=== PATIENT | male | born 1960 | race Caucasian/White ===

== ENCOUNTER 2018-05-16 19:02 | Emergency (ER) | payer OTHER ==
[2018-05-16] MEDS ORDERED: Pepcid 20 MG VIAL IV ONE ×2 (19:51→20:03)
[2018-05-16] MEDS ORDERED: solu-MEDROL 125 MG IV ONE (19:51)
[2018-05-16] MEDS ORDERED: BENADRYL 50 MG/ML IV ONE (19:51)
[2018-05-16] MEDS ORDERED: Sodium Chloride 0.9% 1000 ML 1,000 ML IV STA (19:51)
[2018-05-16] MEDS ORDERED: solu-MEDROL 125 MG ONE (20:03)
[2018-05-16] MEDS ORDERED: Sodium Chloride 0.9% 1000 ML 1,000 ML ONE (20:03)
[2018-05-16] MEDS ORDERED: BENADRYL 50 MG/ML ONE (20:03)
[2018-05-16 20:32] VITALS: BP 148/92; PULSE 60; O2SAT 96
--- NOTE | 2018-05-16 21:00 | ERPHSYRPT ---
- History of Present Illness Time Seen by Provider: 05/16/18 19:30 Source: patient Exam Limitations: clinical condition Patient Subjective Stated Complaint: pt arrives to ER with c/o rash pointing to bumps on right hip and leg started 1600 and is itching. started abx or wednesday for infection in mouth. 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 DENIES DIFFICULTY BREATHING OR SWALLOWING. Timing/Duration: yesterday Quality: itchy Severity: moderate Location: extremities, generalized Possible Causes: no cause identified Associated Symptoms: change in skin texture Allergies/Adverse Reactions: No Known Drug Allergies Allergy (Verified 05/16/18 19:22) Home Medications: Insulin Lispro [Humalog] 0 unit SQ .PRN 08/13/16 [History] Fenofibrate Nanocrystallized [Fenofibrate] 145 mg PO DAILY 01/26/17 [History] Gabapentin [Neurontin] 800 mg PO TID 01/26/17 [History] Losartan Potassium 50 mg [Cozaar 50 MG] 50 mg PO DAILY 01/26/17 [History] Simvastatin [Zocor] 20 mg PO HS 01/26/17 [History] Insulin Glargine,Hum.rec.anlog [Basaglar Kwikpen U-100] 70 units SQ 05/16/18 [ History] Hx Tetanus, Diphtheria Vaccination/Date Given: Yes Hx Influenza Vaccination/Date Given: Yes Hx Pneumococcal Vaccination/Date Given: No - Review of Systems Constitutional: No Fever, No Chills Eyes: No Symptoms Ears, Nose, & Throat: No Symptoms Respiratory: No Symptoms, No Cough, No Dyspnea Cardiac: No Symptoms, No Chest Pain, No Edema, No Syncope Abdominal/Gastrointestinal: No Abdominal Pain, No Nausea, No Vomiting, No Diarrhea Genitourinary Symptoms: No Dysuria Musculoskeletal: No Back Pain, No Neck Pain Skin: Pruritis, Skin Lesions, No Rash Neurological: No Dizziness, No Focal Weakness, No Sensory Changes Psychological: No Symptoms Endocrine: No Symptoms All Other Systems: Reviewed and Negative - Past Medical History Pertinent Past Medical History: Yes Endocrine Medical History: Diabetes Type II - Past Surgical History Past Surgical History: Yes - Social History Smoking Status: Current every day smoker Exposure to second hand smoke: No Drug Use: none Patient Lives Alone: No - Nursing Vital Signs Nursing Vital Signs: Initial Vital Signs Temperature 98.6 F 05/16/18 19:14 Pulse Rate 65 05/16/18 19:14 Respiratory Rate 18 05/16/18 19:14 Blood Pressure 188/88 05/16/18 19:14 O2 Sat by Pulse Oximetry 97 05/16/18 19:14 Pain Scale Pain Intensity 0 - Physical Exam General Appearance: no apparent distress, alert Ears, Nose, Throat Exam: normal ENT inspection, pharynx normal, moist mucous membranes Respiratory Exam: normal breath sounds, lungs clear, No respiratory distress Cardiovascular Exam: regular rate/rhythm, normal heart sounds Neurologic Exam: alert, oriented x 3, cooperative, normal mood/affect, sensation nml, No motor deficits Skin Exam: other (VESICULAR [employer]USTERS LESIONS) SpO2 Interpretation: normal SpO2: 96 Oxygen Delivery: Room Air Ordered Tests: Medication Summary Generic Name Dose Route Start Last Admin Trade Name Jaerth PRN Reason Stop Dose Admin Diphenhydramine HCl 50 mg 05/16/18 20:54 Benadryl 25 Mg Capsule PO 05/16/18 20:55 STAT ONE Sodium Chloride 1,000 mls @ 250 mls/hr 05/16/18 19:51 05/16/18 20:35 Sodium Chloride 0.9% 1000 Ml IV 05/16/18 23:50 250 mls/hr .Q4H STA Administration Discontinued Medications Generic Name Dose Route Start Last Admin Trade Name Jareth PRN Reason Stop Dose Admin Diphenhydramine HCl 50 mg 05/16/18 19:51 05/16/18 20:35 Benadryl 50 Mg/Ml IV 05/16/18 19:52 Not Given STAT ONE Diphenhydramine HCl Confirm 05/16/18 20:03 Benadryl 50 Mg/Ml Administered 05/16/18 20:04 Dose 50 mg .ROUTE .STK-MED ONE Famotidine 20 mg 05/16/18 19:51 05/16/18 20:35 Pepcid 20 Mg Vial IV 05/16/18 19:52 20 mg STAT ONE Administration Famotidine Confirm 05/16/18 20:03 Pepcid 20 Mg Vial Administered 05/16/18 20:04 Dose 20 mg IV .STK-MED ONE Sodium Chloride Confirm 05/16/18 20:03 Sodium Chloride 0.9% 1000 Ml Administered 05/16/18 20:04 Dose 1,000 mls @ ud .ROUTE .STK-MED ONE Methylprednisolone Sodium Succinate 125 mg 05/16/18 19:51 05/16/18 20:36 Solu-Medrol 125 Mg IV 05/16/18 19:52 125 mg STAT ONE Administration Methylprednisolone Sodium Succinate Confirm 05/16/18 20:03 Solu-Medrol 125 Mg Administered 05/16/18 20:04 Dose 125 mg .ROUTE .STK-MED ONE - Progress Progress: unchanged Progress Note: 05/16/18 20:57 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 PREDNISONE 20MG. 2 TABLETS DAILY FOR 5 DAYS. FOLLOWUP WITH YOUR PRIMARY CARE PROVIDER IN 5-7 DAYS. Prescriptions: Prednisone 20 mg [Deltasone 20 mg] 2 tab PO DAILY #10 tablet
[2018-05-16] MEDS: BENADRYL 25 MG CAPSULE PO ONE ×2 (21:04→21:13)
[2018-05-16] MEDS ORDERED: BENADRYL 25 MG CAPSULE ONE (21:12)
== END 2018-05-16 21:14 | disposition home or self-care (01) ==
LOC: ED 19:02
DX: L25.9 Unspecified contact dermatitis, unspecified cause (principal); E11.9 Type 2 diabetes mellitus without complications; Z72.0 Tobacco use; Z79.899 Other long term (current) drug therapy
CPT/HCPCS: 96360; 96374; 96375; 99284; J1200; J2930; A9270-GY

== ENCOUNTER 2018-06-21 02:22 | Emergency (ER) | payer OTHER ==
[2018-06-21] MEDS ORDERED: Sodium Chloride 0.9% 1000 ML 1,000 ML ONE (02:56)
[2018-06-21 03:30] VITALS: O2SAT 97
[2018-06-21] MEDS ORDERED: Zofran 4 MG/2 ML VIAL IV ONE (03:38)
[2018-06-21] MEDS ORDERED: Pepcid 20 MG VIAL IV ONE ×2 (03:38→03:43)
[2018-06-21] MEDS ORDERED: BENADRYL 50 MG/ML IV ONE (03:38)
[2018-06-21] MEDS ORDERED: Sodium Chloride 0.9% 1000 ML 1,000 ML IV STA (03:38)
--- NOTE | 2018-06-21 03:38 | ERPHSYRPT ---
- History of Present Illness Time Seen by Provider: 06/21/18 03:36 Source: patient, family Exam Limitations: no limitations Patient Subjective Stated Complaint: Pt states that he took his insulin at 2330 06/20/18 and at 0045 06/21/18 he developed itching of his head and neck. Developed red hives over ears, BUE, chest, and abdomen. Pt also c/o light headedness. Pt c/o nausea and vomiting. Cap refill time < 2 seconds. Peripheral pulses normal. Triage Nursing Assessment: Pt alert and oriented. Face pale in color. Red hives on bilat ears, BUE, abdomen, chest, and back. Pt c/o light headedness. Pt hypotensive. BG 417. Lung sounds clear bilat anterior/posterior throughout. Bowel sounds present x 4 quad. Pt has a hoarse voice quality but denies any SOB or swelling of mouth. Physician History: The patient is a 57-year-old male with his complaining that he started getting welts, red rash, and itching after taking a dose of insulin glargine. A few weeks ago he had a reaction to an unknown allergen that he suspected was the insulin glargine. He stopped taking it for a week. He tried it again and developed some itching. He had stopped taking this insulin once again for a week. He took it last night for the first time. He tried to take Benadryl after the rash and itching began but vomited immediately. He denies shortness of breath. He he is feeling better with regard to his skin itchiness currently. He says he feels a little lightheaded from time to time. He knows his blood glucose is high. He quit taking his medicines except for the insulin glargine. He has a past medical history of high cholesterol, hypertension, neuropathy, and diabetes. Timing/Duration: hour(s) (2), improved Quality: itchy Severity: moderate Location: torso, extremities Possible Causes: medications Associated Symptoms: hives, rash Allergies/Adverse Reactions: No Known Drug Allergies Allergy (Verified 05/16/18 19:22) Home Medications: Insulin Lispro [Humalog] 0 unit SQ .PRN 08/13/16 [History] Gabapentin [Neurontin] 800 mg PO TID 01/26/17 [History] Losartan Potassium 50 mg [Cozaar 50 MG] 50 mg PO DAILY 01/26/17 [History] Simvastatin [Zocor] 20 mg PO HS 01/26/17 [History] Insulin Glargine,Hum.rec.anlog [Basaglar Murtazaikpen U-100] 70 units SQ QHS [History] Hx Tetanus, Diphtheria Vaccination/Date Given: Yes Hx Influenza Vaccination/Date Given: No Hx Pneumococcal Vaccination/Date Given: No Immunizations Up to Date: Yes - Review of Systems Constitutional: No Fever, No Chills Eyes: No Symptoms Ears, Nose, & Throat: No Symptoms Respiratory: No Cough, No Dyspnea Cardiac: No Chest Pain, No Edema, No Syncope Abdominal/Gastrointestinal: No Abdominal Pain, No Nausea, No Vomiting, No Diarrhea Genitourinary Symptoms: No Dysuria Musculoskeletal: No Back Pain, No Neck Pain Skin: Rash Neurological: Dizziness Psychological: No Symptoms Endocrine: No Symptoms Hematologic/Lymphatic: No Symptoms Immunological/Allergic: No Symptoms All Other Systems: Reviewed and Negative - Past Medical History Pertinent Past Medical History: Yes Endocrine Medical History: Diabetes Type II - Past Surgical History Past Surgical History: Yes - Social History Smoking Status: Current every day smoker How long have you smoked: 44 years Exposure to second hand smoke: No Drug Use: none Patient Lives Alone: No - Nursing Vital Signs Nursing Vital Signs: Initial Vital Signs Temperature 98 F 06/21/18 02:22 Pulse Rate 79 06/21/18 02:22 Respiratory Rate 18 06/21/18 02:22 Blood Pressure 76/57 06/21/18 02:22 O2 Sat by Pulse Oximetry 96 06/21/18 02:22 Pain Scale Pain Intensity 0 - Physical Exam General Appearance: mild distress Eye Exam: PERRL/EOMI, eyes nml inspection Ears, Nose, Throat Exam: normal ENT inspection, pharynx normal, moist mucous membranes Neck Exam: normal inspection, non-tender, supple, full range of motion Respiratory Exam: normal breath sounds, lungs clear, No respiratory distress Cardiovascular Exam: regular rate/rhythm, normal heart sounds Gastrointestinal/Abdomen Exam: soft, mass, No tenderness Rectal Exam: not done Back Exam: normal inspection, normal range of motion, No CVA tenderness, No vertebral tenderness Extremity Exam: normal inspection, normal range of motion Neurologic Exam: alert, oriented x 3, cooperative, normal mood/affect, sensation nml, No motor deficits Skin Exam: rash (faint red rash over forearms and chest) SpO2 Interpretation: normal SpO2: 97 Oxygen Delivery: Room Air Ordered Tests: Active Orders 24 hr Category Date Time Status IV Insertion STAT Care 06/21/18 03:38 Active Pulse Oximetry (ED) STAT Care 06/21/18 03:38 Active BMP Stat Lab 06/21/18 03:30 Completed CBC W DIFF Stat Lab 06/21/18 03:30 Completed Medication Summary Generic Name Dose Route Start Last Admin Trade Name Freq PRN Reason Stop Dose Admin Sodium Chloride 1,000 mls @ 999 mls/hr 06/21/18 03:38 06/21/18 03:49 Sodium Chloride 0.9% 1000 Ml IV 06/21/18 04:38 999 mls/hr .Q1H1M STA Administration Discontinued Medications Generic Name Dose Route Start Last Admin Trade Name Freq PRN Reason Stop Dose Admin Diphenhydramine HCl 50 mg 06/21/18 03:38 06/21/18 03:48 Benadryl 50 Mg/Ml IV 06/21/18 03:39 50 mg STAT ONE Administration Diphenhydramine HCl Confirm 06/21/18 03:43 Benadryl 50 Mg/Ml Administered 06/21/18 03:44 Dose 50 mg .ROUTE .STK-MED ONE Famotidine 20 mg 06/21/18 03:38 06/21/18 03:48 Pepcid 20 Mg Vial IV 06/21/18 03:39 20 mg STAT ONE Administration Famotidine Confirm 06/21/18 03:43 Pepcid 20 Mg Vial Administered 06/21/18 03:44 Dose 20 mg IV .STK-MED ONE Sodium Chloride Confirm 06/21/18 02:56 Sodium Chloride 0.9% 1000 Ml Administered 06/21/18 02:57 Dose 1,000 mls @ ud .ROUTE .STK-MED ONE Ondansetron HCl 4 mg 06/21/18 03:38 06/21/18 03:49 Zofran 4 Mg/2 Ml Vial IV 06/21/18 03:39 4 mg STAT ONE Administration Ondansetron HCl Confirm 06/21/18 03:43 Zofran 4 Mg/2 Ml Vial Administered 06/21/18 03:44 Dose 4 mg .ROUTE .STK-MED ONE Lab/Rad Data: Laboratory Result Diagrams 06/21/18 03:30 06/21/18 03:30 Laboratory Results 06/21/18 06/21/18 Range/Units 03:30 03:30 WBC 11.5 H (4.0-10.5) K/mm3 RBC 4.58 (4.1-5.6) M/mm3 Hgb 14.7 (12.5-18.0) gm/dl Hct 41.8 L (42-50) % MCV 91.3 (78-100) fl MCH 32.1 H (26-32) pg MCHC 35.2 (32-36) g/dl RDW 12.4 (11.5-14.0) % Plt Count 283 (150-450) K/mm3 MPV 12.6 H (6-9.5) fl Gran % 63.7 (36.0-66.0) % Eos # (Auto) 0.24 (0-0.5) Absolute Lymphs (auto) 3.29 (1.0-4.6) Absolute Monos (auto) 0.63 (0.0-1.3) Lymphocytes % 28.6 (24.0-44.0) % Monocytes % 5.5 (0.0-12.0) % Eosinophils % 2.1 (0.00-5.0) % Basophils % 0.1 (0.0-0.4) % Absolute Granulocytes 7.33 H (1.4-6.9) Basophils # 0.01 (0-0.4) Sodium 137 (137-145) mmol/L Potassium 3.9 (3.5-5.1) mmol/L Chloride 101 (98-107) mmol/L Carbon Dioxide 25 (22-30) mmol/L Anion Gap 14.7 (5-15) MEQ/L BUN 20 (9-20) mg/dL Creatinine 0.86 (0.66-1.25) mg/dL Estimated GFR > 60.0 ML/MIN Glucose 407 H (74-106) mg/dL Calcium 9.4 (8.4-10.2) mg/dL - Progress Progress: improved Progress Note: 06/21/18 04:26 Accucheck is 419 after NS. Pt is feeling better and wants to go home. Counseled pt/family regarding: lab results, diagnosis, need for follow-up - Departure Time of Disposition: 04:29 Departure Disposition: Home Clinical Impression: Allergic reaction caused by a drug, Elevated random blood glucose level Condition: Stable Critical Care Time: No Referrals: CATALINA TALBERT [Primary Care Provider] - Additional Instructions: You had an allergic reaction likely to the insulin glargine. He also have an elevated blood glucose level. You were given famotidine 20 mg, Benadryl 50 mg, and fluids by IV in the ER. Please follow-up with your primary medical doctor this week.
[2018-06-21] MEDS ORDERED: BENADRYL 50 MG/ML ONE (03:43)
[2018-06-21] MEDS ORDERED: Zofran 4 MG/2 ML VIAL ONE (03:43)
[2018-06-21 03:58] LABS: ANION GAP 14.7 MEQ/L (5-15); BLOOD UREA NITROGEN 20 mg/dL (9-20); CHLORIDE 101 mmol/L (98-107); Calcium 9.4 mg/dL (8.4-10.2); Carbon Dioxide 25 mmol/L (22-30); Creatinine 1 0.86 mg/dL (0.66-1.25); Glucose 407 mg/dL (74-106); Potassium 3.9 mmol/L (3.5-5.1); SODIUM 137 mmol/L (137-145)
[2018-06-21 04:01] LABS: BASOPHIL % 0.1 % (0.0-0.4); Basophil (Absolute #) 0.01 (0-0.4); Eosinophil % 2.1 % (0.00-5.0); Eosinophil (Absolute #) 0.24 (0-0.5); Granulocyte Absolute (ANC) 7.33 (1.4-6.9); Granulocytes % 63.7 % (36.0-66.0); Hematocrit 41.8 % (42-50); Hemoglobin 14.7 gm/dl (12.5-18.0); Lymphocyte (Absolute #) 3.29 (1.0-4.6); Lymphocytes % 28.6 % (24.0-44.0); Mean Cell Volume 91.3 fl (78-100); Mean Corpuscular Hemoglobin 32.1 pg (26-32); Mean Corpuscular Hgb Concent. 35.2 g/dl (32-36); Mean Platelet Volume 12.6 fl (6-9.5); Monocyte (Absolute #) 0.63 (0.0-1.3); Monocytes % 5.5 % (0.0-12.0); Platelet Count 283 K/mm3 (150-450); Red Blood Count 4.58 M/mm3 (4.1-5.6); Red Cell Distribution Width 12.4 % (11.5-14.0); White Blood Count 11.5 K/mm3 (4.0-10.5)
[2018-06-21 04:25] VITALS: BP 126/73; PULSE 64
== END 2018-06-21 04:42 | disposition home or self-care (01) ==
LOC: ED 02:22
DX: L27.0 Generalized skin eruption due to drugs and medicaments taken internally (principal); L29.9 Pruritus, unspecified; T50.905A Adverse effect of unspecified drugs, medicaments and biological substances, initial encounter; Z79.899 Other long term (current) drug therapy
CPT/HCPCS: 36415; 80048; 82962; 85025; 96360; 96374; 96375; 99284; J1200; J2405

== ENCOUNTER 2019-05-31 17:52 | Emergency (ER) | payer OTHER ==
--- NOTE | 2019-05-31 18:46 | ERPHSYRPT ---
- History of Present Illness Time Seen by Provider: 05/31/19 18:30 Source: patient Exam Limitations: no limitations Patient Subjective Stated Complaint: PT states "I had a stent put in my left leg a month ago by Dr. Berg. Ever since, the swelling has not gone down. Now I have these bumps on my leg and my legs are still swollen." Triage Nursing Assessment: Pt presented alert and oriented X 3, ski pwd Pt ambulates with an upright steady gait, able to speak in clear full sentences pt in no apparent respiratory distress. PT legs pitting edema bilat. Physician History: tthe patient had a stent placed in the left upper leg by Dr. Berg in [place], [place] one month ago. Patient comes in with bilateral lower extremity swelling for the past one month after the procedure and worsening swelling over the past one week. Patient has been able to ambulate without any difficulties and denies any pain to the areas. His greatest concern is for scattered erythematous patches on his lower extremities below the knee and one large patch on the medial aspect of his left ankle that are nonpainful nonpruritic. Method of Injury: other (no injury) Occurred: other (one month ago, worse over the past one week) Quality: constant Severity of Pain-Max: none Severity of Pain-Current: none Lower Extremities Pain: hip: bilateral, foot: bilateral, ankle: bilateral Modifying Factors: Improves With: nothing Associated Symptoms: No unable to bear weight, No dizzy, No fainted, No seizure , No snapping sensation, No popping sensation Allergies/Adverse Reactions: No Known Drug Allergies Allergy (Verified 05/16/18 19:22) Home Medications: Gabapentin [Neurontin] 800 mg PO TID 01/26/17 [History] Losartan Potassium 50 mg [Cozaar 50 MG] 100 mg PO DAILY 01/26/17 [History] Simvastatin [Zocor] 40 mg PO DAILY 01/26/17 [History] Aspirin [Aspirin EC] 81 mg PO DAILY 05/31/19 [History] Clopidogrel Bisulfate [Clopidogrel] 75 mg PO DAILY 05/31/19 [History] Ezetimibe 10 mg [Zetia 10 MG] 10 mg PO DAILY 05/31/19 [History] Fenofibrate Nanocrystallized [Fenofibrate] 145 mg PO DAILY 05/31/19 [History] Furosemide 20 mg [Lasix 20 mg] 20 mg PO DAILY 05/31/19 [History] Insulin Lispro [Admelog] 100 unit SQ DAILY 05/31/19 [History] Metoprolol Succinate [Toprol Xl] 50 mg PO DAILY 05/31/19 [History] Omeprazole 20 mg PO DAILY 05/31/19 [History] Hx Tetanus, Diphtheria Vaccination/Date Given: No Hx Influenza Vaccination/Date Given: No Hx Pneumococcal Vaccination/Date Given: No Immunizations Up to Date: Yes - Review of Systems Constitutional: No Fever, No Chills Eyes: No Symptoms Ears, Nose, & Throat: No Symptoms, No Nose Congestion, No Mouth Swelling, No Throat Swelling, No Painful Swallowing Respiratory: No Cough, No Dyspnea, No Dyspnea on Exertion (CRUZ), No Stridor, No Wheezing Cardiac: No Chest Pain, No Edema, No Syncope Abdominal/Gastrointestinal: No Abdominal Pain, No Nausea, No Vomiting, No Diarrhea Genitourinary Symptoms: No Dysuria, No Hematuria, No Urinary Retention Musculoskeletal: No Back Pain, No Neck Pain, No Injury, No Joint Swelling, No Myalgias Skin: No Rash Neurological: No Dizziness, No Focal Weakness, No Parasthesia, No Sensory Changes, No Tremors Psychological: No Symptoms Endocrine: No Symptoms, No Excessive Sweating Hematologic/Lymphatic: No Easy Bleeding, No Easy Bruising All Other Systems: Reviewed and Negative - Past Medical History Pertinent Past Medical History: Yes Neurological History: Peripheral Neuropathy ENT History: No Pertinent History Cardiac History: High Cholesterol, Hypertension Respiratory History: No Pertinent History Endocrine Medical History: Diabetes Type II Musculoskeletal History: No Pertinent History GI Medical History: GERD History: No Pertinent History Psycho-Social History: No Pertinent History Male Reproductive Disorders: No Pertinent History - Past Surgical History Past Surgical History: Yes Neuro Surgical History: No Pertinent History Cardiac: No Pertinent History Respiratory: No Pertinent History Gastrointestinal: No Pertinent History Genitourinary: No Pertinent History Musculoskeletal: No Pertinent History Male Surgical History: No Pertinent History Other Surgical History: stent in left leg - Social History Smoking Status: Current every day smoker How long have you smoked: years Exposure to second hand smoke: Yes Drug Use: none Patient Lives Alone: No - Nursing Vital Signs Nursing Vital Signs: Initial Vital Signs Temperature 98.6 F 05/31/19 18:17 Pulse Rate 67 05/31/19 18:17 Respiratory Rate 18 05/31/19 18:17 Blood Pressure 179/80 05/31/19 18:17 O2 Sat by Pulse Oximetry 96 05/31/19 18:17 Pain Scale Pain Intensity 0 - Physical Exam General Appearance: no apparent distress, alert Eyes, Ears, Nose, Throat Exam: moist mucous membranes Neck Exam: normal inspection, non-tender, supple, No lymphadenopathy (R) Cardiovascular/Respiratory Exam: chest non-tender, normal breath sounds, regular rate/rhythm, no respiratory distress Gastrointestinal/Abdominal Exam: non-tender, soft, No no organomegaly, No guarding, No tenderness Back Exam: normal inspection, No CVA tenderness, No vertebral tenderness Hips Exam: bilateral: non-tender, normal inspection, normal range of motion Legs Exam: bilateral leg: non-tender, normal inspection, normal range of motion , no evidence of injury Knees Exam: bilateral knee: non-tender, normal inspection, normal range of motion, no evidence of injury Ankle Exam: bilateral ankle: non-tender, normal range of motion, no evidence of injury, swelling Foot Exam: bilateral foot: non-tender, normal range of motion DTR - Lower Extremities Exam: ankle (R): 2+, ankle (L): 2+ Neuro/Tendon Exam: normal sensation, normal motor functions Mental Status Exam: alert, oriented x 3, cooperative Skin Exam: normal color, warm, dry, rash, other (erythematous patches scattered on the bilateral lower extremities, largest of concern is a confluent circular erythematous patch on the left medial anle), No cyanosis, No decubitus, No ecchymosis, No jaundice, No laceration SpO2 Interpretation: normal SpO2: 96 O2 Delivery: Room Air - Course Nursing assessment & vital signs reviewed: Yes EKG Interpreted by Me: RATE (62), Left Avalon Deviation, NORMAL INTERVALS, NORMAL QRS, NORMAL ST-T, Other (no change from 08/13/2016) - Radiology Exams Chest X-ray Interpretation: Interpreted by me, Reviewed by me, No Pneumonia, No Pneumothorax, Nml Mediastinum, Other (Cardiomegaly) Ordered Tests: Active Orders 24 hr Category Date Time Status Plug Shaper Hand STAT Care 05/31/19 18:43 Active EKG-ER Only STAT Care 05/31/19 18:44 Active CHEST 1 VIEW (PORTABLE) Stat Exams 05/31/19 18:42 Taken CBC W DIFF Stat Lab 05/31/19 19:10 Completed CK-Creatinine Phosphokinase Stat Lab 05/31/19 19:10 Completed CMP Stat Lab 05/31/19 19:10 Completed Lactic Acid Stat Lab 05/31/19 19:19 Completed MAGNESIUM Stat Lab 05/31/19 19:10 Completed NT PRO BNP Stat Lab 05/31/19 19:10 Completed PROTIME WITH INR Stat Lab 05/31/19 19:10 Completed PTT Stat Lab 05/31/19 19:10 Completed TSH, 3RD Generation Stat Lab 05/31/19 19:10 Completed Urinalysis with Microscopy Stat Lab 05/31/19 20:00 Completed Lab/Rad Data: Laboratory Result Diagrams 05/31/19 19:10 05/31/19 19:10 Laboratory Results 05/31/19 05/31/19 05/31/19 Range/Units 20:00 19:19 19:10 WBC (4.0-10.5) K/mm3 RBC (4.1-5.6) M/mm3 Hgb (12.5-18.0) gm/dl Hct (42-50) % MCV (78-100) fl MCH (26-32) pg MCHC (32-36) g/dl RDW (11.5-14.0) % Plt Count (150-450) K/mm3 MPV (6-9.5) fl Gran % (36.0-66.0) % Eos # (Auto) (0-0.5) Absolute Lymphs (auto) (1.0-4.6) Absolute Monos (auto) (0.0-1.3) Lymphocytes % (24.0-44.0) % Monocytes % (0.0-12.0) % Eosinophils % (0.00-5.0) % Basophils % (0.0-0.4) % Absolute Granulocytes (1.4-6.9) Basophils # (0-0.4) PT (8.83-12.87) SECONDS INR (0.8-3.0) APTT (24.1-36.1) SECONDS Sodium (137-145) mmol/L Potassium (3.5-5.1) mmol/L Chloride (98-107) mmol/L Carbon Dioxide (22-30) mmol/L Anion Gap (5-15) MEQ/L BUN (9-20) mg/dL Creatinine (0.66-1.25) mg/dL Estimated GFR ML/MIN Glucose (74-106) mg/dL Lactic Acid 1.2 (0.4-2.0) Calcium (8.4-10.2) mg/dL Magnesium (1.6-2.3) mg/dL Total Bilirubin (0.2-1.3) mg/dL AST (17-59) U/L ALT (0-50) U/L Alkaline Phosphatase (38-126) U/L Creatine Kinase 83 (55-170) U/L NT-Pro-B Natriuret Pep (0-900) pg/mL Serum Total Protein (6.3-8.2) g/dL Albumin (3.5-5.0) g/dL TSH 3rd Generation 0.586 (0.47-4.68) mIU/L Urine Color YELLOW (YELLOW) Urine Appearance CLEAR (CLEAR) Urine pH 6.0 (5-6) Ur Specific [place] 1.013 (1.005-1.025) Urine Protein 100 (Negative) Urine Ketones NEGATIVE (NEGATIVE) Urine Blood NEGATIVE (0-5) Vincenzo/ul Urine Nitrite NEGATIVE (NEGATIVE) Urine Bilirubin NEGATIVE (NEGATIVE) Urine Urobilinogen NEGATIVE (0-1) mg/dL Ur Leukocyte Esterase NEGATIVE (NEGATIVE) Urine WBC (Auto) NONE (0-5) /HPF Urine RBC (Auto) 0-2 (0-2) /HPF U Epithel Cells (Auto) NONE (FEW) /HPF Urine Bacteria (Auto) NONE (NEGATIVE) /HPF Other Casts (Auto) 2-5 (NEGATIVE) /LPF Urine Mucus (Auto) SLIGHT (NEGATIVE) /HPF Urine Glucose 50 (NEGATIVE) mg/dL 05/31/19 05/31/19 05/31/19 Range/Units 19:10 19:10 19:10 WBC 6.9 (4.0-10.5) K/mm3 RBC 3.58 L (4.1-5.6) M/mm3 Hgb 11.1 L (12.5-18.0) gm/dl Hct 34.2 L (42-50) % MCV 95.5 (78-100) fl MCH 31.0 (26-32) pg MCHC 32.5 (32-36) g/dl RDW 13.6 (11.5-14.0) % Plt Count 236 (150-450) K/mm3 MPV 11.1 H (6-9.5) fl Gran % 54.0 (36.0-66.0) % Eos # (Auto) 0.28 (0-0.5) Absolute Lymphs (auto) 2.18 (1.0-4.6) Absolute Monos (auto) 0.66 (0.0-1.3) Lymphocytes % 31.7 (24.0-44.0) % Monocytes % 9.6 (0.0-12.0) % Eosinophils % 4.1 (0.00-5.0) % Basophils % 0.6 (0.0-0.4) % Absolute Granulocytes 3.71 (1.4-6.9) Basophils # 0.04 (0-0.4) PT 10.1 (8.83-12.87) SECONDS INR 0.90 (0.8-3.0) APTT 32.6 (24.1-36.1) SECONDS Sodium 144 (137-145) mmol/L Potassium 4.0 (3.5-5.1) mmol/L Chloride 111 H (98-107) mmol/L Carbon Dioxide 28 (22-30) mmol/L Anion Gap 9.1 (5-15) MEQ/L BUN 22 H (9-20) mg/dL Creatinine 1.39 H (0.66-1.25) mg/dL Estimated GFR 56.2 ML/MIN Glucose 186 H (74-106) mg/dL Lactic Acid (0.4-2.0) Calcium 9.0 (8.4-10.2) mg/dL Magnesium 2.0 (1.6-2.3) mg/dL Total Bilirubin 0.30 (0.2-1.3) mg/dL AST 22 (17-59) U/L ALT 16 (0-50) U/L Alkaline Phosphatase 72 (38-126) U/L Creatine Kinase (55-170) U/L NT-Pro-B Natriuret Pep 810 (0-900) pg/mL Serum Total Protein 6.5 (6.3-8.2) g/dL Albumin 3.6 (3.5-5.0) g/dL TSH 3rd Generation (0.47-4.68) mIU/L Urine Color (YELLOW) Urine Appearance (CLEAR) Urine pH (5-6) Ur Specific [place] (1.005-1.025) Urine Protein (Negative) Urine Ketones (NEGATIVE) Urine Blood (0-5) Vincenzo/ul Urine Nitrite (NEGATIVE) Urine Bilirubin (NEGATIVE) Urine Urobilinogen (0-1) mg/dL Ur Leukocyte Esterase (NEGATIVE) Urine WBC (Auto) (0-5) /HPF Urine RBC (Auto) (0-2) /HPF U Epithel Cells (Auto) (FEW) /HPF Urine Bacteria (Auto) (NEGATIVE) /HPF Other Casts (Auto) (NEGATIVE) /LPF Urine Mucus (Auto) (NEGATIVE) /HPF Urine Glucose (NEGATIVE) mg/dL - Progress Progress: unchanged, re-examined Progress Note: 05/31/19 22:[address] Xiao, physician covering for the patient's provider, the patient's presentation and lab results. Dr. Xiao felt the patient is not a candidate for inpatient admission at this time due to the renal insufficiency, but did recommend cutting the Lasix down from 20 mg once daily to 10 mg once daily and to follow up in the office on 06/01/2019. patient had no signs of any arterial insufficiency on his examination, no signs for concern of allergic to any DVTs senses no change in large are a circumference on one side versus the other, and no sensation of cold, pallor, or cyanosis of the lower extremities bilaterally on reevaluation. Discussed with : Gosia Will see patient in: office Counseled pt/family regarding: lab results, diagnosis, need for follow-up, rad results - Departure Departure Disposition: Home Clinical Impression: Stasis dermatitis of both legs, Bilateral lower extremity edema, Acute renal insufficiency Hypertension Qualifiers: Hypertension type: essential hypertension Qualified Code(s): I10 - Essential ( primary) hypertension Condition: Good Critical Care Time: No Referrals: CATALINA TALBERT [Primary Care Provider] - 06/01/19 Instructions: Dependent Edema (DC), Peripheral Edema -- Bilateral, Skin Rash ( DC), High Blood Pressure (DC) Additional Instructions: decrease your Lasix from 20 mg once daily to 10 mg once daily, or half the dose. return immediately back to the emergency department if any discoloration , sensation of cold, increased swelling of a lower extremity versus the other, increased pain, or any other concerning signs or symptoms for immediate reevaluation in the emergency department. Prescriptions: Lukasz.stocking,Thigh,Reg,Med [Futuro Anti-Embolism] 1 each MC DAILY #2 each
[2019-05-31 19:13] LABS: BASOPHIL % 0.6 % (0.0-0.4); Basophil (Absolute #) 0.04 (0-0.4); Eosinophil % 4.1 % (0.00-5.0); Eosinophil (Absolute #) 0.28 (0-0.5); Granulocyte Absolute (ANC) 3.71 (1.4-6.9); Hematocrit 34.2 % (42-50); Hemoglobin 11.1 gm/dl (12.5-18.0); Lymphocyte (Absolute #) 2.18 (1.0-4.6); Lymphocytes % 31.7 % (24.0-44.0); Mean Cell Volume 95.5 fl (78-100); Mean Corpuscular Hgb Concent. 32.5 g/dl (32-36); Mean Platelet Volume 11.1 fl (6-9.5); Monocyte (Absolute #) 0.66 (0.0-1.3); Monocytes % 9.6 % (0.0-12.0); Platelet Count 236 K/mm3 (150-450); Red Blood Count 3.58 M/mm3 (4.1-5.6); Red Cell Distribution Width 13.6 % (11.5-14.0); White Blood Count 6.9 K/mm3 (4.0-10.5)
[2019-05-31 19:19] LABS: INR 0.9 (0.8-3.0); PROTIME 10.1 SECONDS (8.83-12.87)
[2019-05-31 19:22] LABS: PTT 32.6 SECONDS (24.1-36.1)
[2019-05-31 19:33] LABS: ALBUMIN 3.6 g/dL (3.5-5.0); ANION GAP 9.1 MEQ/L (5-15); BILIRUBIN,TOTAL 0.3 mg/dL (0.2-1.3); Creatinine 1 1.39 mg/dL (0.66-1.25); Total Protein 6.5 g/dL (6.3-8.2)
[2019-05-31 20:05] LABS: TSH, 3RD Generation 0.586 mIU/L (0.47-4.68)
[2019-05-31 20:20] LABS: Appearance CLEAR (CLEAR); Bilirubin NEGATIVE (NEGATIVE); Blood NEGATIVE Ery/ul (0-5); Glucose 50 mg/dL (NEGATIVE); Ketones NEGATIVE (NEGATIVE); Leukocyte Esterase NEGATIVE (NEGATIVE); Mucus SLIGHT /HPF (NEGATIVE); Nitrite NEGATIVE (NEGATIVE); Protein,Urine Dip 100 (Negative); RBC 0-2 /HPF (0-2); Specific Gravity 1.013 (1.005-1.025); Urobilinogen NEGATIVE mg/dL (0-1)
[2019-05-31 23:18] VITALS: BP 170/74; PULSE 62; O2SAT 98
--- NOTE | 2019-06-01 08:53 | XRAY ---
Indication: Bilateral lower extremity edema. Comparison: August 13, 2016. Portable apical lordotic chest less inflated and remains clear again with incidental scattered calcified granulomas. Heart is borderline enlarged. Bony thorax intact again with mild degenerative changes. Impression: Nonacute underinflated chest with chronic features.
== END 2019-05-31 22:21 | disposition home or self-care (01) ==
LOC: ED 17:52
DX: I87.2 Venous insufficiency (chronic) (peripheral) (principal); R60.0 Localized edema; N28.9 Disorder of kidney and ureter, unspecified; I10 Essential (primary) hypertension
CPT/HCPCS: 36000; 36415; 71045; 80053; 81001; 82550; 83605; 83735; 83880; 84443; 85025; 85610; 85730; 93005; 93041; 99284

== ENCOUNTER 2020-04-06 09:59 | Emergency (ER) | payer OTHER ==
[2020-04-06 10:09] VITALS: BP 116/85; PULSE 81; O2SAT 100
--- NOTE | 2020-04-06 10:13 | ERPHSYRPT ---
- History of Present Illness Time Seen by Provider: 04/06/20 10:12 Source: patient Exam Limitations: no limitations Patient Subjective Stated Complaint: Pt has had swelling in the right lateral side of face by his ear for the past 3 days and is causing pain to the ear and his jaw Triage Nursing Assessment: Pt brought his self to the ER, vitals wnl, rates pain in face as 8/10, unable to see any swelling in the back of mouth, pulses normal, afebrile, doesn't appear to be in any distress Physician History: 59 years old presented in the ER with chief complaint of right parotid area swelling which started 4 days ago after dime size and gradually increasing in size to currently about walnut size associated with moderate to severe pain right face, earache and mild headache. Denies any fever or chills associated with it. Pain is aggravated with movements of jaw, palpation. Denies any change in taste, dryness of mouth. Denies any testicular swelling. No sick contact. Timing/Duration: day(s) (4), gradual onset, worse Quality: painful Severity: moderate Location: face Possible Causes: no cause identified Associated Symptoms: denies symptoms Allergies/Adverse Reactions: insulin glargine [From Basaglar KwikPen U-100 Insulin] Allergy (Verified 04/06/20 10:10) Home Medications: Gabapentin [Neurontin] 800 mg PO TID 01/26/17 [History] Losartan Potassium 50 mg [Cozaar 50 MG] 100 mg PO DAILY 01/26/17 [History] Simvastatin [Zocor] 100 mg PO DAILY 01/26/17 [History] Aspirin [Aspirin EC] 81 mg PO DAILY 05/31/19 [History] Clopidogrel Bisulfate [Clopidogrel] 75 mg PO DAILY 05/31/19 [History] Ezetimibe 10 mg [Zetia 10 MG] 10 mg PO DAILY 05/31/19 [History] Furosemide 20 mg [Lasix 20 mg] 20 mg PO DAILY 05/31/19 [History] Insulin Lispro [Admelog] 100 unit SQ DAILY 05/31/19 [History] Metoprolol Succinate [Toprol Xl] 50 mg PO DAILY 05/31/19 [History] Omeprazole 20 mg PO DAILY 05/31/19 [History] Empagliflozin [Jardiance] 25 mg PO DAILY 04/06/20 [History] Sitagliptin Phosphate [Januvia] 100 mg PO DAILY 04/06/20 [History] Hx Tetanus, Diphtheria Vaccination/Date Given: No Hx Influenza Vaccination/Date Given: No Hx Pneumococcal Vaccination/Date Given: No Travel Risk - International Travel Have you traveled outside of the country in past 3 weeks: No - Coronavirus Screening Are you exhibiting any of the following symptoms?: No Close contact with a COVID-19 positive Pt in past 14-21 Days: No - Review of Systems Constitutional: No Symptoms Eyes: No Symptoms Ears, Nose, & Throat: Ear Pain, Painful Swallowing Respiratory: No Symptoms Cardiac: No Symptoms Abdominal/Gastrointestinal: No Symptoms Genitourinary Symptoms: No Symptoms Musculoskeletal: No Symptoms Skin: No Symptoms Neurological: No Symptoms Psychological: No Symptoms Endocrine: No Symptoms Hematologic/Lymphatic: No Symptoms - Past Medical History Pertinent Past Medical History: Yes Neurological History: Peripheral Neuropathy ENT History: No Pertinent History Cardiac History: High Cholesterol, Hypertension Respiratory History: No Pertinent History Endocrine Medical History: Diabetes Type II Musculoskeletal History: No Pertinent History GI Medical History: GERD History: No Pertinent History Psycho-Social History: No Pertinent History Male Reproductive Disorders: No Pertinent History - Past Surgical History Past Surgical History: Yes Neuro Surgical History: No Pertinent History Cardiac: No Pertinent History Respiratory: No Pertinent History Gastrointestinal: No Pertinent History Genitourinary: No Pertinent History Musculoskeletal: No Pertinent History Male Surgical History: No Pertinent History Other Surgical History: stent in left leg - Social History Smoking Status: Current every day smoker How long have you smoked: years Exposure to second hand smoke: Yes Drug Use: none Patient Lives Alone: Yes - Nursing Vital Signs Nursing Vital Signs: Initial Vital Signs Temperature 97.7 F 04/06/20 10:02 Pulse Rate 81 04/06/20 10:02 Blood Pressure 116/85 04/06/20 10:02 O2 Sat by Pulse Oximetry 100 04/06/20 10:02 Pain Scale Pain Intensity 8 - Physical Exam General Appearance: no apparent distress Eye Exam: PERRL/EOMI, eyes nml inspection Ears, Nose, Throat Exam: TMs normal, pharynx normal, moist mucous membranes, other (3 x 5 cm oval-shaped swelling in front of right ear. Firm consistency. Tender to touch. No increased temperature or redness.) Neck Exam: normal inspection Respiratory Exam: normal breath sounds, lungs clear Cardiovascular Exam: regular rate/rhythm, normal heart sounds Gastrointestinal/Abdomen Exam: soft, No tenderness Extremity Exam: normal inspection Neurologic Exam: alert, oriented x 3, cooperative, windlasser II-XII nml as tested, normal mood/affect Skin Exam: normal color SpO2 Interpretation: normal SpO2: 100 O2 Delivery: Room Air - Course Nursing assessment & vital signs reviewed: Yes - Progress Progress: unchanged, pain not gone completely Progress Note: 04/06/20 10:35 I believe patient is developing parotitis. I have offered him blood work and CT imaging but patient does not want to have it done today and wants to try symptomatic treatment. Although patient does not have fever or chills but he is diabetic, I would start him on Augmentin as well. This seems more of a viral etiology but have recommended outpatient follow-up with ENT for further evaluation to rule out other causes like malignancy/abscess etc. Patient is advised to return ER if increasing pain swelling or develop fever chills. Counseled pt/family regarding: diagnosis, need for follow-up - Departure Departure Disposition: Home Clinical Impression: Acute parotitis Condition: Stable Critical Care Time: No Referrals: CATALINA TALBERT [Primary Care Provider] - (2 Days for reevaluation) LV FOREMAN MD [CONSULTING PHYSICIAN] - (2 days for reevaluation) Instructions: Parotitis Additional Instructions: Take pain medications as needed. Follow-up with primary care and ENT for reevaluation. Return to ER for worsening pain, altered taste, dryness of mouth or if develop fever or chills. Prescriptions: Hydrocodone/APAP 5-325 Tab^^^ [[place] 5-325 Tablet^^^] 1 tab PO Q6HPRN PRN #10 tablet MDD 6 PRN Reason: Pain Amox Tr/Potass Clav. 875 mg [Augmentin 875-125 Tablet] 875 mg PO BID #20 tablet
[2020-04-06] MEDS ORDERED: PERCOCET TABLET 5/325MG PO ONE (10:35)
[2020-04-06] MEDS ORDERED: PERCOCET TABLET 5/325MG ONE (10:38)
== END 2020-04-06 10:48 | disposition home or self-care (01) ==
LOC: ED 09:59
DX: K11.20 Sialoadenitis, unspecified (principal)
CPT/HCPCS: 99283; A9270-GY

== ENCOUNTER 2020-11-17 17:49 | Emergency (ER) | payer OTHER ==
[2020-11-17] MEDS ORDERED: MORPHINE SULFATE 4 MG INJ IV ONE (18:11)
[2020-11-17] MEDS ORDERED: Zofran 4 MG/2 ML VIAL IV ONE (18:11)
[2020-11-17] MEDS ORDERED: MORPHINE SULFATE 4 MG INJ ONE (18:15)
[2020-11-17] MEDS ORDERED: Zofran 4 MG/2 ML VIAL ONE (18:15)
--- NOTE | 2020-11-17 18:34 | ERPHSYRPT ---
- History of Present Illness Source: patient Exam Limitations: no limitations Patient Subjective Stated Complaint: pt here for swelling to both lower legs for 5 days now, with breakdown of skin,no drainage Triage Nursing Assessment: pt alert, walked in, resp easy .skin w/w/d, has swelling to lower legs with breakdown of skin, Timing/Duration: day(s) (5), gradual onset, worse Severity: moderate Modifying Factors: Improves With: immobilization. Worsens With: movement Associated Symptoms: rash, No chills, No fever Hx Tetanus, Diphtheria Vaccination/Date Given: No Hx Influenza Vaccination/Date Given: No Hx Pneumococcal Vaccination/Date Given: No <VALENTINA WASHBURN - Last Filed: 11/17/20 18:53> <RUPESH GIBSON - Last Filed: 11/17/20 19:41> - History of Present Illness Time Seen by Provider: 11/17/20 17:51 Physician History: 60 years old male with a history of diabetes mellitus, peripheral neuropathy, peripheral vascular disease with stenting left lower extremity, tobacco abuse presented in the ER with bilateral lower extremity swelling and pain for the last 5 days. Patient reports he has usually left leg always swollen than the right one but for the last 5 days both legs are increasing in swelling and redness and since yesterday is having some skin breaks/abrasions although patient denies scratching or picking. Denies any fever or chills. Pain is moderate intensity sharp nature, aggravated with palpation and walking and partial relief with resting. Patient also noted some tightness in both eyes. Denies any chest pain palpitations or shortness of breath but reports having some wheezing with lying down for the last couple of days. He has been taking Lasix but the swelling does not seem to be improving. (VALENTINA WASHBURN) Allergies/Adverse Reactions: insulin glargine [From Basaglar KwikPen U-100 Insulin] Allergy (Verified 11/17/20 18:00) Home Medications: Gabapentin [Neurontin] 800 mg PO TID 01/26/17 [History] Losartan Potassium 50 mg [Cozaar 50 MG] 100 mg PO DAILY 01/26/17 [History] Simvastatin [Zocor] 100 mg PO DAILY 01/26/17 [History] Aspirin [Aspirin EC] 81 mg PO DAILY 05/31/19 [History] Clopidogrel Bisulfate [Clopidogrel] 75 mg PO DAILY 05/31/19 [History] Ezetimibe 10 mg [Zetia 10 MG] 10 mg PO DAILY 05/31/19 [History] Furosemide 20 mg [Lasix 20 mg] 20 mg PO DAILY 05/31/19 [History] Insulin Lispro [Admelog] 100 unit SQ DAILY 05/31/19 [History] Metoprolol Succinate [Toprol Xl] 50 mg PO DAILY 05/31/19 [History] Omeprazole 20 mg PO DAILY 05/31/19 [History] Empagliflozin [Jardiance] 25 mg PO DAILY 04/06/20 [History] Travel Risk - International Travel Have you traveled outside of the country in past 3 weeks: No - Coronavirus Screening Are you exhibiting any of the following symptoms?: No Close contact with a COVID-19 positive Pt in past 14-21 Days: No <VALENTINA WASHBURN - Last Filed: 11/17/20 18:53> - Review of Systems Constitutional: No Symptoms Eyes: No Symptoms Ears, Nose, & Throat: No Symptoms Respiratory: Wheezing Cardiac: No Symptoms Abdominal/Gastrointestinal: No Symptoms Genitourinary Symptoms: No Symptoms Musculoskeletal: No Injury Skin: Cellulitis, Induration, Rash, Skin Lesions Neurological: Parasthesia Psychological: No Symptoms Endocrine: No Symptoms Immunological/Allergic: No Symptoms <VALENTINA WASHBURN - Last Filed: 11/17/20 18:53> - Past Medical History Pertinent Past Medical History: Yes Neurological History: Peripheral Neuropathy ENT History: No Pertinent History Cardiac History: High Cholesterol, Hypertension Respiratory History: No Pertinent History Endocrine Medical History: Diabetes Type II Musculoskeletal History: No Pertinent History GI Medical History: GERD History: No Pertinent History Psycho-Social History: No Pertinent History Male Reproductive Disorders: No Pertinent History - Past Surgical History Past Surgical History: Yes Neuro Surgical History: No Pertinent History Cardiac: No Pertinent History Respiratory: No Pertinent History Gastrointestinal: No Pertinent History Genitourinary: No Pertinent History Musculoskeletal: No Pertinent History Male Surgical History: No Pertinent History Other Surgical History: stent in left leg - Social History Smoking Status: Current every day smoker How long have you smoked: years Exposure to second hand smoke: Yes Drug Use: none Patient Lives Alone: Yes <VALENTINA WASHBURN - Last Filed: 11/17/20 18:53> - Physical Exam General Appearance: no apparent distress Eye Exam: PERRL/EOMI, eyes nml inspection Ears, Nose, Throat Exam: normal ENT inspection, pharynx normal Neck Exam: normal inspection, supple, full range of motion Respiratory Exam: normal breath sounds, lungs clear Cardiovascular Exam: regular rate/rhythm, normal heart sounds Gastrointestinal/Abdomen Exam: soft, normal bowel sounds, No tenderness Back Exam: normal inspection, normal range of motion Extremity Exam: sara's sign, inflammation, pedal edema, swelling, tenderness, other (Bilateral lower extremity diffuse swelling from knees down with superficial skin breaks. Warm and mildly tender to touch.) Neurologic Exam: alert, oriented x 3, cooperative, milk vendor II-XII nml as tested Skin Exam: normal color SpO2 Interpretation: normal SpO2: 97 O2 Delivery: Room Air <VALENTINA WASHBURN - Last Filed: 11/17/20 18:53> - Nursing Vital Signs Nursing Vital Signs: Initial Vital Signs Temperature 97.9 F 11/17/20 17:54 Pulse Rate 70 11/17/20 17:54 Respiratory Rate 18 11/17/20 17:54 Blood Pressure 167/64 11/17/20 17:54 O2 Sat by Pulse Oximetry 97 11/17/20 17:54 Pain Scale Pain Intensity 2 - Course Nursing assessment & vital signs reviewed: Yes - Radiology Ultrasound Exam Venous Lower Extremity Ultrasound: Other (US tech stating no evidence of DVT. Awaiting formal radiology review that will take place tomorrow morning per hospital and department policy.) <RUPESH GIBSON - Last Filed: 11/17/20 19:41> Ordered Tests: Active Orders 24 hr Category Date Time Status IV Insertion STAT Care 11/17/20 18:10 Active CHEST 1 VIEW (PORTABLE) Stat Exams 11/17/20 18:10 Ordered ULTRASOUND BILATERAL LOWER EXTREMITY [VENOUS BILATERAL Exams 11/17/20 19:29 T aken EXTREMITY] [US] Stat BLOOD CULTURE Stat Lab 11/17/20 18:20 Received CBC W DIFF Stat Lab 11/17/20 18:39 Completed CMP Stat Lab 11/17/20 18:39 Completed Lactic Acid Stat Lab 11/17/20 18:15 Completed MAGNESIUM Stat Lab 11/17/20 18:39 Completed NT PRO BNP Stat Lab 11/17/20 18:39 Completed TROPONIN Q3H Lab 11/17/20 18:30 Completed TROPONIN Q3H Lab 11/17/20 21:15 Ordered TROPONIN Q3H Lab 11/18/20 00:15 Ordered TROPONIN Q3H Lab 11/18/20 03:15 Ordered TROPONIN Q3H Lab 11/18/20 06:15 Ordered Medication Summary Discontinued Medications Generic Name Dose Route Start Last Admin Trade Name Freq PRN Reason Stop Dose Admin Morphine Sulfate 4 mg 11/17/20 18:11 11/17/20 18:17 Morphine Sulfate 4 Mg Inj IV 11/17/20 18:12 4 mg STAT ONE Administration Morphine Sulfate Confirm 11/17/20 18:15 Morphine Sulfate 4 Mg Inj Administered 11/17/20 18:16 Dose 4 mg .ROUTE .STK-MED ONE Ondansetron HCl 4 mg 11/17/20 18:11 11/17/20 18:17 Zofran 4 Mg/2 Ml Vial IV 11/17/20 18:12 4 mg STAT ONE Administration Ondansetron HCl Confirm 11/17/20 18:15 Zofran 4 Mg/2 Ml Vial Administered 11/17/20 18:16 Dose 4 mg .ROUTE .STK-MED ONE Lab/Rad Data: Laboratory Result Diagrams 11/17/20 18:39 11/17/20 18:39 Laboratory Results 11/17/20 11/17/20 11/17/20 Range/Units 18:39 18:39 18:30 WBC 8.6 (4.0-10.5) K/mm3 RBC 3.38 L (4.1-5.6) M/mm3 Hgb 10.1 L (12.5-18.0) gm/dl Hct 31.9 L (42-50) % MCV 94.4 (78-100) fl MCH 29.9 (26-32) pg MCHC 31.7 L (32-36) g/dl RDW 13.7 (11.5-14.0) % Plt Count 277 (150-450) K/mm3 MPV 11.1 H (7.5-11.0) fl Gran % 64.1 (36.0-66.0) % Eos # (Auto) 0.26 (0-0.5) Absolute Lymphs (auto) 2.05 (1.0-4.6) Absolute Monos (auto) 0.74 (0.0-1.3) Lymphocytes % 23.8 L (24.0-44.0) % Monocytes % 8.6 (0.0-12.0) % Eosinophils % 3.0 (0.00-5.0) % Basophils % 0.5 (0.0-0.4) % Absolute Granulocytes 5.51 (1.4-6.9) Basophils # 0.04 (0-0.4) Sodium 138 (137-145) mmol/L Potassium 3.7 (3.5-5.1) mmol/L Chloride 104 (98-107) mmol/L Carbon Dioxide 29 (22-30) mmol/L Anion Gap 7.4 (5-15) MEQ/L BUN 19 (9-20) mg/dL Creatinine 1.09 (0.66-1.25) mg/dL Estimated GFR > 60.0 ML/MIN Glucose 172 H (74-106) mg/dL Lactic Acid (0.4-2.0) Calcium 8.2 L (8.4-10.2) mg/dL Magnesium 2.7 H (1.6-2.3) mg/dL Total Bilirubin 0.30 (0.2-1.3) mg/dL AST 23 (17-59) U/L ALT 17 (0-50) U/L Alkaline Phosphatase 131 H (38-126) U/L Troponin I 0.033 (0.000-0.034) ng/mL NT-Pro-B Natriuret Pep 1110 H (0-900) pg/mL Serum Total Protein 6.2 L (6.3-8.2) g/dL Albumin 3.4 L (3.5-5.0) g/dL 11/17/20 Range/Units 18:15 WBC (4.0-10.5) K/mm3 RBC (4.1-5.6) M/mm3 Hgb (12.5-18.0) gm/dl Hct (42-50) % MCV (78-100) fl MCH (26-32) pg MCHC (32-36) g/dl RDW (11.5-14.0) % Plt Count (150-450) K/mm3 MPV (7.5-11.0) fl Gran % (36.0-66.0) % Eos # (Auto) (0-0.5) Absolute Lymphs (auto) (1.0-4.6) Absolute Monos (auto) (0.0-1.3) Lymphocytes % (24.0-44.0) % Monocytes % (0.0-12.0) % Eosinophils % (0.00-5.0) % Basophils % (0.0-0.4) % Absolute Granulocytes (1.4-6.9) Basophils # (0-0.4) Sodium (137-145) mmol/L Potassium (3.5-5.1) mmol/L Chloride (98-107) mmol/L Carbon Dioxide (22-30) mmol/L Anion Gap (5-15) MEQ/L BUN (9-20) mg/dL Creatinine (0.66-1.25) mg/dL Estimated GFR ML/MIN Glucose (74-106) mg/dL Lactic Acid 0.7 (0.4-2.0) Calcium (8.4-10.2) mg/dL Magnesium (1.6-2.3) mg/dL Total Bilirubin (0.2-1.3) mg/dL AST (17-59) U/L ALT (0-50) U/L Alkaline Phosphatase (38-126) U/L Troponin I (0.000-0.034) ng/mL NT-Pro-B Natriuret Pep (0-900) pg/mL Serum Total Protein (6.3-8.2) g/dL Albumin (3.5-5.0) g/dL <VALENTINA WASHBURN - Last Filed: 11/17/20 18:53> - Progress Progress: unchanged Counseled pt/family regarding: lab results, diagnosis, need for follow-up, rad results <RUPESH GIBSON - Last Filed: 11/17/20 19:41> - Progress Progress Note: 11/17/20 18:53 Work-up is pending, care is transferred to Dr. Gibson at shift change for final disposition. (VALENTINA WASHBURN) 11/17/20 19:13 Patient care transitioned to tx with lower extremity US pending to eval for DVT. 11/17/20 19:33 Patient reassessed and in no obvious distress. No hypoxia and in no respiratory distress. Lung sounds clear. Patient appears to be suffering from bilateral lower extremity edema and may be developing chronic lymphedema. Has appears of eschar and wounds noted to anterior lower extremities but some increased warmth. No abscess, induration or purulent drainage. Signs of stasis dermatitis and PVD noted in both lower extremities. Patient states he hasn't been compliant with a low sodium diet lately and has not been elevating his legs at rest. Also, he reports he has three pairs of compression stockings but does not wear them. He was encourage to consume 2g or less of sodium, elevate his legs at rest, and start wearing his compression stockings to help alleviate his symptoms. I don't think his diuretic dose needs to be changed at this time and will emperically prescribe keflex incase he is developing a cellulitis. (RUPESH GIBSON) <VALENTINA WASHBURN - Last Filed: 11/17/20 18:53> - Departure Departure Disposition: Home Critical Care Time: No <RUPESH GIBSON - Last Filed: 11/17/20 19:41> - Departure Clinical Impression: Edema of both lower extremities due to peripheral venous insufficiency Condition: Stable Referrals: CATALINA TALBERT [Primary Care Provider] - Instructions: Lymphedema (DC) Additional Instructions: Please consume no more than 2 grams of sodium a day. Start keeping your legs and feet elevated while at rest. Please start wearing your compression stockings daily. Prescriptions: Cephalexin Mh 500 mg [Keflex 500 mg] 500 mg PO QID 7 Days #28 capsule
[2020-11-17 18:57] LABS: Absolute Neutrophil Ct (ANC) 5.51 (1.4-6.9); BASOPHIL % 0.5 % (0.0-0.4); Basophil (Absolute #) 0.04 (0-0.4); Eosinophil (Absolute #) 0.26 (0-0.5); Hematocrit 31.9 % (42-50); Hemoglobin 10.1 gm/dl (12.5-18.0); Lymphocyte (Absolute #) 2.05 (1.0-4.6); Lymphocytes % 23.8 % (24.0-44.0); Mean Cell Volume 94.4 fl (78-100); Mean Corpuscular Hemoglobin 29.9 pg (26-32); Mean Corpuscular Hgb Concent. 31.7 g/dl (32-36); Mean Platelet Volume 11.1 fl (7.5-11.0); Monocyte (Absolute #) 0.74 (0.0-1.3); Monocytes % 8.6 % (0.0-12.0); Neutrophil % 64.1 % (36.0-66.0); Platelet Count 277 K/mm3 (150-450); Red Blood Count 3.38 M/mm3 (4.1-5.6); Red Cell Distribution Width 13.7 % (11.5-14.0); White Blood Count 8.6 K/mm3 (4.0-10.5)
[2020-11-17 19:12] LABS: ALBUMIN 3.4 g/dL (3.5-5.0); ALKALINE PHOSPHATASE 131 U/L (38-126); ANION GAP 7.4 MEQ/L (5-15); BLOOD UREA NITROGEN 19 mg/dL (9-20); CHLORIDE 104 mmol/L (98-107); Calcium 8.2 mg/dL (8.4-10.2); Carbon Dioxide 29 mmol/L (22-30); Creatinine 1 1.09 mg/dL (0.66-1.25); EST GLOMERULAR FILTRATION RATE > 60.0 ML/MIN; Glucose 172 mg/dL (74-106); MAGNESIUM 2.7 mg/dL (1.6-2.3); NT PRO BNP 1110 pg/mL (0-900); Potassium 3.7 mmol/L (3.5-5.1); SGOT/AST 23 U/L (17-59); SGPT/ALT 17 U/L (0-50); SODIUM 138 mmol/L (137-145); Total Protein 6.2 g/dL (6.3-8.2)
[2020-11-17 19:53] VITALS: BP 168/70; PULSE 72; O2SAT 95
--- NOTE | 2020-11-18 08:48 | XRAY ---
Indication: Bilateral leg swelling. Two-dimensional sonogram and color Doppler imaging of the major venous vessels of the left and right leg was performed. Comparison: None No thrombus seen in the examined deep venous vessels of the left and right leg including greater saphenous vein. Veins demonstrate normal compressibility. Venous waveforms are normal with and without augmentation. Impression: Left and right legs negative for DVT. Comment: Preliminary report was given.
== END 2020-11-17 19:53 | disposition home or self-care (01) ==
LOC: ED 17:49
DX: R60.0 Localized edema (principal); I73.9 Peripheral vascular disease, unspecified; G62.9 Polyneuropathy, unspecified; E11.9 Type 2 diabetes mellitus without complications; F17.210 Nicotine dependence, cigarettes, uncomplicated; I10 Essential (primary) hypertension; E78.5 Hyperlipidemia, unspecified; Z79.899 Other long term (current) drug therapy
CPT/HCPCS: 36000; 36415; 80053; 83605; 83735; 83880; 84484; 85025; 87040; 93970; 96374; 96375; 99284; J2270; J2405

== ENCOUNTER 2021-03-30 09:30 | Emergency (ER) | payer OTHER ==
[2021-03-30] MEDS ORDERED: MORPHINE SULFATE 4 MG INJ IV ONE (10:28)
[2021-03-30] MEDS ORDERED: BENADRYL 50 MG/ML IV ONE (10:28)
[2021-03-30] MEDS ORDERED: Sodium Chloride 0.9% 1000 ML 1,000 ML IV STA (10:28)
[2021-03-30] MEDS ORDERED: Zofran 4 MG/2 ML VIAL IV ONE (10:28)
[2021-03-30] MEDS ORDERED: Pepcid 20 MG VIAL IV ONE ×2 (10:28→10:34)
[2021-03-30] MEDS ORDERED: PROTONIX 40 MG IV IV ONE ×2 (10:28→10:34)
--- NOTE | 2021-03-30 10:28 | ERPHSYRPT ---
- History of Present Illness Time Seen by Provider: 03/30/21 10:24 Historian: patient, family Exam Limitations: no limitations Patient Subjective Stated Complaint: Pt has been having N&V for the past 5 days with belching and gas, feels a lot of pressure in abdomen that radiates upwards Triage Nursing Assessment: Pt brought to the hospital by his girlfriend, hypertensive, denies pain but has pressure in his abdomen, still has gallbladder, unable to eat for 5 days, pulses normal, appears to be uncomfortable, shaky, skin n/w/d Physician History: pt has abd pain x 4 days with vomiting and pain left side and epigastrium, known HH. Abd is nontender without peritoneal signs or masses. CT recently only with HH and adrenal nodule being workedup incidentally. per pt. Timing/Duration: day(s) Activities at Onset: none Quality: burning, fullness, sharpness Abdominal Pain Onset Location: LUQ, epigastric Pain Radiation: epigastric Severity of Pain-Max: moderate Severity of Pain-Current: moderate Modifying Factors: Improves With: vomiting Associated Symptoms: back, loss of appetite, nausea, vomiting Previous symptoms: same symptoms as today Allergies/Adverse Reactions: insulin glargine [From Basaglar [employer] U-100 Insulin] Allergy (Verified 03/30/21 10:03) Home Medications: Gabapentin [Neurontin] 800 mg PO TID 01/26/17 [History] Losartan Potassium 50 mg [Cozaar 50 MG] 100 mg PO DAILY 01/26/17 [History] Simvastatin [Zocor] 100 mg PO DAILY 01/26/17 [History] Aspirin [Aspirin EC] 81 mg PO DAILY 05/31/19 [History] Clopidogrel Bisulfate [Clopidogrel] 75 mg PO DAILY 05/31/19 [History] Ezetimibe 10 mg [Zetia 10 MG] 10 mg PO DAILY 05/31/19 [History] Furosemide 20 mg [Lasix 20 mg] 20 mg PO DAILY 05/31/19 [History] Insulin Lispro [Admelog] 100 unit SQ DAILY 05/31/19 [History] Metoprolol Succinate [Toprol Xl] 50 mg PO DAILY 05/31/19 [History] Omeprazole 20 mg PO DAILY 05/31/19 [History] Empagliflozin [Jardiance] 25 mg PO DAILY 04/06/20 [History] Hx Tetanus, Diphtheria Vaccination/Date Given: No Hx Influenza Vaccination/Date Given: No Hx Pneumococcal Vaccination/Date Given: No Travel Risk - International Travel Have you traveled outside of the country in past 3 weeks: No - Coronavirus Screening Are you exhibiting any of the following symptoms?: No Close contact with a COVID-19 positive Pt in past 14-21 Days: No - Vaccine Status Have you recieved a Covid-19 vaccination: No - Review of Systems Constitutional: No Fever, No Chills Eyes: No Symptoms Ears, Nose, & Throat: No Symptoms Respiratory: No Cough, No Dyspnea Cardiac: No Chest Pain, No Edema, No Syncope Abdominal/Gastrointestinal: Abdominal Pain, Nausea, Vomiting, No Diarrhea Genitourinary Symptoms: No Dysuria Musculoskeletal: No Back Pain, No Neck Pain Skin: No Rash Neurological: No Dizziness, No Focal Weakness, No Sensory Changes Psychological: No Symptoms Endocrine: No Symptoms All Other Systems: Reviewed and Negative - Past Medical History Pertinent Past Medical History: Yes Neurological History: Peripheral Neuropathy ENT History: No Pertinent History Cardiac History: High Cholesterol, Hypertension Respiratory History: No Pertinent History Endocrine Medical History: Diabetes Type II Musculoskeletal History: No Pertinent History GI Medical History: GERD History: No Pertinent History Psycho-Social History: No Pertinent History Male Reproductive Disorders: No Pertinent History - Past Surgical History Past Surgical History: Yes Neuro Surgical History: No Pertinent History Cardiac: No Pertinent History Respiratory: No Pertinent History Gastrointestinal: No Pertinent History Genitourinary: No Pertinent History Musculoskeletal: No Pertinent History Male Surgical History: No Pertinent History Other Surgical History: stent in left leg - Social History Smoking Status: Current every day smoker How long have you smoked: years Exposure to second hand smoke: Yes Drug Use: none Patient Lives Alone: Yes - Nursing Vital Signs Nursing Vital Signs: Initial Vital Signs Temperature 97.7 F 03/30/21 09:54 Pulse Rate 73 03/30/21 09:54 Blood Pressure 175/91 03/30/21 09:54 O2 Sat by Pulse Oximetry 100 03/30/21 09:54 Pain Scale Pain Intensity 4 - Physical Exam General Appearance: no apparent distress, alert Eye Exam: PERRL/EOMI, eyes nml inspection Ears, Nose, Throat Exam: normal ENT inspection, pharynx normal, moist mucous membranes Neck Exam: normal inspection, non-tender, supple, full range of motion Respiratory Exam: normal breath sounds, lungs clear, No respiratory distress Cardiovascular Exam: regular rate/rhythm, normal heart sounds Gastrointestinal/Abdomen Exam: soft, No tenderness, No mass Rectal Exam: deferred Back Exam: normal inspection, normal range of motion, No CVA tenderness, No vertebral tenderness Extremity Exam: normal inspection, normal range of motion, pelvis stable Neurologic Exam: alert, oriented x 3, cooperative, normal mood/affect, nml cerebellar function, sensation nml, No motor deficits Skin Exam: normal color, warm, dry SpO2: 100 - Course Nursing assessment & vital signs reviewed: Yes EKG Interpreted by Me: Sinus Rhythm, Right [place] Deviation, Non-specific ST Changes Ordered Tests: Active Orders 24 hr Category Date Time Status EKG-ER Only STAT Care 03/30/21 10:28 Active IV Insertion STAT Care 03/30/21 10:28 Active NPO (ED) STAT Care 03/30/21 10:28 Active AMYLASE Stat Lab 03/30/21 10:40 Completed CBC W DIFF Stat Lab 03/30/21 10:40 Completed CMP Stat Lab 03/30/21 10:40 Completed LIPASE Stat Lab 03/30/21 10:40 Completed Lactic Acid Stat Lab 03/30/21 10:28 Completed POCT GLUCOSE Stat Lab 03/30/21 09:53 Completed TROPONIN Q3H Lab 03/30/21 10:40 Completed TROPONIN Q3H Lab 03/30/21 13:30 Completed TROPONIN Q3H Lab 03/30/21 16:30 Ordered TROPONIN Q3H Lab 03/30/21 19:30 Ordered TROPONIN Q3H Lab 03/30/21 22:30 Ordered UA W/RFX UR CULTURE Stat Lab 03/30/21 11:51 Completed Medication Summary Discontinued Medications Generic Name Dose Route Start Last Admin Trade Name Freq PRN Reason Stop Dose Admin Diphenhydramine HCl 25 mg 03/30/21 10:28 03/30/21 10:36 Benadryl 50 Mg/Ml IV 03/30/21 10:29 25 mg STAT ONE Administration Diphenhydramine HCl Confirm 03/30/21 10:34 Benadryl 50 Mg/Ml Administered 03/30/21 10:35 Dose 50 mg .ROUTE .STK-MED ONE Famotidine 20 mg 03/30/21 10:28 03/30/21 10:35 Pepcid 20 Mg Vial IV 03/30/21 10:29 20 mg STAT ONE Administration Famotidine Confirm 03/30/21 10:34 Pepcid 20 Mg Vial Administered 03/30/21 10:35 Dose 20 mg IV .STK-MED ONE Sodium Chloride 1,000 mls @ 999 mls/hr 03/30/21 10:28 03/30/21 11:38 Sodium Chloride 0.9% 1000 Ml IV 03/30/21 11:28 Infused .Q1H1M STA Infusion Sodium Chloride Confirm 03/30/21 10:34 Sodium Chloride 0.9% 1000 Ml Administered 03/30/21 10:35 Dose 1,000 mls @ ud .ROUTE .STK-MED ONE Insulin Human Regular 10 unit 03/30/21 13:58 03/30/21 14:06 Humulin R IV 03/30/21 13:59 10 unit STAT ONE Administration Insulin Human Regular Confirm 03/30/21 14:04 Humulin R Administered 03/30/21 14:05 Dose 10 unit .ROUTE .STK-MED ONE Morphine Sulfate 4 mg 03/30/21 10:28 03/30/21 10:36 Morphine Sulfate 4 Mg Inj IV 03/30/21 10:29 4 mg STAT ONE Administration Morphine Sulfate Confirm 03/30/21 10:34 Morphine Sulfate 4 Mg Inj Administered 03/30/21 10:35 Dose 4 mg .ROUTE .STK-MED ONE Ondansetron HCl 4 mg 03/30/21 10:28 03/30/21 10:36 Zofran 4 Mg/2 Ml Vial IV 03/30/21 10:29 4 mg STAT ONE Administration Ondansetron HCl Confirm 03/30/21 10:33 Zofran 4 Mg/2 Ml Vial Administered 03/30/21 10:34 Dose 4 mg .ROUTE .STK-MED ONE Pantoprazole Sodium 40 mg 03/30/21 10:28 03/30/21 10:36 Protonix 40 Mg Iv IV 03/30/21 10:29 40 mg STAT ONE Administration Pantoprazole Sodium Confirm 03/30/21 10:34 Protonix 40 Mg Iv Administered 03/30/21 10:35 Dose 40 mg IV .STK-MED ONE Lab/Rad Data: Laboratory Result Diagrams 03/30/21 10:40 03/30/21 10:40 Laboratory Results 03/30/21 03/30/21 03/30/21 Range/Units 13:30 11:51 10:40 WBC (4.0-10.5) K/mm3 RBC (4.1-5.6) M/mm3 Hgb (12.5-18.0) gm/dl Hct (42-50) % MCV (78-100) fl MCH (26-32) pg MCHC (32-36) g/dl RDW (11.5-14.0) % Plt Count (150-450) K/mm3 MPV (7.5-11.0) fl Gran % (36.0-66.0) % Eos # (Auto) (0-0.5) Absolute Lymphs (auto) (1.0-4.6) Absolute Monos (auto) (0.0-1.3) Lymphocytes % (24.0-44.0) % Monocytes % (0.0-12.0) % Eosinophils % (0.00-5.0) % Basophils % (0.0-0.4) % Absolute Granulocytes (1.4-6.9) Basophils # (0-0.4) Sodium (137-145) mmol/L Potassium (3.5-5.1) mmol/L Chloride (98-107) mmol/L Carbon Dioxide (22-30) mmol/L Anion Gap (5-15) MEQ/L BUN (9-20) mg/dL Creatinine (0.66-1.25) mg/dL Estimated GFR ML/MIN Glucose (74-106) mg/dL POC Glucometer (74 to 106) mg/dL Lactic Acid (0.4-2.0) Calcium (8.4-10.2) mg/dL Total Bilirubin (0.2-1.3) mg/dL AST (17-59) U/L ALT (0-50) U/L Alkaline Phosphatase (38-126) U/L Troponin I 0.033 0.029 (0.000-0.034) ng/mL Serum Total Protein (6.3-8.2) g/dL Albumin (3.5-5.0) g/dL Amylase (30-110) U/L Lipase (23-300) U/L Urine Color YELLOW (YELLOW) Urine Appearance CLEAR (CLEAR) Urine pH 6.0 (5-6) Ur Specific [place] 1.020 (1.005-1.025) Urine Protein 100 (Negative) Urine Ketones SMALL (NEGATIVE) Urine Blood SMALL (0-5) Vincenzo/ul Urine Nitrite NEGATIVE (NEGATIVE) Urine Bilirubin NEGATIVE (NEGATIVE) Urine Urobilinogen 2 (0-1) mg/dL Ur Leukocyte Esterase NEGATIVE (NEGATIVE) Urine WBC (Auto) NONE (0-5) /HPF Urine RBC (Auto) NONE (0-2) /HPF U Epithel Cells (Auto) NONE (FEW) /HPF Urine Bacteria (Auto) NONE (NEGATIVE) /HPF Urine Culture Reflexed NO (NO) Urine Glucose >=500 (NEGATIVE) mg/dL 03/30/21 03/30/21 03/30/21 Range/Units 10:40 10:40 10:28 WBC 11.6 H (4.0-10.5) K/mm3 RBC 3.67 L (4.1-5.6) M/mm3 Hgb 11.4 L (12.5-18.0) gm/dl Hct 34.6 L (42-50) % MCV 94.3 (78-100) fl MCH 31.1 (26-32) pg MCHC 32.9 (32-36) g/dl RDW 12.9 (11.5-14.0) % Plt Count 289 (150-450) K/mm3 MPV 11.7 H (7.5-11.0) fl Gran % 80.2 H (36.0-66.0) % Eos # (Auto) 0.04 (0-0.5) Absolute Lymphs (auto) 1.65 (1.0-4.6) Absolute Monos (auto) 0.59 (0.0-1.3) Lymphocytes % 14.2 L (24.0-44.0) % Monocytes % 5.1 (0.0-12.0) % Eosinophils % 0.3 (0.00-5.0) % Basophils % 0.2 (0.0-0.4) % Absolute Granulocytes 9.32 H (1.4-6.9) Basophils # 0.02 (0-0.4) Sodium 135 L (137-145) mmol/L Potassium 4.4 (3.5-5.1) mmol/L Chloride 98 (98-107) mmol/L Carbon Dioxide 23 (22-30) mmol/L Anion Gap 19.1 H (5-15) MEQ/L BUN 37 H (9-20) mg/dL Creatinine 1.22 (0.66-1.25) mg/dL Estimated GFR > 60.0 ML/MIN Glucose 428 H (74-106) mg/dL POC Glucometer (74 to 106) mg/dL Lactic Acid 1.4 (0.4-2.0) Calcium 9.4 (8.4-10.2) mg/dL Total Bilirubin 0.90 (0.2-1.3) mg/dL AST 25 (17-59) U/L ALT 23 (0-50) U/L Alkaline Phosphatase 146 H (38-126) U/L Troponin I (0.000-0.034) ng/mL Serum Total Protein 7.3 (6.3-8.2) g/dL Albumin 4.5 (3.5-5.0) g/dL Amylase 76 (30-110) U/L Lipase 64 (23-300) U/L Urine Color (YELLOW) Urine Appearance (CLEAR) Urine pH (5-6) Ur Specific [place] (1.005-1.025) Urine Protein (Negative) Urine Ketones (NEGATIVE) Urine Blood (0-5) Vincenzo/ul Urine Nitrite (NEGATIVE) Urine Bilirubin (NEGATIVE) Urine Urobilinogen (0-1) mg/dL Ur Leukocyte Esterase (NEGATIVE) Urine WBC (Auto) (0-5) /HPF Urine RBC (Auto) (0-2) /HPF U Epithel Cells (Auto) (FEW) /HPF Urine Bacteria (Auto) (NEGATIVE) /HPF Urine Culture Reflexed (NO) Urine Glucose (NEGATIVE) mg/dL 03/30/21 Range/Units 09:53 WBC (4.0-10.5) K/mm3 RBC (4.1-5.6) M/mm3 Hgb (12.5-18.0) gm/dl Hct (42-50) % MCV (78-100) fl MCH (26-32) pg MCHC (32-36) g/dl RDW (11.5-14.0) % Plt Count (150-450) K/mm3 MPV (7.5-11.0) fl Gran % (36.0-66.0) % Eos # (Auto) (0-0.5) Absolute Lymphs (auto) (1.0-4.6) Absolute Monos (auto) (0.0-1.3) Lymphocytes % (24.0-44.0) % Monocytes % (0.0-12.0) % Eosinophils % (0.00-5.0) % Basophils % (0.0-0.4) % Absolute Granulocytes (1.4-6.9) Basophils # (0-0.4) Sodium (137-145) mmol/L Potassium (3.5-5.1) mmol/L Chloride (98-107) mmol/L Carbon Dioxide (22-30) mmol/L Anion Gap (5-15) MEQ/L BUN (9-20) mg/dL Creatinine (0.66-1.25) mg/dL Estimated GFR ML/MIN Glucose (74-106) mg/dL POC Glucometer 394 H (74 to 106) mg/dL Lactic Acid (0.4-2.0) Calcium (8.4-10.2) mg/dL Total Bilirubin (0.2-1.3) mg/dL AST (17-59) U/L ALT (0-50) U/L Alkaline Phosphatase (38-126) U/L Troponin I (0.000-0.034) ng/mL Serum Total Protein (6.3-8.2) g/dL Albumin (3.5-5.0) g/dL Amylase (30-110) U/L Lipase (23-300) U/L Urine Color (YELLOW) Urine Appearance (CLEAR) Urine pH (5-6) Ur Specific [place] (1.005-1.025) Urine Protein (Negative) Urine Ketones (NEGATIVE) Urine Blood (0-5) Vincenzo/ul Urine Nitrite (NEGATIVE) Urine Bilirubin (NEGATIVE) Urine Urobilinogen (0-1) mg/dL Ur Leukocyte Esterase (NEGATIVE) Urine WBC (Auto) (0-5) /HPF Urine RBC (Auto) (0-2) /HPF U Epithel Cells (Auto) (FEW) /HPF Urine Bacteria (Auto) (NEGATIVE) /HPF Urine Culture Reflexed (NO) Urine Glucose (NEGATIVE) mg/dL - Progress Progress: improved, re-examined Progress Note: 03/30/21 13:54 awaiting repeat trop since it is slightly elevated - no actual chest pain just epigastric. 03/30/21 15:[address] Andrade and pt for admission of epigastric pain and elevated trop. had to get second trop which added more time to help with decision process. [facility] agreed that pt best for transfer to with potential for cardiac event, and pt agreed, Dr[facility]. Discussed with .: Caren, Other (Dr. Pan) Will see patient in: ED Counseled pt/family regarding: lab results, diagnosis, need for follow-up - Departure Departure Disposition: Transfer Clinical Impression: elevated Troponin with intra vomiting/DM Condition: Good Critical Care Time: No Referrals: CATALINA TALBERT [Primary Care Provider] -
[2021-03-30] MEDS ORDERED: Zofran 4 MG/2 ML VIAL ONE (10:33)
[2021-03-30] MEDS ORDERED: Sodium Chloride 0.9% 1000 ML 1,000 ML ONE (10:34)
[2021-03-30] MEDS ORDERED: MORPHINE SULFATE 4 MG INJ ONE (10:34)
[2021-03-30] MEDS ORDERED: BENADRYL 50 MG/ML ONE (10:34)
[2021-03-30 10:46] LABS: Absolute Neutrophil Ct (ANC) 9.32 (1.4-6.9); BASOPHIL % 0.2 % (0.0-0.4); Basophil (Absolute #) 0.02 (0-0.4); Eosinophil % 0.3 % (0.00-5.0); Eosinophil (Absolute #) 0.04 (0-0.5); Hematocrit 34.6 % (42-50); Hemoglobin 11.4 gm/dl (12.5-18.0); Lymphocyte (Absolute #) 1.65 (1.0-4.6); Lymphocytes % 14.2 % (24.0-44.0); Mean Cell Volume 94.3 fl (78-100); Mean Corpuscular Hemoglobin 31.1 pg (26-32); Mean Corpuscular Hgb Concent. 32.9 g/dl (32-36); Mean Platelet Volume 11.7 fl (7.5-11.0); Monocyte (Absolute #) 0.59 (0.0-1.3); Monocytes % 5.1 % (0.0-12.0); Neutrophil % 80.2 % (36.0-66.0); Platelet Count 289 K/mm3 (150-450); Red Blood Count 3.67 M/mm3 (4.1-5.6); Red Cell Distribution Width 12.9 % (11.5-14.0); White Blood Count 11.6 K/mm3 (4.0-10.5)
[2021-03-30 10:59] LABS: ALBUMIN 4.5 g/dL (3.5-5.0); ALKALINE PHOSPHATASE 146 U/L (38-126); AMYLASE 76 U/L (30-110); ANION GAP 19.1 MEQ/L (5-15); BLOOD UREA NITROGEN 37 mg/dL (9-20); CHLORIDE 98 mmol/L (98-107); Calcium 9.4 mg/dL (8.4-10.2); Carbon Dioxide 23 mmol/L (22-30); Creatinine 1 1.22 mg/dL (0.66-1.25); EST GLOMERULAR FILTRATION RATE > 60.0 ML/MIN; Glucose 428 mg/dL (74-106); LIPASE 64 U/L (23-300); Potassium 4.4 mmol/L (3.5-5.1); SGOT/AST 25 U/L (17-59); SGPT/ALT 23 U/L (0-50); SODIUM 135 mmol/L (137-145); Total Protein 7.3 g/dL (6.3-8.2)
[2021-03-30 12:16] LABS: Appearance CLEAR (CLEAR); Bilirubin NEGATIVE (NEGATIVE); Blood SMALL Ery/ul (0-5); Glucose >=500 mg/dL (NEGATIVE); Ketones SMALL (NEGATIVE); Leukocyte Esterase NEGATIVE (NEGATIVE); Nitrite NEGATIVE (NEGATIVE); Protein,Urine Dip 100 (Negative); Urobilinogen 2 mg/dL (0-1)
[2021-03-30] MEDS ORDERED: HUMULIN R IV ONE (13:58)
[2021-03-30] MEDS ORDERED: HUMULIN R ONE (14:04)
[2021-03-30] MEDS ORDERED: BABY ASPIRIN 81 MG CHEW PO ONE (15:35)
[2021-03-30] MEDS ORDERED: BABY ASPIRIN 81 MG CHEW ONE (17:00)
[2021-03-30 17:10] VITALS: BP 192/74; PULSE 78; O2SAT 98
== END 2021-03-30 17:57 | disposition short-term general hospital (02) ==
LOC: ED 09:30
DX: R10.12 Left upper quadrant pain (principal); R10.13 Epigastric pain; R79.89 Other specified abnormal findings of blood chemistry; R11.2 Nausea with vomiting, unspecified; K44.9 Diaphragmatic hernia without obstruction or gangrene; M54.9 Dorsalgia, unspecified; Z79.899 Other long term (current) drug therapy; I10 Essential (primary) hypertension; E78.00 Pure hypercholesterolemia, unspecified; Z79.01 Long term (current) use of anticoagulants
CPT/HCPCS: 36000; 36415; 80053; 81001; 82150; 82947; 83605; 83690; 84484; 85025; 93005; 96360; 96374; 96375; 99285; J1200; J1815; J2270; J2405; A9270-GY

== ENCOUNTER 2022-01-04 14:52 | Emergency (ER) | payer OTHER ==
[2022-01-04] MEDS ORDERED: MORPHINE SULFATE 4 MG INJ IM ONE (15:39)
[2022-01-04] MEDS ORDERED: MORPHINE SULFATE 4 MG INJ ONE (15:46)
[2022-01-04 16:40] VITALS: BP 148/68
--- NOTE | 2022-01-04 17:01 | ERPHSYRPT ---
- History of Present Illness Time Seen by Provider: 01/04/22 15:01 Historian: patient Exam Limitations: no limitations Patient Subjective Stated Complaint: Pt states "[place] [employer] and two dogs jumped up on me and I fell onto my left side and my left ribs are killing me." Triage Nursing Assessment: Pt presented alert and oriented X 3, skin wpd. Pt ambulates with an upright steady gait, able to speak in clear full setnences pt in no apparent respiratory distress. Physician History: 61-year-old male presented in the ER with chief complaint of left-sided chest pain after 2 dogs jumped on him 4 days ago when he fell on the left side. Since then he is complaining of moderate intensity sharp pain in the left with palpation, deep breathing, coughing, movements or twisting body. Has been taking [id number] pain medication with no significant relief. Timing/Duration: day(s) (4), sudden Chest Pain Radiation: no radiation Severity of Pain-Max: moderate Severity of Pain-Current: moderate Modifying Factors: Worsens With: breathing, coughing, movement, palpation Associated Symptoms: denies symptoms Nitro Today/Relief: no nitro taken today Aspirin Treatment Today: 81 mg x 1 Allergies/Adverse Reactions: insulin glargine [From Basaglar [employer] U-100 Insulin] Allergy (Verified 03/30/21 10:03) Home Medications: Gabapentin [Neurontin] 800 mg PO TID 01/26/17 [History] Losartan Potassium 50 mg [Cozaar 50 MG] 100 mg PO DAILY 01/26/17 [History] Simvastatin [Zocor] 100 mg PO DAILY 01/26/17 [History] Aspirin [Aspirin EC] 81 mg PO DAILY 05/31/19 [History] Ezetimibe 10 mg [Zetia 10 MG] 10 mg PO DAILY 05/31/19 [History] Furosemide 20 mg [Lasix 20 mg] 20 mg PO DAILY 05/31/19 [History] Insulin Lispro [Admelog] 100 unit SQ DAILY 05/31/19 [History] Metoprolol Succinate [Toprol Xl] 50 mg PO DAILY 05/31/19 [History] Omeprazole 20 mg PO DAILY 05/31/19 [History] Empagliflozin [Jardiance] 25 mg PO DAILY 04/06/20 [History] Amlodipine Besylate [Norvasc] 10 mg PO DAILY 01/04/22 [History] Amoxicillin 875 mg PO BID 01/04/22 [History] Duloxetine HCl 60 mg PO DAILY 01/04/22 [History] Hydralazine HCl 100 mg PO DAILY 01/04/22 [History] Hx Tetanus, Diphtheria Vaccination/Date Given: No Hx Influenza Vaccination/Date Given: No Hx Pneumococcal Vaccination/Date Given: No Immunizations Up to Date: Yes Travel Risk - International Travel Have you traveled outside of the country in past 3 weeks: No - Coronavirus Screening Are you exhibiting any of the following symptoms?: No Close contact with a COVID-19 positive Pt in past 14-21 Days: No - Vaccine Status Have you recieved a Covid-19 vaccination: No - Review of Systems Constitutional: No Symptoms Eyes: No Symptoms Ears, Nose, & Throat: No Symptoms Respiratory: No Symptoms Cardiac: Chest Pain Abdominal/Gastrointestinal: No Symptoms Genitourinary Symptoms: No Symptoms Musculoskeletal: Other Skin: No Symptoms Neurological: No Symptoms Psychological: No Symptoms Endocrine: No Symptoms Immunological/Allergic: No Symptoms - Past Medical History Pertinent Past Medical History: Yes Neurological History: Peripheral Neuropathy ENT History: No Pertinent History Cardiac History: High Cholesterol, Hypertension Respiratory History: No Pertinent History Endocrine Medical History: Diabetes Type II Musculoskeletal History: No Pertinent History GI Medical History: GERD History: No Pertinent History Psycho-Social History: No Pertinent History Male Reproductive Disorders: No Pertinent History - Past Surgical History Past Surgical History: Yes Neuro Surgical History: No Pertinent History Cardiac: No Pertinent History Respiratory: No Pertinent History Gastrointestinal: No Pertinent History Genitourinary: No Pertinent History Musculoskeletal: No Pertinent History Male Surgical History: No Pertinent History Other Surgical History: stent in left leg - Social History Smoking Status: Current every day smoker How long have you smoked: years Exposure to second hand smoke: Yes Drug Use: none Patient Lives Alone: Yes - Nursing Vital Signs Nursing Vital Signs: Initial Vital Signs Temperature 97.8 F 01/04/22 14:59 Pulse Rate 72 01/04/22 14:59 Respiratory Rate 22 01/04/22 14:59 Blood Pressure 145/76 01/04/22 14:59 O2 Sat by Pulse Oximetry 99 01/04/22 14:59 Pain Scale Pain Intensity 4 - Physical Exam General Appearance: no apparent distress, alert Eye Exam: PERRL/EOMI Ears, Nose, Throat Exam: normal ENT inspection, TMs normal Neck Exam: normal inspection, non-tender, supple, full range of motion Respiratory Exam: normal breath sounds, chest tenderness (Left anterior without crepitus/paradoxical movements), lungs clear Cardiovascular Exam: regular rate/rhythm, normal heart sounds Gastrointestinal/Abdomen Exam: soft, No tenderness Back Exam: normal inspection, normal range of motion Extremity Exam: normal inspection, normal range of motion Neurologic Exam: alert, oriented x 3, cooperative Skin Exam: normal color SpO2 Interpretation: normal SpO2: 95 O2 Delivery: Room Air Ordered Tests: Active Orders 24 hr Category Date Time Status CHEST 2 VIEWS (PA AND LAT) Stat Exams 01/04/22 17:06 Completed RIBS UNILATERAL Stat Exams 01/04/22 15:08 Completed Medication Summary Discontinued Medications Generic Name Dose Route Start Last Admin Trade Name Freq PRN Reason Stop Dose Admin Morphine Sulfate 4 mg 01/04/22 15:39 01/04/22 15:48 Morphine Sulfate 4 Mg/Ml Injection IM 01/04/22 15:40 4 mg STAT ONE Administration Morphine Sulfate Confirm 01/04/22 15:46 Morphine Sulfate 4 Mg/Ml Injection Administered 01/04/22 15:47 Dose 4 mg .ROUTE .STK-MED ONE - Progress Progress: improved Air Movement: good Progress Note: 01/04/22 18:21 Given symptomatic treatment for pain, reevaluation feeling better. X-rays did not show any acute rib fracture, hemo-/pneumothorax. Believe has chest wall contusion, recommended pain medication, deep breathing exercises and outpatient follow-up. Discussed signs symptoms of worsening needing return to ER which he seems understanding. This is clear musculoskeletal pain and do not think needs cardiac work-up. Blood Culture(s) Obtained: No Antibiotics given: No Counseled pt/family regarding: diagnosis, need for follow-up, rad results - Departure Departure Disposition: Home Clinical Impression: Anterior chest wall pain Condition: Stable Critical Care Time: No Referrals: CATALINA TALBERT NP [Primary Care Provider] - Follow Up with PCP/3 days Instructions: Bruised Rib Additional Instructions: Take pain medications as needed. Do not take ibuprofen/Aleve or any other NSAIDs. Follow-up with primary care for reevaluation. Return to ER for worsening pain, for difficulty breathing etc. Prescriptions: Tramadol HCl 50 mg [Ultram 50 mg] 50 mg PO Q6HPRN PRN 3 Days #12 tablet PRN Reason: Pain
[2022-01-04 17:08] VITALS: PULSE 63
[2022-01-04 18:11] VITALS: O2SAT 95
--- NOTE | 2022-01-04 22:36 | XRAY ---
Indication: Pain following fall. Comparison: None 2 view left ribs demonstrates tiny left lung calcified granulomas and mild degenerative changes throughout the spine. No other bony, articular, or soft tissue abnormalities. Comment: Preliminary interpretation made by [facility]. No critical discrepancy.
--- NOTE | 2022-01-04 22:38 | XRAY ---
Indication: Left rib pain following fall. Comparison: May 31, 2019. PA/lateral chest remains clear again with incidental tiny calcified granulomas. Heart not enlarged. Bony thorax intact again with mild degenerative changes. No new/acute abnormalities. Comment: Preliminary interpretation made by [facility]. No critical discrepancy.
== END 2022-01-04 18:39 | disposition home or self-care (01) ==
LOC: ED 14:52
DX: R07.89 Other chest pain (principal); S20.212A Contusion of left front wall of thorax, initial encounter; W18.39XA Other fall on same level, initial encounter; W54.1XXA Struck by dog, initial encounter; Y93.K9 Activity, other involving animal care; E78.5 Hyperlipidemia, unspecified; I10 Essential (primary) hypertension; E11.42 Type 2 diabetes mellitus with diabetic polyneuropathy; K21.9 Gastro-esophageal reflux disease without esophagitis; Z72.0 Tobacco use; Z79.4 Long term (current) use of insulin; Z79.891 Long term (current) use of opiate analgesic; Z79.899 Other long term (current) drug therapy
CPT/HCPCS: 71046; 71100; 96372; 99284; J2270

== ENCOUNTER 2022-06-25 14:30 | Emergency (ER) | payer OTHER ==
--- NOTE | 2022-06-25 15:43 | ERPHSYRPT ---
- History of Present Illness Time Seen by Provider: 06/25/22 14:30 Source: patient Exam Limitations: no limitations Patient Subjective Stated Complaint: pt here for swelling to lower right leg for a month , no injury, Triage Nursing Assessment: pt alert, walked in, resp easy, skin w/d/p. has swelling to lower right leg Physician History: 61-year-old male with multiple medical problems including hypertension, hyperlipidemia, peripheral vascular disease presented in the ER with chief complaint of right leg swelling gradually worsening for almost 1 month. Also reported dull aching mild to moderate pain more with ambulation. Denies any fall or trauma. No fever or chills reported. Patient reported started just ab ove the ankle and gradually extending proximally and now up to right knee. No difficulty movements of ankle or knee joint. Method of Injury: unknown Occurred: days ago (30) Quality: constant, dullness Severity of Pain-Max: moderate Severity of Pain-Current: mild Lower Extremities Pain: leg: right Modifying Factors: Worsens With: movement Associated Symptoms: none Allergies/Adverse Reactions: insulin glargine [From Lime&Tonic U-100 Insulin] Allergy (Verified 01/15 10:03) Home Medications: Gabapentin [Neurontin] 800 mg PO TID 01/26/17 [History] Losartan Potassium 50 mg [Cozaar 50 MG] 100 mg PO DAILY 01/26/17 [History] Simvastatin [Zocor] 100 mg PO DAILY 01/26/17 [History] Aspirin [Aspirin EC] 81 mg PO DAILY 05/31/19 [History] Ezetimibe 10 mg [Zetia 10 MG] 10 mg PO DAILY 05/31/19 [History] Furosemide 20 mg [Lasix 20 mg] 40 mg PO DAILY 05/31/19 [History] Insulin Lispro [Admelog] 100 unit SQ DAILY 05/31/19 [History] Metoprolol Succinate [Toprol Xl] 50 mg PO DAILY 05/31/19 [History] Omeprazole 20 mg PO DAILY 05/31/19 [History] Amlodipine Besylate [Norvasc] 10 mg PO DAILY 01/04/22 [History] Duloxetine HCl 60 mg PO DAILY 01/04/22 [History] Hydralazine HCl 100 mg PO DAILY 01/04/22 [History] Hx Tetanus, Diphtheria Vaccination/Date Given: No Hx Influenza Vaccination/Date Given: No Hx Pneumococcal Vaccination/Date Given: No Immunizations Up to Date: Yes Travel Risk - International Travel Have you traveled outside of the country in past 3 weeks: No - Coronavirus Screening Are you exhibiting any of the following symptoms?: No Close contact with a COVID-19 positive Pt in past 14-21 Days: No - Vaccine Status Have you recieved a Covid-19 vaccination: Yes Budget Analyst: Unknown - Vaccination Dates Dates if Unknown: ? - Review of Systems Constitutional: No Symptoms Ears, Nose, & Throat: No Symptoms Respiratory: No Symptoms Cardiac: No Symptoms Abdominal/Gastrointestinal: No Symptoms Genitourinary Symptoms: No Symptoms Skin: No Symptoms Neurological: No Symptoms Psychological: No Symptoms Endocrine: No Symptoms Hematologic/Lymphatic: No Symptoms Immunological/Allergic: No Symptoms - Past Medical History Pertinent Past Medical History: Yes Neurological History: Peripheral Neuropathy ENT History: No Pertinent History Cardiac History: High Cholesterol, Hypertension Respiratory History: No Pertinent History Endocrine Medical History: Diabetes Type II Musculoskeletal History: No Pertinent History GI Medical History: GERD History: No Pertinent History Psycho-Social History: No Pertinent History Male Reproductive Disorders: No Pertinent History - Past Surgical History Past Surgical History: Yes Neuro Surgical History: No Pertinent History Cardiac: No Pertinent History Respiratory: No Pertinent History Gastrointestinal: No Pertinent History Genitourinary: No Pertinent History Musculoskeletal: No Pertinent History Male Surgical History: No Pertinent History Other Surgical History: stent in left leg - Social History Smoking Status: Current every day smoker How long have you smoked: years Exposure to second hand smoke: Yes Drug Use: none Patient Lives Alone: Yes - Nursing Vital Signs Nursing Vital Signs: Initial Vital Signs Temperature 97.0 F 06/25/22 14:30 Pulse Rate 83 06/25/22 14:30 Respiratory Rate 18 06/25/22 14:30 Blood Pressure 190/100 06/25/22 14:30 O2 Sat by Pulse Oximetry 97 06/25/22 14:30 Pain Scale Pain Intensity 4 - Physical Exam General Appearance: no apparent distress, alert Eyes, Ears, Nose, Throat Exam: normal ENT inspection, tonsillar exudate Neck Exam: normal inspection Cardiovascular/Respiratory Exam: normal breath sounds, regular rate/rhythm Gastrointestinal/Abdominal Exam: non-tender, soft, no organomegaly Back Exam: normal inspection, normal range of motion Hips Exam: bilateral: non-tender, normal inspection, normal range of motion Legs Exam: right leg: swelling (2+ pitting edema), left leg: normal inspection, bilateral leg: non-tender, normal range of motion, no evidence of injury Ankle Exam: bilateral ankle: non-tender, normal range of motion Foot Exam: bilateral foot: non-tender, normal range of motion Neuro/Tendon Exam: normal sensation, normal motor functions Mental Status Exam: alert, oriented x 3, cooperative Skin Exam: normal color SpO2 Interpretation: normal SpO2: 97 O2 Delivery: Room Air Ordered Tests: Active Orders 24 hr Category Date Time Status VENOUS UNILAT/LIMITED EXTREMIT [US] Stat Exams 06/25/22 15:04 Ordered BLOOD CULTURE Stat Lab 06/25/22 15:30 Received CBC W DIFF Stat Lab 06/25/22 15:30 Completed CMP Stat Lab 06/25/22 15:30 Completed Lactic Acid Stat Lab 06/25/22 15:35 Completed PROCALCITONIN Stat Lab 06/25/22 15:30 Completed Lab/Rad Data: Laboratory Result Diagrams 06/25/22 15:30 06/25/22 15:30 Laboratory Results 06/25/22 06/25/22 06/25/22 Range/Units 15:35 15:30 15:30 WBC (4.0-10.5) x10^3/uL RBC (4.1-5.6) x10^6/uL Hgb (12.5-18.0) g/dL Hct (42-50) % MCV (78-100) fL MCH (26-32) pg MCHC (32-36) g/dL RDW (11.5-14.0) % Plt Count (150-450) x10^3/uL MPV (7.5-11.0) fL Gran % (36.0-66.0) % Immature Gran % (Auto) (0.00-0.4) % Nucleat RBC Rel Count (0.00-0.1) % Eos # (Auto) (0-0.5) x10^3/uL Immature Gran # (Auto) (0.00-0.03) x10^3u/L Absolute Lymphs (auto) (1.0-4.6) x10^3/uL Absolute Monos (auto) (0.0-1.3) x10^3/uL Absolute Nucleated RBC (0.00-0.01) x10^3u/L Lymphocytes % (24.0-44.0) % Monocytes % (0.0-12.0) % Eosinophils % (0.00-5.0) % Basophils % (0.0-0.4) % Absolute Granulocytes (1.4-6.9) x10^3/uL Basophils # (0-0.4) x10^3/uL Sodium 138 (137-145) mmol/L Potassium 4.8 (3.5-5.1) mmol/L Chloride 107 (98-107) mmol/L Carbon Dioxide 25 (22-30) mmol/L Anion Gap 10.9 (5-15) MEQ/L BUN 20 (9-20) mg/dL Creatinine 1.07 (0.66-1.25) mg/dL Estimated GFR > 60.0 ML/MIN Glucose 339 H (74-106) mg/dL Lactic Acid 1.3 (0.4-2.0) Calcium 8.8 (8.4-10.2) mg/dL Total Bilirubin 0.50 (0.2-1.3) mg/dL AST 17 (17-59) U/L ALT 17 (0-50) U/L Alkaline Phosphatase 142 H (38-126) U/L Serum Total Protein 6.8 (6.3-8.2) g/dL Albumin 3.8 (3.5-5.0) g/dL Procalcitonin 0.052 (0.030-0.080) ng/mL 06/25/22 Range/Units 15:30 WBC 7.2 (4.0-10.5) x10^3/uL RBC 3.37 L (4.1-5.6) x10^6/uL Hgb 10.2 L (12.5-18.0) g/dL Hct 30.7 L (42-50) % MCV 91.1 (78-100) fL MCH 30.3 (26-32) pg MCHC 33.2 (32-36) g/dL RDW 13.1 (11.5-14.0) % Plt Count 269 (150-450) x10^3/uL MPV 10.9 (7.5-11.0) fL Gran % 72.7 H (36.0-66.0) % Immature Gran % (Auto) 0.3 (0.00-0.4) % Nucleat RBC Rel Count 0.0 (0.00-0.1) % Eos # (Auto) 0.12 (0-0.5) x10^3/uL Immature Gran # (Auto) 0.02 (0.00-0.03) x10^3u/L Absolute Lymphs (auto) 1.21 (1.0-4.6) x10^3/uL Absolute Monos (auto) 0.56 (0.0-1.3) x10^3/uL Absolute Nucleated RBC 0.00 (0.00-0.01) x10^3u/L Lymphocytes % 16.9 L (24.0-44.0) % Monocytes % 7.8 (0.0-12.0) % Eosinophils % 1.7 (0.00-5.0) % Basophils % 0.6 (0.0-0.4) % Absolute Granulocytes 5.20 (1.4-6.9) x10^3/uL Basophils # 0.04 (0-0.4) x10^3/uL Sodium (137-145) mmol/L Potassium (3.5-5.1) mmol/L Chloride (98-107) mmol/L Carbon Dioxide (22-30) mmol/L Anion Gap (5-15) MEQ/L BUN (9-20) mg/dL Creatinine (0.66-1.25) mg/dL Estimated GFR ML/MIN Glucose (74-106) mg/dL Lactic Acid (0.4-2.0) Calcium (8.4-10.2) mg/dL Total Bilirubin (0.2-1.3) mg/dL AST (17-59) U/L ALT (0-50) U/L Alkaline Phosphatase (38-126) U/L Serum Total Protein (6.3-8.2) g/dL Albumin (3.5-5.0) g/dL Procalcitonin (0.030-0.080) ng/mL - Progress Progress: unchanged Progress Note: 06/25/22 16:26 Ruled out DVT, no signs of cellulitis. No trauma. Patient does have enlarged lymph nodes on the right groin area. I believe patient has lymphedema, recommended elevation, Ari wrap and outpatient primary care follow-up and may need referral for vascular surgery for further evaluation. Recommended Tylenol as needed for pain. Discussed signs symptoms of worsening return to ER which he seems understanding. Stable for discharge. Counseled pt/family regarding: lab results, diagnosis, need for follow-up, rad results - Departure Departure Disposition: Home Clinical Impression: Right leg swelling Condition: Stable Critical Care Time: No Referrals: CATALINA TALBERT NP [Primary Care Provider] - Follow up/PCP as directed (1-2 days for reevaluation) Instructions: Lymphedema (DC) Additional Instructions: Keep it elevated, Ari wrap, low-salt diet, follow-up with primary care for reevaluation and may need referral for vascular surgery. Return to ER for increasing swelling, pain, redness, difficulty ambulation. Take Tylenol as needed.
[2022-06-25 15:47] LABS: Basophil (Absolute #) 0.04 x10^3/uL (0-0.4); Eosinophil % 1.7 % (0.00-5.0); Eosinophil (Absolute #) 0.12 x10^3/uL (0-0.5); Hematocrit 30.7 % (42-50); Hemoglobin 10.2 g/dL (12.5-18.0); Lymphocyte (Absolute #) 1.21 x10^3/uL (1.0-4.6); Lymphocytes % 16.9 % (24.0-44.0); Mean Cell Volume 91.1 fL (78-100); Mean Corpuscular Hemoglobin 30.3 pg (26-32); Mean Corpuscular Hgb Concent. 33.2 g/dL (32-36); Mean Platelet Volume 10.9 fL (7.5-11.0); Monocyte (Absolute #) 0.56 x10^3/uL (0.0-1.3); Monocytes % 7.8 % (0.0-12.0); Neutrophil % 72.7 % (36.0-66.0); Platelet Count 269 x10^3/uL (150-450); Red Blood Count 3.37 x10^6/uL (4.1-5.6); Red Cell Distribution Width 13.1 % (11.5-14.0); White Blood Count 7.2 x10^3/uL (4.0-10.5)
[2022-06-25 16:01] LABS: ALBUMIN 3.8 g/dL (3.5-5.0); ALKALINE PHOSPHATASE 142 U/L (38-126); ANION GAP 10.9 MEQ/L (5-15); BLOOD UREA NITROGEN 20 mg/dL (9-20); CHLORIDE 107 mmol/L (98-107); Calcium 8.8 mg/dL (8.4-10.2); Carbon Dioxide 25 mmol/L (22-30); Creatinine 1 1.07 mg/dL (0.66-1.25); EST GLOMERULAR FILTRATION RATE > 60.0 ML/MIN; Glucose 339 mg/dL (74-106); Potassium 4.8 mmol/L (3.5-5.1); SGOT/AST 17 U/L (17-59); SGPT/ALT 17 U/L (0-50); SODIUM 138 mmol/L (137-145); Total Protein 6.8 g/dL (6.3-8.2)
[2022-06-25 16:33] VITALS: BP 162/84; PULSE 72; O2SAT 96
--- NOTE | 2022-06-25 17:22 | XRAY ---
Exam: Duplex Doppler Ultrasound of the right lower extremity. Comparison: Duplex Doppler ultrasound of the right and left lower extremity from 11/17/2020. Indication: 61-year-old male with right leg swelling and pain. Findings: The examination of the right lower extremity was carried out in the usual manner imaging housing management representative sections of the common femoral vein through the popliteal vein. The posterior tibial veins were also evaluated. Normal color flow was seen throughout. Normal spontaneous and phasic flow was seen at all housing management representative sections. There was normal transducer compression and doppler signal augmentation at all levels. The greater saphenous vein demonstrated normal compressibility, color blood flow, and Doppler signal.. There appears to be some subcutaneous edema within the distal right lower leg at the level of the ankle. Impression: 1. No evidence of deep venous thrombosis within the right lower extremity. 2. There appears to be some subcutaneous edema within the distal right lower leg at the level of the ankle.
== END 2022-06-25 16:33 | disposition home or self-care (01) ==
LOC: ED 14:30
DX: R60.0 Localized edema (principal); M79.604 Pain in right leg; I10 Essential (primary) hypertension; E78.5 Hyperlipidemia, unspecified; E11.42 Type 2 diabetes mellitus with diabetic polyneuropathy; Z72.0 Tobacco use; Z79.4 Long term (current) use of insulin; Z79.899 Other long term (current) drug therapy
CPT/HCPCS: 36415; 80053; 83605; 84145; 85025; 87040; 93971; 99283

== ENCOUNTER 2022-09-21 20:47 | Observation (INO) | payer OTHER ==
[2022-09-21] MEDS ORDERED: Furosemide 100mg/10 ml Vial IV ONE (21:18)
[2022-09-21 21:27] LABS: Absolute Neutrophil Ct (ANC) 4.75 x10^3/uL (1.4-6.9); Basophil (Absolute #) 0.05 x10^3/uL (0-0.4); Eosinophil % 2.8 % (0.00-5.0); Eosinophil (Absolute #) 0.21 x10^3/uL (0-0.5); Hematocrit 29.4 % (42-50); Hemoglobin 9.3 g/dL (12.5-18.0); Lymphocyte (Absolute #) 1.78 x10^3/uL (1.0-4.6); Lymphocytes % 23.6 % (24.0-44.0); Mean Cell Volume 96.1 fL (78-100); Mean Corpuscular Hemoglobin 30.4 pg (26-32); Mean Corpuscular Hgb Concent. 31.6 g/dL (32-36); Mean Platelet Volume 11.2 fL (7.5-11.0); Monocyte (Absolute #) 0.74 x10^3/uL (0.0-1.3); Monocytes % 9.8 % (0.0-12.0); Neutrophil % 62.8 % (36.0-66.0); Platelet Count 290 x10^3/uL (150-450); Red Blood Count 3.06 x10^6/uL (4.1-5.6); Red Cell Distribution Width 13.5 % (11.5-14.0); White Blood Count 7.6 x10^3/uL (4.0-10.5)
[2022-09-21] MEDS ORDERED: Lasix 40 MG/4 ML ONE (21:32)
[2022-09-21] MEDS ORDERED: Furosemide 100mg/10 ml Vial ONE (21:34)
[2022-09-21 21:57] LABS: ANION GAP 6.3 MEQ/L (5-15); BILIRUBIN,TOTAL 0.3 mg/dL (0.2-1.3); Calcium 7.8 mg/dL (8.4-10.2); Creatinine 1 1.39 mg/dL (0.66-1.25); EST GLOMERULAR FILTRATION RATE 55.4 ML/MIN; MAGNESIUM 2.9 mg/dL (1.6-2.3); Potassium 4.7 mmol/L (3.5-5.1)
[2022-09-22 01:03] LABS: Appearance CLEAR (CLEAR); Bilirubin NEGATIVE (NEGATIVE); Dipstick done @ ? MAIN LAB; Glucose 250 mg/dL (NEGATIVE); Ketones NEGATIVE (NEGATIVE); Nitrite NEGATIVE (NEGATIVE); Ph 5.5 (5-6); Protein,Urine Dip >=300 (Negative); RBC MODERATE Ery/ul (0-5); Urobilinogen 0.2 mg/dL (0-1)
[2022-09-22 01:08] LABS: Bacteria RARE /HPF (NEGATIVE); Mucus SLIGHT /HPF (NEGATIVE)
[2022-09-22 01:17] LABS: Urine Cultured Indicated? YES
[2022-09-22] MEDS ORDERED: NORVASC 5 MG PO ONE (01:58)
[2022-09-22] MEDS ORDERED: Toprol-Xl 25MG Tablets ONE (02:11)
[2022-09-22] MEDS ORDERED: NORVASC 5 MG ONE (02:11)
[2022-09-22] MEDS ORDERED: Toprol-Xl 25MG Tablets PO ONE (02:22)
[2022-09-22] MEDS ORDERED: PLAVIX Tablet PO ONE (02:26)
[2022-09-22] MEDS ORDERED: BABY ASPIRIN 81 MG CHEW PO ONE (02:26)
[2022-09-22] MEDS ORDERED: HEPARIN 5000 UNITS/0.5 ML (HIGH RISK MED) IV STA (02:29)
[2022-09-22] MEDS ORDERED: HEPARIN 5000 UNITS/0.5 ML (HIGH RISK MED) IV PRN (02:29)
[2022-09-22] MEDS ORDERED: PLAVIX Tablet ONE (03:00)
[2022-09-22] MEDS ORDERED: BABY ASPIRIN 81 MG CHEW ONE (03:00)
[2022-09-22 03:11] LABS: INR 0.92 (0.8-3.0); PROTIME 9.8 SECONDS (9.4-12.5); PTT 26.2 SECONDS (25.1-36.5)
[2022-09-22] MEDS: Heparin 25,000 units/D5W: USE ORDER SET PROTO 25,000 UNITS/250 ML BAG IV SCH ×2 (03:11→03:12)
[2022-09-22] MEDS ORDERED: ENOXAPARIN SODIUM SQ SCH ×3 (03:15→13:00)
--- NOTE | 2022-09-22 03:52 | ERPHSYRPT ---
<SANDRA DUKES - Last Filed: 09/22/22 11:30> - History of Present Illness Source: patient Exam Limitations: no limitations Patient Subjective Stated Complaint: pt states "I feel like I'm drowning. My leg are so big, they feel like they are going to split. My water pills are not working." Triage Nursing Assessment: pt ambulated into the er; pt is axo x4; c/o SOB; pt states 7/10 pain to BLE; fine crackles throughout all lobes; expiratory wheezing present; BLE 4+ pitting edema; weak asia pedal pulses; dry hacking cough present; skin PDW; hypertensive Timing/Duration: week(s) (1), gradual onset Activities at Onset: rest Quality: fullness Location: other (b/l LE edema up to groin) Chest Pain Radiation: no radiation Severity of Pain-Max: none Severity of Pain-Current: none Modifying Factors: Improves With: coughing, exertion, lying down, change in position Nitro Today/Relief: no nitro taken today Aspirin Treatment Today: no aspirin today Associated Symptoms: shortness of breath, cough, malaise, weakness Prior Chest Pain/Cardiac Workup: no prior chest pain Hx Tetanus, Diphtheria Vaccination/Date Given: No Hx Influenza Vaccination/Date Given: No Hx Pneumococcal Vaccination/Date Given: No <KYRIE DUNAWAY - Last Filed: 09/24/22 17:12> - History of Present Illness Physician History: Patient presents to the ER with a 1 week history of worsening bilateral lower extremity swelling and shortness of breath. Patient has been taking Lasix 40 mg p.o. daily with minimal improvement. Patient reports symptoms of orthopnea, PND and CRUZ. He is only able to walk approximately 10 feet before getting short of breath. He also has a productive cough with clear sputum. He denies a history of CHF. He does endorse a history of hypertension, diabetes, CKD and peripheral vascular disease with a stent in his right lower extremity. (KYRIE DUNAWAY) Allergies/Adverse Reactions: insulin glargine [From Basaglar KwikPen U-100 Insulin] Allergy (Verified 09/21/22 20:55) Home Medications: Gabapentin [Neurontin] 800 mg PO TID 01/26/17 [History] Losartan Potassium 50 mg [Cozaar 50 MG] 100 mg PO DAILY 01/26/17 [History] Simvastatin [Zocor] 100 mg PO DAILY 01/26/17 [History] Aspirin [Aspirin EC] 81 mg PO DAILY 05/31/19 [History] Ezetimibe 10 mg [Zetia 10 MG] 10 mg PO DAILY 05/31/19 [History] Furosemide 20 mg [Lasix 20 mg] 40 mg PO DAILY 05/31/19 [History] Insulin Lispro [Admelog] 100 unit SQ DAILY 05/31/19 [History] Metoprolol Succinate [Toprol Xl] 50 mg PO DAILY 05/31/19 [History] Omeprazole 20 mg PO DAILY 05/31/19 [History] Amlodipine Besylate [Norvasc] 10 mg PO DAILY 01/04/22 [History] Duloxetine HCl 60 mg PO DAILY 01/04/22 [History] Hydralazine HCl 100 mg PO DAILY 01/04/22 [History] Travel Risk - International Travel Have you traveled outside of the country in past 3 weeks: No - Coronavirus Screening Are you exhibiting any of the following symptoms?: No Close contact with a COVID-19 positive Pt in past 14-21 Days: No - Vaccine Status Have you recieved a Covid-19 vaccination: Yes [employer]: Moderna - Vaccination Dates Date of 2cond Vaccination (if applicable): 10/31/21 <KYRIE DUNAWAY - Last Filed: 09/24/22 17:12> - Review of Systems Constitutional: Fatigue, Weakness, No Fever, No Chills Eyes: No Symptoms Ears, Nose, & Throat: No Symptoms Respiratory: Cough, Dyspnea, Dyspnea on Exertion (CRUZ), Wheezing Cardiac: Edema, Orthopnea, PND, No Chest Pain, No Palpitations, No Syncope Abdominal/Gastrointestinal: No Abdominal Pain, No Nausea, No Vomiting Genitourinary Symptoms: No Symptoms Musculoskeletal: No Symptoms Skin: Dryness, No Cellulitis, No Rash Neurological: No Symptoms Hematologic/Lymphatic: No Symptoms <KYRIE DUNAWAY - Last Filed: 09/24/22 17:12> - Past Medical History Pertinent Past Medical History: Yes Neurological History: Peripheral Neuropathy ENT History: No Pertinent History Cardiac History: High Cholesterol, Hypertension Respiratory History: No Pertinent History Endocrine Medical History: Diabetes Type II Musculoskeletal History: No Pertinent History GI Medical History: GERD History: No Pertinent History Psycho-Social History: No Pertinent History Male Reproductive Disorders: No Pertinent History - Past Surgical History Past Surgical History: Yes Neuro Surgical History: No Pertinent History Cardiac: No Pertinent History Respiratory: No Pertinent History Gastrointestinal: No Pertinent History Genitourinary: No Pertinent History Musculoskeletal: No Pertinent History Male Surgical History: No Pertinent History Other Surgical History: stent in left leg - Social History Smoking Status: Current every day smoker How long have you smoked: years Exposure to second hand smoke: Yes Drug Use: none Patient Lives Alone: Yes <KYRIE DUNAWAY - Last Filed: 09/24/22 17:12> - Physical Exam General Appearance: moderate distress Eye Exam: PERRL/EOMI Ears, Nose, Throat Exam: moist mucous membranes Neck Exam: normal inspection Respiratory Exam: crackles/rales, wheezing Cardiovascular Exam: regular rate/rhythm, edema (3+) Gastrointestinal/Abdomen Exam: soft, No tenderness, No ecchymosis Extremity Exam: pedal edema, swelling, No calf tenderness, No sara's sign Neurologic Exam: alert, oriented x 3, cooperative, measurement and verification engineer II-XII nml as tested Skin Exam: normal color, warm, dry SpO2 Interpretation: borderline oxygenation SpO2: 93 O2 Delivery: Room Air <KYRIE DUNAWAY - Last Filed: 09/24/22 17:12> - Nursing Vital Signs Nursing Vital Signs: Initial Vital Signs Temperature 98.9 F 09/21/22 20:47 Pulse Rate 75 09/21/22 20:47 Respiratory Rate 24 09/21/22 20:47 Blood Pressure 183/74 09/21/22 20:47 O2 Sat by Pulse Oximetry 95 09/21/22 20:47 Pain Scale Pain Intensity 0 - Course Nursing assessment & vital signs reviewed: Yes - Radiology Exams Chest X-ray Interpretation: Reviewed by me (Congestive heart failure and bilateral pleural effusions, ) <SANDRA DUKES - Last Filed: 09/22/22 11:30> - Course EKG Interpreted by Me: RATE (80), Sinus Rhythm, NORMAL AXIS, prolonged QT interval (QTc 481), NORMAL ST-T <KYRIE DUNAWAY - Last Filed: 09/24/22 17:12> Ordered Tests: Medication Summary Discontinued Medications Generic Name Dose Route Start Last Admin Trade Name Freq PRN Reason Stop Dose Admin Albuterol/Ipratropium 3 ml 09/22/22 04:01 09/22/22 04:22 Ipratropium/Albuterol Sulfate 3 Ml Ampul.Neb IH 09/22/22 04:02 3 ml STAT ONE Administration Albuterol/Ipratropium Confirm 09/22/22 04:11 Ipratropium/Albuterol Sulfate 3 Ml Ampul.Neb Administered 09/22/22 04:12 Dose 3 ml IH .STK-MED ONE Amlodipine Besylate 5 mg 09/22/22 01:58 09/22/22 02:20 Amlodipine Besylate 5 Mg Tablet PO 09/22/22 01:59 5 mg STAT ONE Administration Amlodipine Besylate Confirm 09/22/22 02:11 Amlodipine Besylate 5 Mg Tablet Administered 09/22/22 02:12 Dose 5 mg .ROUTE .STK-MED ONE Amlodipine Besylate 10 mg 09/22/22 13:00 09/23/22 10:49 Amlodipine Besylate 5 Mg Tablet PO 10/22/22 12:59 10 mg DAILY MARTIN Administration Aspirin 324 mg 09/22/22 02:26 09/22/22 03:11 Aspirin 81 Mg Tab.Chew PO 09/22/22 02:27 324 mg STAT ONE Administration Aspirin Confirm 09/22/22 03:00 Aspirin 81 Mg Tab.Chew Administered 09/22/22 03:01 Dose 324 mg .ROUTE .STK-MED ONE Aspirin 81 mg 09/22/22 14:00 09/23/22 10:47 Aspirin 81 Mg Tablet.Ec PO 10/22/22 13:59 81 mg DAILY MARTIN Administration Clopidogrel Bisulfate 75 mg 09/22/22 02:26 09/22/22 03:11 Clopidogrel Bisulfate 75 Mg Tablet PO 09/22/22 02:27 Not Given STAT ONE Clopidogrel Bisulfate Confirm 09/22/22 03:00 Clopidogrel Bisulfate 75 Mg Tablet Administered 09/22/22 03:01 Dose 75 mg .ROUTE .STK-MED ONE Duloxetine HCl 60 mg 09/22/22 14:00 09/23/22 10:47 Duloxetine Hcl 30 Mg Cap PO 10/22/22 13:59 60 mg DAILY MARTIN Administration Ezetimibe 10 mg 09/22/22 14:00 09/23/22 10:48 Ezetimibe 10 Mg Tab PO 10/22/22 13:59 10 mg DAILY MARTIN Administration Enoxaparin Sodium 117 mg 09/22/22 03:15 09/22/22 03:21 Enoxaparin Sodium 120 Mg/0.8 Ml Syringe SQ 10/22/22 03:14 117 mg Q12H MARTIN Administration Enoxaparin Sodium 120 mg 09/22/22 08:15 Enoxaparin Sodium 120 Mg/0.8 Ml Syringe SQ 10/22/22 03:14 Q12H MARTIN Enoxaparin Sodium 120 mg 09/22/22 13:00 Enoxaparin Sodium 120 Mg/0.8 Ml Syringe SQ 10/22/22 12:59 Q12HT MARTIN Furosemide 80 mg 09/21/22 21:18 09/21/22 21:34 Furosemide 100 Mg/10 Ml Vial IV 09/21/22 21:19 80 mg STAT ONE Administration Furosemide Confirm 09/21/22 21:32 Furosemide 40 Mg/4 Ml Vial Administered 09/21/22 21:33 Dose 80 mg .ROUTE .STK-MED ONE Furosemide Confirm 09/21/22 21:34 Furosemide 100 Mg/10 Ml Vial Administered 09/21/22 21:35 Dose 100 mg .ROUTE .STK-MED ONE Furosemide 100 mg 09/22/22 09:02 09/22/22 09:03 Furosemide 100 Mg/10 Ml Vial IV 09/22/22 09:03 100 mg STAT ONE Administration Furosemide Confirm 09/22/22 09:03 Furosemide 100 Mg/10 Ml Vial Administered 09/22/22 09:04 Dose 100 mg .ROUTE .STK-MED ONE Furosemide 100 mg 09/22/22 13:30 Furosemide 100 Mg/10 Ml Vial IV 10/22/22 13:29 Q6HT MARTIN Furosemide 40 mg 09/23/22 10:00 Furosemide 20 Mg Tablet PO 10/23/22 09:59 DAILY MARTIN Furosemide 40 mg 09/23/22 10:00 09/23/22 10:48 Furosemide 40 Mg Tablet PO 10/23/22 09:59 40 mg DAILY MARTIN Administration Gabapentin 800 mg 09/22/22 15:00 09/23/22 15:47 Gabapentin 400 Mg Capsule PO 10/22/22 14:59 800 mg TID MARTIN Administration Heparin Sodium (Beef Lung) 5,001 unit 09/22/22 02:29 09/22/22 03:11 Heparin 5000 Units/0.5 Ml 5,000 Unit/0.5 Ml Syr IV 09/22/22 02:30 Not Given STAT STA Heparin Sodium (Beef Lung) 2,000 unit 09/22/22 02:29 Heparin 5000 Units/0.5 Ml 5,000 Unit/0.5 Ml Syr IV 10/22/22 02:28 PRN PRN PTT < 35 Hydralazine HCl 20 mg 09/22/22 05:22 09/22/22 05:54 Hydralazine Hcl 20 Mg/Ml Vial IV 09/22/22 05:23 Not Given STAT ONE Hydralazine HCl 100 mg 09/22/22 13:00 09/23/22 10:50 Hydralazine Hcl 25 Mg Tablet PO 10/22/22 12:59 100 mg DAILY MARTIN Administration Heparin Sodium/Dextrose 25,000 units in 250 mls @ 14.1 mls/hr 09/22/22 02:30 09/22/22 03:12 Heparin 25,000 Units/D5w: Use Order Set Chandrika IV 10/22/22 02:29 Not Given .[id number] [facility] Protocol 12 UNITS/KG/HR Insulin Human Lispro 0 unit 09/22/22 11:38 Insulin Lispro 1 Unit SQ 10/22/22 11:37 UD PRN HYPERGLYCEMIA Insulin Human Lispro 100 unit 09/23/22 10:00 Insulin Lispro 1 Unit SQ 10/23/22 09:59 DAILY [facility] Insulin Human Lispro 0 unit 09/23/22 16:46 09/23/22 17:21 Insulin Lispro 1 Unit SQ 10/23/22 16:45 2 unit UD PRN Administration HYPERGLYCEMIA Lisinopril 2.5 mg 09/23/22 10:00 Lisinopril 5 Mg Tablet PO 10/23/22 09:59 DAILY MARTIN Losartan Potassium 100 mg 09/22/22 10:00 09/22/22 02:20 Losartan Potassium 50 Mg Tablet PO 10/22/22 09:59 100 mg DAILY MARTIN Administration Losartan Potassium 100 mg 09/23/22 10:00 09/23/22 10:49 Losartan Potassium 50 Mg Tablet PO 10/23/22 09:59 100 mg DAILY MARTIN Administration Metoprolol Succinate 50 mg 09/22/22 10:00 09/22/22 02:22 Metoprolol Succinate 50 Mg Tablet.Sa PO 10/22/22 09:59 Not Given DAILY MARTIN Metoprolol Succinate Confirm 09/22/22 02:11 Metoprolol Succinate 25 Mg Xl Tab Administered 09/22/22 02:12 Dose 50 mg .ROUTE .STK-MED ONE Metoprolol Succinate 50 mg 09/22/22 02:22 09/22/22 02:23 Metoprolol Succinate 25 Mg Xl Tab PO 09/22/22 02:23 50 mg STAT ONE Administration Metoprolol Succinate 50 mg 09/23/22 10:00 Metoprolol Succinate 50 Mg Tablet.Sa PO 10/23/22 09:59 DAILY MARTIN Metoprolol Succinate 50 mg 09/22/22 14:00 09/23/22 10:50 Metoprolol Succinate 50 Mg Tablet.Sa PO 10/22/22 13:59 50 mg DAILY MARTIN Administration Pantoprazole Sodium 20 mg 09/22/22 14:00 09/23/22 10:51 Pantoprazole 20 Mg Tab PO 10/22/22 13:59 20 mg DAILY MARTIN Administration Simvastatin 40 mg 09/22/22 14:00 09/23/22 10:44 Simvastatin 20 Mg Tablet PO 10/22/22 13:59 40 mg DAILY MARTIN Administration Lab/Rad Data: Laboratory Result Diagrams 09/21/22 21:00 09/21/22 21:00 Laboratory Results 09/22/22 09/22/22 09/22/22 Range/Units 11:25 09:03 05:35 WBC (4.0-10.5) x10^3/uL RBC (4.1-5.6) x10^6/uL Hgb (12.5-18.0) g/dL Hct (42-50) % MCV (78-100) fL MCH (26-32) pg MCHC (32-36) g/dL RDW (11.5-14.0) % Plt Count (150-450) x10^3/uL MPV (7.5-11.0) fL Gran % (36.0-66.0) % Immature Gran % (Auto) (0.00-0.4) % Nucleat RBC Rel Count (0.00-0.1) % Eos # (Auto) (0-0.5) x10^3/uL Immature Gran # (Auto) (0.00-0.03) x10^3u/L Absolute Lymphs (auto) (1.0-4.6) x10^3/uL Absolute Monos (auto) (0.0-1.3) x10^3/uL Absolute Nucleated RBC (0.00-0.01) x10^3u/L Lymphocytes % (24.0-44.0) % Monocytes % (0.0-12.0) % Eosinophils % (0.00-5.0) % Basophils % (0.0-0.4) % Absolute Granulocytes (1.4-6.9) x10^3/uL Basophils # (0-0.4) x10^3/uL PT (9.4-12.5) SECONDS INR (0.8-3.0) APTT (25.1-36.5) SECONDS Sodium (137-145) mmol/L Potassium (3.5-5.1) mmol/L Chloride (98-107) mmol/L Carbon Dioxide (22-30) mmol/L Anion Gap (5-15) MEQ/L BUN (9-20) mg/dL Creatinine (0.66-1.25) mg/dL Estimated GFR ML/MIN Glucose (74-106) mg/dL Calcium (8.4-10.2) mg/dL Phosphorus (2.5-4.5) mg/dL Magnesium (1.6-2.3) mg/dL Total Bilirubin (0.2-1.3) mg/dL AST (17-59) U/L ALT (0-50) U/L Alkaline Phosphatase (38-126) U/L Troponin I 0.072 H* 0.090 H* (0.000-0.034) ng/mL NT-Pro-B Natriuret Pep (0-900) pg/mL Serum Total Protein (6.3-8.2) g/dL Albumin (3.5-5.0) g/dL Procalcitonin (0.030-0.080) ng/mL Urinalys Dipstick Clnc Urine Color (YELLOW) Urine Appearance (CLEAR) Urine pH (5-6) Ur Specific [place] (1.005-1.025) POC Urine Protein Conf (Negative) Urine Ketones (NEGATIVE) Urine Nitrite (NEGATIVE) Urine Bilirubin (NEGATIVE) Urine Urobilinogen (0-1) mg/dL Urine Leukocytes (NEGATIVE) Urine WBC (Auto) (0-5) /HPF Urine RBC (Auto) (0-2) /HPF U Hyaline Cast (Auto) (0-2) /LPF U Epithel Cells (Auto) (FEW) /HPF Urine Bacteria (Auto) (NEGATIVE) /HPF Urine RBC (0-5) Vincenzo/ul Urine Mucus (Auto) (NEGATIVE) /HPF Ur Culture Indicated? Urine Glucose (NEGATIVE) mg/dL Influenza Type A Ag NEGATIVE (NEGATIVE) Influenza Type B Ag NEGATIVE (NEGATIVE) RSV (PCR) NEGATIVE (Negative) SARS-CoV-2 (PCR) NEGATIVE (NEGATIVE) 09/22/22 09/22/22 09/21/22 Range/Units 02:50 01:35 23:42 WBC (4.0-10.5) x10^3/uL RBC (4.1-5.6) x10^6/uL Hgb (12.5-18.0) g/dL Hct (42-50) % MCV (78-100) fL MCH (26-32) pg MCHC (32-36) g/dL RDW (11.5-14.0) % Plt Count (150-450) x10^3/uL MPV (7.5-11.0) fL Gran % (36.0-66.0) % Immature Gran % (Auto) (0.00-0.4) % Nucleat RBC Rel Count (0.00-0.1) % Eos # (Auto) (0-0.5) x10^3/uL Immature Gran # (Auto) (0.00-0.03) x10^3u/L Absolute Lymphs (auto) (1.0-4.6) x10^3/uL Absolute Monos (auto) (0.0-1.3) x10^3/uL Absolute Nucleated RBC (0.00-0.01) x10^3u/L Lymphocytes % (24.0-44.0) % Monocytes % (0.0-12.0) % Eosinophils % (0.00-5.0) % Basophils % (0.0-0.4) % Absolute Granulocytes (1.4-6.9) x10^3/uL Basophils # (0-0.4) x10^3/uL PT 9.8 (9.4-12.5) SECONDS INR 0.92 (0.8-3.0) APTT 26.2 (25.1-36.5) SECONDS Sodium (137-145) mmol/L Potassium (3.5-5.1) mmol/L Chloride (98-107) mmol/L Carbon Dioxide (22-30) mmol/L Anion Gap (5-15) MEQ/L BUN (9-20) mg/dL Creatinine (0.66-1.25) mg/dL Estimated GFR ML/MIN Glucose (74-106) mg/dL Calcium (8.4-10.2) mg/dL Phosphorus (2.5-4.5) mg/dL Magnesium (1.6-2.3) mg/dL Total Bilirubin (0.2-1.3) mg/dL AST (17-59) U/L ALT (0-50) U/L Alkaline Phosphatase (38-126) U/L Troponin I 0.087 H* (0.000-0.034) ng/mL NT-Pro-B Natriuret Pep (0-900) pg/mL Serum Total Protein (6.3-8.2) g/dL Albumin (3.5-5.0) g/dL Procalcitonin (0.030-0.080) ng/mL Urinalys Dipstick Clnc MAIN LAB Urine Color YELLOW (YELLOW) Urine Appearance CLEAR (CLEAR) Urine pH 5.5 (5-6) Ur Specific [place] 1.020 (1.005-1.025) POC Urine Protein Conf >=300 A (Negative) Urine Ketones NEGATIVE (NEGATIVE) Urine Nitrite NEGATIVE (NEGATIVE) Urine Bilirubin NEGATIVE (NEGATIVE) Urine Urobilinogen 0.2 (0-1) mg/dL Urine Leukocytes NEGATIVE (NEGATIVE) Urine WBC (Auto) NONE (0-5) /HPF Urine RBC (Auto) 6-10 A (0-2) /HPF U Hyaline Cast (Auto) 3-5 A (0-2) /LPF U Epithel Cells (Auto) NONE (FEW) /HPF Urine Bacteria (Auto) RARE (NEGATIVE) /HPF Urine RBC MODERATE A (0-5) Vincenzo/ul Urine Mucus (Auto) SLIGHT A (NEGATIVE) /HPF Ur Culture Indicated? YES Urine Glucose 250 A (NEGATIVE) mg/dL Influenza Type A Ag (NEGATIVE) Influenza Type B Ag (NEGATIVE) RSV (PCR) (Negative) SARS-CoV-2 (PCR) (NEGATIVE) 09/21/22 09/21/22 09/21/22 Range/Units 21:00 21:00 21:00 WBC (4.0-10.5) x10^3/uL RBC (4.1-5.6) x10^6/uL Hgb (12.5-18.0) g/dL Hct (42-50) % MCV (78-100) fL MCH (26-32) pg MCHC (32-36) g/dL RDW (11.5-14.0) % Plt Count (150-450) x10^3/uL MPV (7.5-11.0) fL Gran % (36.0-66.0) % Immature Gran % (Auto) (0.00-0.4) % Nucleat RBC Rel Count (0.00-0.1) % Eos # (Auto) (0-0.5) x10^3/uL Immature Gran # (Auto) (0.00-0.03) x10^3u/L Absolute Lymphs (auto) (1.0-4.6) x10^3/uL Absolute Monos (auto) (0.0-1.3) x10^3/uL Absolute Nucleated RBC (0.00-0.01) x10^3u/L Lymphocytes % (24.0-44.0) % Monocytes % (0.0-12.0) % Eosinophils % (0.00-5.0) % Basophils % (0.0-0.4) % Absolute Granulocytes (1.4-6.9) x10^3/uL Basophils # (0-0.4) x10^3/uL PT (9.4-12.5) SECONDS INR (0.8-3.0) APTT (25.1-36.5) SECONDS Sodium (137-145) mmol/L Potassium (3.5-5.1) mmol/L Chloride (98-107) mmol/L Carbon Dioxide (22-30) mmol/L Anion Gap (5-15) MEQ/L BUN (9-20) mg/dL Creatinine (0.66-1.25) mg/dL Estimated GFR ML/MIN Glucose (74-106) mg/dL Calcium (8.4-10.2) mg/dL Phosphorus 4.7 H (2.5-4.5) mg/dL Magnesium (1.6-2.3) mg/dL Total Bilirubin (0.2-1.3) mg/dL AST (17-59) U/L ALT (0-50) U/L Alkaline Phosphatase (38-126) U/L Troponin I 0.092 H* (0.000-0.034) ng/mL NT-Pro-B Natriuret Pep (0-900) pg/mL Serum Total Protein (6.3-8.2) g/dL Albumin (3.5-5.0) g/dL Procalcitonin 0.051 (0.030-0.080) ng/mL Urinalys Dipstick Clnc Urine Color (YELLOW) Urine Appearance (CLEAR) Urine pH (5-6) Ur Specific [place] (1.005-1.025) POC Urine Protein Conf (Negative) Urine Ketones (NEGATIVE) Urine Nitrite (NEGATIVE) Urine Bilirubin (NEGATIVE) Urine Urobilinogen (0-1) mg/dL Urine Leukocytes (NEGATIVE) Urine WBC (Auto) (0-5) /HPF Urine RBC (Auto) (0-2) /HPF U Hyaline Cast (Auto) (0-2) /LPF U Epithel Cells (Auto) (FEW) /HPF Urine Bacteria (Auto) (NEGATIVE) /HPF Urine RBC (0-5) Vincenzo/ul Urine Mucus (Auto) (NEGATIVE) /HPF Ur Culture Indicated? Urine Glucose (NEGATIVE) mg/dL Influenza Type A Ag (NEGATIVE) Influenza Type B Ag (NEGATIVE) RSV (PCR) (Negative) SARS-CoV-2 (PCR) (NEGATIVE) 09/21/22 09/21/22 Range/Units 21:00 21:00 WBC 7.6 (4.0-10.5) x10^3/uL RBC 3.06 L (4.1-5.6) x10^6/uL Hgb 9.3 L (12.5-18.0) g/dL Hct 29.4 L (42-50) % MCV 96.1 (78-100) fL MCH 30.4 (26-32) pg MCHC 31.6 L (32-36) g/dL RDW 13.5 (11.5-14.0) % Plt Count 290 (150-450) x10^3/uL MPV 11.2 H (7.5-11.0) fL Gran % 62.8 (36.0-66.0) % Immature Gran % (Auto) 0.3 (0.00-0.4) % Nucleat RBC Rel Count 0.0 (0.00-0.1) % Eos # (Auto) 0.21 (0-0.5) x10^3/uL Immature Gran # (Auto) 0.02 (0.00-0.03) x10^3u/L Absolute Lymphs (auto) 1.78 (1.0-4.6) x10^3/uL Absolute Monos (auto) 0.74 (0.0-1.3) x10^3/uL Absolute Nucleated RBC 0.00 (0.00-0.01) x10^3u/L Lymphocytes % 23.6 L (24.0-44.0) % Monocytes % 9.8 (0.0-12.0) % Eosinophils % 2.8 (0.00-5.0) % Basophils % 0.7 (0.0-0.4) % Absolute Granulocytes 4.75 (1.4-6.9) x10^3/uL Basophils # 0.05 (0-0.4) x10^3/uL PT (9.4-12.5) SECONDS INR (0.8-3.0) APTT (25.1-36.5) SECONDS Sodium 136 L (137-145) mmol/L Potassium 4.7 (3.5-5.1) mmol/L Chloride 110 H (98-107) mmol/L Carbon Dioxide 24 (22-30) mmol/L Anion Gap 6.3 (5-15) MEQ/L BUN 30 H (9-20) mg/dL Creatinine 1.39 H (0.66-1.25) mg/dL Estimated GFR 55.4 ML/MIN Glucose 279 H (74-106) mg/dL Calcium 7.8 L (8.4-10.2) mg/dL Phosphorus (2.5-4.5) mg/dL Magnesium 2.9 H (1.6-2.3) mg/dL Total Bilirubin 0.30 (0.2-1.3) mg/dL AST 19 (17-59) U/L ALT 15 (0-50) U/L Alkaline Phosphatase 146 H (38-126) U/L Troponin I (0.000-0.034) ng/mL NT-Pro-B Natriuret Pep 4210 H (0-900) pg/mL Serum Total Protein 6.0 L (6.3-8.2) g/dL Albumin 3.0 L (3.5-5.0) g/dL Procalcitonin (0.030-0.080) ng/mL Urinalys Dipstick Clnc Urine Color (YELLOW) Urine Appearance (CLEAR) Urine pH (5-6) Ur Specific [place] (1.005-1.025) POC Urine Protein Conf (Negative) Urine Ketones (NEGATIVE) Urine Nitrite (NEGATIVE) Urine Bilirubin (NEGATIVE) Urine Urobilinogen (0-1) mg/dL Urine Leukocytes (NEGATIVE) Urine WBC (Auto) (0-5) /HPF Urine RBC (Auto) (0-2) /HPF U Hyaline Cast (Auto) (0-2) /LPF U Epithel Cells (Auto) (FEW) /HPF Urine Bacteria (Auto) (NEGATIVE) /HPF Urine RBC (0-5) Vincenzo/ul Urine Mucus (Auto) (NEGATIVE) /HPF Ur Culture Indicated? Urine Glucose (NEGATIVE) mg/dL Influenza Type A Ag (NEGATIVE) Influenza Type B Ag (NEGATIVE) RSV (PCR) (Negative) SARS-CoV-2 (PCR) (NEGATIVE) - Progress Progress: improved Discussed with : Evette <SANDRA DUKES - Last Filed: 09/22/22 11:30> - Progress Progress: re-examined Air Movement: fair Blood Culture(s) Obtained: No Antibiotics given: No [facility] : [facility] Will see patient in: other (Transfer pending) Counseled pt/family regarding: lab results, diagnosis, smoking cessation <KYRIE DUNAWAY - Last Filed: 09/24/22 17:12> - Progress Progress Note: 09/22/22 11:31 after 15 hours of being boarded in our emergency room we did review his status with [facility] and [facility] and neither of them can offer a bed in a reasonable period of time. His O2 sat has improved and is now 97% on room air, he has diuresed nearly a liter in the past hour, his shortness of breath has improved, his troponins have stayed essentially stable, and clinically he has improved. With no bed available expected in the next 24 hours or so we have asked Dr. Sterling to admit him here and he has agreed. We will not notify [facility] or [facility] of his admission and hopes that if he needs a bed in the future and requires transfer we will still have a bed available to us. (SANDRA DUKES) Patient's BNP was 4210, initial troponin 0.092, Hb 9.3, CR 1.39, GFR 55. After giving 80 mg of Lasix IV patient had good urine output and reported improvement in his breathing. After about an hour of relief his shortness of breath began to return. Repeat troponin came back at 0.08. Case was discussed with Dr. Sorensen with [facility] cardiology. He agreed to have the patient accepted and they would consult on the case. We are awaiting a bed to open up an order for the hospital service to accept the patient. We reached out to several surrounding hospitals in the state and there are no beds available. [facility] did place us on a wait list. Per recommendation from the cardiology consult 324 mg of chewable aspirin was given and patient was started on therapeutic Lovenox. His home BP medications were resumed which improved his blood pressure. He contin ued to have dyspnea so a trial of DuoNebs was attempted with minimal relief. Decision was then made to place the patient on BiPAP for which he responded very well to. (KYRIE DUNAWAY) - Departure Departure Disposition: Observation <SANDRA DUKES - Last Filed: 09/22/22 11:30> - Departure Critical Care Time: Yes Critical Care Time(excluding separately billable procedures): Critical 30-74 mins <KYRIE DUNAWAY - Last Filed: 09/24/22 17:12> - Departure Clinical Impression: Acute exacerbation of CHF (congestive heart failure), Anemia, Hypertension, Elevated troponin I level CKD (chronic kidney disease) stage 3, GFR 30-59 ml/min Qualifiers: Chronic kidney disease stage 3 subtype: stage 3a (GFR 45-59) Qualified Code(s): N18.31 - Chronic kidney disease, stage 3a Condition: Fair
[2022-09-22] MEDS ORDERED: DUONEB 0.5-3 MG/3 ml Neb IH ONE ×2 (04:01→04:11)
[2022-09-22] MEDS ORDERED: APRESOLINE 20 MG/ML INJ IV ONE (05:22)
[2022-09-22] MEDS ORDERED: Furosemide 100mg/10 ml Vial IV ONE (09:02)
[2022-09-22] MEDS ORDERED: Furosemide 100mg/10 ml Vial ONE (09:03)
--- NOTE | 2022-09-22 09:06 | XRAY ---
Indication: Short of breath. Orthopnea. Comparison: January 04, 2022 Portable chest demonstrates new cardiomegaly, central vascular congestion, and small bibasilar effusions/atelectasis favoring cardiac decompensation/CHF. Superimposed pneumonia not completely excluded. Bony thorax intact again with mild degenerative changes.
[2022-09-22 09:52] LABS: INFLUENZA A NEGATIVE (NEGATIVE); INFLUENZA B NEGATIVE (NEGATIVE); RESPIRATORY SYNCTIAL VIRUS NEGATIVE (Negative); SARS-CoV-2 Xpert Express NEGATIVE (NEGATIVE)
[2022-09-22] MEDS ORDERED: Cozaar 50 MG PO SCH (10:00)
[2022-09-22] MEDS ORDERED: Toprol Xl 50 MG PO SCH (10:00)
[2022-09-22] MEDS ORDERED: HUMALOG SQ PRN (11:38)
[2022-09-22] MEDS: Zetia 10 MG PO SCH (13:15)
[2022-09-22] MEDS: Apresoline 25 MG TABLET PO SCH (13:15)
[2022-09-22] MEDS: Cymbalta 30 MG Capsule PO SCH (13:16)
[2022-09-22] MEDS: ECOTRIN 81 MG PO SCH (13:16)
[2022-09-22] MEDS: NORVASC 5 MG PO SCH (13:17)
[2022-09-22] MEDS: ZOCOR 20MG PO SCH (13:17)
[2022-09-22] MEDS: Protonix 20MG Tablet PO SCH (13:18)
[2022-09-22] MEDS: Toprol Xl 50 MG PO SCH (13:18)
[2022-09-22] MEDS ORDERED: Furosemide 100mg/10 ml Vial IV SCH (13:30)
[2022-09-22] MEDS: Neurontin PO SCH ×2 (14:40→23:11)
[2022-09-22] MEDS ORDERED: NON-FORMULARY ITEM (Gabapentin [Neurontin] 800 MG Tablet) PO SCH (15:00)
[2022-09-23 05:03] LABS: Hematocrit 28.8 % (42-50); Mean Corpuscular Hemoglobin 30.9 pg (26-32); Mean Corpuscular Hgb Concent. 31.3 g/dL (32-36); Mean Platelet Volume 10.8 fL (7.5-11.0); Platelet Count 269 x10^3/uL (150-450); Red Blood Count 2.91 x10^6/uL (4.1-5.6); Red Cell Distribution Width 13.5 % (11.5-14.0); White Blood Count 7.7 x10^3/uL (4.0-10.5)
[2022-09-23 05:24] LABS: ANION GAP 6.9 MEQ/L (5-15); Calcium 7.6 mg/dL (8.4-10.2); Creatinine 1 1.64 mg/dL (0.66-1.25); EST GLOMERULAR FILTRATION RATE 45.8 ML/MIN; Potassium 5.1 mmol/L (3.5-5.1)
[2022-09-23] MEDS ORDERED: Zestril 5 MG PO SCH (10:00)
[2022-09-23] MEDS ORDERED: NON-FORMULARY ITEM (Duloxetine Hcl [Duloxetine Hcl] 60 MG Capsule.Dr) PO SCH (10:00)
[2022-09-23] MEDS ORDERED: NON-FORMULARY ITEM (Hydralazine Hcl [Hydralazine Hcl] 100 MG Tablet) PO SCH (10:00)
[2022-09-23] MEDS ORDERED: Cozaar 50 MG PO SCH (10:00)
[2022-09-23] MEDS ORDERED: HUMALOG SQ SCH (10:00)
[2022-09-23] MEDS ORDERED: Toprol Xl 50 MG PO SCH (10:00)
[2022-09-23] MEDS ORDERED: Lasix 40 MG PO SCH (10:00)
[2022-09-23] MEDS ORDERED: LASIX 20 MG PO SCH (10:00)
[2022-09-23] MEDS ORDERED: NON-FORMULARY ITEM (Omeprazole [Omeprazole] 20 MG Capsule.Dr) PO SCH (10:00)
[2022-09-23] MEDS: Neurontin PO SCH ×2 (10:43→15:47)
[2022-09-23] MEDS: ZOCOR 20MG PO SCH (10:44)
[2022-09-23] MEDS: ECOTRIN 81 MG PO SCH (10:47)
[2022-09-23] MEDS: Cymbalta 30 MG Capsule PO SCH (10:47)
[2022-09-23] MEDS: Zetia 10 MG PO SCH (10:48)
[2022-09-23] MEDS: NORVASC 5 MG PO SCH (10:49)
[2022-09-23] MEDS: Toprol Xl 50 MG PO SCH (10:50)
[2022-09-23] MEDS: Apresoline 25 MG TABLET PO SCH (10:50)
[2022-09-23] MEDS: Protonix 20MG Tablet PO SCH (10:51)
[2022-09-23 16:44] VITALS: BP 146/67; PULSE 61
[2022-09-23] MEDS ORDERED: HUMALOG SQ PRN (16:46)
--- NOTE | 2022-09-23 17:12 | PCM.SSS ---
History of Present Illness - Chief Complaint Chief Complaint: CHF EXACERBATION History of Present Illness: is a 62 year old male patient of Dr Sterling, admitted with shortness of breath and profound swelling, chf exacerbation. worsening renal function since admission with a history of CKD, [facility]. - Review of Systems Respiratory: Short Of Breath Cardiac: No Chest Pain, No Edema, No Syncope Abdominal/Gastrointestinal: No Abdominal Pain, No Nausea, No Vomiting, No Diarrhea Genitourinary Symptoms: No Dysuria All Other Systems: Reviewed and Negative Medications & Allergies Home Medications: Home Medication List Gabapentin [Neurontin] 800 mg PO TID 01/26/17 [History Confirmed 09/22/22] Losartan Potassium 50 mg [Cozaar 50 MG] 100 mg PO DAILY 01/26/17 [History Confirmed 09/22/22] Simvastatin [Zocor] 100 mg PO DAILY 01/26/17 [History Confirmed 09/22/22] Aspirin [Aspirin EC] 81 mg PO DAILY 05/31/19 [History Confirmed 09/22/22] Ezetimibe 10 mg [Zetia 10 MG] 10 mg PO DAILY 05/31/19 [History Confirmed 09/22/22] Furosemide 20 mg [Lasix 20 mg] 40 mg PO DAILY 05/31/19 [History Confirmed 09/22/22] Insulin Lispro [Admelog] 100 unit SQ DAILY 05/31/19 [History Confirmed 09/22/22] Metoprolol Succinate [Toprol Xl] 50 mg PO DAILY 05/31/19 [History Confirmed 09/22/22] Omeprazole 20 mg PO DAILY 05/31/19 [History Confirmed 09/22/22] Amlodipine Besylate [Norvasc] 10 mg PO DAILY 01/04/22 [History Confirmed 09/22/22] Duloxetine HCl 60 mg PO DAILY 01/04/22 [History Confirmed 09/22/22] Hydralazine HCl 100 mg PO DAILY 01/04/22 [History Confirmed 09/22/22] Allergies/Adverse Reactions: Allergies Allergy/AdvReac Type Severity Reaction Status Date / Time insulin glargine Allergy Verified 09/21/22 20:55 [From Basaglbelkys Garcia U-100 Insulin] - Past Medical History Past Medical History: Yes Neurological History: Peripheral Neuropathy ENT History: No Pertinent History Cardiac History: High Cholesterol, Hypertension Respiratory History: No Pertinent History Endocrine Medical History: Diabetes Type II Musculoskelatal History: No Pertinent History GI Medical History: GERD History: No Pertinent History Pyscho-Social History: No Pertinent History Male Reproductive Disorders: No Pertinent History - Past Surgical History Past Surgical History: Yes Neuro Surgical History: No Pertinent History Cardiac History: No Pertinent History Respiratory Surgery: No Pertinent History GI Surgical History: No Pertinent History Genitourinary Surgical Hx: No Pertinent History Musculskeletal Surgical Hx: No Pertinent History Male Surgical History: No Pertinent History Other Surgical History: stent in left leg - Social History Smoking Status: Current every day smoker How long have you smoked: 50 YRS Exposure to second hand smoke: Yes Alcohol: Occasionally Drug Use: none - Physical Exam Vital Signs: Vital Signs - 24 hr Temp Pulse Resp BP Pulse Ox 09/23/22 16:00 97.7 F 61 18 146/67 95 09/23/22 12:00 97.5 F 58 L 18 176/77 93 L 09/23/22 08:00 97.5 F 57 L 18 148/69 94 L 09/23/22 04:00 97.1 F 61 16 136/65 90 L 09/23/22 00:00 97.8 F 63 18 168/76 90 L 09/22/22 20:00 97.5 F 59 L 19 153/72 92 L Respiratory Exam: crackles/rales Cardiovascular Exam: regular rate/rhythm, normal heart sounds, normal peripheral pulses Gastrointestinal/Abdomen Exam: soft, normal bowel sounds, No tenderness, No mass Extremity Exam: swelling Wound Assessment: Skin/Wound Assessment Wound/Incision Assessment Start: 09/23/22 10:58 Text: Status: Active Freq: Protocol: Document 09/23/22 10:58 RB (Rec: 09/23/22 11:00 RB [id number]) Wound/Incision Assessment Right Posterior Foot Wound Assessment New Finding Wound Stage Non Pressure Wound Dressing Status Dry & Intact Drainage Amount Minimal Drainage Description BLOOD Surrounding Tissue Callous Comment BANDAIDE APPLIED TO HEEL, SMALL AREA ON 4TH TOE OPEN TO AIR Results - Labs Lab/Micro Results: Lab Results-Last 24 Hours 09/22/22 09/22/22 09/23/22 Range/Units 20:05 20:32 04:39 WBC 7.7 (4.0-10.5) x10^3/uL RBC 2.91 L (4.1-5.6) x10^6/uL Hgb 9.0 L (12.5-18.0) g/dL Hct 28.8 L (42-50) % MCV 99.0 (78-100) fL MCH 30.9 (26-32) pg MCHC 31.3 L (32-36) g/dL RDW 13.5 (11.5-14.0) % Plt Count 269 (150-450) x10^3/uL MPV 10.8 (7.5-11.0) fL Sodium (137-145) mmol/L Potassium (3.5-5.1) mmol/L Chloride (98-107) mmol/L Carbon Dioxide (22-30) mmol/L Anion Gap (5-15) MEQ/L BUN (9-20) mg/dL Creatinine (0.66-1.25) mg/dL Estimated GFR ML/MIN Glucose (74-106) mg/dL POC Glucometer 221 H (74 to 106) mg/dL Calcium (8.4-10.2) mg/dL Troponin I 0.064 H* (0.000-0.034) ng/mL NT-Pro-B Natriuret Pep (0-900) pg/mL 09/23/22 09/23/22 09/23/22 Range/Units 04:39 06:52 11:34 WBC (4.0-10.5) x10^3/uL RBC (4.1-5.6) x10^6/uL Hgb (12.5-18.0) g/dL Hct (42-50) % MCV (78-100) fL MCH (26-32) pg MCHC (32-36) g/dL RDW (11.5-14.0) % Plt Count (150-450) x10^3/uL MPV (7.5-11.0) fL Sodium 135 L (137-145) mmol/L Potassium 5.1 (3.5-5.1) mmol/L Chloride 110 H (98-107) mmol/L Carbon Dioxide 24 (22-30) mmol/L Anion Gap 6.9 (5-15) MEQ/L BUN 34 H (9-20) mg/dL Creatinine 1.64 H (0.66-1.25) mg/dL Estimated GFR 45.8 ML/MIN Glucose 230 H (74-106) mg/dL POC Glucometer 243 H 288 H (74 to 106) mg/dL Calcium 7.6 L (8.4-10.2) mg/dL Troponin I (0.000-0.034) ng/mL NT-Pro-B Natriuret Pep 3240 H (0-900) pg/mL 09/23/22 Range/Units 16:37 WBC (4.0-10.5) x10^3/uL RBC (4.1-5.6) x10^6/uL Hgb (12.5-18.0) g/dL Hct (42-50) % MCV (78-100) fL MCH (26-32) pg MCHC (32-36) g/dL RDW (11.5-14.0) % Plt Count (150-450) x10^3/uL MPV (7.5-11.0) fL Sodium (137-145) mmol/L Potassium (3.5-5.1) mmol/L Chloride (98-107) mmol/L Carbon Dioxide (22-30) mmol/L Anion Gap (5-15) MEQ/L BUN (9-20) mg/dL Creatinine (0.66-1.25) mg/dL Estimated GFR ML/MIN Glucose (74-106) mg/dL POC Glucometer 223 H (74 to 106) mg/dL Calcium (8.4-10.2) mg/dL Troponin I (0.000-0.034) ng/mL NT-Pro-B Natriuret Pep (0-900) pg/mL Microbiology 09/21/22 23:42 Urine Culture - Final Clean Catch Midstream NO GROWTH Accuchecks Date 09/23/22 Date 09/23/22 Date 09/23/22 Date 09/22/22 Time 06:52 Time 21:00 - Radiology Impressions Radiology Exams & Impressions: Radiology Procedures Category Date Time Status CHEST 1 VIEW (PORTABLE) Stat Exams 09/21/22 21:19 Completed - Other Procedures and Tests Respiratory Therapy 09/23/22 10:02 Smoking Cessation Education ONCE Assessment/Plan (1) Acute exacerbation of CHF (congestive heart failure) Current Visit: Yes Status: Acute Code(s): I50.9 - HEART FAILURE, UNSPECIFIED (2) Anemia Current Visit: Yes Status: Acute Code(s): D64.9 - ANEMIA, UNSPECIFIED (3) CKD (chronic kidney disease) stage 3, GFR 30-59 ml/min Current Visit: Yes Status: Acute Qualifiers: Chronic kidney disease stage 3 subtype: stage 3a (GFR 45-59) Qualified Code(s): N18.31 - Chronic kidney disease, stage 3a Code(s): N18.30 - CHRONIC KIDNEY DISEASE, STAGE 3 UNSPECIFIED (4) Elevated troponin I level Current Visit: Yes Status: Acute Code(s): R77.8 - OTHER SPECIFIED ABNORMALITIES OF PLASMA PROTEINS Hospital Summary - Vitals & Intake/Output Vital Signs: Vital Signs Temperature 97.7 F 09/23/22 16:00 Pulse Rate 61 09/23/22 16:00 Respiratory Rate 18 09/23/22 16:00 Blood Pressure 146/67 09/23/22 16:00 O2 Sat by Pulse Oximetry 95 09/23/22 16:00 Intake & Output: Intake & Output 09/21/22 09/22/22 09/23/22 09/24/22 11:59 11:59 11:59 11:59 Intake Total 1660 360 Output Total 0 750 275 Balance -2069 910 85 Weight 117.5 kg 117.7 kg - Lab Result Diagrams: 09/23/22 04:39 09/23/22 04:39 Lab Results-Last 24 Hrs: Lab Results-Last 24 Hours 09/22/22 09/22/22 09/23/22 Range/Units 20:05 20:32 04:39 WBC 7.7 (4.0-10.5) x10^3/uL RBC 2.91 L (4.1-5.6) x10^6/uL Hgb 9.0 L (12.5-18.0) g/dL Hct 28.8 L (42-50) % MCV 99.0 (78-100) fL MCH 30.9 (26-32) pg MCHC 31.3 L (32-36) g/dL RDW 13.5 (11.5-14.0) % Plt Count 269 (150-450) x10^3/uL MPV 10.8 (7.5-11.0) fL Sodium (137-145) mmol/L Potassium (3.5-5.1) mmol/L Chloride (98-107) mmol/L Carbon Dioxide (22-30) mmol/L Anion Gap (5-15) MEQ/L BUN (9-20) mg/dL Creatinine (0.66-1.25) mg/dL Estimated GFR ML/MIN Glucose (74-106) mg/dL POC Glucometer 221 H (74 to 106) mg/dL Calcium (8.4-10.2) mg/dL Troponin I 0.064 H* (0.000-0.034) ng/mL NT-Pro-B Natriuret Pep (0-900) pg/mL 09/23/22 09/23/22 09/23/22 Range/Units 04:39 06:52 11:34 WBC (4.0-10.5) x10^3/uL RBC (4.1-5.6) x10^6/uL Hgb (12.5-18.0) g/dL Hct (42-50) % MCV (78-100) fL MCH (26-32) pg MCHC (32-36) g/dL RDW (11.5-14.0) % Plt Count (150-450) x10^3/uL MPV (7.5-11.0) fL Sodium 135 L (137-145) mmol/L Potassium 5.1 (3.5-5.1) mmol/L Chloride 110 H (98-107) mmol/L Carbon Dioxide 24 (22-30) mmol/L Anion Gap 6.9 (5-15) MEQ/L BUN 34 H (9-20) mg/dL Creatinine 1.64 H (0.66-1.25) mg/dL Estimated GFR 45.8 ML/MIN Glucose 230 H (74-106) mg/dL POC Glucometer 243 H 288 H (74 to 106) mg/dL Calcium 7.6 L (8.4-10.2) mg/dL Troponin I (0.000-0.034) ng/mL NT-Pro-B Natriuret Pep 3240 H (0-900) pg/mL 09/23/22 Range/Units 16:37 WBC (4.0-10.5) x10^3/uL RBC (4.1-5.6) x10^6/uL Hgb (12.5-18.0) g/dL Hct (42-50) % MCV (78-100) fL MCH (26-32) pg MCHC (32-36) g/dL RDW (11.5-14.0) % Plt Count (150-450) x10^3/uL MPV (7.5-11.0) fL Sodium (137-145) mmol/L Potassium (3.5-5.1) mmol/L Chloride (98-107) mmol/L Carbon Dioxide (22-30) mmol/L Anion Gap (5-15) MEQ/L BUN (9-20) mg/dL Creatinine (0.66-1.25) mg/dL Estimated GFR ML/MIN Glucose (74-106) mg/dL POC Glucometer 223 H (74 to 106) mg/dL Calcium (8.4-10.2) mg/dL Troponin I (0.000-0.034) ng/mL NT-Pro-B Natriuret Pep (0-900) pg/mL Micro Results-Entire Visit: Microbiology 09/21/22 23:42 Urine Culture - Final Clean Catch Midstream NO GROWTH Accuchecks Date 09/23/22 Date 09/23/22 Date 09/23/22 Date 09/22/22 Time 06:52 Time 21:00 - Radiology Exams Ordered Rad Exams-Entire Visit: Radiology Procedures Category Date Time Status CHEST 1 VIEW (PORTABLE) Stat Exams 09/21/22 21:19 Completed - Procedures and Test Procedures and Tests throughout Hospitalization: Therapy Orders & Screens 09/22/22 04:22 BiPap/CPAP STAT Comment: Respiratory Therapy Assessment DAILY Comment: 09/23/22 10:02 Smoking Cessation Education ONCE Comment: Diagnosis: CHF EXACERBATION Smoking Status: Current every day smoker How long have you smoked: 50 YRS Have you smoked in the past 12 months: Yes Approximately how many cigarettes per day: 20 Do you dip or chew tobacco: No - [facility]charge [facility]position[facility] Condition: Fair Prescriptions: No Action Gabapentin [Neurontin] 800 mg PO TID Simvastatin [Zocor] 100 mg PO DAILY Losartan Potassium 50 mg [Cozaar 50 MG] 100 mg PO DAILY Insulin Lispro [Admelog] 100 unit SQ DAILY Furosemide 20 mg [Lasix 20 mg] 40 mg PO DAILY Ezetimibe 10 mg [Zetia 10 MG] 10 mg PO DAILY Metoprolol Succinate [Toprol Xl] 50 mg PO DAILY Omeprazole 20 mg PO DAILY Aspirin [Aspirin EC] 81 mg PO DAILY Hydralazine HCl 100 mg PO DAILY Duloxetine HCl 60 mg PO DAILY Amlodipine Besylate [Norvasc] 10 mg PO DAILY Additional Instructions: patient accepted in transfer to [facility] with cardiology and nephrology, accepting hospitalist Dr Strickland Follow up with: CATALINA TALBERT NP [Primary Care Provider] -
[2022-09-24 17:12] VITALS: O2SAT 93
== END 2022-09-23 18:11 | disposition short-term general hospital (02) ==
LOC: ED 20:47 → MED SURG 09-22 11:50
PROVIDERS: ADMIT General Practice; ATTEND General Practice
DX: I13.0 Hypertensive heart and chronic kidney disease with heart failure and stage 1 through stage 4 chronic kidney disease, or unspecified chronic kidney disease (principal); N18.31 Chronic kidney disease, stage 3a; E11.22 Type 2 diabetes mellitus with diabetic chronic kidney disease; D64.9 Anemia, unspecified; R77.8 Other specified abnormalities of plasma proteins; R60.0 Localized edema; S91.301A Unspecified open wound, right foot, initial encounter; M79.662 Pain in left lower leg; M79.661 Pain in right lower leg; Z72.0 Tobacco use; Z79.899 Other long term (current) drug therapy; Z20.828 Contact with and (suspected) exposure to other viral communicable diseases
CPT/HCPCS: 0241U; 36000; 36415; 71045; 80048; 80053; 81015; 82947; 83735; 83880; 84100; 84145; 84484; 85025; 85027; 85610; 85730; 87086; 93005; 93041; 94002; 94640; 94760; 96372; 96374; 96376; 99285; 99291; J1650; J1817; J1940; A9270-GY

== ENCOUNTER 2022-10-30 08:15 | Day surgery (SDC) | payer OTHER ==
[~2022-10-30 08:15] MED LIST: Lactated Ringers 1,000 ML IV ONE
[2022-10-30] MEDS ORDERED: EXPAREL 133 MG/10 ML VIAL IJ ONE (08:16)
[2022-10-30] MEDS ORDERED: CLINDAMYCIN-D5W 900 MG/50 ML*** 900 MG/50 ML BAG IV STA (08:31)
[2022-10-30] MEDS ORDERED: CLINDAMYCIN-D5W 900 MG/50 ML*** 900 MG/50 ML BAG IV ONE (08:35)
[2022-10-30] MEDS ORDERED: Lactated Ringers 1,000 ML IV ONE (08:35)
[2022-10-30] MEDS ORDERED: Lactated Ringers 1,000 ML IV SCH (09:00)
[2022-10-30 09:22] LABS: Hematocrit 31.5 % (42-50); Mean Cell Volume 91.6 fL (78-100); Mean Corpuscular Hemoglobin 29.1 pg (26-32); Mean Corpuscular Hgb Concent. 31.7 g/dL (32-36); Mean Platelet Volume 10.8 fL (7.5-11.0); Platelet Count 295 x10^3/uL (150-450); Red Blood Count 3.44 x10^6/uL (4.1-5.6); Red Cell Distribution Width 13.1 % (11.5-14.0); White Blood Count 7.9 x10^3/uL (4.0-10.5)
[2022-10-30] MEDS ORDERED: DEXMEDETOMIDINE 80 MCG/20ML-NS IV ONE ×2 (10:31→12:47)
[2022-10-30] MEDS ORDERED: Marcaine 0.5%/Epinephrine 10 ML ONE ×2 (10:31→16:29)
[2022-10-30] MEDS ORDERED: Xylocaine-Mpf 2% 5 Ml Vial ONE ×2 (10:31→12:02)
[2022-10-30] MEDS ORDERED: Decadron 4 MG INJ ONE ×2 (10:31→12:02)
[2022-10-30] MEDS ORDERED: Versed 2 MG/2 ML Injection ONE (10:34)
[2022-10-30] MEDS ORDERED: SUBLIMAZE 100 MCG/2 ML ONE (10:34)
[2022-10-30 10:48] LABS: ABO TYPING O; Antibody Screen NEGATIVE (NEGATIVE); RH TYPING NEGATIVE
[2022-10-30] MEDS ORDERED: DIPRIVAN 200 MG/20 ML IV ONE ×2 (12:02→16:57)
[2022-10-30] MEDS ORDERED: Zofran 4 MG/2 ML VIAL ONE (12:02)
[2022-10-30] MEDS ORDERED: Zemuron 100 MG/10 ML ONE (12:30)
[2022-10-30] MEDS ORDERED: Magnesium Sulfate 1 GM/2 ML VIAL ONE (12:50)
[2022-10-30] MEDS ORDERED: Sodium Chloride 0.9% 100 ML ONE (12:51)
[2022-10-30] MEDS ORDERED: OFIRMEV 100 ML IV ONE (12:51)
[2022-10-30] MEDS ORDERED: Ketamine HCl 50 MG/ML ONE (13:06)
[2022-10-30] MEDS ORDERED: Ephedrine Sulfate 50 MG/ML ONE (13:16)
[2022-10-30] MEDS ORDERED: REMIFENTANIL HCL IV ONE ×2 (13:24→14:46)
[2022-10-30] MEDS ORDERED: BRIDION 200MG/2ML IV ONE (14:50)
--- NOTE | 2022-10-30 17:08 | XRAY ---
Indication: Right foot Charcot joint reconstruction. Intraoperative fluoroscopy provided for 7 minutes 54 seconds. 41 digital spot images submitted for interpretation ultimately demonstrates talocalcaneal and 1st tarsometatarsal talar fusion with intact fixation plate and numerous screws. Correlate with intraoperative findings/report.
[2022-10-30 18:23] VITALS: BP 120/56; PULSE 76; O2SAT 95
--- NOTE | 2022-11-02 08:43 | OP ---
SURGERY DATE/TIME: 10/30/2022 1247 PREOPERATIVE DIAGNOSES: 1) Gastrocnemius equinus. 2) Pain right foot. 3) Pain right ankle. 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 6) Uncontrolled diabetes. 7) Peripheral neuropathy right foot. POSTOPERATIVE DIAGNOSES: 1) Gastrocnemius equinus. 2) Pain right foot. 3) Pain right ankle. 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 6) Uncontrolled diabetes. 7) Peripheral neuropathy right foot. PROCEDURES: 1) Gastrocnemius resection right ankle. 2) Subtalar joint arthrodesis. 3) Talonavicular joint arthrodesis. 4) Naviculocuneiform arthrodesis. 5) First tarsometatarsal joint arthrodesis. 6) Repair of posterior tibial tendon. SURGEON: Sid Tejada DPM. WIRE WRAPPER MACHINE OPERATOR: None. ANESTHESIA: General plus preoperative regional block. See anesthesia report for details. ESTIMATED BLOOD LOSS: Less than 150 cc. MATERIALS: [employer] Beaming and Straddling system, headless compression screws and variable locking and nonlocking screws, 4-0 Monocryl, 2-0 Monocryl, 3-0 Nylon. INJECTABLES: See anesthesia report for details. INDICATION FOR SURGERY: Tristian is a very pleasant 62 -year-old male well-known to my service for almost a year at this point. The patient did have some pain to the right foot approximately in November 2021. As a result, he felt a popping and noticed a sudden swelling to the leg. He was immobilized for some period of time and was lost to follow up for some period of time after that. The patient did present with worsening symptoms an obvious Charcot deformity to the right foot. At that time the patient had an ulceration under the medial aspect of the foot where his mid foot was subluxing in the plantar aspect of his arch that was healed with conservative methods. However, the patient was at a higher risk due to his lifestyle and high levels of mobility for breakdown and ulceration once again. The patient was amenable to use of a CAM boot for some periods of time. However at this time, he has noticed continuing instability to the right foot as well as preulcerative lesions that have occurred multiple times. With the concern the patient wishes to proceed with surgical intervention at this time. The patient understands that there are no guarantees as to the outcome of surgical intervention. However, there are risks and complications discussed at length with the patient. The patient understands all risks, complications benefits of the procedure including but not limited to possibility of infection, hematoma, seroma, delayed wound healing, delayed skin healing, possibility of nonbone healing and possibility of failure of surgical hardware. The patient understands all of this and wishes to proceed. It is with that we begin. DESCRIPTION OF PROCEDURE AND FINDINGS: Prior to the patient being brought into the OR, he was brought to the postoperative anesthesia care unit where a popliteal and abductor canal block was performed. At that time the patient handled the block without complication and was deemed successful. The patient was brought into the OR and placed on the OR table in the supine position. At this time general anesthesia was administered until the patient was sedated. A well-padded thigh tourniquet was applied to the patient's right thigh and the tourniquet was set to 300 mm of Mercury. At this time the right foot was prepped and draped in the typical sterile fashion and lowered onto the surgical field. At this time attention was directed to the posterior medial aspect of the right ankle at the palpable dell of the gastrocnemius muscle belly. A linear incision was made posterior to the greater saphenous vein this was deepened utilizing blunt dissection to the crural fascia. The crural fascia was incised and gastrocnemius aponeurosis was identified. At this time a pediatric speculum was introduced into the posterior aspect of the leg and a gastrocnemius resection was carried out under direct visualization utilizing a clean 10 blade this was checked. The lateral aspect of the incision was checked for sural nerve being intact and the entirety of the gastrocnemius muscle belly was visible underneath the aponeurosis dissection. Copious amounts of sterile saline were utilized to flush the surgical site. A 2-0 Vicryl was then utilized to coapt the fascial layer and the subcutaneous layer in a simple interrupted buried-type fashion. Following this 3-0 Nylon was utilized to coapt the incision in a horizontal mattress-type fashion. Following this, attention was directed to the lateral aspect of the calcaneus where bone marrow aspirate harvest was performed this was done under direct visualization on C-arm. A stab incision was made. Mini-hemostat was utilized to dissect down to the level of bone and the bone marrow aspirate was harvested and pulled off the field for later use along with 30 cc of cancellous chips. At this time, attention was directed to the lateral aspect of the foot where the subtalar foot where the subtalar joint was identified. An incision was made after exsanguinating the leg with tourniquet from the distal tip of the fibula to the anterior process of the calcaneus this was deepened utilizing blunt and sharp dissection making sure not to damage any neurovascular structures along the way. At this time the subtalar joint was identified. A [employer] Nedrow curette was utilized to remove all of the cartilage from the posterior and middle facet of the subtalar joint. Copious amounts of irrigation utilized to clear the site of remaining cartilage. Fenestration was taken place utilizing fenestration bit as well as a fish scaling tool to increase the surface area. At this time under direct visualization of the calcaneal axial as well as the lateral views, two K-wires were introduced insuring that the calcaneus was in slight valgus to erectus position relative to the longitudinal axis of the leg. On the calcaneal axial as well as interfacing through the posterior facet on the lateral views. Following this the temporary fixation was left in place and attention was directed to the medial column of the right foot. Incision was deepened along the fascial plane. The posterior tibial tendon was encountered through this incision and deemed extremely thickened and dystrophic with multiple tears throughout. Intraoperative decision was made to repair this tendon at the end of the procedure. The sequence of events was from distal to proximal where the first tarsometatarsal joint, navicular cuneiform joint and talonavicular joint were all prepped in a similar fashion utilizing the [employer] Nedrow to remove cartilage from the surgical site. Copious amounts of sterile saline were then utilized to flush the site and fenestration then was utilized to promote vascular ingrowth as well as fenestration with a fish scaling bit was performed. Graft was placed into the site and a beam was retrograded from the distal metatarsophalangeal joint to the talar neck this was deemed to be in an adequate position. Following this, the subtalar joint was fixated with a series of 6.5 mm headless compression screw. Once this was achieved, a Straddle plate was utilized with a combination of locking and nonlocking screws in order to straddle the plate and secure the fixation. Following this, copious amounts of sterile saline were utilized to flush the surgical site. The posterior tibial tendon then was repaired utilizing 2-0 PDS and 2-0 Vicryl with retubularization following debridement of the tendon. Following this the subcutaneous tissue was coapted utilizing a simple interrupted buried-type fashion stitch utilizing 2-0 and 4-0 Monocryl. Following this 3-0 Nylon was utilized to coapt the skin edges in a horizontal mattress-type fashion to the incisions at the medial and lateral aspects of the foot. The posterior heel surgical wounds were coapted utilizing 3-0 Nylon figure-of-8 stitch. Following this, a dressing consisting of Betadine, Adaptic, 4x4, Kerlix and a well-padded posterior splint with Sugar-Tong was applied to the patient's right lower extremity with the foot orthogonal relative to longitudinal axis of the leg. The patient was then reversed from anesthesia and returned to the postoperative anesthesia care unit with vital signs stable and vascular status intact. The patient handled the anesthesia as well as the procedure without significant complication. Postoperative orders as indicated in the patient's discharge chart.
--- NOTE | 2022-11-02 11:06 | XRAY ---
7 minutes and 54 seconds of fluoroscopy was used in surgery for a right foot Charcot joint reconstruction.
== END 2022-10-30 18:45 | disposition home or self-care (01) ==
LOC: SDC 08:15
PROVIDERS: ATTEND Podiatrist Foot & Ankle Surgery
DX: M21.6X1 Other acquired deformities of right foot (principal); M79.671 Pain in right foot; M25.571 Pain in right ankle and joints of right foot; M19.071 Primary osteoarthritis, right ankle and foot; E11.610 Type 2 diabetes mellitus with diabetic neuropathic arthropathy; E11.65 Type 2 diabetes mellitus with hyperglycemia; G62.9 Polyneuropathy, unspecified
CPT/HCPCS: 27687; 28725; 28737; 28740; 36415; 73630; 76000; 76937; 82947; 82962; 85027; 86850; 86900; 86901; C1713; J1100; J2250; J2405; J2704; J3010; J3475

== ENCOUNTER 2023-01-27 12:27 | Observation (INO) | payer OTHER ==
[2023-01-27] MEDS ORDERED: Zofran 4 MG/2 ML VIAL IV ONE (12:48)
[2023-01-27] MEDS ORDERED: Sodium Chloride 0.9% 1000 ML 1,000 ML IV STA (12:48)
[2023-01-27 13:06] LABS: Absolute Neutrophil Ct (ANC) 17.96 x10^3/uL (1.4-6.9); BASOPHIL % 0.2 % (0.0-0.4); Basophil (Absolute #) 0.04 x10^3/uL (0-0.4); Eosinophil (Absolute #) 0.01 x10^3/uL (0-0.5); Hematocrit 38.1 % (42-50); Hemoglobin 12.8 g/dL (12.5-18.0); IMMATURE GRAN # 0.13 x10^3u/L (0.00-0.03); IMMATURE GRAN % 0.6 % (0.00-0.4); Lymphocyte (Absolute #) 1.68 x10^3/uL (1.0-4.6); Lymphocytes % 8.2 % (24.0-44.0); Mean Cell Volume 86.2 fL (78-100); Mean Corpuscular Hgb Concent. 33.6 g/dL (32-36); Mean Platelet Volume 11.8 fL (7.5-11.0); Monocyte (Absolute #) 0.68 x10^3/uL (0.0-1.3); Monocytes % 3.3 % (0.0-12.0); Neutrophil % 87.7 % (36.0-66.0); Platelet Count 444 x10^3/uL (150-450); Red Blood Count 4.42 x10^6/uL (4.1-5.6); White Blood Count 20.5 x10^3/uL (4.0-10.5)
[2023-01-27 13:21] LABS: INR 0.92 (0.8-3.0); PROTIME 10.1 SECONDS (9.4-12.5)
[2023-01-27 13:22] LABS: ACETAMINOPHEN < 10 ug/ml (10-30); ALBUMIN 4.4 g/dL (3.5-5.0); ALKALINE PHOSPHATASE 280 U/L (38-126); ANION GAP 23.3 MEQ/L (5-15); BLOOD UREA NITROGEN 43 mg/dL (9-20); CHLORIDE 91 mmol/L (98-107); Carbon Dioxide 28 mmol/L (22-30); Creatinine 1 2.73 mg/dL (0.66-1.25); EST GLOMERULAR FILTRATION RATE 25.4 ML/MIN; ETHYL ALCOHOL < 10 mg/dL (0-10); Glucose 412 mg/dL (74-106); LIPASE 44 U/L (23-300); Potassium 4.3 mmol/L (3.5-5.1); SGOT/AST 25 U/L (17-59); SGPT/ALT 22 U/L (0-50); SODIUM 138 mmol/L (137-145); Total Protein 8.1 g/dL (6.3-8.2)
[2023-01-27] MEDS ORDERED: PIPERACILLIN/TAZOBACTAM 3.375 GM in Sodium Chloride 100ML MINI-BAG PLUS 100 ML IV ONE (13:44)
[2023-01-27 13:54] LABS: ABO TYPING O; RH TYPING NEGATIVE
[2023-01-27 13:55] LABS: Antibody Screen NEGATIVE (NEGATIVE)
--- NOTE | 2023-01-27 14:08 | XRAY ---
CLINICAL HISTORY:vomiting COMPARISON:None; TECHNIQUES:X-ray chest showing one view: Frontal view. FINDINGS: A 4 mm nodule is seen projecting over the left lower zone. Otherwise clear bilateral lung rodas. Both hilar shadows appear normal. The trachea is central. The cardiac borders are well visualized, heart size cannot be commented upon considering the AP view. Both costophrenic angles are normal. The bony rib cage appears normal. IMPRESSION: 1-No acute pulmonary abnormality is detected. 2-A small pulmonary nodule at the left lower zone. Clinical correlation is advised. Electronically Signed by: Abdulaziz Powers MD. (01/27/2023 13:04:20 [employer] DEVELOPMENT INTERN)
[2023-01-27 14:25] LABS: INFLUENZA A NEGATIVE (NEGATIVE); INFLUENZA B NEGATIVE (NEGATIVE); RESPIRATORY SYNCTIAL VIRUS NEGATIVE (NEGATIVE); SARS-CoV-2 Xpert Express NEGATIVE (NEGATIVE)
[2023-01-27] MEDS ORDERED: PIPERACILLIN/TAZOBACTAM IV ONE (14:45)
[2023-01-27] MEDS ORDERED: Sodium Chloride 100ML MINI-BAG PLUS 100 ML IV ONE (14:46)
[2023-01-27] MEDS ORDERED: Sodium Chloride 0.9% 1000 ML 1,000 ML ONE (14:46)
[2023-01-27] MEDS ORDERED: Zofran 4 MG/2 ML VIAL ONE (14:46)
--- NOTE | 2023-01-27 14:56 | ERPHSYRPT ---
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 It started 2 days ago. No falls or other trauma. Patient has not been taking his home medication as described. No fever or chills. He states he does not feel sick. States that he may have a mild gastroenteritis. He has not tried thing to make it better or worse. Has not called his PCP. Patient states does have a history of kidney disease but has not taken given those medications. Allergies/Adverse Reactions: insulin glargine [From [employer] U-100 Insulin] Allergy (Verified 01/27 12:44) Home Medications: Gabapentin [Neurontin] 800 mg PO TID 01/26/17 [History] Losartan Potassium 50 mg [Cozaar 50 MG] 100 mg PO DAILY 01/26/17 [History] Ezetimibe 10 mg [Zetia 10 MG] 10 mg PO DAILY 05/31/19 [History] Furosemide 20 mg [Lasix 20 mg] 40 mg PO DAILY 05/31/19 [History] Metoprolol Succinate [Toprol Xl] 50 mg PO DAILY 05/31/19 [History] Amlodipine Besylate [Norvasc] 10 mg PO DAILY 01/04/22 [History] Duloxetine HCl 60 mg PO DAILY 01/04/22 [History] Hydralazine HCl 200 mg PO DAILY 01/04/22 [History] Atorvastatin Calcium 40 mg PO DAILY 10/12/22 [History] Cilostazol 100 mg [Pletal 100 MG] 50 mg PO DAILY 10/12/22 [History] Hydrochlorothiazide 25 mg [hydroDIURIL 25 MG] 1 tab PO DAILY 10/12/22 [History] Potassium Chloride 1 tab PO DAILY 10/12/22 [History] Sitagliptin Phosphate 50 MG [Januvia 50 MG] 100 mg PO DAILY 10/12/22 [History] Hx Tetanus, Diphtheria Vaccination/Date Given: No Hx Influenza Vaccination/Date Given: No Hx Pneumococcal Vaccination/Date Given: No Travel Risk - International Travel Have you traveled outside of the country in past 3 weeks: No - Coronavirus Screening Are you exhibiting any of the following symptoms?: No - Vaccine Status Have you recieved a Covid-19 vaccination: Yes Slurry Blender: Moderna - Vaccination Dates Date of 2cond Vaccination (if applicable): 10/31/21 - Review of Systems Constitutional: No Fever, No Chills Eyes: No Symptoms Ears, Nose, & Throat: No Symptoms Respiratory: No Cough, No Dyspnea Cardiac: No Chest Pain, No Edema, No Syncope Abdominal/Gastrointestinal: Abdominal Pain, Vomiting, No Nausea, No Diarrhea Genitourinary Symptoms: No Dysuria Musculoskeletal: No Back Pain, No Neck Pain Skin: No Rash Neurological: No Dizziness, No Focal Weakness, No Sensory Changes Psychological: No Symptoms Endocrine: No Symptoms All Other Systems: Reviewed and Negative - Past Medical History Pertinent Past Medical History: Yes Neurological History: No Pertinent History, Peripheral Neuropathy ENT History: No Pertinent History Cardiac History: Coronary Artery Disease, High Cholesterol, Hypertension, Peripheral Vascular Disease Respiratory History: CHF Endocrine Medical History: Diabetes Type II Musculoskeletal History: Arthritis GI Medical History: GERD History: No Pertinent History Psycho-Social History: No Pertinent History Male Reproductive Disorders: No Pertinent History Other Medical History: BLE EDEMA, PAROITIS, VENOUS STASIS EDEMA OF BLE, DM,GERD,STENT LLE, HTN. - Past Surgical History Past Surgical History: Yes Neuro Surgical History: No Pertinent History Cardiac: No Pertinent History Respiratory: No Pertinent History Gastrointestinal: No Pertinent History Genitourinary: No Pertinent History Musculoskeletal: No Pertinent History Male Surgical History: No Pertinent History Other Surgical History: stent in left leg - Social History Smoking Status: Current every day smoker How long have you smoked: years Exposure to second hand smoke: Yes Drug Use: none Patient Lives Alone: Yes - Nursing Vital Signs Nursing Vital Signs: Initial Vital Signs Pulse Rate 74 01/27/23 12:46 Respiratory Rate 18 01/27/23 12:46 Blood Pressure 94/63 01/27/23 12:46 O2 Sat by Pulse Oximetry 90 L 01/27/23 12:46 Pain Scale Pain Intensity 6 - Physical Exam General Appearance: alert, other (Appears uncomfortable) Eye Exam: PERRL/EOMI, eyes nml inspection Ears, Nose, Throat Exam: normal ENT inspection, TMs normal, pharynx normal, mois t mucous membranes Neck Exam: normal inspection, non-tender, supple, full range of motion Respiratory Exam: normal breath sounds, lungs clear, No respiratory distress Cardiovascular Exam: regular rate/rhythm, normal heart sounds, normal peripheral pulses Gastrointestinal/Abdomen Exam: soft, normal bowel sounds, No tenderness, No mass Back Exam: normal inspection, normal range of motion, No CVA tenderness, No vertebral tenderness Extremity Exam: normal inspection, normal range of motion, pelvis stable Neurologic Exam: alert, oriented x 3, cooperative, normal mood/affect, nml cerebellar function, nml station & gait, sensation nml, No motor deficits Skin Exam: normal color, warm, dry, No rash Lymphatic Exam: No adenopathy SpO2: 100 - Course Nursing assessment & vital signs reviewed: Yes EKG Interpreted by Me: Sinus Rhythm Ordered Tests: Active Orders 24 hr Category Date Time Status Admit as Inpatient ROUTINE Care 01/27/23 15:39 Active 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 STAT Care 01/27/23 12:48 Active Code Status Order ROUTINE Care 01/27/23 15:39 Active IV Care Q6H Care 01/27/23 15:39 Active IV Insertion STAT Care 01/27/23 12:48 Active IV Insertion-2nd Peripheral STAT Care 01/27/23 12:48 Active ABDOMEN AND PELVIS W/0 CONTRAS [CT] Stat Exams 01/27/23 13:45 Completed CHEST 1 VIEW (PORTABLE) Stat Exams 01/27/23 12:48 Completed CHEST WITHOUT CONTRAST [CT] Stat Exams 01/27/23 13:45 Completed ACETAMINOPHEN Stat Lab 01/27/23 12:50 Completed BMP AM.LAB Lab 01/28/23 04:00 Ordered CBC W DIFF AM.LAB Lab 01/28/23 04:00 Ordered CBC W DIFF Stat Lab 01/27/23 12:50 Completed CMP Stat Lab 01/27/23 12:50 Completed ETHYL ALCOHOL Stat Lab 01/27/23 12:50 Completed LIPASE Stat Lab 01/27/23 12:50 Completed OB-FECAL SCREEN Stat Lab 01/27/23 Ordered PROTIME WITH INR Stat Lab 01/27/23 12:50 Completed TROPONIN Q4H Lab 01/27/23 12:50 Completed TROPONIN Q4H Lab 01/27/23 17:00 Ordered TROPONIN Q4H Lab 01/27/23 21:00 Ordered UA W/RFX UR CULTURE Stat Lab 01/27/23 14:50 Ordered Pulse Oximetry CONTINUOUS RT 01/27/23 15:40 Active Medication Summary Generic Name Dose Route Start Last Admin Trade Name Jareth PRN Reason Stop Dose Admin Sodium Chloride 1,000 mls @ 125 mls/hr 01/27/23 15:45 Sodium Chloride 0.9% 1000 Ml IV 02/26/23 15:44 .Q8H MARTIN Morphine Sulfate 2 mg 01/27/23 15:39 Morphine Sulfate 2 Mg/Ml Inj IV 02/01/23 15:38 Q4H PRN PRN PAIN Ondansetron HCl 4 mg 01/27/23 15:39 Ondansetron Hcl 4 Mg/2 Ml Vial IV 02/26/23 15:38 Q6H PRN PRN NAUSEA/VOMITING Discontinued Medications Generic Name Dose Route Start Last Admin Trade Name Jareth PRN Reason Stop Dose Admin Sodium Chloride 1,000 mls @ 999 mls/hr 01/27/23 12:48 01/27/23 14:55 Sodium Chloride 0.9% 1000 Ml IV 01/27/23 13:48 999 mls/hr .Q1H1M STA Administration Piperacillin Sod/Tazobactam 100 mls @ 200 mls/hr 01/27/23 13:44 01/27/23 14:55 Sod 3.375 gm/ Sodium Chloride IV 01/27/23 14:13 200 mls/hr STAT ONE Administration Sodium Chloride Confirm 01/27/23 14:46 Sodium Chloride 100ml Mini-Bag Plus Administered 01/27/23 14:47 Dose 100 mls @ ud IV .STK-MED ONE Sodium Chloride Confirm 01/27/23 14:46 Sodium Chloride 0.9% 1000 Ml Administered 01/27/23 14:47 Dose 1,000 mls @ ud .ROUTE .STK-MED ONE Ondansetron HCl 4 mg 01/27/23 12:48 01/27/23 14:56 Ondansetron Hcl 4 Mg/2 Ml Vial IV 01/27/23 12:49 4 mg STAT ONE Administration Ondansetron HCl Confirm 01/27/23 14:46 Ondansetron Hcl 4 Mg/2 Ml Vial Administered 01/27/23 14:47 Dose 4 mg .ROUTE .STK-MED ONE Piperacillin Sod/Tazobactam Sod Confirm 01/27/23 14:45 Piperacillin/Tazobactam Sodium 3.375 Gm Vial Administered 01/27/23 14:46 Dose 3.375 gm IV .[facility] ONE Lab/Rad Data: Laboratory Result Diagrams 01/27/23 12:50 01/27/23 12:50 Laboratory Results 01/27/23 01/27/23 01/27/23 Range/Units 13:36 12:50 12:50 WBC (4.0-10.5) x10^3/uL RBC (4.1-5.6) x10^6/uL Hgb (12.5-18.0) g/dL Hct (42-50) % MCV (78-100) fL MCH (26-32) pg MCHC (32-36) g/dL RDW (11.5-14.0) % Plt Count (150-450) x10^3/uL MPV (7.5-11.0) fL Gran % (36.0-66.0) % Immature Gran % (Auto) (0.00-0.4) % Nucleat RBC Rel Count (0.00-0.1) % Eos # (Auto) (0-0.5) x10^3/uL Immature Gran # (Auto) (0.00-0.03) x10^3u/L Absolute Lymphs (auto) (1.0-4.6) x10^3/uL Absolute Monos (auto) (0.0-1.3) x10^3/uL Absolute Nucleated RBC (0.00-0.01) x10^3u/L Lymphocytes % (24.0-44.0) % Monocytes % (0.0-12.0) % Eosinophils % (0.00-5.0) % Basophils % (0.0-0.4) % Absolute Granulocytes (1.4-6.9) x10^3/uL Basophils # (0-0.4) x10^3/uL PT (9.4-12.5) SECONDS INR (0.8-3.0) Sodium (137-145) mmol/L Potassium (3.5-5.1) mmol/L Chloride (98-107) mmol/L Carbon Dioxide (22-30) mmol/L Anion Gap (5-15) MEQ/L BUN (9-20) mg/dL Creatinine (0.66-1.25) mg/dL Estimated GFR ML/MIN Glucose (74-106) mg/dL Calcium (8.4-10.2) mg/dL Total Bilirubin (0.2-1.3) mg/dL AST (17-59) U/L ALT (0-50) U/L Alkaline Phosphatase (38-126) U/L Troponin I 0.036 H* (0.000-0.034) ng/mL Serum Total Protein (6.3-8.2) g/dL Albumin (3.5-5.0) g/dL Lipase (23-300) U/L Acetaminophen (10-30) ug/ml Ethyl Alcohol (0-10) mg/dL Influenza Type A Ag NEGATIVE (NEGATIVE) Influenza Type B Ag NEGATIVE (NEGATIVE) RSV (PCR) NEGATIVE (NEGATIVE) SARS-CoV-2 (PCR) NEGATIVE (NEGATIVE) ABO Group O Rh Factor NEGATIVE Antibody Screen NEGATIVE (NEGATIVE) 01/27/23 01/27/23 01/27/23 Range/Units 12:50 12:50 12:50 WBC 20.5 H (4.0-10.5) x10^3/uL RBC 4.42 (4.1-5.6) x10^6/uL Hgb 12.8 (12.5-18.0) g/dL Hct 38.1 L (42-50) % MCV 86.2 (78-100) fL MCH 29.0 (26-32) pg MCHC 33.6 (32-36) g/dL RDW 15.0 H (11.5-14.0) % Plt Count 444 (150-450) x10^3/uL MPV 11.8 H (7.5-11.0) fL Gran % 87.7 H (36.0-66.0) % Immature Gran % (Auto) 0.6 H (0.00-0.4) % Nucleat RBC Rel Count 0.0 (0.00-0.1) % Eos # (Auto) 0.01 (0-0.5) x10^3/uL Immature Gran # (Auto) 0.13 H (0.00-0.03) x10^3u/L Absolute Lymphs (auto) 1.68 (1.0-4.6) x10^3/uL Absolute Monos (auto) 0.68 (0.0-1.3) x10^3/uL Absolute Nucleated RBC 0.00 (0.00-0.01) x10^3u/L Lymphocytes % 8.2 L (24.0-44.0) % Monocytes % 3.3 (0.0-12.0) % Eosinophils % 0.0 (0.00-5.0) % Basophils % 0.2 (0.0-0.4) % Absolute Granulocytes 17.96 H (1.4-6.9) x10^3/uL Basophils # 0.04 (0-0.4) x10^3/uL PT 10.1 (9.4-12.5) SECONDS INR 0.92 (0.8-3.0) Sodium 138 (137-145) mmol/L Potassium 4.3 (3.5-5.1) mmol/L Chloride 91 L (98-107) mmol/L Carbon Dioxide 28 (22-30) mmol/L Anion Gap 23.3 H (5-15) MEQ/L BUN 43 H (9-20) mg/dL Creatinine 2.73 H (0.66-1.25) mg/dL Estimated GFR 25.4 ML/MIN Glucose 412 H (74-106) mg/dL Calcium 10.0 (8.4-10.2) mg/dL Total Bilirubin 0.80 (0.2-1.3) mg/dL AST 25 (17-59) U/L ALT 22 (0-50) U/L Alkaline Phosphatase 280 H (38-126) U/L Troponin I (0.000-0.034) ng/mL Serum Total Protein 8.1 (6.3-8.2) g/dL Albumin 4.4 (3.5-5.0) g/dL Lipase 44 (23-300) U/L Acetaminophen < 10 L (10-30) ug/ml Ethyl Alcohol < 10 (0-10) mg/dL Influenza Type A Ag (NEGATIVE) Influenza Type B Ag (NEGATIVE) RSV (PCR) (NEGATIVE) SARS-CoV-2 (PCR) (NEGATIVE) ABO Group Rh Factor Antibody Screen (NEGATIVE) - Progress Progress: improved Progress Note: 01/27/23 14:56 Patient here with vomiting. We will do a cardiac work-up, basic labs, IV, fluids. Differential diagnosis includes infection, sepsis, acute kidney injury, acute kidney stone, UTI. Will obtain UA, fluids, Zofran. We will also give a dose of Zosyn in case there is a brewing infection. Patient does have YINKA. Plan for CT chest abdomen pelvis without contrast looking for any serious cause of vomiting. 01/27/23 15:38 CT scan shows no obvious acute pathology. Several incidental findings including pulmonary nodule, right adrenal mass, calculus in the gallbladder. I will discuss these with the patient. However no obvious overwhelming infection or other acute abnormality. Plan for admission to the hospital team. Continued IV fluids for fluid resuscitation, close monitoring. We did discuss over the phone with on-call physician, Dr. Xiao. He is aware of the patient and has accepted patient officially for admission. 01/27/23 15:53 ED critical care statement As staff physician, I have provided critical care. Time: 52 mins Criteria for critical illness: Acute acute renal failure causing elevation of troponin and other organ damage Treatment and management provided include: Coordination of management with ETC care team, consultants, and inpatient care team. [id number] assessment of condition and response to therapy. Review and interpretation of emergent diagnostic testing. Medical chart review and completion. Direction and immediate supervision of the following therapy: Critical care was time spent personally by me on the following activities: blood draw for spec imens, development of treatment plan with patient or surrogate, discussions with consultants, discussions with primary provider, interpretation of cardiac output measurements, evaluation of patient's response to treatment, examination of patient, obtaining history from patient or surrogate, ordering and performing treatments and interventions, ordering and review of laboratory studies, ordering and review of radiographic studies, pulse oximetry, re-evaluation of patient's condition and review of old charts. This time was independent of all procedures performed. Hema Wood Discussed with : Gosia Counseled pt/family regarding: lab results, diagnosis, need for follow-up, rad results Medical Desision Making - Independent Historian Additional History obtained from: Spouse - External Record(s) Reviewed Records reviewed as a part of evaluation & management: Discharge Summary - Social Determinants of Health Pt's dx & treatment plan are significantly limited by SDOH: financial hardships - Diagnostic Testing Diagnostic test were ordered, analyzed, and reviewed by me: Yes Radiological Interpretation: Reviewed by me - Departure Departure Disposition: In-patient Admission Clinical Impression: YINKA (acute kidney injury), Nausea and vomiting, Pulmonary nodules, Adrenal mass, right, Gallbladder calculus Condition: Stable Critical Care Time: Yes Critical Care Time(excluding separately billable procedures): Critical 30-74 mins Referrals: CATALINA TALBERT, ASSISTANT WOM[employer]ASKET[employer] COACH [Primary Care Provider] - Follow up/PCP as directed
--- NOTE | 2023-01-27 15:20 | XRAY ---
CLINICAL HISTORY:vomiting COMPARISON:None; TECHNIQUES: FINDINGS: Both visualized lung bases show tiny calcified nodules, one in each lung measuring 3-4 mm in size. Small hiatus hernia seen. Liver- normal unenhanced liver. The gall bladder Lumen shows a tiny calcified calculus measuring 3.4 mm in size. Further correlation with an ultrasound of the gallbladder is advised. Image 72, series 605. The pancreas is normal in shape and contour. Peripancreatic planes appear normal. No evidence of calcification or pancreatic duct dilatation is seen. The spleen is normal in contour and Shows multiple tiny calcified lesions in the parenchyma. There is a hypodense mass with well-defined margins noted in the right adrenal gland measuring 2.84 x 2.66 x 2.96 cm (AP X TR X CC). The mean attenuation value is less 17 HU. The findings are suggestive of an adrenal adenoma. Further correlation with multiphase CT of the adrenals is advised with IV contrast. The left adrenal is normal. Both kidneys are normal in size, shape, and attenuation. No Right renal calculi / No hydronephrosis. A tiny Calcified lesion is seen in the cortex of lower pole of the left kidney measuring 6.9 x 3.6 mm in size, possibly As a result of prior healed infection. Stomach and Small bowel loops are normal. Uncomplicated large bowel diverticulosis is seen. The appendix is normal. The urinary bladder is normal. The prostate appears unremarkable. Rectum and perirectal fat planes are normal. Bone window setting shows Lumbar spondylosis. IMPRESSION: 1-Small hiatus hernia. 2-A tiny calculus in the gallbladder lumen, further correlation with an ultrasound of the gallbladder bladder is advised. 3-Right adrenal mass measuring 2.84 x 2.66 x 2.96 cm, possibly adenoma. Further correlation with multiphase CT of the adrenals is advised with IV contrast. 4-Uncomplicated large bowel diverticulosis. 5-Splenic calcification likely old granuloma. Electronically Signed by: Abdulaziz Powers MD. (01/27/2023 14:14:25 TELEVISION SERVICER)
--- NOTE | 2023-01-27 15:24 | XRAY ---
CLINICAL HISTORY:vomiting COMPARISON:None; TECHNIQUES:Multiple axial sections of the CT chest were acquired without IV contrast administration. In addition, coronal and sagittal views were also acquired; FINDINGS: A calcified nodule is seen in the posterior segment of the left upper lobe measuring 4.2 mm in size. 2 more calcified nodules are seen in the subpleural distribution of the lateral basal segment of the left lower lobe measuring 7.8 mm and 4.7 mm in size respectively. Another calcified nodule is seen in the subpleural distribution of medial basal segment of the left lower lobe measuring 4 mm in size. No more tiny partially calcified nodules are seen in the anterior segment of the right upper lung lobe measuring 4 mm and 2.2 mm in size respectively. A tiny calcified nodule is seen in the posterior basal segment of right lower lobe measuring 4.0 mm in size. Trachea and main stem bronchi are unremarkable. Multiple calcified subcarinal and bilateral hilar Lymph nodes are seen. Mediastinal vascular structures are Otherwise normal. The esophagus is normal. The rib cage is normal. No evidence of pleural effusion bilaterally. No evidence of pericardial effusion. No obvious osseous lytic/sclerotic lesion is seen. IMPRESSION: 1-Multiple calcified nodules are seen left upper, left lower, right upper and right lower lung lobes. The largest dimension is 7.8 mm and the nodule is located in lateral basal segment of the left lower lung lobe. Lungs RADScategory 1. Annual follow-up CT is advised. 2-X-ray chest dated 01/27/2023 also showed a nodule in the left. Electronically Signed by: Abdulaziz Powers MD. (01/27/2023 14:21:19 ACCOUNT RECEIVABLE ASSOCIATE)
[2023-01-27] MEDS: MORPHINE SULFATE 2 MG INJ IV PRN (17:22)
[2023-01-27] MEDS: Zofran 4 MG/2 ML VIAL IV PRN (17:22)
[2023-01-27 17:32] LABS: Appearance Cloudy (Clear); Bilirubin Negative (Negative); Blood Negative (Negative); Glucose, Urine >=1000 mg/dL (Negative); Ketones Trace (Negative); Leukocyte Esterase Negative (Negative); Nitrite Negative (Negative); Protein,Urine Dip 300 (Negative); RBC 0-2 /HPF (0-5); Specific Gravity 1.025 (1.005-1.030); Urobilinogen 0.2 mg/dL (0.2); WBC 0-2 /HPF (0-5)
[2023-01-27 17:34] LABS: ADD URINE CULTURE? NO (NO); Bacteria Few /HPF (None Seen); Epithelial Cells Few /HPF (None Seen)
[2023-01-27] MEDS: Neurontin PO ONE ×2 (17:55→22:03)
[2023-01-27] MEDS: HUMALOG SQ PRN (18:05)
[2023-01-27] MEDS ORDERED: ZOCOR 20MG ONE (20:07)
[2023-01-27] MEDS: Sodium Chloride 0.9% 1000 ML 1,000 ML IV SCH (20:14)
[2023-01-27] MEDS ORDERED: LIPITOR 40MG PO SCH (22:00)
[2023-01-27] MEDS ORDERED: Neurontin PO ONE ×2 (22:00)
[2023-01-27] MEDS ORDERED: Pletal 100 MG PO ONE (22:00)
[2023-01-28] MEDS: Sodium Chloride 0.9% 1000 ML 1,000 ML IV SCH ×4 (03:57→22:11)
[2023-01-28 04:57] LABS: Absolute Neutrophil Ct (ANC) 13.92 x10^3/uL (1.4-6.9); BASOPHIL % 0.2 % (0.0-0.4); Basophil (Absolute #) 0.04 x10^3/uL (0-0.4); Eosinophil % 0.3 % (0.00-5.0); Eosinophil (Absolute #) 0.05 x10^3/uL (0-0.5); Hematocrit 34.7 % (42-50); IMMATURE GRAN % 0.5 % (0.00-0.4); Lymphocytes % 19.1 % (24.0-44.0); Mean Cell Volume 90.1 fL (78-100); Mean Corpuscular Hemoglobin 28.6 pg (26-32); Mean Corpuscular Hgb Concent. 31.7 g/dL (32-36); Mean Platelet Volume 11.6 fL (7.5-11.0); Monocyte (Absolute #) 1.61 x10^3/uL (0.0-1.3); Monocytes % 8.3 % (0.0-12.0); Neutrophil % 71.6 % (36.0-66.0); Platelet Count 380 x10^3/uL (150-450); Red Blood Count 3.85 x10^6/uL (4.1-5.6); Red Cell Distribution Width 15.6 % (11.5-14.0); White Blood Count 19.4 x10^3/uL (4.0-10.5)
[2023-01-28 05:13] LABS: ALBUMIN 3.6 g/dL (3.5-5.0); ANION GAP 15.7 MEQ/L (5-15); BILIRUBIN,TOTAL 0.5 mg/dL (0.2-1.3); Calcium 8.9 mg/dL (8.4-10.2); Creatinine 1 2.66 mg/dL (0.66-1.25); EST GLOMERULAR FILTRATION RATE 26.2 ML/MIN; Potassium 4.3 mmol/L (3.5-5.1); Total Protein 6.9 g/dL (6.3-8.2)
[2023-01-28 05:31] LABS: Slide Review 1 YES
--- NOTE | 2023-01-28 08:07 | PCM.HP ---
History of Present Illness - Chief Complaint Chief Complaint: yinka History of Present Illness: is a 62 year old male who presented to the ER with epigastric pain and severe nausea for several days prior to arrival, no known fever. hx of diabetes, no diarrhea, pain and vomiting have resolved since admission. - Review of Systems Constitutional: No Fever, No Chills Respiratory: No Cough, No Short Of Breath Cardiac: No Chest Pain, No Edema, No Syncope Abdominal/Gastrointestinal: Abdominal Pain, Nausea, Vomiting, No Diarrhea, No Constipation, No Hematochezia Genitourinary Symptoms: No Dysuria Skin: No Rash All Other Systems: Reviewed and Negative Medications & Allergies Home Medications: Home Medication List Gabapentin [Neurontin] 800 mg PO TID 01/26/17 [History Confirmed 01/27/23] Losartan Potassium 50 mg [Cozaar 50 MG] 100 mg PO DAILY 01/26/17 [History Confirmed 01/27/23] Metoprolol Succinate [Toprol Xl] 50 mg PO DAILY 05/31/19 [History Confirmed 01/27/23] Duloxetine HCl 60 mg PO DAILY 01/04/22 [History Confirmed 01/27/23] Atorvastatin Calcium 80 mg PO HS 10/12/22 [History Confirmed 01/27/23] Cilostazol 100 mg [Pletal 100 MG] 50 mg PO BID 10/12/22 [History Confirmed 01/27/23] Bumetanide 1 mg [Bumex 1 mg] 2 mg PO BID 01/27/23 [History Confirmed 01/27/23] Insulin Lispro [Admelog] 0 unit SQ TIDWMEALS 01/27/23 [History Confirmed 01/27/23] Allergies/Adverse Reactions: Allergies Allergy/AdvReac Type Severity Reaction Status Date / Time insulin glargine Allergy Mild Itching Verified 01/27/23 16:36 [From Connie Garcia U-100 Insulin] - Past Medical History Past Medical History: Yes Neurological History: No Pertinent History, Peripheral Neuropathy ENT History: No Pertinent History Cardiac History: Coronary Artery Disease, High Cholesterol, Hypertension, Peripheral Vascular Disease Respiratory History: CHF Endocrine Medical History: Diabetes Type II Musculoskelatal History: Arthritis GI Medical History: GERD History: No Pertinent History Pyscho-Social History: No Pertinent History Male Reproductive Disorders: No Pertinent History Comment: PAROITIS, VENOUS STASIS EDEMA OF BLE, dizziness, hiatal hernia - Past Surgical History Past Surgical History: Yes Neuro Surgical History: No Pertinent History Cardiac History: No Pertinent History Respiratory Surgery: No Pertinent History GI Surgical History: No Pertinent History Genitourinary Surgical Hx: No Pertinent History Musculskeletal Surgical Hx: No Pertinent History Male Surgical History: No Pertinent History Other Surgical History: stent in left leg, foot orthopedic - Social History Smoking Status: Current every day smoker How long have you smoked: 47 years Exposure to second hand smoke: Yes Alcohol: Occasionally Drug Use: none - Physical Exam Vital Signs: Vital Signs - 24 hr Temp Pulse Resp BP BP Pulse Ox 01/28/23 07:53 97 01/28/23 07:26 96.6 F 86 18 116/56 90 L 01/28/23 04:00 98.2 F 69 20 156/76 95 01/28/23 00:00 98.5 F 71 16 87/51 96 01/27/23 20:00 97.7 F 67 17 142/66 98 01/27/23 19:33 92 L 01/27/23 17:17 99 01/27/23 16:49 97.8 F 64 16 206/91 100 01/27/23 16:47 97.7 F 64 16 206/91 100 01/27/23 15:55 100 01/27/23 14:50 68 16 141/75 99 01/27/23 13:30 138/72 01/27/23 13:28 70 18 138/72 100 01/27/23 12:46 74 18 94/63 90 L General Appearance: no apparent distress Neurologic Exam: alert, oriented x 3 Respiratory Exam: normal breath sounds, lungs clear, No respiratory distress Cardiovascular Exam: regular rate/rhythm, normal heart sounds, normal peripheral pulses Gastrointestinal/Abdomen Exam: soft, No tenderness, No distention, No mass, No guarding, No rebound Extremity Exam: normal inspection, normal range of motion, pelvis stable Skin Exam: normal color, warm, dry, No rash Results - Labs Lab/Micro Results: Lab Results-Last 24 Hours 01/27/23 01/27/23 01/27/23 Range/Units 12:45 12:50 12:50 WBC 20.5 H (4.0-10.5) x10^3/uL RBC 4.42 (4.1-5.6) x10^6/uL Hgb 12.8 (12.5-18.0) g/dL Hct 38.1 L (42-50) % MCV 86.2 (78-100) fL MCH 29.0 (26-32) pg MCHC 33.6 (32-36) g/dL RDW 15.0 H (11.5-14.0) % Plt Count 444 (150-450) x10^3/uL MPV 11.8 H (7.5-11.0) fL Gran % 87.7 H (36.0-66.0) % Immature Gran % (Auto) 0.6 H (0.00-0.4) % Nucleat RBC Rel Count 0.0 (0.00-0.1) % Eos # (Auto) 0.01 (0-0.5) x10^3/uL Immature Gran # (Auto) 0.13 H (0.00-0.03) x10^3u/L Absolute Lymphs (auto) 1.68 (1.0-4.6) x10^3/uL Absolute Monos (auto) 0.68 (0.0-1.3) x10^3/uL Absolute Nucleated RBC 0.00 (0.00-0.01) x10^3u/L Lymphocytes % 8.2 L (24.0-44.0) % Monocytes % 3.3 (0.0-12.0) % Eosinophils % 0.0 (0.00-5.0) % Basophils % 0.2 (0.0-0.4) % Absolute Granulocytes 17.96 H (1.4-6.9) x10^3/uL Basophils # 0.04 (0-0.4) x10^3/uL PT (9.4-12.5) SECONDS INR (0.8-3.0) Sodium 138 (137-145) mmol/L Potassium 4.3 (3.5-5.1) mmol/L Chloride 91 L (98-107) mmol/L Carbon Dioxide 28 (22-30) mmol/L Anion Gap 23.3 H (5-15) MEQ/L BUN 43 H (9-20) mg/dL Creatinine 2.73 H (0.66-1.25) mg/dL Estimated GFR 25.4 ML/MIN Glucose 412 H (74-106) mg/dL POC Glucometer 263 H (74 to 106) mg/dL Calcium 10.0 (8.4-10.2) mg/dL Total Bilirubin 0.80 (0.2-1.3) mg/dL AST 25 (17-59) U/L ALT 22 (0-50) U/L Alkaline Phosphatase 280 H (38-126) U/L Troponin I (0.000-0.034) ng/mL Serum Total Protein 8.1 (6.3-8.2) g/dL Albumin 4.4 (3.5-5.0) g/dL Lipase 44 (23-300) U/L Urine Color (Yellow) Urine Appearance (Clear) Urine pH (4.6-8.0) Ur Specific Hamlet (1.005-1.030) Urine Protein (Negative) Urine Glucose (UA) (Negative) mg/dL Urine Ketones (Negative) Urine Blood (Negative) Urine Nitrite (Negative) Urine Bilirubin (Negative) Urine Urobilinogen (0.2) mg/dL Ur Leukocyte Esterase (Negative) U Hyaline Cast (Auto) (0-2) /LPF Urine Microscopic RBC (0-5) /HPF Urine Microscopic WBC (0-5) /HPF Ur Epithelial Cells (None Seen) /HPF Urine Bacteria (None Seen) /HPF Urine Culture Reflexed (NO) Acetaminophen < 10 L (10-30) ug/ml Ethyl Alcohol < 10 (0-10) mg/dL Influenza Type A Ag (NEGATIVE) Influenza Type B Ag (NEGATIVE) RSV (PCR) (NEGATIVE) SARS-CoV-2 (PCR) (NEGATIVE) Slides for Path Review ABO Group Rh Factor Antibody Screen (NEGATIVE) 01/27/23 01/27/23 01/27/23 Range/Units 12:50 12:50 12:50 WBC (4.0-10.5) x10^3/uL RBC (4.1-5.6) x10^6/uL Hgb (12.5-18.0) g/dL Hct (42-50) % MCV (78-100) fL MCH (26-32) pg MCHC (32-36) g/dL RDW (11.5-14.0) % Plt Count (150-450) x10^3/uL MPV (7.5-11.0) fL Gran % (36.0-66.0) % Immature Gran % (Auto) (0.00-0.4) % Nucleat RBC Rel Count (0.00-0.1) % Eos # (Auto) (0-0.5) x10^3/uL Immature Gran # (Auto) (0.00-0.03) x10^3u/L Absolute Lymphs (auto) (1.0-4.6) x10^3/uL Absolute Monos (auto) (0.0-1.3) x10^3/uL Absolute Nucleated RBC (0.00-0.01) x10^3u/L Lymphocytes % (24.0-44.0) % Monocytes % (0.0-12.0) % Eosinophils % (0.00-5.0) % Basophils % (0.0-0.4) % Absolute Granulocytes (1.4-6.9) x10^3/uL Basophils # (0-0.4) x10^3/uL PT 10.1 (9.4-12.5) SECONDS INR 0.92 (0.8-3.0) Sodium (137-145) mmol/L Potassium (3.5-5.1) mmol/L Chloride (98-107) mmol/L Carbon Dioxide (22-30) mmol/L Anion Gap (5-15) MEQ/L BUN (9-20) mg/dL Creatinine (0.66-1.25) mg/dL Estimated GFR ML/MIN Glucose (74-106) mg/dL POC Glucometer (74 to 106) mg/dL Calcium (8.4-10.2) mg/dL Total Bilirubin (0.2-1.3) mg/dL AST (17-59) U/L ALT (0-50) U/L Alkaline Phosphatase (38-126) U/L Troponin I 0.036 H* (0.000-0.034) ng/mL Serum Total Protein (6.3-8.2) g/dL Albumin (3.5-5.0) g/dL Lipase (23-300) U/L Urine Color (Yellow) Urine Appearance (Clear) Urine pH (4.6-8.0) Ur Specific Hamlet (1.005-1.030) Urine Protein (Negative) Urine Glucose (UA) (Negative) mg/dL Urine Ketones (Negative) Urine Blood (Negative) Urine Nitrite (Negative) Urine Bilirubin (Negative) Urine Urobilinogen (0.2) mg/dL Ur Leukocyte Esterase (Negative) U Hyaline Cast (Auto) (0-2) /LPF Urine Microscopic RBC (0-5) /HPF Urine Microscopic WBC (0-5) /HPF Ur Epithelial Cells (None Seen) /HPF Urine Bacteria (None Seen) /HPF Urine Culture Reflexed (NO) Acetaminophen (10-30) ug/ml Ethyl Alcohol (0-10) mg/dL Influenza Type A Ag (NEGATIVE) Influenza Type B Ag (NEGATIVE) RSV (PCR) (NEGATIVE) SARS-CoV-2 (PCR) (NEGATIVE) Slides for Path Review ABO Group O Rh Factor NEGATIVE Antibody Screen NEGATIVE (NEGATIVE) 01/27/23 01/27/23 01/27/23 Range/Units 13:36 14:50 16:32 WBC (4.0-10.5) x10^3/uL RBC (4.1-5.6) x10^6/uL Hgb (12.5-18.0) g/dL Hct (42-50) % MCV (78-100) fL MCH (26-32) pg MCHC (32-36) g/dL RDW (11.5-14.0) % Plt Count (150-450) x10^3/uL MPV (7.5-11.0) fL Gran % (36.0-66.0) % Immature Gran % (Auto) (0.00-0.4) % Nucleat RBC Rel Count (0.00-0.1) % Eos # (Auto) (0-0.5) x10^3/uL Immature Gran # (Auto) (0.00-0.03) x10^3u/L Absolute Lymphs (auto) (1.0-4.6) x10^3/uL Absolute Monos (auto) (0.0-1.3) x10^3/uL Absolute Nucleated RBC (0.00-0.01) x10^3u/L Lymphocytes % (24.0-44.0) % Monocytes % (0.0-12.0) % Eosinophils % (0.00-5.0) % Basophils % (0.0-0.4) % Absolute Granulocytes (1.4-6.9) x10^3/uL Basophils # (0-0.4) x10^3/uL PT (9.4-12.5) SECONDS INR (0.8-3.0) Sodium (137-145) mmol/L Potassium (3.5-5.1) mmol/L Chloride (98-107) mmol/L Carbon Dioxide (22-30) mmol/L Anion Gap (5-15) MEQ/L BUN (9-20) mg/dL Creatinine (0.66-1.25) mg/dL Estimated GFR ML/MIN Glucose (74-106) mg/dL POC Glucometer 277 H (74 to 106) mg/dL Calcium (8.4-10.2) mg/dL Total Bilirubin (0.2-1.3) mg/dL AST (17-59) U/L ALT (0-50) U/L Alkaline Phosphatase (38-126) U/L Troponin I (0.000-0.034) ng/mL Serum Total Protein (6.3-8.2) g/dL Albumin (3.5-5.0) g/dL Lipase (23-300) U/L Urine Color Yellow (Yellow) Urine Appearance Cloudy A (Clear) Urine pH 5.0 (4.6-8.0) Ur Specific Hamlet 1.025 (1.005-1.030) Urine Protein 300 A (Negative) Urine Glucose (UA) >=1000 A (Negative) mg/dL Urine Ketones Trace A (Negative) Urine Blood Negative (Negative) Urine Nitrite Negative (Negative) Urine Bilirubin Negative (Negative) Urine Urobilinogen 0.2 (0.2) mg/dL Ur Leukocyte Esterase Negative (Negative) U Hyaline Cast (Auto) 3-5 A (0-2) /LPF Urine Microscopic RBC 0-2 (0-5) /HPF Urine Microscopic WBC 0-2 (0-5) /HPF Ur Epithelial Cells Few (None Seen) /HPF Urine Bacteria Few A (None Seen) /HPF Urine Culture Reflexed NO (NO) Acetaminophen (10-30) ug/ml Ethyl Alcohol (0-10) mg/dL Influenza Type A Ag NEGATIVE (NEGATIVE) Influenza Type B Ag NEGATIVE (NEGATIVE) RSV (PCR) NEGATIVE (NEGATIVE) SARS-CoV-2 (PCR) NEGATIVE (NEGATIVE) Slides for Path Review ABO Group Rh Factor Antibody Screen (NEGATIVE) 01/27/23 01/27/23 01/27/23 Range/Units 17:00 20:30 21:17 WBC (4.0-10.5) x10^3/uL RBC (4.1-5.6) x10^6/uL Hgb (12.5-18.0) g/dL Hct (42-50) % MCV (78-100) fL MCH (26-32) pg MCHC (32-36) g/dL RDW (11.5-14.0) % Plt Count (150-450) x10^3/uL MPV (7.5-11.0) fL Gran % (36.0-66.0) % Immature Gran % (Auto) (0.00-0.4) % Nucleat RBC Rel Count (0.00-0.1) % Eos # (Auto) (0-0.5) x10^3/uL Immature Gran # (Auto) (0.00-0.03) x10^3u/L Absolute Lymphs (auto) (1.0-4.6) x10^3/uL Absolute Monos (auto) (0.0-1.3) x10^3/uL Absolute Nucleated RBC (0.00-0.01) x10^3u/L Lymphocytes % (24.0-44.0) % Monocytes % (0.0-12.0) % Eosinophils % (0.00-5.0) % Basophils % (0.0-0.4) % Absolute Granulocytes (1.4-6.9) x10^3/uL Basophils # (0-0.4) x10^3/uL PT (9.4-12.5) SECONDS INR (0.8-3.0) Sodium (137-145) mmol/L Potassium (3.5-5.1) mmol/L Chloride (98-107) mmol/L Carbon Dioxide (22-30) mmol/L Anion Gap (5-15) MEQ/L BUN (9-20) mg/dL Creatinine (0.66-1.25) mg/dL Estimated GFR ML/MIN Glucose (74-106) mg/dL POC Glucometer 164 H (74 to 106) mg/dL Calcium (8.4-10.2) mg/dL Total Bilirubin (0.2-1.3) mg/dL AST (17-59) U/L ALT (0-50) U/L Alkaline Phosphatase (38-126) U/L Troponin I 0.020 0.029 (0.000-0.034) ng/mL Serum Total Protein (6.3-8.2) g/dL Albumin (3.5-5.0) g/dL Lipase (23-300) U/L Urine Color (Yellow) Urine Appearance (Clear) Urine pH (4.6-8.0) Ur Specific Hamlet (1.005-1.030) Urine Protein (Negative) Urine Glucose (UA) (Negative) mg/dL Urine Ketones (Negative) Urine Blood (Negative) Urine Nitrite (Negative) Urine Bilirubin (Negative) Urine Urobilinogen (0.2) mg/dL Ur Leukocyte Esterase (Negative) U Hyaline Cast (Auto) (0-2) /LPF Urine Microscopic RBC (0-5) /HPF Urine Microscopic WBC (0-5) /HPF Ur Epithelial Cells (None Seen) /HPF Urine Bacteria (None Seen) /HPF Urine Culture Reflexed (NO) Acetaminophen (10-30) ug/ml Ethyl Alcohol (0-10) mg/dL Influenza Type A Ag (NEGATIVE) Influenza Type B Ag (NEGATIVE) RSV (PCR) (NEGATIVE) SARS-CoV-2 (PCR) (NEGATIVE) Slides for Path Review ABO Group Rh Factor Antibody Screen (NEGATIVE) 01/28/23 01/28/23 01/28/23 Range/Units 04:19 04:19 07:12 WBC 19.4 H (4.0-10.5) x10^3/uL RBC 3.85 L (4.1-5.6) x10^6/uL Hgb 11.0 L (12.5-18.0) g/dL Hct 34.7 L (42-50) % MCV 90.1 (78-100) fL MCH 28.6 (26-32) pg MCHC 31.7 L (32-36) g/dL RDW 15.6 H (11.5-14.0) % Plt Count 380 (150-450) x10^3/uL MPV 11.6 H (7.5-11.0) fL Gran % 71.6 H (36.0-66.0) % Immature Gran % (Auto) 0.5 H (0.00-0.4) % Nucleat RBC Rel Count 0.0 (0.00-0.1) % Eos # (Auto) 0.05 (0-0.5) x10^3/uL Immature Gran # (Auto) 0.10 H (0.00-0.03) x10^3u/L Absolute Lymphs (auto) 3.70 (1.0-4.6) x10^3/uL Absolute Monos (auto) 1.61 H (0.0-1.3) x10^3/uL Absolute Nucleated RBC 0.00 (0.00-0.01) x10^3u/L Lymphocytes % 19.1 L (24.0-44.0) % Monocytes % 8.3 (0.0-12.0) % Eosinophils % 0.3 (0.00-5.0) % Basophils % 0.2 (0.0-0.4) % Absolute Granulocytes 13.92 H (1.4-6.9) x10^3/uL Basophils # 0.04 (0-0.4) x10^3/uL PT (9.4-12.5) SECONDS INR (0.8-3.0) Sodium 141 (137-145) mmol/L Potassium 4.3 (3.5-5.1) mmol/L Chloride 99 (98-107) mmol/L Carbon Dioxide 31 H (22-30) mmol/L Anion Gap 15.7 H (5-15) MEQ/L BUN 43 H (9-20) mg/dL Creatinine 2.66 H (0.66-1.25) mg/dL Estimated GFR 26.2 ML/MIN Glucose 71 L (74-106) mg/dL POC Glucometer 48 L* (74 to 106) mg/dL Calcium 8.9 (8.4-10.2) mg/dL Total Bilirubin 0.50 (0.2-1.3) mg/dL AST 23 (17-59) U/L ALT 18 (0-50) U/L Alkaline Phosphatase 186 H (38-126) U/L Troponin I (0.000-0.034) ng/mL Serum Total Protein 6.9 (6.3-8.2) g/dL Albumin 3.6 (3.5-5.0) g/dL Lipase (23-300) U/L Urine Color (Yellow) Urine Appearance (Clear) Urine pH (4.6-8.0) Ur Specific Hamlet (1.005-1.030) Urine Protein (Negative) Urine Glucose (UA) (Negative) mg/dL Urine Ketones (Negative) Urine Blood (Negative) Urine Nitrite (Negative) Urine Bilirubin (Negative) Urine Urobilinogen (0.2) mg/dL Ur Leukocyte Esterase (Negative) U Hyaline Cast (Auto) (0-2) /LPF Urine Microscopic RBC (0-5) /HPF Urine Microscopic WBC (0-5) /HPF Ur Epithelial Cells (None Seen) /HPF Urine Bacteria (None Seen) /HPF Urine Culture Reflexed (NO) Acetaminophen (10-30) ug/ml Ethyl Alcohol (0-10) mg/dL Influenza Type A Ag (NEGATIVE) Influenza Type B Ag (NEGATIVE) RSV (PCR) (NEGATIVE) SARS-CoV-2 (PCR) (NEGATIVE) Slides for Path Review YES ABO Group Rh Factor Antibody Screen (NEGATIVE) Accuchecks Date 01/28/23 Time 07:25 - Radiology Impressions Radiology Exams & Impressions: Radiology Procedures Category Date Time Status ABDOMEN AND PELVIS W/0 CONTRAS [CT] Stat Exams 01/27/23 13:45 Completed CHEST 1 VIEW (PORTABLE) Stat Exams 01/27/23 12:48 Completed CHEST WITHOUT CONTRAST [CT] Stat Exams 01/27/23 13:45 Completed GALLBLADDER [US] Routine Exams 01/28/23 07:59 Ordered - Other Procedures and Tests Respiratory Therapy 01/27/23 17:06 Smoking Cessation Education ONCE Assessment/Plan (1) Gallbladder calculus Current Visit: Yes Status: Acute Assessment & Plan: order gallbladder ultrasound and surgery consult, due to elevation of white count and gallstone will start cefoxitin emperically until seen by surgery Code(s): K80.20 - CALCULUS OF GALLBLADDER W/O CHOLECYSTITIS W/O OBSTRUCTION (2) YINKA (acute kidney injury) Current Visit: Yes Status: Acute Assessment & Plan: continue IV fluid hydration Code(s): N17.9 - ACUTE KIDNEY FAILURE, UNSPECIFIED (3) Diabetes type 2, uncontrolled Current Visit: Yes Status: Acute Code(s): BVZ3929 - (4) Adrenal mass, right Current Visit: Yes Status: Acute Assessment & Plan: possible adenoma, needs ct with contrast but unable due to renal function, will need f/u Code(s): E27.8 - OTHER SPECIFIED DISORDERS OF ADRENAL GLAND
[2023-01-28] MEDS: MEFOXIN 1 Gm/ D5W 50 Ml** 1 G/50 ML ML IV SCH ×3 (08:44→22:05)
[2023-01-28] MEDS: MORPHINE SULFATE 2 MG INJ IV PRN ×2 (10:28→18:17)
[2023-01-28] MEDS: Tums EX 750 MG PO PRN (10:29)
[2023-01-28] MEDS: Zofran 4 MG/2 ML VIAL IV PRN ×2 (10:36→18:17)
--- NOTE | 2023-01-28 12:32 | XRAY ---
CLINICAL HISTORY:[facility]. COMPARISON:CT scan dated 01/27/2023 was reviewed. TECHNIQUES:Ultrasound examination of right upper quadrant abdomen was performed in real-time and Duplex; FINDINGS: The liver is borderline enlarged measures 17.4 cm at the largest craniocaudal span. It demonstrates normal parenchymal echotexture. No focal or diffuse hepatic abnormality noted. The intrahepatic biliary tree demonstrates no evidence of dilatation. The gallbladder is normally distended with a normal wall thickness measuring 2.6 mm. A tiny echogenic focus with subtle posterior acoustic shadowing is noted in the gallbladder lumen representing tiny calculus. CBD is normal in diameter measuring 4.8 mm. Right kidney is normal in size measuring 12.5 x 5.4 x 6.0 cm. No calculus, cyst, or hydronephrosis seen. IMPRESSION: 1-Cholelithiasis without definite acute cholecystitis. This is an interval unchanged finding since prior study. 2-Liver is borderline enlarged. 3-Rest of the limited study for the upper abdomen emphasizing the right upper quadrant is grossly unremarkable. Electronically Signed by: Abdulaziz Powers MD. (01/28/2023 11:26:27 GEM CARVER)
[2023-01-28] MEDS ORDERED: ZOCOR 20MG PO SCH (22:00)
[2023-01-28] MEDS ORDERED: MEFOXIN 1 Gm/ D5W 50 Ml** 1 G/50 ML ML IV ONE (22:01)
[2023-01-29] MEDS: MORPHINE SULFATE 2 MG INJ IV PRN ×2 (00:01→10:09)
[2023-01-29] MEDS: Zofran 4 MG/2 ML VIAL IV PRN ×2 (00:01→05:32)
[2023-01-29 05:05] LABS: Absolute Neutrophil Ct (ANC) 9.13 x10^3/uL (1.4-6.9); BASOPHIL % 0.2 % (0.0-0.4); Basophil (Absolute #) 0.03 x10^3/uL (0-0.4); Eosinophil % 0.5 % (0.00-5.0); Eosinophil (Absolute #) 0.06 x10^3/uL (0-0.5); Hematocrit 35.1 % (42-50); Hemoglobin 11.3 g/dL (12.5-18.0); IMMATURE GRAN # 0.06 x10^3u/L (0.00-0.03); IMMATURE GRAN % 0.5 % (0.00-0.4); Lymphocyte (Absolute #) 2.35 x10^3/uL (1.0-4.6); Lymphocytes % 18.6 % (24.0-44.0); Mean Corpuscular Hgb Concent. 32.2 g/dL (32-36); Mean Platelet Volume 11.6 fL (7.5-11.0); Monocyte (Absolute #) 0.98 x10^3/uL (0.0-1.3); Monocytes % 7.8 % (0.0-12.0); Neutrophil % 72.4 % (36.0-66.0); Platelet Count 372 x10^3/uL (150-450); Red Cell Distribution Width 15.3 % (11.5-14.0); White Blood Count 12.6 x10^3/uL (4.0-10.5)
[2023-01-29 05:20] LABS: ALBUMIN 3.5 g/dL (3.5-5.0); ANION GAP 14.2 MEQ/L (5-15); BILIRUBIN,TOTAL 0.8 mg/dL (0.2-1.3); Calcium 8.6 mg/dL (8.4-10.2); Creatinine 1 1.36 mg/dL (0.66-1.25); EST GLOMERULAR FILTRATION RATE 56.8 ML/MIN; MAGNESIUM 2.1 mg/dL (1.6-2.3); Potassium 4.4 mmol/L (3.5-5.1); Total Protein 6.6 g/dL (6.3-8.2)
[2023-01-29] MEDS: Sodium Chloride 0.9% 1000 ML 1,000 ML IV SCH ×2 (05:34→21:15)
[2023-01-29] MEDS: MEFOXIN 1 Gm/ D5W 50 Ml** 1 G/50 ML ML IV SCH ×3 (05:46→21:17)
[2023-01-29] MEDS ORDERED: Sodium Chloride 0.9% 1000 ML 1,000 ML IV SCH (06:00)
[2023-01-29] MEDS ORDERED: MEFOXIN 2 GM PREMIX** 2 GM/50 ML ML IV SCH (06:00)
[2023-01-29] MEDS: Tums EX 750 MG PO PRN (08:16)
--- NOTE | 2023-01-29 08:20 | PCM.NOTE ---
Date and Time: 01/29/23815 Subjective Assessment: patient still having epigastric pain and nausea, no other new complaints Objective Exam General Appearance: no apparent distress Neurologic Exam: alert, oriented x 3 Respiratory Exam: normal breath sounds, lungs clear, No respiratory distress Cardiovascular Exam: regular rate/rhythm, normal heart sounds Gastrointestinal/Abdomen Exam: soft, tenderness (ruq), No guarding, No rebound Extremity Exam: normal inspection, normal range of motion OBJECTIVE DATA Vital Signs: Vital Signs - 24 hr Temp Pulse Resp BP Pulse Ox 01/29/23 07:37 97.5 F 69 16 216/89 94 L 01/29/23 06:57 99 01/29/23 04:00 98.6 F 69 12 201/91 99 01/29/23 00:26 67 153/70 01/29/23 00:00 97.3 F 73 20 198/91 98 01/28/23 19:51 98.1 F 80 16 167/78 100 01/28/23 19:40 97 01/28/23 16:00 97.1 F 63 18 165/79 93 L 01/28/23 13:00 64 01/28/23 12:00 62 01/28/23 11:36 97.1 F 61 18 154/72 01/28/23 11:00 61 01/28/23 10:00 63 01/28/23 09:00 63 Pain Assessment - Last Documented Pain Intensity 3 Pain Scale Used 0-10 Pain Scale Intake and Output: Intake & Output 01/26/23 01/27/23 01/28/23 01/29/23 11:59 11:59 11:59 11:59 Intake Total 3321 2100 Output Total 300 900 Balance 3021 1200 Weight 92.1 kg 92.1 kg Lab Results: Lab Results-Last 24 Hours 01/28/23 01/28/23 01/28/23 Range/Units 04:00 11:28 16:34 WBC (4.0-10.5) x10^3/uL RBC (4.1-5.6) x10^6/uL Hgb (12.5-18.0) g/dL Hct (42-50) % MCV (78-100) fL MCH (26-32) pg MCHC (32-36) g/dL RDW (11.5-14.0) % Plt Count (150-450) x10^3/uL MPV (7.5-11.0) fL Gran % (36.0-66.0) % Immature Gran % (Auto) (0.00-0.4) % Nucleat RBC Rel Count (0.00-0.1) % Eos # (Auto) (0-0.5) x10^3/uL Immature Gran # (Auto) (0.00-0.03) x10^3u/L Absolute Lymphs (auto) (1.0-4.6) x10^3/uL Absolute Monos (auto) (0.0-1.3) x10^3/uL Absolute Nucleated RBC (0.00-0.01) x10^3u/L Lymphocytes % (24.0-44.0) % Monocytes % (0.0-12.0) % Eosinophils % (0.00-5.0) % Basophils % (0.0-0.4) % Absolute Granulocytes (1.4-6.9) x10^3/uL Basophils # (0-0.4) x10^3/uL Sodium (137-145) mmol/L Potassium (3.5-5.1) mmol/L Chloride (98-107) mmol/L Carbon Dioxide (22-30) mmol/L Anion Gap (5-15) MEQ/L BUN (9-20) mg/dL Creatinine (0.66-1.25) mg/dL Estimated GFR ML/MIN Glucose (74-106) mg/dL POC Glucometer 94 TNP (74 to 106) mg/dL Hemoglobin A1c > 14.00 H (4.5-6.0) % Calcium (8.4-10.2) mg/dL Magnesium (1.6-2.3) mg/dL Total Bilirubin (0.2-1.3) mg/dL AST (17-59) U/L ALT (0-50) U/L Alkaline Phosphatase (38-126) U/L Serum Total Protein (6.3-8.2) g/dL Albumin (3.5-5.0) g/dL 01/28/23 01/29/23 01/29/23 Range/Units 20:50 04:40 04:40 WBC 12.6 H (4.0-10.5) x10^3/uL RBC 3.90 L (4.1-5.6) x10^6/uL Hgb 11.3 L (12.5-18.0) g/dL Hct 35.1 L (42-50) % MCV 90.0 (78-100) fL MCH 29.0 (26-32) pg MCHC 32.2 (32-36) g/dL RDW 15.3 H (11.5-14.0) % Plt Count 372 (150-450) x10^3/uL MPV 11.6 H (7.5-11.0) fL Gran % 72.4 H (36.0-66.0) % Immature Gran % (Auto) 0.5 H (0.00-0.4) % Nucleat RBC Rel Count 0.0 (0.00-0.1) % Eos # (Auto) 0.06 (0-0.5) x10^3/uL Immature Gran # (Auto) 0.06 H (0.00-0.03) x10^3u/L Absolute Lymphs (auto) 2.35 (1.0-4.6) x10^3/uL Absolute Monos (auto) 0.98 (0.0-1.3) x10^3/uL Absolute Nucleated RBC 0.00 (0.00-0.01) x10^3u/L Lymphocytes % 18.6 L (24.0-44.0) % Monocytes % 7.8 (0.0-12.0) % Eosinophils % 0.5 (0.00-5.0) % Basophils % 0.2 (0.0-0.4) % Absolute Granulocytes 9.13 H (1.4-6.9) x10^3/uL Basophils # 0.03 (0-0.4) x10^3/uL Sodium 137 (137-145) mmol/L Potassium 4.4 (3.5-5.1) mmol/L Chloride 103 (98-107) mmol/L Carbon Dioxide 24 (22-30) mmol/L Anion Gap 14.2 (5-15) MEQ/L BUN 22 H (9-20) mg/dL Creatinine 1.36 H (0.66-1.25) mg/dL Estimated GFR 56.8 ML/MIN Glucose 231 H (74-106) mg/dL POC Glucometer 83 (74 to 106) mg/dL Hemoglobin A1c (4.5-6.0) % Calcium 8.6 (8.4-10.2) mg/dL Magnesium 2.1 (1.6-2.3) mg/dL Total Bilirubin 0.80 (0.2-1.3) mg/dL AST 23 (17-59) U/L ALT 16 (0-50) U/L Alkaline Phosphatase 197 H (38-126) U/L Serum Total Protein 6.6 (6.3-8.2) g/dL Albumin 3.5 (3.5-5.0) g/dL 01/29/23 Range/Units 07:04 WBC (4.0-10.5) x10^3/uL RBC (4.1-5.6) x10^6/uL Hgb (12.5-18.0) g/dL Hct (42-50) % MCV (78-100) fL MCH (26-32) pg MCHC (32-36) g/dL RDW (11.5-14.0) % Plt Count (150-450) x10^3/uL MPV (7.5-11.0) fL Gran % (36.0-66.0) % Immature Gran % (Auto) (0.00-0.4) % Nucleat RBC Rel Count (0.00-0.1) % Eos # (Auto) (0-0.5) x10^3/uL Immature Gran # (Auto) (0.00-0.03) x10^3u/L Absolute Lymphs (auto) (1.0-4.6) x10^3/uL Absolute Monos (auto) (0.0-1.3) x10^3/uL Absolute Nucleated RBC (0.00-0.01) x10^3u/L Lymphocytes % (24.0-44.0) % Monocytes % (0.0-12.0) % Eosinophils % (0.00-5.0) % Basophils % (0.0-0.4) % Absolute Granulocytes (1.4-6.9) x10^3/uL Basophils # (0-0.4) x10^3/uL Sodium (137-145) mmol/L Potassium (3.5-5.1) mmol/L Chloride (98-107) mmol/L Carbon Dioxide (22-30) mmol/L Anion Gap (5-15) MEQ/L BUN (9-20) mg/dL Creatinine (0.66-1.25) mg/dL Estimated GFR ML/MIN Glucose (74-106) mg/dL POC Glucometer 268 H (74 to 106) mg/dL Hemoglobin A1c (4.5-6.0) % Calcium (8.4-10.2) mg/dL Magnesium (1.6-2.3) mg/dL Total Bilirubin (0.2-1.3) mg/dL AST (17-59) U/L ALT (0-50) U/L Alkaline Phosphatase (38-126) U/L Serum Total Protein (6.3-8.2) g/dL Albumin (3.5-5.0) g/dL Radiology Exams: Radiology Procedures Category Date Time Status ABDOMEN AND PELVIS W/0 CONTRAS [CT] Stat Exams 01/27/23 13:45 Completed CHEST 1 VIEW (PORTABLE) Stat Exams 01/27/23 12:48 Completed CHEST WITHOUT CONTRAST [CT] Stat Exams 01/27/23 13:45 Completed GALLBLADDER [US] Routine Exams 01/28/23 10:18 Completed Multi-Disciplinary Progress Notes: Multi-Disciplinary Progress Notes 01/28/23 13:48 Pharmacy Note by Tray Calixto Mefoxin dose lowered to q8h per renal dosing policy. Estimated crcl is 30ml/min. Initialized on 01/28/23 13:48 - END OF NOTE Assessment/Plan (1) Gallbladder calculus Current Visit: Yes Status: Acute Assessment & Plan: surgery consulted, planning for lap cholecystectomy this afternoon reportedly. no obvious cholecystitis on ultrasound. continue cefoxitin, wbc improving. Code(s): K80.20 - CALCULUS OF GALLBLADDER W/O CHOLECYSTITIS W/O OBSTRUCTION (2) YINKA (acute kidney injury) Current Visit: Yes Status: Acute Assessment & Plan: drastic improvement with hydration, was prerenal related to hypovolemia/vomiting Code(s): N17.9 - ACUTE KIDNEY FAILURE, UNSPECIFIED (3) Diabetes type 2, uncontrolled Current Visit: Yes Status: Acute Code(s): [id number] - (4) Adrenal mass, right Current Visit: Yes Status: Acute Code(s): E27.8 - OTHER SPECIFIED DISORDERS OF ADRENAL GLAND
[2023-01-29] MEDS: APRESOLINE 20 MG/ML INJ IV PRN ×2 (08:35→13:45)
[2023-01-29] MEDS ORDERED: NON-FORMULARY ITEM (Duloxetine Hcl [Duloxetine Hcl] 60 MG Capsule.Dr) PO SCH (10:00)
[2023-01-29] MEDS ORDERED: NON-FORMULARY ITEM (Gabapentin [Neurontin] 800 MG Tablet) PO SCH (10:00)
[2023-01-29] MEDS ORDERED: Zofran 4 MG/2 ML VIAL IV PRN (10:06)
[2023-01-29] MEDS: Neurontin PO SCH ×3 (10:12→21:15)
[2023-01-29] MEDS: Cozaar 50 MG PO SCH (10:12)
[2023-01-29] MEDS: Toprol Xl 50 MG PO SCH (10:12)
[2023-01-29] MEDS: Pletal 100 MG PO SCH ×2 (10:16→21:14)
[2023-01-29] MEDS: Cymbalta 30 MG Capsule PO SCH (10:20)
[2023-01-29] MEDS ORDERED: Compazine 10 MG/2 ML IV PRN (11:22)
[2023-01-29] MEDS ORDERED: Sensorcaine 0.25% 10 ML ONE (13:26)
[2023-01-29] MEDS: HUMALOG SQ PRN ×2 (13:39→21:28)
[2023-01-29] MEDS ORDERED: Lactated Ringers 1,000 ML IV ONE (13:55)
[2023-01-29] MEDS ORDERED: NORCO 5/325 MG PO PRN (15:20)
[2023-01-29] MEDS ORDERED: Zemuron 100 MG/10 ML ONE (15:23)
[2023-01-29] MEDS ORDERED: SUBLIMAZE 100 MCG/2 ML ONE ×2 (15:23→16:28)
[2023-01-29] MEDS ORDERED: Versed 2 MG/2 ML Injection ONE (15:23)
[2023-01-29] MEDS ORDERED: DIPRIVAN 200 MG/20 ML IV ONE (15:23)
[2023-01-29] MEDS ORDERED: PHENYLEPHRINE HCL ONE (15:49)
[2023-01-29] MEDS ORDERED: Ephedrine Sulfate 50 MG/ML ONE (15:53)
[2023-01-29] MEDS ORDERED: BRIDION 200MG/2ML IV ONE (16:13)
[2023-01-29] MEDS ORDERED: DUONEB 0.5-3 MG/3 ml Neb IH ONE ×2 (16:31→16:59)
[2023-01-29] MEDS ORDERED: Hydromorphone 1 mg/ml Injection ONE (16:43)
[2023-01-30] MEDS: Sodium Chloride 0.9% 1000 ML 1,000 ML IV SCH (04:25)
[2023-01-30] MEDS: MEFOXIN 1 Gm/ D5W 50 Ml** 1 G/50 ML ML IV SCH (05:43)
[2023-01-30 06:20] LABS: Absolute Neutrophil Ct (ANC) 9.17 x10^3/uL (1.4-6.9); BASOPHIL % 0.3 % (0.0-0.4); Basophil (Absolute #) 0.03 x10^3/uL (0-0.4); Eosinophil % 0.6 % (0.00-5.0); Eosinophil (Absolute #) 0.07 x10^3/uL (0-0.5); Hematocrit 31.4 % (42-50); Hemoglobin 9.9 g/dL (12.5-18.0); IMMATURE GRAN # 0.04 x10^3u/L (0.00-0.03); IMMATURE GRAN % 0.3 % (0.00-0.4); Lymphocyte (Absolute #) 1.62 x10^3/uL (1.0-4.6); Lymphocytes % 13.6 % (24.0-44.0); Mean Cell Volume 92.4 fL (78-100); Mean Corpuscular Hemoglobin 29.1 pg (26-32); Mean Corpuscular Hgb Concent. 31.5 g/dL (32-36); Mean Platelet Volume 11.5 fL (7.5-11.0); Monocyte (Absolute #) 0.99 x10^3/uL (0.0-1.3); Monocytes % 8.3 % (0.0-12.0); Neutrophil % 76.9 % (36.0-66.0); Platelet Count 324 x10^3/uL (150-450); Red Cell Distribution Width 15.7 % (11.5-14.0); White Blood Count 11.9 x10^3/uL (4.0-10.5)
[2023-01-30 06:41] LABS: ALBUMIN 3.2 g/dL (3.5-5.0); ANION GAP 15.5 MEQ/L (5-15); BILIRUBIN,TOTAL 0.8 mg/dL (0.2-1.3); Calcium 8.4 mg/dL (8.4-10.2); Creatinine 1 1.46 mg/dL (0.66-1.25); EST GLOMERULAR FILTRATION RATE 52.3 ML/MIN; MAGNESIUM 2.2 mg/dL (1.6-2.3); Potassium 4.4 mmol/L (3.5-5.1); Total Protein 6.2 g/dL (6.3-8.2)
[2023-01-30 07:43] VITALS: BP 161/70; PULSE 68; O2SAT 98
[2023-01-30] MEDS: Toprol Xl 50 MG PO SCH (09:14)
[2023-01-30] MEDS: Cymbalta 30 MG Capsule PO SCH (09:14)
[2023-01-30] MEDS: Cozaar 50 MG PO SCH (09:14)
[2023-01-30] MEDS: Neurontin PO SCH (09:15)
[2023-01-30] MEDS: Pletal 100 MG PO SCH (09:15)
[2023-01-30] MEDS: HUMALOG SQ PRN (09:17)
--- NOTE | 2023-01-30 09:52 | PCM.DS ---
Discharge Summary Date of Admission: 01/27/23 16:24 Admitting Physician: MARK TELLES Consults: Consults on Case 01/28/23 08:00 Consult Surgery ROUTINE Primary Care Provider: CATALINA TALBERT Allergies Allergies insulin glargine [From Basaglbelkys PadillaPen U-100 Insulin] Allergy (Mild, Verified 01/27/23 16:36) Itching Hospital Summary - Hospital Course Hospital Course: patient admitted with nausea, vomiting and abdominal pain with acute kidney injury. found to have gallstones, bun/cr improved with hydration and had lap choley on 01/29, he is tolerating a regular diet, ambulating normally and feels much better at the time of discharge. - Vitals & Intake/Output Vital Signs: Vital Signs Temperature 97.5 F 01/30/23 07:42 Pulse Rate 68 01/30/23 07:42 Respiratory Rate 20 01/30/23 07:42 Blood Pressure 161/70 01/30/23 07:42 O2 Sat by Pulse Oximetry 98 01/30/23 07:42 Intake & Output: Intake & Output 01/27/23 01/28/23 01/29/23 01/30/23 11:59 11:59 11:59 11:59 Intake Total 3321 2100 5266 Output Total 300 1250 950 Balance 3021 850 4316 Weight 92.1 kg 92.1 kg 92.1 kg - Lab Result Diagrams: 01/30/23 05:45 01/30/23 05:56 Lab Results-Last 24 Hrs: Lab Results-Last 24 Hours 01/29/23 01/29/23 01/29/23 Range/Units 10:41 16:28 18:06 WBC (4.0-10.5) x10^3/uL RBC (4.1-5.6) x10^6/uL Hgb (12.5-18.0) g/dL Hct (42-50) % MCV (78-100) fL MCH (26-32) pg MCHC (32-36) g/dL RDW (11.5-14.0) % Plt Count (150-450) x10^3/uL MPV (7.5-11.0) fL Gran % (36.0-66.0) % Immature Gran % (Auto) (0.00-0.4) % Nucleat RBC Rel Count (0.00-0.1) % Eos # (Auto) (0-0.5) x10^3/uL Immature Gran # (Auto) (0.00-0.03) x10^3u/L Absolute Lymphs (auto) (1.0-4.6) x10^3/uL Absolute Monos (auto) (0.0-1.3) x10^3/uL Absolute Nucleated RBC (0.00-0.01) x10^3u/L Lymphocytes % (24.0-44.0) % Monocytes % (0.0-12.0) % Eosinophils % (0.00-5.0) % Basophils % (0.0-0.4) % Absolute Granulocytes (1.4-6.9) x10^3/uL Basophils # (0-0.4) x10^3/uL Sodium (137-145) mmol/L Potassium (3.5-5.1) mmol/L Chloride (98-107) mmol/L Carbon Dioxide (22-30) mmol/L Anion Gap (5-15) MEQ/L BUN (9-20) mg/dL Creatinine (0.66-1.25) mg/dL Estimated GFR ML/MIN Glucose (74-106) mg/dL POC Glucometer 375 H 317 H 288 H (74 to 106) mg/dL Calcium (8.4-10.2) mg/dL Magnesium (1.6-2.3) mg/dL Total Bilirubin (0.2-1.3) mg/dL AST (17-59) U/L ALT (0-50) U/L Alkaline Phosphatase (38-126) U/L Serum Total Protein (6.3-8.2) g/dL Albumin (3.5-5.0) g/dL 01/29/23 01/30/23 01/30/23 Range/Units 21:17 05:45 05:56 WBC 11.9 H (4.0-10.5) x10^3/uL RBC 3.40 L (4.1-5.6) x10^6/uL Hgb 9.9 L (12.5-18.0) g/dL Hct 31.4 L (42-50) % MCV 92.4 (78-100) fL MCH 29.1 (26-32) pg MCHC 31.5 L (32-36) g/dL RDW 15.7 H (11.5-14.0) % Plt Count 324 (150-450) x10^3/uL MPV 11.5 H (7.5-11.0) fL Gran % 76.9 H (36.0-66.0) % Immature Gran % (Auto) 0.3 (0.00-0.4) % Nucleat RBC Rel Count 0.0 (0.00-0.1) % Eos # (Auto) 0.07 (0-0.5) x10^3/uL Immature Gran # (Auto) 0.04 H (0.00-0.03) x10^3u/L Absolute Lymphs (auto) 1.62 (1.0-4.6) x10^3/uL Absolute Monos (auto) 0.99 (0.0-1.3) x10^3/uL Absolute Nucleated RBC 0.00 (0.00-0.01) x10^3u/L Lymphocytes % 13.6 L (24.0-44.0) % Monocytes % 8.3 (0.0-12.0) % Eosinophils % 0.6 (0.00-5.0) % Basophils % 0.3 (0.0-0.4) % Absolute Granulocytes 9.17 H (1.4-6.9) x10^3/uL Basophils # 0.03 (0-0.4) x10^3/uL Sodium 137 (137-145) mmol/L Potassium 4.4 (3.5-5.1) mmol/L Chloride 101 (98-107) mmol/L Carbon Dioxide 25 (22-30) mmol/L Anion Gap 15.5 H (5-15) MEQ/L BUN 28 H (9-20) mg/dL Creatinine 1.46 H (0.66-1.25) mg/dL Estimated GFR 52.3 ML/MIN Glucose 303 H (74-106) mg/dL POC Glucometer 254 H (74 to 106) mg/dL Calcium 8.4 (8.4-10.2) mg/dL Magnesium 2.2 (1.6-2.3) mg/dL Total Bilirubin 0.80 (0.2-1.3) mg/dL AST 28 (17-59) U/L ALT 23 (0-50) U/L Alkaline Phosphatase 173 H (38-126) U/L Serum Total Protein 6.2 L (6.3-8.2) g/dL Albumin 3.2 L (3.5-5.0) g/dL 01/30/23 Range/Units 07:54 WBC (4.0-10.5) x10^3/uL RBC (4.1-5.6) x10^6/uL Hgb (12.5-18.0) g/dL Hct (42-50) % MCV (78-100) fL MCH (26-32) pg MCHC (32-36) g/dL RDW (11.5-14.0) % Plt Count (150-450) x10^3/uL MPV (7.5-11.0) fL Gran % (36.0-66.0) % Immature Gran % (Auto) (0.00-0.4) % Nucleat RBC Rel Count (0.00-0.1) % Eos # (Auto) (0-0.5) x10^3/uL Immature Gran # (Auto) (0.00-0.03) x10^3u/L Absolute Lymphs (auto) (1.0-4.6) x10^3/uL Absolute Monos (auto) (0.0-1.3) x10^3/uL Absolute Nucleated RBC (0.00-0.01) x10^3u/L Lymphocytes % (24.0-44.0) % Monocytes % (0.0-12.0) % Eosinophils % (0.00-5.0) % Basophils % (0.0-0.4) % Absolute Granulocytes (1.4-6.9) x10^3/uL Basophils # (0-0.4) x10^3/uL Sodium (137-145) mmol/L Potassium (3.5-5.1) mmol/L Chloride (98-107) mmol/L Carbon Dioxide (22-30) mmol/L Anion Gap (5-15) MEQ/L BUN (9-20) mg/dL Creatinine (0.66-1.25) mg/dL Estimated GFR ML/MIN Glucose (74-106) mg/dL POC Glucometer 330 H (74 to 106) mg/dL Calcium (8.4-10.2) mg/dL Magnesium (1.6-2.3) mg/dL Total Bilirubin (0.2-1.3) mg/dL AST (17-59) U/L ALT (0-50) U/L Alkaline Phosphatase (38-126) U/L Serum Total Protein (6.3-8.2) g/dL Albumin (3.5-5.0) g/dL Micro Results-Entire Visit: Accuchecks Date 01/30/23 Date 01/29/23 Time 08:04 Time 11:54 - Radiology Exams Ordered Rad Exams-Entire Visit: Radiology Procedures Category Date Time Status GALLBLADDER [US] Routine Exams 01/28/23 10:18 Completed - Procedures and Test Procedures and Tests throughout Hospitalization: Therapy Orders & Screens 01/27/23 17:06 Smoking Cessation Education ONCE Comment: Diagnosis: yinka Smoking Status: Current every day smoker How long have you smoked: 47 years Have you smoked in the past 12 months: Yes Approximately how many cigarettes per day: 20 Do you dip or chew tobacco: No 01/29/23 16:50 Respiratory Therapy Assessment DAILY Comment: Diagnosis: YINKA Discharge Exam General Appearance: no apparent distress Neurologic Exam: alert, oriented x 3 Respiratory Exam: normal breath sounds, lungs clear, No respiratory distress Cardiovascular Exam: regular rate/rhythm, normal heart sounds Gastrointestinal/Abdomen Exam: soft, No tenderness, No mass Extremity Exam: normal inspection, normal range of motion Skin Exam: normal color, warm, dry Final Diagnosis/Problem List - Final Discharge Diagnosis/Problem (1) Gallbladder calculus Current Visit: Yes Status: Acute Assessment & Plan: s/p lap choley Code(s): K80.20 - CALCULUS OF GALLBLADDER W/O CHOLECYSTITIS W/O OBSTRUCTION (2) YINKA (acute kidney injury) Current Visit: Yes Status: Acute Assessment & Plan: resolved with hydration Code(s): N17.9 - ACUTE KIDNEY FAILURE, UNSPECIFIED (3) Diabetes type 2, uncontrolled Current Visit: Yes Status: Acute Code(s): DYH2936 - (4) Adrenal mass, right Current Visit: Yes Status: Acute Assessment & Plan: will need further outpatient f/u after discharge, serum metanephrines pending lab Code(s): E27.8 - OTHER SPECIFIED DISORDERS OF ADRENAL GLAND - Discharge Disposition: Home, Self-Care Condition: Stable Prescriptions: New Hydrocodone/Acetaminophen [Hydrocodone-Acetamin 5-325 mg] 1 tab PO Q4HPRN PRN 4 Days #20 tablet MDD 5 PRN Reason: Pain Continue Gabapentin [Neurontin] 800 mg PO TID Losartan Potassium 50 mg [Cozaar 50 MG] 100 mg PO DAILY Metoprolol Succinate [Toprol Xl] 50 mg PO DAILY Duloxetine HCl 60 mg PO DAILY Atorvastatin Calcium 80 mg PO HS Cilostazol 100 mg [Pletal 100 MG] 50 mg PO BID Insulin Lispro [Admelog] 0 unit SQ TIDWMEALS Bumetanide 1 mg [Bumex 1 mg] 2 mg PO BID Additional Instructions: YOU CAN CONTACT THE [facility] DEPARTMENT AT [phone] TO SEE IF THEY CAN ASSIST REGARDING YOUR FINANCIALS you will need to discuss the adrenal lesion finding and further evaluation at your followup visit, a lab result for serum metanephrines is pending and should be available at your followup visit. Follow up with: CATALINA TALBERT NP [Primary Care Provider] -
--- NOTE | 2023-02-01 07:53 | OP ---
SURGERY DATE/TIME: 01/29/2023 1530 PREOPERATIVE DIAGNOSIS: Acute cholecystitis/cholelithiasis. POSTOPERATIVE DIAGNOSIS: Acute cholecystitis/cholelithiasis. PROCEDURE: Laparoscopic cholecystectomy. SURGEON: Dr. Markus Yates. ANESTHESIA: General endotracheal tube. COMPLICATIONS: None. CONDITION: Stable. INDICATIONS: A patient with upper abdominal pain acute presents to the hospital. Evaluated, ultrasound showing stone. Procedure discussed. DESCRIPTION OF PROCEDURE AND FINDINGS: Taken to surgery. General anesthetic, routine prep and drape. Veress needle inserted. Opening pressure of 1, insufflating pressure 14. Four - 5's. Good visualization. LigaSure was also used. Cystic duct defined. Cystic artery defined. Cystic duct triply clipped. Cystic artery clipped and ligatured. Gallbladder rolled out of gallbladder fossa. The gallbladder delivered through upper abdominal port. Field was clean and dry. Hole closure device was used to the upper abdominal port. Field was clean and dry. Hole closure device was used at epigastric port. Skin closed with pamela. Sterile dressing applied. The patient tolerated the procedure satisfactorily.
== END 2023-01-30 11:05 | disposition home or self-care (01) ==
LOC: ED 12:27 → MED SURG 16:24 → INTOOBSV 16:24
PROVIDERS: ADMIT Family Medicine; ATTEND Family Medicine
DX: K80.20 Calculus of gallbladder without cholecystitis without obstruction (principal); N17.9 Acute kidney failure, unspecified; E11.9 Type 2 diabetes mellitus without complications; E27.8 Other specified disorders of adrenal gland; I25.10 Atherosclerotic heart disease of native coronary artery without angina pectoris; E78.5 Hyperlipidemia, unspecified; Z79.899 Other long term (current) drug therapy; Z20.828 Contact with and (suspected) exposure to other viral communicable diseases; Z72.0 Tobacco use
CPT/HCPCS: 0241U; 36000; 36415; 47562; 71045; 71250; 74176; 76705; 80053; 80143; 81001; 82077; 82947; 83036; 83690; 83735; 83835; 84484; 85025; 85610; 86850; 86900; 86901; 93041; 93268; 94640; 94762; 96360; 96365; 96374; 99285; 99291; G0378; J0360; J0694; J1170; J1817; J2250; J2270; J2370; J2405; J2704; J3010; A9270-GY

== ENCOUNTER 2024-12-27 20:05 | Observation (INO) | payer MEDICARE, OTHER ==
--- NOTE | 2024-12-27 20:39 | ERPHSYRPT ---
- History of Present Illness Time Seen by Provider: 12/27/24 20:12 Source: patient Exam Limitations: no limitations Patient Subjective Stated Complaint: hyperglycemia, pt states, "I felt wobbly, shaky" Triage Nursing Assessment: Pt brought in by EMS due to hyperglycemia. EMS machine and our machine upon arrival just showed HI. Pt is non compliant with taking his insulin, it has been 2 months since he has taken any. Pt hasn't been taking his insulin because he doesn't have a glucometer machine to take his Blood sugar. Pt states, "I just became wobbly and shaky around 7pm tonight and felt like it was my sugar so I called the ambulance". Pt did fall on Wednesday, states, "I stepped off the sidewalk". Pt c/o pain to his rt side lower ribs with hiccuping or such but no brruising or deformity noted there". Physician History: 64 years old male with history of diabetes mellitus supposed to be on short and long-acting insulin along with oral meds, stopped using insulin pump and was taking Lantus until 2 days ago but continued to take oral medication presented in the ER with complaint of generalized weakness fatigue tiredness, feeling shaky, checked his blood glucose and it was reading high. Patient denies any nausea vomiting. No abdominal pain. Denies any cough congestion or bodyaches. Reports having some right lower anterior chest wall pain after he fell but no difficulty breathing. Patient reports he does not have a glucometer and was afraid he continues to take insulin it will bottom out his glucose. Allergies/Adverse Reactions: insulin glargine [From [place] RobodromPen U-100 Insulin] Allergy (Mild, Verified 12/27/24 20:18) Itching Home Medications: Gabapentin [Neurontin] 800 mg PO TID 01/26/17 [History] Duloxetine HCl 60 mg PO DAILY 01/04/22 [History] Atorvastatin Calcium 80 mg PO HS 10/12/22 [History] Cilostazol 100 mg [Pletal 100 MG] 50 mg PO BID 10/12/22 [History] Bumetanide 1 mg [Bumex 1 mg] 2 mg PO DAILY 01/27/23 [History] Amlodipine Besylate 5 mg PO DAILY 12/27/24 [History] Dapagliflozin Propanediol [Farxiga] 1 tab PO DAILY 12/27/24 [History] Insulin Glargine,Hum.rec.anlog [Lantus] 20 units SQ DAILY 12/27/24 [History] Insulin Lispro [Humalog] 1 unit SQ TIDWMEALS 12/27/24 [History] PANTOPRAZOLE 40 mg Tablet [Protonix 40MG Tablet] 1 tab PO DAILY 12/27/24 [History] Sitagliptin Phosphate [Januvia] 100 mg PO DAILY 12/27/24 [History] Hx Tetanus, Diphtheria Vaccination/Date Given: Yes Hx Influenza Vaccination/Date Given: Yes Hx Pneumococcal Vaccination/Date Given: Yes Travel Risk - International Travel Have you traveled outside of the country in past 3 weeks: No - Emerging Infectious Disease Are you exhibiting symptoms associated with any current EIDs: No - Review of Systems Constitutional: Fatigue, Weakness Eyes: No Symptoms Ears, Nose, & Throat: No Symptoms Respiratory: No Symptoms Cardiac: No Symptoms Abdominal/Gastrointestinal: No Symptoms Skin: No Symptoms Neurological: No Symptoms Hematologic/Lymphatic: No Symptoms Immunological/Allergic: No Symptoms - Past Medical History Pertinent Past Medical History: Yes Neurological History: Peripheral Neuropathy ENT History: No Pertinent History Cardiac History: High Cholesterol, Hypertension Respiratory History: No Pertinent History Endocrine Medical History: Diabetes Type II Musculoskeletal History: Arthritis GI Medical History: GERD, Gallbladder Disease History: No Pertinent History Psycho-Social History: No Pertinent History Male Reproductive Disorders: No Pertinent History Other Medical History: GALLBLADDER REMOVAL - Past Surgical History Past Surgical History: Yes Neuro Surgical History: No Pertinent History Cardiac: No Pertinent History Respiratory: No Pertinent History Gastrointestinal: Cholecystectomy Genitourinary: No Pertinent History Musculoskeletal: No Pertinent History Male Surgical History: No Pertinent History Other Surgical History: stent in left leg, foot orthopedic - Social History Smoking Status: Current every day smoker How long have you smoked: 52 yrs Exposure to second hand smoke: Yes Drug Use: none - Social Determinants of Health Will the patient participate in the screening: Yes Do you worry about a steady place to live?: No Do you have any problems with any of the following?: No known problems In the past 12 months,have you had to go without utilities?: No Transportation Issues: Yes Has anyone in your support network made you feel unsafe?: No Have you or anyone in your house had to go w/o enough food: No - Nursing Vital Signs Nursing Vital Signs: Initial Vital Signs Temperature 98.1 F 12/27/24 20:06 Pulse Rate 80 12/27/24 20:06 Respiratory Rate 18 12/27/24 20:06 Blood Pressure 151/72 12/27/24 20:06 O2 Sat by Pulse Oximetry 96 12/27/24 20:06 Pain Scale Pain Intensity 0 - Physical Exam General Appearance: no apparent distress, alert Eye Exam: PERRL/EOMI Ears, Nose, Throat Exam: normal ENT inspection Neck Exam: normal inspection, non-tender, supple, full range of motion Respiratory Exam: normal breath sounds, lungs clear Cardiovascular Exam: regular rate/rhythm, normal heart sounds Gastrointestinal/Abdomen Exam: soft, normal bowel sounds, No tenderness Back Exam: normal inspection, normal range of motion Extremity Exam: normal inspection, normal range of motion Neurologic Exam: alert, oriented x 3, cooperative, fire lieutenant II-XII nml as tested, normal mood/affect, nml station & gait, sensation nml, No nml cerebellar function, No motor deficits Skin Exam: normal color SpO2 Interpretation: normal SpO2: 96 O2 Delivery: Room Air - Course Nursing assessment & vital signs reviewed: Yes EKG Interpreted by Me: RATE (80), Sinus Rhythm, NORMAL AXIS, NORMAL INTERVALS, Non-specific ST Changes Ordered Tests: Active Orders 24 hr Category Date Time Status EKG-ER Only STAT Care 12/27/24 20:32 Active IV Insertion STAT Care 12/27/24 20:32 Active CHEST 1 VIEW (PORTABLE) Stat Exams 12/27/24 20:32 Taken CBC W DIFF Stat Lab 12/27/24 20:25 Completed CMP Stat Lab 12/27/24 20:25 Completed Lactic Acid Urgent Lab 12/27/24 20:35 Completed MAGNESIUM Stat Lab 12/27/24 20:25 Completed POCT GLUCOSE Stat Lab 12/27/24 21:59 Completed UA W/RFX UR CULTURE Stat Lab 12/27/24 22:01 Completed VENOUS BLOOD GAS Urgent Lab 12/27/24 20:35 Completed Transfer Order Routine Transfer 12/27/24 Ordered Medication Summary Generic Name Dose Route Start Last Admin Trade Name Freq PRN Reason Stop Dose Admin Sodium Chloride 1,000 mls @ 125 mls/hr 12/27/24 22:52 12/27/24 22:56 Sodium Chloride 0.9% 1000 Ml IV 12/28/24 06:51 125 mls/hr .Q8H STA Administration Discontinued Medications Generic Name Dose Route Start Last Admin Trade Name Jareth PRN Reason Stop Dose Admin Sodium Chloride 1,000 mls @ 999 mls/hr 12/27/24 20:32 12/27/24 20:51 Sodium Chloride 0.9% 1000 Ml IV 12/27/24 21:32 999 mls/hr .Q1H1M STA Administration Sodium Chloride Confirm 12/27/24 20:51 Sodium Chloride 0.9% 1000 Ml Administered 12/27/24 20:52 Dose 1,000 mls @ ud .ROUTE .STK-MED ONE Insulin Human Regular 9 unit 12/27/24 22:02 12/27/24 22:09 Insulin Regular, Human 1 Unit IV 12/27/24 22:03 9 unit STAT ONE Administration Insulin Human Regular Confirm 12/27/24 22:07 Insulin Regular, Human 1 Unit Administered 12/27/24 22:08 Dose 9 unit .ROUTE .STK-MED ONE Lab/Rad Data: Laboratory Result Diagrams 12/27/24 20:25 12/27/24 20:25 Laboratory Results 12/27/24 12/27/24 12/27/24 Range/Units 22:01 21:59 20:35 WBC (4.23-9.07) x10^3/uL RBC (4.63-6.08) x10^6/uL Hgb (13.7-17.5) g/dL Hct (40.1-51.0) % MCV (79.0-92.2) fL MCH (25.7-32.2) pg MCHC (32.3-36.5) g/dL RDW (11.6-14.4) % Plt Count (163-337) x10^3/uL MPV (9.4-12.4) fL Gran % (34.0-67.9) % Immature Gran % (Auto) (0.001-0.429) % Nucleat RBC Rel Count (0.00-0.2) % Eos # (Auto) (0.04-0.54) x10^3/uL Immature Gran # (Auto) (0.001-0.031) x10^3u/L Absolute Lymphs (auto) (1.32-3.57) x10^3/uL Absolute Monos (auto) (0.30-0.82) x10^3/uL Absolute Nucleated RBC (0.00-0.012) x10^3u/L Lymphocytes % (21.8-53.1) % Monocytes % (5.3-12.2) % Eosinophils % (0.8-7.0) % Basophils % (0.2-1.2) % Absolute Granulocytes (1.78-5.38) x10^3/uL Basophils # (0.01-0.08) x10^3/uL pO2/FiO2 Ratio 21.0 % VBG pH 7.41 (7.32-7.42) VBG pCO2 at Pat Temp 48 (42-55) mm/Hg VBG pO2 at Pat Temp 32 (25-40) mm/Hg VBG HCO3 30.4 H* (22-28) meq/L VBG O2 Sat (Jazmín) 56.4 L (95-100) VBG Base Excess 4.9 H (-2.0-2.0) VBG Hemoglobin 11.8 VBG Carboxyhemoglobin 8.5 H* (0.0-6.9) % T HGB POC Potassium 4.4 (3.5-5.1) Sodium (135-145) mmol/L Potassium (3.5-5.1) mmol/L Chloride (98-107) mmol/L Carbon Dioxide (22-30) mmol/L Anion Gap (5-15) MEQ/L BUN (9-20) mg/dL Creatinine (0.66-1.25) mg/dL Estimated GFR ML/MIN Glucose (74-106) mg/dL POC Glucometer 557 H* (50 to 500) mg/dL Lactic Acid (0.4-2.0) Calcium (8.4-10.2) mg/dL Magnesium (1.6-2.3) mg/dL Total Bilirubin (0.2-1.3) mg/dL AST (17-59) U/L ALT (0-50) U/L Alkaline Phosphatase (38-126) U/L Serum Total Protein (6.3-8.2) g/dL Albumin (3.5-5.0) g/dL Urine Color Yellow (Yellow) Urine Appearance Clear (Clear) Urine pH 6.0 (4.6-8.0) Ur Specific Seney 1.020 (1.005-1.030) Urine Protein 300 A (Negative) Urine Glucose (UA) >=1000 A (Negative) mg/dL Urine Ketones Negative (Negative) Urine Blood Negative (Negative) Urine Nitrite Negative (Negative) Urine Bilirubin Negative (Negative) Urine Urobilinogen 0.2 (0.2) mg/dL Ur Leukocyte Esterase Negative (Negative) U Hyaline Cast (Auto) None Seen (0-2) /LPF Urine Microscopic RBC 0-2 (0-5) /HPF Urine Microscopic WBC 0-2 (0-5) /HPF Ur Epithelial Cells None Seen (None Seen) /HPF Urine Bacteria None Seen (None Seen) /HPF Urine Culture Reflexed NO (NO) 12/27/24 12/27/24 12/27/24 Range/Units 20:35 20:25 20:25 WBC 9.0 (4.23-9.07) x10^3/uL RBC 3.65 L (4.63-6.08) x10^6/uL Hgb 11.4 L (13.7-17.5) g/dL Hct 32.4 L (40.1-51.0) % MCV 88.8 (79.0-92.2) fL MCH 31.2 (25.7-32.2) pg MCHC 35.2 (32.3-36.5) g/dL RDW 12.7 (11.6-14.4) % Plt Count 284 (163-337) x10^3/uL MPV 12.4 (9.4-12.4) fL Gran % 69.4 H (34.0-67.9) % Immature Gran % (Auto) 0.2 (0.001-0.429) % Nucleat RBC Rel Count 0.0 (0.00-0.2) % Eos # (Auto) 0.14 (0.04-0.54) x10^3/uL Immature Gran # (Auto) 0.02 (0.001-0.031) x10^3u/L Absolute Lymphs (auto) 1.77 (1.32-3.57) x10^3/uL Absolute Monos (auto) 0.79 (0.30-0.82) x10^3/uL Absolute Nucleated RBC 0.00 (0.00-0.012) x10^3u/L Lymphocytes % 19.7 L (21.8-53.1) % Monocytes % 8.8 (5.3-12.2) % Eosinophils % 1.6 (0.8-7.0) % Basophils % 0.3 (0.2-1.2) % Absolute Granulocytes 6.23 H (1.78-5.38) x10^3/uL Basophils # 0.03 (0.01-0.08) x10^3/uL pO2/FiO2 Ratio % VBG pH (7.32-7.42) VBG pCO2 at Pat Temp (42-55) mm/Hg VBG pO2 at Pat Temp (25-40) mm/Hg VBG HCO3 (22-28) meq/L VBG O2 Sat (Jazmín) (95-100) VBG Base Excess (-2.0-2.0) VBG Hemoglobin VBG Carboxyhemoglobin (0.0-6.9) % T HGB POC Potassium (3.5-5.1) Sodium 130 L (135-145) mmol/L Potassium 4.0 (3.5-5.1) mmol/L Chloride 92 L (98-107) mmol/L Carbon Dioxide 29 (22-30) mmol/L Anion Gap 13.0 (5-15) MEQ/L BUN 26 H (9-20) mg/dL Creatinine 1.79 H (0.66-1.25) mg/dL Estimated GFR 42.3 ML/MIN Glucose 625 H* (74-106) mg/dL POC Glucometer (50 to 500) mg/dL Lactic Acid 2.0 (0.4-2.0) Calcium 8.1 L (8.4-10.2) mg/dL Magnesium 2.4 H (1.6-2.3) mg/dL Total Bilirubin 0.50 (0.2-1.3) mg/dL AST 19 (17-59) U/L ALT 16 (0-50) U/L Alkaline Phosphatase 208 H (38-126) U/L Serum Total Protein 6.0 L (6.3-8.2) g/dL Albumin 3.4 L (3.5-5.0) g/dL Urine Color (Yellow) Urine Appearance (Clear) Urine pH (4.6-8.0) Ur Specific Seney (1.005-1.030) Urine Protein (Negative) Urine Glucose (UA) (Negative) mg/dL Urine Ketones (Negative) Urine Blood (Negative) Urine Nitrite (Negative) Urine Bilirubin (Negative) Urine Urobilinogen (0.2) mg/dL Ur Leukocyte Esterase (Negative) U Hyaline Cast (Auto) (0-2) /LPF Urine Microscopic RBC (0-5) /HPF Urine Microscopic WBC (0-5) /HPF Ur Epithelial Cells (None Seen) /HPF Urine Bacteria (None Seen) /HPF Urine Culture Reflexed (NO) - Progress Progress: improved Progress Note: 12/27/24 22:57 64-year-old poorly controlled diabetic is evaluated in the ER for generalized weakness fatigue tiredness and elevated glucose prior to arrival. He is given fluid bolus, feeling better on reevaluation. EKG is sinus rhythm with no acute ST elevations. Workup showed normal white count, chemistries with glucose of 625 with a normal gap and normal pH of 7.4, mild worsening of creatinine with baseline of 1.3 and today is 1.7. Pseudohyponatremia Chest x-ray is negative for any acute cardiopulmonary findings reviewed by me, pending official reports. Negative troponin. I believe patient has hyperglycemia and is not in HHS or DKA, given 9 units bolus of IV insulin. Before given insulin after fluids his glucose improved to 557. Discussed the results of workup with patient, recommended admission and I believe would benefit with diabetic education. I discussed with Dr. Castillo and patient is accepted for admission. Complexity of problems addressed: High acuity Amount of data reviewed/analyzed: Moderate to extensive Risk of complication/morbidity/mortality with current condition: Moderate to hig h risk Discussed with : Other (Dr. Castillo hospitalist) Will see patient in: hospital (observation) Counseled pt/family regarding: lab results, diagnosis, need for follow-up, rad results - Departure Departure Disposition: Observation Clinical Impression: Hyperglycemia, Generalized weakness, YINKA (acute kidney injury) Condition: Stable Critical Care Time: No
[2024-12-27 20:44] LABS: VBG BASE EXCESS 4.9 (-2.0-2.0); VBG CARBOXYHEMOGLOBIN 8.5 % T HGB (0.0-6.9); VBG HCO3- 30.4 meq/L (22-28); VBG HEMOGLOBIN 11.8; VBG O2 SATURATION 56.4 (95-100); VBG POTASSIUM 4.4 (3.5-5.1); VBG pH 7.41 (7.32-7.42)
[2024-12-27 20:44] LABS: Absolute Neutrophil Ct (ANC) 6.23 x10^3/uL (1.78-5.38); BASOPHIL % 0.3 % (0.2-1.2); Basophil (Absolute #) 0.03 x10^3/uL (0.01-0.08); Eosinophil % 1.6 % (0.8-7.0); Eosinophil (Absolute #) 0.14 x10^3/uL (0.04-0.54); Hematocrit 32.4 % (40.1-51.0); Hemoglobin 11.4 g/dL (13.7-17.5); IMMATURE GRAN # 0.02 x10^3u/L (0.001-0.031); IMMATURE GRAN % 0.2 % (0.001-0.429); Lymphocyte (Absolute #) 1.77 x10^3/uL (1.32-3.57); Lymphocytes % 19.7 % (21.8-53.1); Mean Cell Volume 88.8 fL (79.0-92.2); Mean Corpuscular Hemoglobin 31.2 pg (25.7-32.2); Mean Corpuscular Hgb Concent. 35.2 g/dL (32.3-36.5); Mean Platelet Volume 12.4 fL (9.4-12.4); Monocyte (Absolute #) 0.79 x10^3/uL (0.30-0.82); Monocytes % 8.8 % (5.3-12.2); Neutrophil % 69.4 % (34.0-67.9); Platelet Count 284 x10^3/uL (163-337); Red Blood Count 3.65 x10^6/uL (4.63-6.08); Red Cell Distribution Width 12.7 % (11.6-14.4)
[2024-12-27] MEDS ORDERED: Sodium Chloride 0.9% 1000 ML 1,000 ML ONE ×2 (20:51→22:54)
[2024-12-27] MEDS: Sodium Chloride 0.9% 1000 ML 1,000 ML IV STA ×2 (20:51→22:56)
[2024-12-27 20:56] LABS: ALBUMIN 3.4 g/dL (3.5-5.0); BILIRUBIN,TOTAL 0.5 mg/dL (0.2-1.3); Calcium 8.1 mg/dL (8.4-10.2); Creatinine 1 1.79 mg/dL (0.66-1.25); EST GLOMERULAR FILTRATION RATE 42.3 ML/MIN; MAGNESIUM 2.4 mg/dL (1.6-2.3)
[2024-12-27] MEDS ORDERED: HUMULIN R ONE (22:07)
[2024-12-27 22:08] LABS: Appearance Clear (Clear); Bilirubin Negative (Negative); Blood Negative (Negative); Glucose, Urine >=1000 mg/dL (Negative); Ketones Negative (Negative); Leukocyte Esterase Negative (Negative); Nitrite Negative (Negative); Protein,Urine Dip 300 (Negative); Urobilinogen 0.2 mg/dL (0.2)
[2024-12-27] MEDS: HUMULIN R IV ONE (22:09)
[2024-12-27 22:32] LABS: Bacteria None Seen /HPF (None Seen); Epithelial Cells None Seen /HPF (None Seen); RBC 0-2 /HPF (0-5); WBC 0-2 /HPF (0-5)
[2024-12-27 22:34] LABS: Hyaline Casts None Seen /LPF (0-2)
--- NOTE | 2024-12-27 23:18 | PCM.HP ---
History of Present Illness - Chief Complaint Chief Complaint: Hyper glycemia, generalized weakness History of Present Illness: Mr. BRICENO is a 64 year old male with a past medical history significant for hypertension, diabetes and hyperlipidemia who has not been taking his insulin for about 2 months due to a lack of a glucometer who presents to the ER with complaints of shakiness and not feeling right. Upon arrival, his initial blood sugar was too high to register and blood work demonstrated a sugar in the 600+ range. He was given IVFs, insulin and recommended for admission. He did not have any acidosis on a blood gas and no anion gap on his labs. Initial creatinine though was elevated at 1.79. He is resting in bed, awake, seen by telehealth with nurse at bedside. - Review of Systems Constitutional: No Symptoms Eyes: No Vision Changes Ears, Nose, & Throat: No Sinus Drainage Respiratory: No Short Of Breath Cardiac: No Chest Pain Abdominal/Gastrointestinal: Abdominal Pain, Nausea Genitourinary Symptoms: No Frequency, No Hematuria Musculoskeletal: No Back Pain, No Neck Pain Skin: No Rash Neurological: Dizziness Psychological: No Suicidal Ideations Endocrine: Polydipsia Medications & Allergies Home Medications: Home Medication List Gabapentin [Neurontin] 800 mg PO TID 01/26/17 [History Confirmed 12/27/24] Duloxetine HCl 60 mg PO DAILY 01/04/22 [History Confirmed 12/27/24] Atorvastatin Calcium 80 mg PO HS 10/12/22 [History Confirmed 12/27/24] Cilostazol 100 mg [Pletal 100 MG] 50 mg PO BID 10/12/22 [History Confirmed 12/27/24] Bumetanide 1 mg [Bumex 1 mg] 2 mg PO DAILY 01/27/23 [History Confirmed 12/27/24] Amlodipine Besylate 5 mg PO DAILY 12/27/24 [History Confirmed 12/27/24] Dapagliflozin Propanediol [Farxiga] 1 tab PO DAILY 12/27/24 [History Confirmed 12/27/24] Insulin Glargine,Hum.rec.anlog [Lantus] 20 units SQ DAILY 12/27/24 [History Confirmed 12/27/24] Insulin Lispro [Humalog] 1 unit SQ TIDWMEALS 12/27/24 [History Confirmed 12/27/24] PANTOPRAZOLE 40 mg Tablet [Protonix 40MG Tablet] 1 tab PO DAILY 12/27/24 [History Confirmed 12/27/24] Sitagliptin Phosphate [Januvia] 100 mg PO DAILY 12/27/24 [History Confirmed 12/27/24] Allergies/Adverse Reactions: Allergies Allergy/AdvReac Type Severity Reaction Status Date / Time insulin glargine Allergy Mild Itching Verified 12/27/24 20:18 [From Basaglar KwikPen U-100 Insulin] - Past Medical History Past Medical History: Yes Neurological History: Peripheral Neuropathy ENT History: No Pertinent History Cardiac History: High Cholesterol, Hypertension Respiratory History: No Pertinent History Endocrine Medical History: Diabetes Type II Musculoskelatal History: Arthritis GI Medical History: GERD, Gallbladder Disease History: No Pertinent History Pyscho-Social History: No Pertinent History Male Reproductive Disorders: No Pertinent History Comment: GALLBLADDER REMOVAL - Past Surgical History Past Surgical History: Yes Neuro Surgical History: No Pertinent History Cardiac History: No Pertinent History Respiratory Surgery: No Pertinent History GI Surgical History: Cholecystectomy Genitourinary Surgical Hx: No Pertinent History Musculskeletal Surgical Hx: No Pertinent History Male Surgical History: No Pertinent History Other Surgical History: stent in left leg, foot orthopedic - Social History Smoking Status: Current every day smoker How long have you smoked: 52 yrs Exposure to second hand smoke: Yes Alcohol: Rarely Drug Use: none - Social Determinants of Health Will the patient participate in the screening: Yes Do you worry about a steady place to live?: No Do you have any problems with any of the following?: No known problems In the past 12 months,have you had to go without utilities?: No Have you or anyone in your house had to go without enough: No Transportation Issues: Yes Has anyone in your support network made you feel unsafe?: No - Physical Exam Vital Signs: Vital Signs - 24 hr Temp Pulse Resp BP BP Pulse Ox 12/27/24 23:01 96 12/27/24 22:00 78 22 175/79 97 12/27/24 21:31 77 18 190/86 95 12/27/24 21:00 87 24 143/90 94 L 12/27/24 20:30 89 18 173/71 96 12/27/24 20:09 75 19 151/72 98 12/27/24 20:06 98.1 F 80 18 151/72 96 General Appearance: no apparent distress Neurologic Exam: alert Ears, Nose, Throat Exam: dry mucous membranes Neck Exam: supple Respiratory Exam: No respiratory distress, No wheezing Cardiovascular Exam: regular rate/rhythm Gastrointestinal/Abdomen Exam: soft, No distention Extremity Exam: No swelling Skin Exam: normal color, No rash Results - Labs Lab/Micro Results: Lab Results-Last 24 Hours 12/27/24 12/27/24 12/27/24 Range/Units 20:25 20:25 20:35 WBC 9.0 (4.23-9.07) x10^3/uL RBC 3.65 L (4.63-6.08) x10^6/uL Hgb 11.4 L (13.7-17.5) g/dL Hct 32.4 L (40.1-51.0) % MCV 88.8 (79.0-92.2) fL MCH 31.2 (25.7-32.2) pg MCHC 35.2 (32.3-36.5) g/dL RDW 12.7 (11.6-14.4) % Plt Count 284 (163-337) x10^3/uL MPV 12.4 (9.4-12.4) fL Gran % 69.4 H (34.0-67.9) % Immature Gran % (Auto) 0.2 (0.001-0.429) % Nucleat RBC Rel Count 0.0 (0.00-0.2) % Eos # (Auto) 0.14 (0.04-0.54) x10^3/uL Immature Gran # (Auto) 0.02 (0.001-0.031) x10^3u/L Absolute Lymphs (auto) 1.77 (1.32-3.57) x10^3/uL Absolute Monos (auto) 0.79 (0.30-0.82) x10^3/uL Absolute Nucleated RBC 0.00 (0.00-0.012) x10^3u/L Lymphocytes % 19.7 L (21.8-53.1) % Monocytes % 8.8 (5.3-12.2) % Eosinophils % 1.6 (0.8-7.0) % Basophils % 0.3 (0.2-1.2) % Absolute Granulocytes 6.23 H (1.78-5.38) x10^3/uL Basophils # 0.03 (0.01-0.08) x10^3/uL pO2/FiO2 Ratio % VBG pH (7.32-7.42) VBG pCO2 at Pat Temp (42-55) mm/Hg VBG pO2 at Pat Temp (25-40) mm/Hg VBG HCO3 (22-28) meq/L VBG O2 Sat ([place]) (95-100) VBG Base Excess (-2.0-2.0) VBG Hemoglobin VBG Carboxyhemoglobin (0.0-6.9) % T HGB POC Potassium (3.5-5.1) Sodium 130 L (135-145) mmol/L Potassium 4.0 (3.5-5.1) mmol/L Chloride 92 L (98-107) mmol/L Carbon Dioxide 29 (22-30) mmol/L Anion Gap 13.0 (5-15) MEQ/L BUN 26 H (9-20) mg/dL Creatinine 1.79 H (0.66-1.25) mg/dL Estimated GFR 42.3 ML/MIN Glucose 625 H* (74-106) mg/dL POC Glucometer (50 to 500) mg/dL Lactic Acid 2.0 (0.4-2.0) Calcium 8.1 L (8.4-10.2) mg/dL Magnesium 2.4 H (1.6-2.3) mg/dL Total Bilirubin 0.50 (0.2-1.3) mg/dL AST 19 (17-59) U/L ALT 16 (0-50) U/L Alkaline Phosphatase 208 H (38-126) U/L Serum Total Protein 6.0 L (6.3-8.2) g/dL Albumin 3.4 L (3.5-5.0) g/dL Urine Color (Yellow) Urine Appearance (Clear) Urine pH (4.6-8.0) Ur Specific [place] (1.005-1.030) Urine Protein (Negative) Urine Glucose (UA) (Negative) mg/dL Urine Ketones (Negative) Urine Blood (Negative) Urine Nitrite (Negative) Urine Bilirubin (Negative) Urine Urobilinogen (0.2) mg/dL Ur Leukocyte Esterase (Negative) U Hyaline Cast (Auto) (0-2) /LPF Urine Microscopic RBC (0-5) /HPF Urine Microscopic WBC (0-5) /HPF Ur Epithelial Cells (None Seen) /HPF Urine Bacteria (None Seen) /HPF Urine Culture Reflexed (NO) 12/27/24 12/27/24 12/27/24 Range/Units 20:35 21:59 22:01 WBC (4.23-9.07) x10^3/uL RBC (4.63-6.08) x10^6/uL Hgb (13.7-17.5) g/dL Hct (40.1-51.0) % MCV (79.0-92.2) fL MCH (25.7-32.2) pg MCHC (32.3-36.5) g/dL RDW (11.6-14.4) % Plt Count (163-337) x10^3/uL MPV (9.4-12.4) fL Gran % (34.0-67.9) % Immature Gran % (Auto) (0.001-0.429) % Nucleat RBC Rel Count (0.00-0.2) % Eos # (Auto) (0.04-0.54) x10^3/uL Immature Gran # (Auto) (0.001-0.031) x10^3u/L Absolute Lymphs (auto) (1.32-3.57) x10^3/uL Absolute Monos (auto) (0.30-0.82) x10^3/uL Absolute Nucleated RBC (0.00-0.012) x10^3u/L Lymphocytes % (21.8-53.1) % Monocytes % (5.3-12.2) % Eosinophils % (0.8-7.0) % Basophils % (0.2-1.2) % Absolute Granulocytes (1.78-5.38) x10^3/uL Basophils # (0.01-0.08) x10^3/uL pO2/FiO2 Ratio 21.0 % VBG pH 7.41 (7.32-7.42) VBG pCO2 at Pat Temp 48 (42-55) mm/Hg VBG pO2 at Pat Temp 32 (25-40) mm/Hg VBG HCO3 30.4 H* (22-28) meq/L VBG O2 Sat ([place]) 56.4 L (95-100) VBG Base Excess 4.9 H (-2.0-2.0) VBG Hemoglobin 11.8 VBG Carboxyhemoglobin 8.5 H* (0.0-6.9) % T HGB POC Potassium 4.4 (3.5-5.1) Sodium (135-145) mmol/L Potassium (3.5-5.1) mmol/L Chloride (98-107) mmol/L Carbon Dioxide (22-30) mmol/L Anion Gap (5-15) MEQ/L BUN (9-20) mg/dL Creatinine (0.66-1.25) mg/dL Estimated GFR ML/MIN Glucose (74-106) mg/dL POC Glucometer 557 H* (50 to 500) mg/dL Lactic Acid (0.4-2.0) Calcium (8.4-10.2) mg/dL Magnesium (1.6-2.3) mg/dL Total Bilirubin (0.2-1.3) mg/dL AST (17-59) U/L ALT (0-50) U/L Alkaline Phosphatase (38-126) U/L Serum Total Protein (6.3-8.2) g/dL Albumin (3.5-5.0) g/dL Urine Color Yellow (Yellow) Urine Appearance Clear (Clear) Urine pH 6.0 (4.6-8.0) Ur Specific [place] 1.020 (1.005-1.030) Urine Protein 300 A (Negative) Urine Glucose (UA) >=1000 A (Negative) mg/dL Urine Ketones Negative (Negative) Urine Blood Negative (Negative) Urine Nitrite Negative (Negative) Urine Bilirubin Negative (Negative) Urine Urobilinogen 0.2 (0.2) mg/dL Ur Leukocyte Esterase Negative (Negative) U Hyaline Cast (Auto) None Seen (0-2) /LPF Urine Microscopic RBC 0-2 (0-5) /HPF Urine Microscopic WBC 0-2 (0-5) /HPF Ur Epithelial Cells None Seen (None Seen) /HPF Urine Bacteria None Seen (None Seen) /HPF Urine Culture Reflexed NO (NO) Accuchecks Date 12/27/24 Date 12/27/24 Time 22:00 Time 20:05 - Radiology Impressions Radiology Exams & Impressions: Radiology Procedures Category Date Time Status CHEST 1 VIEW (PORTABLE) Stat Exams 12/27/24 20:32 Taken Assessment/Plan (1) Diabetes type 2, uncontrolled Current Visit: No Status: Acute Qualifiers: Glycemic state: with hyperglycemia Qualified Code(s): E11.65 - Type 2 diabetes mellitus with hyperglycemia Assessment & Plan: Secondary to noncompliance with insulin as he did not have enough supplies to measure his sugars 1. Admit to hospital 2. ADA diet 3. FSBS qAC/HS with SSI 4. Continue insulin, diabetic meds 5. 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 DVT/GI prophylaxis Code(s): KEH2765 - (2) YINKA (acute kidney injury) Current Visit: Yes Status: Acute Assessment & Plan: Likely from prerenal azotemia/elevated blood sugar but suspect CKD from diabetic nephropathy due to proteinuria 1. NS IVFs 2. Hold diuretics, DARCI/ARB, SGLT2 3. Check UPC 4. Follow I/Os 5. Watch electrolytes, creatinine closely Code(s): N17.9 - ACUTE KIDNEY FAILURE, UNSPECIFIED (3) Hypertensive chronic kidney disease with stage 1 through stage 4 chronic kidney disease, or unspecified chronic kidney disease Current Visit: Yes Status: Acute Assessment & Plan: Blood pressures under reasonable control 1. Continue bp meds 2. Low Na diet 3. Monitor blood pressure readings Code(s): I12.9 - HYPERTENSIVE CHRONIC KIDNEY DISEASE W STG 1-4/UNSP CHR KDNY (4) Hyponatremia Current Visit: Yes Status: Acute Assessment & Plan: Likely from combination of hypovolemia and hyperglycemia 1. Isotonic IVFs 2. Check urine lytes, urine osmo 3. Watch electrolytes closely Code(s): E87.1 - HYPO-OSMOLALITY AND HYPONATREMIA Telemedicine Encounter - Telemedicine Encounter Telemedicine Encounter: "The entirety of this encounter was performed via Telemedicine" This visit was performed using real-time audio and video connection between my location and thepatients locationwith the assistance of a surrogateat the patients location. Written or verbal consent was obtained from the patient/guardian to perform this visit usingnchrCell-A-Spottelemedicine technology. Any patient questions regarding the telemedicine interaction were answered.
[2024-12-27] MEDS ORDERED: TYLENOL 325 MG PO PRN (23:31)
[2024-12-27] MEDS ORDERED: Zofran 4 MG/2 ML VIAL IV PRN (23:31)
[2024-12-28 00:01] LABS: CREATININE,URINE RANDOM 39.2 MG/DL
[2024-12-28] MEDS ORDERED: HUMULIN R ONE ×2 (00:35→05:00)
[2024-12-28] MEDS: HUMULIN R SQ PRN (00:37)
[2024-12-28] MEDS ORDERED: Neurontin ONE (00:40)
[2024-12-28] MEDS: Pletal 100 MG PO SCH (00:43)
[2024-12-28] MEDS: NON-FORMULARY ITEM (Gabapentin [Neurontin] 800 MG Tablet) PO SCH (00:43)
--- NOTE | 2024-12-28 05:27 | PCM.NOTE ---
Date and Time: 12/28/24520 Subjective Assessment: Mr. Gomez is a 64-year-old male with a history of hypertension, type 2 diabetes mellitus, and hyperlipidemia who presented to ED 12/27/24 with symptoms of shakiness and generalized malaise after two months of insulin noncompliance due to a lack of a glucometer. On arrival, his blood glucose was too elevated to register, with laboratory studies confirming severe hyperglycemia exceeding 600 mg/dL, though notably without acidosis or an anion gap. He received intravenous fluids and insulin and was recommended for hospital admission. His evaluation also revealed an acute kidney injury (YINKA) with a creatinine level of 1.79 mg/dL, likely secondary to dehydration and hyperglycemia. Management includes intravenous fluid resuscitation, temporary discontinuation of nephrotoxic agents, and close monitoring of renal function. Additionally, he was found to have hyponatremia, likely attributable to a combination of hypovolemia and hyperglycemia, for which isotonic fluid replacement and serial electrolyte assessment have been initiated. Given the patient's history of medication nonadherence due to limited access to monitoring supplies, a cyanide case hardener will coordinate efforts to ensure the availability of essential diabetic management tools upon discharge. Objective Data Vital Signs: Vital Signs - 24 hr Temp Pulse Resp BP BP Pulse Ox 12/28/24 04:00 97.1 F 66 20 158/72 95 12/27/24 23:40 97.1 F 74 20 182/86 93 L 12/27/24 23:39 97.1 F 74 20 182/86 93 L 12/27/24 23:01 96 12/27/24 22:00 78 22 175/79 97 12/27/24 21:31 77 18 190/86 95 12/27/24 21:00 87 24 143/90 94 L 12/27/24 20:30 89 18 173/71 96 12/27/24 20:09 75 19 151/72 98 12/27/24 20:06 98.1 F 80 18 151/72 96 Pain Assessment - Last Documented Pain Intensity 9 Intake and Output: Intake & Output 12/25/24 12/26/24 12/27/24 12/28/24 11:59 11:59 11:59 11:59 Intake Total 894 Balance 894 Weight 94.1 kg Lab Results: Lab Results-Last 24 Hours 12/27/24 12/27/24 12/27/24 Range/Units 20:25 20:25 20:35 WBC 9.0 (4.23-9.07) x10^3/uL RBC 3.65 L (4.63-6.08) x10^6/uL Hgb 11.4 L (13.7-17.5) g/dL Hct 32.4 L (40.1-51.0) % MCV 88.8 (79.0-92.2) fL MCH 31.2 (25.7-32.2) pg MCHC 35.2 (32.3-36.5) g/dL RDW 12.7 (11.6-14.4) % Plt Count 284 (163-337) x10^3/uL MPV 12.4 (9.4-12.4) fL Gran % 69.4 H (34.0-67.9) % Immature Gran % (Auto) 0.2 (0.001-0.429) % Nucleat RBC Rel Count 0.0 (0.00-0.2) % Eos # (Auto) 0.14 (0.04-0.54) x10^3/uL Immature Gran # (Auto) 0.02 (0.001-0.031) x10^3u/L Absolute Lymphs (auto) 1.77 (1.32-3.57) x10^3/uL Absolute Monos (auto) 0.79 (0.30-0.82) x10^3/uL Absolute Nucleated RBC 0.00 (0.00-0.012) x10^3u/L Lymphocytes % 19.7 L (21.8-53.1) % Monocytes % 8.8 (5.3-12.2) % Eosinophils % 1.6 (0.8-7.0) % Basophils % 0.3 (0.2-1.2) % Absolute Granulocytes 6.23 H (1.78-5.38) x10^3/uL Basophils # 0.03 (0.01-0.08) x10^3/uL pO2/FiO2 Ratio % VBG pH (7.32-7.42) VBG pCO2 at Pat Temp (42-55) mm/Hg VBG pO2 at Pat Temp (25-40) mm/Hg VBG HCO3 (22-28) meq/L VBG O2 Sat ([place]) (95-100) VBG Base Excess (-2.0-2.0) VBG Hemoglobin VBG Carboxyhemoglobin (0.0-6.9) % T HGB POC Potassium (3.5-5.1) Sodium 130 L (135-145) mmol/L Potassium 4.0 (3.5-5.1) mmol/L Chloride 92 L (98-107) mmol/L Carbon Dioxide 29 (22-30) mmol/L Anion Gap 13.0 (5-15) MEQ/L BUN 26 H (9-20) mg/dL Creatinine 1.79 H (0.66-1.25) mg/dL Estimated GFR 42.3 ML/MIN Glucose 625 H* (74-106) mg/dL POC Glucometer (50 to 500) mg/dL Lactic Acid 2.0 (0.4-2.0) Calcium 8.1 L (8.4-10.2) mg/dL Magnesium 2.4 H (1.6-2.3) mg/dL Total Bilirubin 0.50 (0.2-1.3) mg/dL AST 19 (17-59) U/L ALT 16 (0-50) U/L Alkaline Phosphatase 208 H (38-126) U/L Serum Total Protein 6.0 L (6.3-8.2) g/dL Albumin 3.4 L (3.5-5.0) g/dL Urine Color (Yellow) Urine Appearance (Clear) Urine pH (4.6-8.0) Ur Specific [place] (1.005-1.030) Urine Protein (Negative) Urine Glucose (UA) (Negative) mg/dL Urine Ketones (Negative) Urine Blood (Negative) Urine Nitrite (Negative) Urine Bilirubin (Negative) Urine Urobilinogen (0.2) mg/dL Ur Leukocyte Esterase (Negative) U Hyaline Cast (Auto) (0-2) /LPF Urine Microscopic RBC (0-5) /HPF Urine Microscopic WBC (0-5) /HPF Ur Epithelial Cells (None Seen) /HPF Urine Bacteria (None Seen) /HPF Urine Culture Reflexed (NO) Ur Random Creatinine MG/DL U Random Total Protein (0-12) mg/dL Urine Sodium (30-90) mmol/L 12/27/24 12/27/24 12/27/24 Range/Units 20:35 21:59 22:01 WBC (4.23-9.07) x10^3/uL RBC (4.63-6.08) x10^6/uL Hgb (13.7-17.5) g/dL Hct (40.1-51.0) % MCV (79.0-92.2) fL MCH (25.7-32.2) pg MCHC (32.3-36.5) g/dL RDW (11.6-14.4) % Plt Count (163-337) x10^3/uL MPV (9.4-12.4) fL Gran % (34.0-67.9) % Immature Gran % (Auto) (0.001-0.429) % Nucleat RBC Rel Count (0.00-0.2) % Eos # (Auto) (0.04-0.54) x10^3/uL Immature Gran # (Auto) (0.001-0.031) x10^3u/L Absolute Lymphs (auto) (1.32-3.57) x10^3/uL Absolute Monos (auto) (0.30-0.82) x10^3/uL Absolute Nucleated RBC (0.00-0.012) x10^3u/L Lymphocytes % (21.8-53.1) % Monocytes % (5.3-12.2) % Eosinophils % (0.8-7.0) % Basophils % (0.2-1.2) % Absolute Granulocytes (1.78-5.38) x10^3/uL Basophils # (0.01-0.08) x10^3/uL pO2/FiO2 Ratio 21.0 % VBG pH 7.41 (7.32-7.42) VBG pCO2 at Pat Temp 48 (42-55) mm/Hg VBG pO2 at Pat Temp 32 (25-40) mm/Hg VBG HCO3 30.4 H* (22-28) meq/L VBG O2 Sat ([place]) 56.4 L (95-100) VBG Base Excess 4.9 H (-2.0-2.0) VBG Hemoglobin 11.8 VBG Carboxyhemoglobin 8.5 H* (0.0-6.9) % T HGB POC Potassium 4.4 (3.5-5.1) Sodium (135-145) mmol/L Potassium (3.5-5.1) mmol/L Chloride (98-107) mmol/L Carbon Dioxide (22-30) mmol/L Anion Gap (5-15) MEQ/L BUN (9-20) mg/dL Creatinine (0.66-1.25) mg/dL Estimated GFR ML/MIN Glucose (74-106) mg/dL POC Glucometer 557 H* (50 to 500) mg/dL Lactic Acid (0.4-2.0) Calcium (8.4-10.2) mg/dL Magnesium (1.6-2.3) mg/dL Total Bilirubin (0.2-1.3) mg/dL AST (17-59) U/L ALT (0-50) U/L Alkaline Phosphatase (38-126) U/L Serum Total Protein (6.3-8.2) g/dL Albumin (3.5-5.0) g/dL Urine Color Yellow (Yellow) Urine Appearance Clear (Clear) Urine pH 6.0 (4.6-8.0) Ur Specific [place] 1.020 (1.005-1.030) Urine Protein 300 A (Negative) Urine Glucose (UA) >=1000 A (Negative) mg/dL Urine Ketones Negative (Negative) Urine Blood Negative (Negative) Urine Nitrite Negative (Negative) Urine Bilirubin Negative (Negative) Urine Urobilinogen 0.2 (0.2) mg/dL Ur Leukocyte Esterase Negative (Negative) U Hyaline Cast (Auto) None Seen (0-2) /LPF Urine Microscopic RBC 0-2 (0-5) /HPF Urine Microscopic WBC 0-2 (0-5) /HPF Ur Epithelial Cells None Seen (None Seen) /HPF Urine Bacteria None Seen (None Seen) /HPF Urine Culture Reflexed NO (NO) Ur Random Creatinine MG/DL U Random Total Protein (0-12) mg/dL Urine Sodium (30-90) mmol/L 12/27/24 12/28/24 12/28/24 Range/Units 23:34 00:23 03:52 WBC (4.23-9.07) x10^3/uL RBC (4.63-6.08) x10^6/uL Hgb (13.7-17.5) g/dL Hct (40.1-51.0) % MCV (79.0-92.2) fL MCH (25.7-32.2) pg MCHC (32.3-36.5) g/dL RDW (11.6-14.4) % Plt Count (163-337) x10^3/uL MPV (9.4-12.4) fL Gran % (34.0-67.9) % Immature Gran % (Auto) (0.001-0.429) % Nucleat RBC Rel Count (0.00-0.2) % Eos # (Auto) (0.04-0.54) x10^3/uL Immature Gran # (Auto) (0.001-0.031) x10^3u/L Absolute Lymphs (auto) (1.32-3.57) x10^3/uL Absolute Monos (auto) (0.30-0.82) x10^3/uL Absolute Nucleated RBC (0.00-0.012) x10^3u/L Lymphocytes % (21.8-53.1) % Monocytes % (5.3-12.2) % Eosinophils % (0.8-7.0) % Basophils % (0.2-1.2) % Absolute Granulocytes (1.78-5.38) x10^3/uL Basophils # (0.01-0.08) x10^3/uL pO2/FiO2 Ratio % VBG pH (7.32-7.42) VBG pCO2 at Pat Temp (42-55) mm/Hg VBG pO2 at Pat Temp (25-40) mm/Hg VBG HCO3 (22-28) meq/L VBG O2 Sat ([place]) (95-100) VBG Base Excess (-2.0-2.0) VBG Hemoglobin VBG Carboxyhemoglobin (0.0-6.9) % T HGB POC Potassium (3.5-5.1) Sodium (135-145) mmol/L Potassium (3.5-5.1) mmol/L Chloride (98-107) mmol/L Carbon Dioxide (22-30) mmol/L Anion Gap (5-15) MEQ/L BUN (9-20) mg/dL Creatinine (0.66-1.25) mg/dL Estimated GFR ML/MIN Glucose (74-106) mg/dL POC Glucometer 437 H 336 H (50 to 500) mg/dL Lactic Acid (0.4-2.0) Calcium (8.4-10.2) mg/dL Magnesium (1.6-2.3) mg/dL Total Bilirubin (0.2-1.3) mg/dL AST (17-59) U/L ALT (0-50) U/L Alkaline Phosphatase (38-126) U/L Serum Total Protein (6.3-8.2) g/dL Albumin (3.5-5.0) g/dL Urine Color (Yellow) Urine Appearance (Clear) Urine pH (4.6-8.0) Ur Specific [place] (1.005-1.030) Urine Protein (Negative) Urine Glucose (UA) (Negative) mg/dL Urine Ketones (Negative) Urine Blood (Negative) Urine Nitrite (Negative) Urine Bilirubin (Negative) Urine Urobilinogen (0.2) mg/dL Ur Leukocyte Esterase (Negative) U Hyaline Cast (Auto) (0-2) /LPF Urine Microscopic RBC (0-5) /HPF Urine Microscopic WBC (0-5) /HPF Ur Epithelial Cells (None Seen) /HPF Urine Bacteria (None Seen) /HPF Urine Culture Reflexed (NO) Ur Random Creatinine 39.2 MG/DL U Random Total Protein 441 H (0-12) mg/dL Urine Sodium 55 (30-90) mmol/L Radiology Exams: Radiology Procedures Category Date Time Status CHEST 1 VIEW (PORTABLE) Stat Exams 12/27/24 20:32 Taken Assessment/Plan (1) Uncontrolled type 2 diabetes mellitus with hyperglycemia Current Visit: Yes Status: Acute Assessment & Plan: -ADA diet -Accuchecks -SSI/Patient has allergy to glargine -CM to assist with supplies Code(s): E11.65 - TYPE 2 DIABETES MELLITUS WITH HYPERGLYCEMIA (2) Hyponatremia Current Visit: Yes Status: Acute Assessment & Plan: -most likely secondary to hyperglycemia -IVF Code(s): E87.1 - HYPO-OSMOLALITY AND HYPONATREMIA (3) YINKA (acute kidney injury) Current Visit: Yes Status: Acute Assessment & Plan: -creat reviewed at - baseline around 1.3 -monitor renal/lytes daily -avoid nephrotoxic agents Code(s): N17.9 - ACUTE KIDNEY FAILURE, UNSPECIFIED (4) Generalized weakness Current Visit: Yes Status: Acute Assessment & Plan: -2/2 to hyperglycemia -IVF -PT eval VTE: lovenox Dispo; 1-2 days Code(s): R53.1 - WEAKNESS
[2024-12-28 05:47] LABS: Hematocrit 29.7 % (40.1-51.0); Hemoglobin 10.1 g/dL (13.7-17.5); Mean Cell Volume 90.3 fL (79.0-92.2); Mean Corpuscular Hemoglobin 30.7 pg (25.7-32.2); Mean Platelet Volume 12.8 fL (9.4-12.4); Platelet Count 266 x10^3/uL (163-337); Red Blood Count 3.29 x10^6/uL (4.63-6.08); White Blood Count 8.9 x10^3/uL (4.23-9.07)
[2024-12-28 06:06] LABS: ALBUMIN 2.9 g/dL (3.5-5.0); ANION GAP 12.4 MEQ/L (5-15); BILIRUBIN,TOTAL 0.4 mg/dL (0.2-1.3); Calcium 7.8 mg/dL (8.4-10.2); Creatinine 1 1.39 mg/dL (0.66-1.25); EST GLOMERULAR FILTRATION RATE 57.3 ML/MIN; MAGNESIUM 2.4 mg/dL (1.6-2.3); Potassium 3.9 mmol/L (3.5-5.1); Total Protein 5.4 g/dL (6.3-8.2)
[2024-12-28] MEDS: HUMALOG SQ PRN (07:48)
[2024-12-28] MEDS: HUMALOG SQ SCH (07:49)
--- NOTE | 2024-12-28 08:41 | XRAY ---
Indication: Hyperglycemia. Comparison: January 27, 2023 Portable chest again demonstrates tiny bilateral calcified granulomas. No focal infiltrate, consolidation, or large effusion. Heart not enlarged. Bony thorax intact again with osteopenia and degenerative changes. Impression: Continued nonacute chest with chronic features.
[2024-12-28] MEDS: Cymbalta 30 MG Capsule PO SCH (09:50)
[2024-12-28] MEDS: NORVASC 5 MG PO SCH (09:50)
[2024-12-28] MEDS: Lantus Insulin SQ SCH (09:51)
[2024-12-28] MEDS: Neurontin PO SCH (09:51)
[2024-12-28] MEDS: Protonix 40MG Tablet PO SCH (09:51)
[2024-12-28] MEDS: ENOXAPARIN SODIUM SQ SCH (09:53)
[2024-12-28] MEDS ORDERED: NON-FORMULARY ITEM (Duloxetine Hcl [Duloxetine Hcl] 60 MG Capsule.Dr) PO SCH (10:00)
--- NOTE | 2024-12-28 10:55 | PCM.DS ---
Discharge Summary Date of Admission: 12/27/24 22:52 Date of Discharge: 12/28/24 Admitting Physician: ABY GOODE MD Consults: Consults on Case 12/27/24 23:37 Case Management SDOH DC Needs Assessment ROUTINE 12/28/24 00:24 Case Management SDOH DC Needs Assessment ROUTINE Primary Care Provider: EMIGDIO EARLY Allergies Allergies insulin glargine [From Basaglar KwikPen U-100 Insulin] Allergy (Mild, Verified 12/27/24 20:18) Itching Hospital Summary - Hospital Course Hospital Course: Mr. Asencio is a 64-year-old male with a history of hypertension, type 2 diabetes mellitus, and hyperlipidemia, who presented to ED 12/27/24 with symptoms of shakiness and malaise after two months of insulin noncompliance due to a lack of access to a glucometer. On arrival, his blood glucose was severely elevated (>600 mg/dL), but without acidosis or an anion gap. He was treated with intravenous fluids and insulin, and his hyperglycemia was promptly controlled. His evaluation revealed an acute kidney injury (YINKA) with a creatinine of 1.79 mg/dL, likely secondary to dehydration and hyperglycemia, for which he received fluid resuscitation and close monitoring of renal function and is now at his baseline creat. Additionally, the patient had hyponatremia, likely due to both hypovolemia and hyperglycemia, which was managed with isotonic fluids . During hospitalization, the patient's blood glucose levels were stabilized, and his labs and vital signs are stable. The patient has an insulin pump, managed by his parts identifier, Dr. Welsh, but he has not used it for over two months. He has been using Humalog and Lantus pens at home, and a glucometer was provided. He is stable at discharge, with instructions to continue his current insulin regimen and follow up with Dr. Welsh to discuss resumption of the insulin pump. The patient was advised to monitor his blood glucose levels regularly with the glucometer and to seek medical attention if his levels become abnormal. Additionally, he was instructed to maintain adequate hydration, continue his prescribed antihypertensive and lipid-lowering medications, and follow up with his primary care provider for ongoing management of his chronic conditions. Emergency care should be sought if any acute changes in health occur. Patient agreeable to plan and stable for discharge. Discharge Note New Diagnosis: Hyperglycemia New Medications: glucometer, lancets, strips Follow Up: Welsh/PCP I spent 35 minutes [id number] with the patient on the day of discharge performing discharge exam, discussing hospital stay and discharge instructions with patient and caregivers, preparation of discharge records, prescriptions & referral forms and addressing any questions/concerns the patient had as documented above. - Vitals & Intake/Output Vital Signs: Vital Signs Temperature 97.7 F 12/28/24 08:00 Pulse Rate 62 12/28/24 08:00 Respiratory Rate 20 12/28/24 08:00 Blood Pressure 144/66 12/28/24 08:00 O2 Sat by Pulse Oximetry 94 L 12/28/24 08:00 Intake & Output: Intake & Output 12/25/24 12/26/24 12/27/24 12/28/24 11:59 11:59 11:59 11:59 Intake Total 1254 Balance 1254 Weight 94.1 kg - Lab Result Diagrams: 12/28/24 04:42 12/28/24 04:42 Lab Results-Last 24 Hrs: Lab Results-Last 24 Hours 12/27/24 12/27/24 12/27/24 Range/Units 20:25 20:25 20:35 WBC 9.0 (4.23-9.07) x10^3/uL RBC 3.65 L (4.63-6.08) x10^6/uL Hgb 11.4 L (13.7-17.5) g/dL Hct 32.4 L (40.1-51.0) % MCV 88.8 (79.0-92.2) fL MCH 31.2 (25.7-32.2) pg MCHC 35.2 (32.3-36.5) g/dL RDW 12.7 (11.6-14.4) % Plt Count 284 (163-337) x10^3/uL MPV 12.4 (9.4-12.4) fL Gran % 69.4 H (34.0-67.9) % Immature Gran % (Auto) 0.2 (0.001-0.429) % Nucleat RBC Rel Count 0.0 (0.00-0.2) % Eos # (Auto) 0.14 (0.04-0.54) x10^3/uL Immature Gran # (Auto) 0.02 (0.001-0.031) x10^3u/L Absolute Lymphs (auto) 1.77 (1.32-3.57) x10^3/uL Absolute Monos (auto) 0.79 (0.30-0.82) x10^3/uL Absolute Nucleated RBC 0.00 (0.00-0.012) x10^3u/L Lymphocytes % 19.7 L (21.8-53.1) % Monocytes % 8.8 (5.3-12.2) % Eosinophils % 1.6 (0.8-7.0) % Basophils % 0.3 (0.2-1.2) % Absolute Granulocytes 6.23 H (1.78-5.38) x10^3/uL Basophils # 0.03 (0.01-0.08) x10^3/uL pO2/FiO2 Ratio % VBG pH (7.32-7.42) VBG pCO2 at Pat Temp (42-55) mm/Hg VBG pO2 at Pat Temp (25-40) mm/Hg VBG HCO3 (22-28) meq/L VBG O2 Sat ([place]) (95-100) VBG Base Excess (-2.0-2.0) VBG Hemoglobin VBG Carboxyhemoglobin (0.0-6.9) % T HGB POC Potassium (3.5-5.1) Sodium 130 L (135-145) mmol/L Potassium 4.0 (3.5-5.1) mmol/L Chloride 92 L (98-107) mmol/L Carbon Dioxide 29 (22-30) mmol/L Anion Gap 13.0 (5-15) MEQ/L BUN 26 H (9-20) mg/dL Creatinine 1.79 H (0.66-1.25) mg/dL Estimated GFR 42.3 ML/MIN Glucose 625 H* (74-106) mg/dL POC Glucometer (50 to 500) mg/dL Lactic Acid 2.0 (0.4-2.0) Calcium 8.1 L (8.4-10.2) mg/dL Magnesium 2.4 H (1.6-2.3) mg/dL Total Bilirubin 0.50 (0.2-1.3) mg/dL AST 19 (17-59) U/L ALT 16 (0-50) U/L Alkaline Phosphatase 208 H (38-126) U/L Serum Total Protein 6.0 L (6.3-8.2) g/dL Albumin 3.4 L (3.5-5.0) g/dL Urine Color (Yellow) Urine Appearance (Clear) Urine pH (4.6-8.0) Ur Specific [place] (1.005-1.030) Urine Protein (Negative) Urine Glucose (UA) (Negative) mg/dL Urine Ketones (Negative) Urine Blood (Negative) Urine Nitrite (Negative) Urine Bilirubin (Negative) Urine Urobilinogen (0.2) mg/dL Ur Leukocyte Esterase (Negative) U Hyaline Cast (Auto) (0-2) /LPF Urine Microscopic RBC (0-5) /HPF Urine Microscopic WBC (0-5) /HPF Ur Epithelial Cells (None Seen) /HPF Urine Bacteria (None Seen) /HPF Urine Culture Reflexed (NO) Ur Random Creatinine MG/DL U Random Total Protein (0-12) mg/dL Urine Sodium (30-90) mmol/L 12/27/24 12/27/24 12/27/24 Range/Units 20:35 21:59 22:01 WBC (4.23-9.07) x10^3/uL RBC (4.63-6.08) x10^6/uL Hgb (13.7-17.5) g/dL Hct (40.1-51.0) % MCV (79.0-92.2) fL MCH (25.7-32.2) pg MCHC (32.3-36.5) g/dL RDW (11.6-14.4) % Plt Count (163-337) x10^3/uL MPV (9.4-12.4) fL Gran % (34.0-67.9) % Immature Gran % (Auto) (0.001-0.429) % Nucleat RBC Rel Count (0.00-0.2) % Eos # (Auto) (0.04-0.54) x10^3/uL Immature Gran # (Auto) (0.001-0.031) x10^3u/L Absolute Lymphs (auto) (1.32-3.57) x10^3/uL Absolute Monos (auto) (0.30-0.82) x10^3/uL Absolute Nucleated RBC (0.00-0.012) x10^3u/L Lymphocytes % (21.8-53.1) % Monocytes % (5.3-12.2) % Eosinophils % (0.8-7.0) % Basophils % (0.2-1.2) % Absolute Granulocytes (1.78-5.38) x10^3/uL Basophils # (0.01-0.08) x10^3/uL pO2/FiO2 Ratio 21.0 % VBG pH 7.41 (7.32-7.42) VBG pCO2 at Pat Temp 48 (42-55) mm/Hg VBG pO2 at Pat Temp 32 (25-40) mm/Hg VBG HCO3 30.4 H* (22-28) meq/L VBG O2 Sat ([place]) 56.4 L (95-100) VBG Base Excess 4.9 H (-2.0-2.0) VBG Hemoglobin 11.8 VBG Carboxyhemoglobin 8.5 H* (0.0-6.9) % T HGB POC Potassium 4.4 (3.5-5.1) Sodium (135-145) mmol/L Potassium (3.5-5.1) mmol/L Chloride (98-107) mmol/L Carbon Dioxide (22-30) mmol/L Anion Gap (5-15) MEQ/L BUN (9-20) mg/dL Creatinine (0.66-1.25) mg/dL Estimated GFR ML/MIN Glucose (74-106) mg/dL POC Glucometer 557 H* (50 to 500) mg/dL Lactic Acid (0.4-2.0) Calcium (8.4-10.2) mg/dL Magnesium (1.6-2.3) mg/dL Total Bilirubin (0.2-1.3) mg/dL AST (17-59) U/L ALT (0-50) U/L Alkaline Phosphatase (38-126) U/L Serum Total Protein (6.3-8.2) g/dL Albumin (3.5-5.0) g/dL Urine Color Yellow (Yellow) Urine Appearance Clear (Clear) Urine pH 6.0 (4.6-8.0) Ur Specific [place] 1.020 (1.005-1.030) Urine Protein 300 A (Negative) Urine Glucose (UA) >=1000 A (Negative) mg/dL Urine Ketones Negative (Negative) Urine Blood Negative (Negative) Urine Nitrite Negative (Negative) Urine Bilirubin Negative (Negative) Urine Urobilinogen 0.2 (0.2) mg/dL Ur Leukocyte Esterase Negative (Negative) U Hyaline Cast (Auto) None Seen (0-2) /LPF Urine Microscopic RBC 0-2 (0-5) /HPF Urine Microscopic WBC 0-2 (0-5) /HPF Ur Epithelial Cells None Seen (None Seen) /HPF Urine Bacteria None Seen (None Seen) /HPF Urine Culture Reflexed NO (NO) Ur Random Creatinine MG/DL U Random Total Protein (0-12) mg/dL Urine Sodium (30-90) mmol/L 12/27/24 12/28/24 12/28/24 Range/Units 23:34 00:23 03:52 WBC (4.23-9.07) x10^3/uL RBC (4.63-6.08) x10^6/uL Hgb (13.7-17.5) g/dL Hct (40.1-51.0) % MCV (79.0-92.2) fL MCH (25.7-32.2) pg MCHC (32.3-36.5) g/dL RDW (11.6-14.4) % Plt Count (163-337) x10^3/uL MPV (9.4-12.4) fL Gran % (34.0-67.9) % Immature Gran % (Auto) (0.001-0.429) % Nucleat RBC Rel Count (0.00-0.2) % Eos # (Auto) (0.04-0.54) x10^3/uL Immature Gran # (Auto) (0.001-0.031) x10^3u/L Absolute Lymphs (auto) (1.32-3.57) x10^3/uL Absolute Monos (auto) (0.30-0.82) x10^3/uL Absolute Nucleated RBC (0.00-0.012) x10^3u/L Lymphocytes % (21.8-53.1) % Monocytes % (5.3-12.2) % Eosinophils % (0.8-7.0) % Basophils % (0.2-1.2) % Absolute Granulocytes (1.78-5.38) x10^3/uL Basophils # (0.01-0.08) x10^3/uL pO2/FiO2 Ratio % VBG pH (7.32-7.42) VBG pCO2 at Pat Temp (42-55) mm/Hg VBG pO2 at Pat Temp (25-40) mm/Hg VBG HCO3 (22-28) meq/L VBG O2 Sat ([place]) (95-100) VBG Base Excess (-2.0-2.0) VBG Hemoglobin VBG Carboxyhemoglobin (0.0-6.9) % T HGB POC Potassium (3.5-5.1) Sodium (135-145) mmol/L Potassium (3.5-5.1) mmol/L Chloride (98-107) mmol/L Carbon Dioxide (22-30) mmol/L Anion Gap (5-15) MEQ/L BUN (9-20) mg/dL Creatinine (0.66-1.25) mg/dL Estimated GFR ML/MIN Glucose (74-106) mg/dL POC Glucometer 437 H 336 H (50 to 500) mg/dL Lactic Acid (0.4-2.0) Calcium (8.4-10.2) mg/dL Magnesium (1.6-2.3) mg/dL Total Bilirubin (0.2-1.3) mg/dL AST (17-59) U/L ALT (0-50) U/L Alkaline Phosphatase (38-126) U/L Serum Total Protein (6.3-8.2) g/dL Albumin (3.5-5.0) g/dL Urine Color (Yellow) Urine Appearance (Clear) Urine pH (4.6-8.0) Ur Specific [place] (1.005-1.030) Urine Protein (Negative) Urine Glucose (UA) (Negative) mg/dL Urine Ketones (Negative) Urine Blood (Negative) Urine Nitrite (Negative) Urine Bilirubin (Negative) Urine Urobilinogen (0.2) mg/dL Ur Leukocyte Esterase (Negative) U Hyaline Cast (Auto) (0-2) /LPF Urine Microscopic RBC (0-5) /HPF Urine Microscopic WBC (0-5) /HPF Ur Epithelial Cells (None Seen) /HPF Urine Bacteria (None Seen) /HPF Urine Culture Reflexed (NO) Ur Random Creatinine 39.2 MG/DL U Random Total Protein 441 H (0-12) mg/dL Urine Sodium 55 (30-90) mmol/L 12/28/24 12/28/24 12/28/24 Range/Units 04:42 04:42 07:29 WBC 8.9 (4.23-9.07) x10^3/uL RBC 3.29 L (4.63-6.08) x10^6/uL Hgb 10.1 L (13.7-17.5) g/dL Hct 29.7 L (40.1-51.0) % MCV 90.3 (79.0-92.2) fL MCH 30.7 (25.7-32.2) pg MCHC 34.0 (32.3-36.5) g/dL RDW 13.0 (11.6-14.4) % Plt Count 266 (163-337) x10^3/uL MPV 12.8 H (9.4-12.4) fL Gran % (34.0-67.9) % Immature Gran % (Auto) (0.001-0.429) % Nucleat RBC Rel Count (0.00-0.2) % Eos # (Auto) (0.04-0.54) x10^3/uL Immature Gran # (Auto) (0.001-0.031) x10^3u/L Absolute Lymphs (auto) (1.32-3.57) x10^3/uL Absolute Monos (auto) (0.30-0.82) x10^3/uL Absolute Nucleated RBC (0.00-0.012) x10^3u/L Lymphocytes % (21.8-53.1) % Monocytes % (5.3-12.2) % Eosinophils % (0.8-7.0) % Basophils % (0.2-1.2) % Absolute Granulocytes (1.78-5.38) x10^3/uL Basophils # (0.01-0.08) x10^3/uL pO2/FiO2 Ratio % VBG pH (7.32-7.42) VBG pCO2 at Pat Temp (42-55) mm/Hg VBG pO2 at Pat Temp (25-40) mm/Hg VBG HCO3 (22-28) meq/L VBG O2 Sat ([place]) (95-100) VBG Base Excess (-2.0-2.0) VBG Hemoglobin VBG Carboxyhemoglobin (0.0-6.9) % T HGB POC Potassium (3.5-5.1) Sodium 133 L (135-145) mmol/L Potassium 3.9 (3.5-5.1) mmol/L Chloride 102 (98-107) mmol/L Carbon Dioxide 22 (22-30) mmol/L Anion Gap 12.4 (5-15) MEQ/L BUN 23 H (9-20) mg/dL Creatinine 1.39 H (0.66-1.25) mg/dL Estimated GFR 57.3 ML/MIN Glucose 317 H (74-106) mg/dL POC Glucometer 230 H (50 to 500) mg/dL Lactic Acid (0.4-2.0) Calcium 7.8 L (8.4-10.2) mg/dL Magnesium 2.4 H (1.6-2.3) mg/dL Total Bilirubin 0.40 (0.2-1.3) mg/dL AST 20 (17-59) U/L ALT 15 (0-50) U/L Alkaline Phosphatase 158 H (38-126) U/L Serum Total Protein 5.4 L (6.3-8.2) g/dL Albumin 2.9 L (3.5-5.0) g/dL Urine Color (Yellow) Urine Appearance (Clear) Urine pH (4.6-8.0) Ur Specific [place] (1.005-1.030) Urine Protein (Negative) Urine Glucose (UA) (Negative) mg/dL Urine Ketones (Negative) Urine Blood (Negative) Urine Nitrite (Negative) Urine Bilirubin (Negative) Urine Urobilinogen (0.2) mg/dL Ur Leukocyte Esterase (Negative) U Hyaline Cast (Auto) (0-2) /LPF Urine Microscopic RBC (0-5) /HPF Urine Microscopic WBC (0-5) /HPF Ur Epithelial Cells (None Seen) /HPF Urine Bacteria (None Seen) /HPF Urine Culture Reflexed (NO) Ur Random Creatinine MG/DL U Random Total Protein (0-12) mg/dL Urine Sodium (30-90) mmol/L Micro Results-Entire Visit: Accuchecks Date 12/28/24 Date 12/27/24 Date 12/27/24 Time 22:00 Time 20:05 - Radiology Exams Ordered Rad Exams-Entire Visit: Radiology Procedures Category Date Time Status CHEST 1 VIEW (PORTABLE) Stat Exams 12/27/24 20:32 Completed - Procedures and Test Procedures and Tests throughout Hospitalization: Therapy Orders & Screens 12/28/24 00:24 Smoking Cessation Education ONCE Comment: Diagnosis: Hyper glycemia, generalized weakness Smoking Status: Current every day smoker How long have you smoked: 52 yrs Have you smoked in the past 12 months: Yes Approximately how many cigarettes per day: 1 pack Do you dip or chew tobacco: No Discharge Exam General Appearance: no apparent distress Neurologic Exam: alert, oriented x 3, cooperative Eye Exam: PERRL Ears, Nose, Throat Exam: normal ENT inspection Neck Exam: normal inspection Respiratory Exam: normal breath sounds, lungs clear Cardiovascular Exam: regular rate/rhythm, normal heart sounds Gastrointestinal/Abdomen Exam: soft, normal bowel sounds Male Genitalia Exam: deferred Rectal Exam: deferred Back Exam: normal inspection Extremity Exam: normal inspection Skin Exam: normal color Final Diagnosis/Problem List - Final Discharge Diagnosis/Problem (1) Uncontrolled type 2 diabetes mellitus with hyperglycemia Current Visit: Yes Status: Acute Code(s): E11.65 - TYPE 2 DIABETES MELLITUS WITH HYPERGLYCEMIA (2) Hyponatremia Current Visit: Yes Status: Resolved Code(s): E87.1 - HYPO-OSMOLALITY AND HYPONATREMIA (3) YINKA (acute kidney injury) Current Visit: Yes Status: Resolved Code(s): N17.9 - ACUTE KIDNEY FAILURE, UNSPECIFIED (4) Generalized weakness Current Visit: Yes Status: Resolved Code(s): R53.1 - WEAKNESS - Discharge Discharge Date: 12/28/24 Disposition: Home, Self-Care Condition: Stable Prescriptions: New Blood-Glucose Meter [Accu-Chek Guide Me Glucose Mtr] 1 each UD #1 misc Blood Sugar Diagnostic [Accu-Chek Guide Test Strip] 1 each TID #100 strip Lancets [Accu-Chek Softclix] 1 each TID #100 misc Glucagon [Glucagon Emergency Kit] See Rx Instructions .ROUTE .COMPLEX 30 Days #1 kit Continue Gabapentin [Neurontin] 800 mg PO TID Duloxetine HCl 60 mg PO DAILY Atorvastatin Calcium 80 mg PO HS Cilostazol 100 mg [Pletal 100 MG] 50 mg PO BID Bumetanide 1 mg [Bumex 1 mg] 2 mg PO DAILY Sitagliptin Phosphate [Januvia] 100 mg PO DAILY PANTOPRAZOLE 40 mg Tablet [Protonix 40MG Tablet] 1 tab PO DAILY Insulin Glargine,Hum.rec.anlog [Lantus] 20 units SQ DAILY Dapagliflozin Propanediol [Farxiga] 1 tab PO DAILY Amlodipine Besylate 5 mg PO DAILY Changed Insulin Lispro [Humalog] 8 unit SQ TIDWMEALS #0 Instructions: Checking your blood sugar at home, Type 2 diabetes - Discharge instructions Additional Instructions: GLUCOMETER, TEST STRIPS AND LANCETS ARE AT [facility] TO DECONTAMINATOR TEST YOUR BLOOD SUGARS THREE TIMES A DAY BEFORE MEALS AND THEN AGAIN BEFORE BED THE NEXT DIABETIC CLASS AT [facility] IS 01/11@1-3PM, CALL [phone] ext [phone] TO REGISTER Follow up with: EMIGDIO EARLY MD [Primary Care Provider] - 01/03/25 11:00 am MICHELLE ALVA NP [NON-STAFF PHY W/O PRIVILEGES] - 01/10/25 10:30 am ([address] office with [facility] [place]) RAND WELSH [NON-STAFF PHY W/O PRIVILEGES] -
[2024-12-28 13:28] VITALS: BP 189/89; PULSE 70; RESP 24; TEMP 96.6; O2SAT 98
[2024-12-28] MEDS ORDERED: ZOCOR 20MG PO SCH (22:00)
[2024-12-28] MEDS ORDERED: LIPITOR 40MG PO SCH (22:00)
== END 2024-12-28 13:25 | disposition home or self-care (01) ==
LOC: ED 20:05 → MED SURG 22:52
PROVIDERS: ADMIT Internal Medicine Nephrology; ATTEND Student in an Organized Health Care Education/Training Program
DX: E11.65 Type 2 diabetes mellitus with hyperglycemia (principal); E87.1 Hypo-osmolality and hyponatremia; Z59.82 Transportation insecurity; N17.9 Acute kidney failure, unspecified; R53.1 Weakness; E11.22 Type 2 diabetes mellitus with diabetic chronic kidney disease; I12.9 Hypertensive chronic kidney disease with stage 1 through stage 4 chronic kidney disease, or unspecified chronic kidney disease; N18.9 Chronic kidney disease, unspecified; E78.5 Hyperlipidemia, unspecified; F17.200 Nicotine dependence, unspecified, uncomplicated; R80.9 Proteinuria, unspecified; Z91.148 Patient's other noncompliance with medication regimen for other reason; Z79.899 Other long term (current) drug therapy
CPT/HCPCS: 36415; 71045; 80053; 81001; 82570; 82805; 82947; 83036; 83605; 83735; 83935; 84156; 84300; 85025; 85027; 93005; 96374; 99285; Q3014; J1815; J1817; A9270-GY

== ENCOUNTER 2025-07-24 11:20 | Observation (INO) | payer MEDICARE, OTHER ==
--- NOTE | 2025-07-24 12:00 | ERPHSYRPT ---
- History of Present Illness Time Seen by Provider: 07/24/25 11:30 Source: patient Exam Limitations: no limitations Patient Subjective Stated Complaint: PT STATES HE WAS TOLD TO COME TO THE ER FOR HIGH BLOOD PRESSURE Triage Nursing Assessment: PT ARRIVES TO THE ER FROM PHYSICAL THERAPY WHERE HE WAS NOT ABLE TO COMPLETE THERAPY TODAY DUE TO HIS BLOOD PRESSURE. PT IS ABLE TO WALK INTO THE ER WITHOUT ANY DIFFICULTIES. PT IS ALERT AND ORIENTED X4, NO SIGNS OF RESPIRATORY DISTRESS, PULSES PRESENT AND EQUAL BILATERALLY. PT STATES HE WENT TO PHYSICAL THERAPY TODAY AND WAS TOLD HE COULD NOT PARTICIPATE AFTER THEY TOOK HIS VITAL. AUTOMATIC CUFF READINGS FOR THE LEFT ARM WERE 230/102, RIGHT ARM 158/90, MANUAL READING FOR THE LEFT ARM WAS 234/114. DR. ERALY WAS CONTACTED WHO THEN INSTRUCTED THE STAFF TO HAVE THE PATIENT COME TO THE EMERGENCY DEPARTMENT. PT STATES HE FEELS COMPLETELY FINE, BUT HAS NOT BEEN TAKING HIS MEDICATIONS LIKE HE SHOULD BE. PT STATES HE HAS NOT TAKEN HIS MEDICATIONS REGULARLY FOR OVER TWO WEEKS OTHER THAN HIS GABAPENTIN. Physician History: Patient is a 65-year-old male BMI of 31.5 current smoker history of type 2 diabetes hypertension neuropathy GERD presents to our ED for evaluation of high blood pressure. Patient states he was in physical therapy today. They obtained his vitals. They observed that his blood pressure was elevated and sent to our ED for an evaluation. Patient is asymptomatic. Patient admits that he does not take his blood pressure medication. He provide no clear reason as to why however he advises that he should be on amlodipine and is not take his medications as per his primary care doctor recommendations. No chest pain or shortness of breath. No nausea vomiting or diaphoresis. No headache no numbness tingling or weakness. Patient voices no other complaints or concerns at this time. Portions of this note were created with voice recognition technology. There may be grammatical, spelling, punctuation or sound alike errors Timing/Duration: today Severity: moderate Modifying Factors: Improves With: nothing Associated Symptoms: denies symptoms Allergies/Adverse Reactions: insulin glargine [From Basaglar KwikPen U-100 Insulin] Allergy (Mild, Verified 07/24/25 11:27) Itching Home Medications: Gabapentin [Neurontin] 800 mg PO TID 01/26/17 [History] Duloxetine HCl 60 mg PO DAILY 01/04/22 [History] Atorvastatin Calcium 80 mg PO HS 10/12/22 [History] Cilostazol 100 mg [Pletal 100 MG] 50 mg PO BID 10/12/22 [History] Bumetanide 1 mg [Bumex 1 mg] 2 mg PO DAILY 01/27/23 [History] Amlodipine Besylate 5 mg PO DAILY 12/27/24 [History] Dapagliflozin Propanediol [Farxiga] 1 tab PO DAILY 12/27/24 [History] Insulin Glargine,Hum.rec.anlog [Lantus] 20 units SQ DAILY 12/27/24 [History] PANTOPRAZOLE 40 mg Tablet [Protonix 40MG Tablet] 1 tab PO DAILY 12/27/24 [History] Sitagliptin Phosphate [Januvia] 100 mg PO DAILY 12/27/24 [History] Hx Tetanus, Diphtheria Vaccination/Date Given: (PT UNAWARE) Hx Influenza Vaccination/Date Given: No Hx Pneumococcal Vaccination/Date Given: No Immunizations Up to Date: Yes Travel Risk - International Travel Have you traveled outside of the country in past 3 weeks: No - Emerging Infectious Disease Are you exhibiting symptoms associated with any current EIDs: No - Review of Systems All Other Systems: Reviewed and Negative - Past Medical History Pertinent Past Medical History: Yes Neurological History: Peripheral Neuropathy ENT History: Other Cardiac History: Hypertension Respiratory History: No Pertinent History Endocrine Medical History: Diabetes Type II Musculoskeletal History: No Pertinent History GI Medical History: GERD, Gallbladder Disease History: No Pertinent History Psycho-Social History: No Pertinent History Male Reproductive Disorders: No Pertinent History Other Medical History: MRI PERFORMED HERE, OF HIS HEAD. NEUROPATHY IN B LE DISTAL TO CALF. KIDNEY DISEASE STAGE 3. STINT IN L GROIN DUE TO BLOOD CLOTS. - Past Surgical History Past Surgical History: Yes Neuro Surgical History: No Pertinent History Cardiac: No Pertinent History Respiratory: No Pertinent History Gastrointestinal: Cholecystectomy Genitourinary: No Pertinent History Musculoskeletal: Orthopedic Surgery Male Surgical History: No Pertinent History Other Surgical History: reconstruction to rt foot - Social History Smoking Status: Current every day smoker How long have you smoked: 23 YEARS Exposure to second hand smoke: Yes Drug Use: none - Social Determinants of Health Will the patient participate in the screening: Yes Do you worry about a steady place to live?: No Do you have any problems with any of the following?: No known problems In the past 12 months,have you had to go without utilities?: No Transportation Issues: No Has anyone in your support network made you feel unsafe?: No Have you or anyone in your house had to go w/o enough food: No - Nursing Vital Signs Nursing Vital Signs: Initial Vital Signs Temperature 97.6 F 07/24/25 11:23 Pulse Rate 65 07/24/25 11:23 Respiratory Rate 16 07/24/25 11:23 Blood Pressure 226/88 07/24/25 11:23 O2 Sat by Pulse Oximetry 100 07/24/25 11:23 Pain Scale Pain Intensity 0 - Physical Exam General Appearance: no apparent distress, alert Eye Exam: PERRL/EOMI, eyes nml inspection Ears, Nose, Throat Exam: normal ENT inspection, moist mucous membranes Neck Exam: normal inspection, full range of motion Respiratory Exam: normal breath sounds, lungs clear, airway intact, No respiratory distress Cardiovascular Exam: regular rate/rhythm, normal heart sounds, normal peripheral pulses Gastrointestinal/Abdomen Exam: soft, normal bowel sounds, No tenderness, No mass Back Exam: normal inspection, normal range of motion, No CVA tenderness, No vertebral tenderness Extremity Exam: normal inspection, normal range of motion, pelvis stable Neurologic Exam: alert, oriented x 3, cooperative, normal mood/affect, sensation nml, No motor deficits Skin Exam: normal color, warm, dry, No rash Lymphatic Exam: No adenopathy SpO2 Interpretation: normal SpO2: 98 O2 Delivery: Room Air - Course Nursing assessment & vital signs reviewed: Yes EKG Interpreted by Me: RATE (57), Sinus Rhythm, NORMAL AXIS, NORMAL INTERVALS, NORMAL QRS (Ventricular hypertrophy) - Radiology Exams Chest X-ray Interpretation: Teleradiologist Report (Continued nonacute chest with chronic features) Ordered Tests: Active Orders 24 hr Category Date Time Status Band Splicer STAT Care 07/24/25 11:56 Active Pulse Oximetry (ED) STAT Care 07/24/25 11:56 Active CHEST 1 VIEW (PORTABLE) Stat Exams 07/24/25 11:56 Completed CBC W DIFF Stat Lab 07/24/25 11:55 Completed CMP Stat Lab 07/24/25 11:55 Completed NT PRO BNPII Stat Lab 07/24/25 11:55 Completed TROPONIN Q4H Lab 07/24/25 11:55 Completed TROPONIN Q4H Lab 07/24/25 16:00 Ordered TROPONIN Q4H Lab 07/24/25 20:00 Ordered Transfer Order Routine Transfer 07/24/25 Ordered Medication Summary Discontinued Medications Generic Name Dose Route Start Last Admin Trade Name Jareth PRN Reason Stop Dose Admin Amlodipine Besylate 5 mg 07/24/25 12:08 07/24/25 12:27 Amlodipine Besylate 5 Mg Tablet PO 07/24/25 12:09 5 mg STAT ONE Administration Amlodipine Besylate Confirm 07/24/25 12:27 Amlodipine Besylate 5 Mg Tablet Administered 07/24/25 12:28 Dose 5 mg .ROUTE .STK-MED ONE Patiromer 8.4 gm 07/24/25 13:26 Patiromer Calcium Sorbitex 8.4 Gm Powd.Pack PO 07/24/25 13:27 STAT STA Lab/Rad Data: Laboratory Result Diagrams 07/24/25 11:55 07/24/25 11:55 Laboratory Results 07/24/25 07/24/25 07/24/25 Range/Units 11:55 11:55 11:55 WBC 8.5 (4.23-9.07) x10^3/uL RBC 3.71 L (4.63-6.08) x10^6/uL Hgb 11.3 L (13.7-17.5) g/dL Hct 33.9 L (40.1-51.0) % MCV 91.4 (79.0-92.2) fL MCH 30.5 (25.7-32.2) pg MCHC 33.3 (32.3-36.5) g/dL RDW 12.9 (11.6-14.4) % Plt Count 320 (163-337) x10^3/uL MPV 11.6 (9.4-12.4) fL Gran % 72.3 H (34.0-67.9) % Immature Gran % (Auto) 0.2 (0.001-0.429) % Nucleat RBC Rel Count 0.0 (0.00-0.2) % Eos # (Auto) 0.17 (0.04-0.54) x10^3/uL Immature Gran # (Auto) 0.02 (0.001-0.031) x10^3u/L Absolute Lymphs (auto) 1.47 (1.32-3.57) x10^3/uL Absolute Monos (auto) 0.64 (0.30-0.82) x10^3/uL Absolute Nucleated RBC 0.00 (0.00-0.012) x10^3u/L Lymphocytes % 17.4 L (21.8-53.1) % Monocytes % 7.6 (5.3-12.2) % Eosinophils % 2.0 (0.8-7.0) % Basophils % 0.5 (0.2-1.2) % Absolute Granulocytes 6.13 H (1.78-5.38) x10^3/uL Basophils # 0.04 (0.01-0.08) x10^3/uL Sodium 134 L (135-145) mmol/L Potassium 5.5 H (3.5-5.1) mmol/L Chloride 106 (98-107) mmol/L Carbon Dioxide 22 (22-30) mmol/L Anion Gap 11.3 (5-15) MEQ/L BUN 32 H (9-20) mg/dL Creatinine 1.58 H (0.66-1.25) mg/dL Estimated GFR 48.9 ML/MIN Glucose 423 H (74-106) mg/dL Calcium 9.1 (8.4-10.2) mg/dL Total Bilirubin 0.30 (0.2-1.3) mg/dL AST 17 (17-59) U/L ALT 11 (0-50) U/L Alkaline Phosphatase 174 H (38-126) U/L Troponin I 0.031 (0.000-0.033) ng/mL NT-Pro-B Natriuret Pep 2890 (<300) pg/mL Serum Total Protein 6.8 (6.3-8.2) g/dL Albumin 3.6 (3.5-5.0) g/dL - Progress Progress: improved Progress Note: 07/24/25 13:33 Patient is a 65-year-old male BMI of 31.5 current smoker history of type 2 diabetes hypertension neuropathy GERD presents to our ED for evaluation of high blood pressure. Patient states he was in physical therapy today. They obtained his vitals. They observed that his blood pressure was elevated and sent to our ED for an evaluation. Patient asymptomatic. Physical exam unremarkable. Workup reveals acute on chronic renal injury with hyperkalemia. Patient's blood pressure significantly elevated. Patient received a dose of amlodipine which is his home medication. Will continue to observe progress of his blood pressure. Patient received Veltassa for his hyperkalemia. Case discussed with hospitalist Dr. Francisco castellon admission to observation at 1:23 PM. Plan of care discussed with patient. He agrees to admission at [facility] for further evaluation and treatment. Portions of this note were created with voice recognition technology. There may be grammatical, spelling, punctuation or sound alike errors History obtained from patient Differential diagnosis includes hypertension, renal disease, renal artery stenosis, hyperaldosteronism I considered IV therapy for blood pressure control however felt this was too aggressive in light of patient's prolonged time with hypertension and noncompliant with his blood pressure medication. Patient received his oral dose of antihypertensive. We will monitor. Complexity of problem addressed is moderate acute complicated. No critical care time. Complex of data reviewed and analyzed is extensive. Test ordered chest reviewed results analyzed and correlated clinically with history and physical exam. Management discussed with hospitalist Dr. Johnson and who accepts admission to observation at 1:23 PM. Risk of complication and or risk of morbidity/mortality of patient management is high. Patient requires hospitalization for further evaluation and treatment. Vital stable. Time spent admit patient approximately 20 minutes. Plan of care established for shared decision making. No social determinants of health present to impede follow-up. Portions of this note were created with voice recognition technology. There may be grammatical, spelling, punctuation or sound alike errors Counseled pt/family regarding: lab results, diagnosis - Departure Departure Disposition: Observation Clinical Impression: Hypertension, Noncompliance with medication regimen, Hyperkalemia Condition: Stable Critical Care Time: No Referrals: EMIGDIO EARLY MD [Primary Care Provider, [facility]] - Follow up/PCP as directed
[2025-07-24 12:12] LABS: BASOPHIL % 0.5 % (0.2-1.2); Basophil (Absolute #) 0.04 x10^3/uL (0.01-0.08); Eosinophil (Absolute #) 0.17 x10^3/uL (0.04-0.54); Hematocrit 33.9 % (40.1-51.0); Hemoglobin 11.3 g/dL (13.7-17.5); IMMATURE GRAN # 0.02 x10^3u/L (0.001-0.031); IMMATURE GRAN % 0.2 % (0.001-0.429); Lymphocyte (Absolute #) 1.47 x10^3/uL (1.32-3.57); Mean Corpuscular Hemoglobin 30.5 pg (25.7-32.2); Mean Corpuscular Hgb Concent. 33.3 g/dL (32.3-36.5); Monocyte (Absolute #) 0.64 x10^3/uL (0.30-0.82); NUCLEATED RBC # 0.00 x10^3u/L (0.00-0.012); NUCLEATED RBC % 0.0 % (0.00-0.2); Platelet Count 320 x10^3/uL (163-337); Red Blood Count 3.71 x10^6/uL (4.63-6.08); White Blood Count 8.5 x10^3/uL (4.23-9.07)
[2025-07-24] MEDS: NORVASC 5 MG PO ONE ×2 (12:27→16:03)
[2025-07-24] MEDS ORDERED: NORVASC 5 MG ONE (12:27)
[2025-07-24 12:34] LABS: Calcium 9.1 mg/dL (8.4-10.2); Carbon Dioxide 22.0 mmol/L (22-30); Creatinine 1 1.58 mg/dL (0.66-1.25); EST GLOMERULAR FILTRATION RATE 48.9 ML/MIN; Glucose 423.0 mg/dL (74-106); NT PRO BNPII 2890.0 pg/mL (<300); Potassium 5.5 mmol/L (3.5-5.1); SGOT/AST 17.0 U/L (17-59); SGPT/ALT 11.0 U/L (0-50); Total Protein 6.8 g/dL (6.3-8.2)
--- NOTE | 2025-07-24 12:49 | XRAY ---
Indication: Hypertension. Comparison: December 27, 2024 Portable chest remains inflated and clear again with a few tiny calcified granulomas. No focal infiltrate, consolidation, or large effusion. Heart not enlarged. Bony thorax intact again with osteopenia and mild degenerative changes. Impression: Continued nonacute chest with chronic features.
[2025-07-24] MEDS ORDERED: VELTASSA PO ONE (13:43)
[2025-07-24] MEDS: VELTASSA PO STA (13:44)
--- NOTE | 2025-07-24 14:33 | PCM.HP ---
History of Present Illness - Chief Complaint Chief Complaint: Hypertension/hyperglycemia/hyperkalemia Date: 07/24/25 History of Present Illness: is a 65 year old male with a pmhx of DMII, HTN, peripheral neuropathy, gastroesophageal reflux disease, and tobacco use presented to the ED on 07/24/25, following referral from his primary care provider, Dr. Meadows. The patient had been attending physical therapy earlier that day but was unable to complete the session due to markedly elevated blood pressure readings. PT informed his PCP who advised patient report to ED. He reported feeling otherwise well and denied any headache, chest pain, dyspnea, or neurological symptoms. He does however report blurred vision for the past month. Patient states that he non-compliant with most of his medications for more than two weeks, stating he had not been taking his prescribed antihypertensives or diabetic medications. On arrival to the ED, his blood pressure was significantly elevated at 226/88. EKG demonstrated normal sinus rhythm with a heart rate of 57 bpm, normal axis and intervals, and evidence of left ventricular hypertrophy but no acute ischemic changes. CXR revealed no acute cardiopulmonary findings. Laboratory evaluation showed normocytic anemia with hemoglobin 11.3 (baseline for the patient), mild hyponatremia at 134, hyperkalemia at 5.5, elevated BUN of 32, and creatinine of 1.58 (slightly improved from his baseline of approximately 1.8). His serum glucose was markedly elevated at 423, and alkaline phosphatase was mildly elevated at 174. BNP was notably elevated at 2,890, suggestive of chronic volume or pressure overload but without acute decompensated heart failure on imaging or exam. In the ED, he received oral amlodipine 5 mg and a dose of Veltassa for hyperkalemia management. The patient was admitted for hypertensive urgency, hyperglycemia, and hyperkalemia secondary to medication noncompliance. - Review of Systems Constitutional: No Symptoms Eyes: Vision Changes (blurred vision) Ears, Nose, & Throat: No Symptoms Respiratory: No Symptoms Cardiac: No Symptoms Abdominal/Gastrointestinal: No Symptoms Genitourinary Symptoms: No Symptoms Musculoskeletal: No Symptoms Skin: No Symptoms Neurological: No Symptoms Psychological: No Symptoms Endocrine: No Symptoms Hematologic/Lymphatic: Anemia Immunological/Allergic: No Symptoms Medications & Allergies Home Medications: Home Medication List Gabapentin [Neurontin] 800 mg PO TID 01/26/17 [History Confirmed 07/24/25] Duloxetine HCl 60 mg PO DAILY 01/04/22 [History Confirmed 07/24/25] Atorvastatin Calcium 80 mg PO HS 10/12/22 [History Confirmed 07/24/25] Cilostazol 100 mg [Pletal 100 MG] 50 mg PO BID 10/12/22 [History Confirmed 07/24/25] Bumetanide 1 mg [Bumex 1 mg] 2 mg PO DAILY 01/27/23 [History Confirmed 07/24/25] Amlodipine Besylate 5 mg PO DAILY 12/27/24 [History Confirmed 07/24/25] Dapagliflozin Propanediol [Farxiga] 1 tab PO DAILY 12/27/24 [History Confirmed 07/24/25] Insulin Glargine,Hum.rec.anlog [Lantus] 20 units SQ DAILY 12/27/24 [History Confirmed 07/24/25] PANTOPRAZOLE 40 mg Tablet [Protonix 40MG Tablet] 1 tab PO DAILY 12/27/24 [History Confirmed 07/24/25] Sitagliptin Phosphate [Januvia] 100 mg PO DAILY 12/27/24 [History Confirmed 07/24/25] Blood Sugar Diagnostic [Accu-Chek Guide Test Strip] 1 each MC TID #100 strip 12/28/24 [Rx Confirmed 07/24/25] Blood-Glucose Meter [Accu-Chek Guide Me Glucose Mtr] 1 each UD #1 misc [Rx Confirmed 07/24/25] Glucagon [Gvoke] See Rx Instructions .ROUTE .COMPLEX 30 Days #1 kit 12/28/24 [Rx Confirmed 07/24/25] Insulin Lispro [Humalog] 8 unit SQ TIDWMEALS #0 12/28/24 [Rx Confirmed 07/24/25] Lancets [Accu-Chek Softclix] 1 each MC TID #100 misc 12/28/24 [Rx Confirmed 07/24/25] Allergies/Adverse Reactions: Allergies Allergy/AdvReac Type Severity Reaction Status Date / Time insulin glargine Allergy Mild Itching Verified 07/24/25 14:07 [From Basaglar MurtazaikPen U-100 Insulin] - Past Medical History Past Medical History: Yes Neurological History: Peripheral Neuropathy ENT History: Other Cardiac History: Hypertension Respiratory History: No Pertinent History Endocrine Medical History: Diabetes Type II Musculoskelatal History: No Pertinent History GI Medical History: GERD, Gallbladder Disease History: No Pertinent History Pyscho-Social History: No Pertinent History Male Reproductive Disorders: No Pertinent History Comment: MRI PERFORMED HERE, OF HIS HEAD. NEUROPATHY IN B LE DISTAL TO CALF. KIDNEY DISEASE STAGE 3. STINT IN L GROIN DUE TO BLOOD CLOTS. - Past Surgical History Past Surgical History: Yes Neuro Surgical History: No Pertinent History Cardiac History: No Pertinent History Respiratory Surgery: No Pertinent History GI Surgical History: Cholecystectomy Genitourinary Surgical Hx: No Pertinent History Musculskeletal Surgical Hx: Orthopedic Surgery Male Surgical History: No Pertinent History Other Surgical History: reconstruction to rt foot Significant Family History: diabetes - Social History Smoking Status: Current every day smoker How long have you smoked: 23 YEARS Exposure to second hand smoke: Yes Alcohol: None Drug Use: none - Social Determinants of Health Will the patient participate in the screening: Yes Do you worry about a steady place to live?: No Do you have any problems with any of the following?: No known problems In the past 12 months,have you had to go without utilities?: No Have you or anyone in your house had to go without enough: No Transportation Issues: No Has anyone in your support network made you feel unsafe?: No Does the patient want assistance with any of the above?: Yes Comment: transportation - Physical Exam Vital Signs: Vital Signs - 24 hr Temp Pulse Resp BP BP Pulse Ox 07/24/25 13:36 98 07/24/25 13:30 189/78 07/24/25 13:00 57 L 19 201/90 99 07/24/25 12:30 59 L 11 L 214/90 99 07/24/25 12:04 100 07/24/25 12:00 56 L 11 L 207/92 98 07/24/25 11:30 55 L 10 L 212/90 98 07/24/25 11:23 97.6 F 65 16 226/88 100 General Appearance: no apparent distress Neurologic Exam: alert, oriented x 3, cooperative Eye Exam: PERRL/EOMI Ears, Nose, Throat Exam: normal ENT inspection Neck Exam: normal inspection Respiratory Exam: normal breath sounds, lungs clear Cardiovascular Exam: normal heart sounds, bradycardia Rectal Exam: deferred Back Exam: normal inspection Extremity Exam: normal inspection Skin Exam: normal color Results - Labs Lab/Micro Results: Lab Results-Last 24 Hours 07/24/25 07/24/25 07/24/25 Range/Units 11:55 11:55 11:55 WBC 8.5 (4.23-9.07) x10^3/uL RBC 3.71 L (4.63-6.08) x10^6/uL Hgb 11.3 L (13.7-17.5) g/dL Hct 33.9 L (40.1-51.0) % MCV 91.4 (79.0-92.2) fL MCH 30.5 (25.7-32.2) pg MCHC 33.3 (32.3-36.5) g/dL RDW 12.9 (11.6-14.4) % Plt Count 320 (163-337) x10^3/uL MPV 11.6 (9.4-12.4) fL Gran % 72.3 H (34.0-67.9) % Immature Gran % (Auto) 0.2 (0.001-0.429) % Nucleat RBC Rel Count 0.0 (0.00-0.2) % Eos # (Auto) 0.17 (0.04-0.54) x10^3/uL Immature Gran # (Auto) 0.02 (0.001-0.031) x10^3u/L Absolute Lymphs (auto) 1.47 (1.32-3.57) x10^3/uL Absolute Monos (auto) 0.64 (0.30-0.82) x10^3/uL Absolute Nucleated RBC 0.00 (0.00-0.012) x10^3u/L Lymphocytes % 17.4 L (21.8-53.1) % Monocytes % 7.6 (5.3-12.2) % Eosinophils % 2.0 (0.8-7.0) % Basophils % 0.5 (0.2-1.2) % Absolute Granulocytes 6.13 H (1.78-5.38) x10^3/uL Basophils # 0.04 (0.01-0.08) x10^3/uL Sodium 134 L (135-145) mmol/L Potassium 5.5 H (3.5-5.1) mmol/L Chloride 106 (98-107) mmol/L Carbon Dioxide 22 (22-30) mmol/L Anion Gap 11.3 (5-15) MEQ/L BUN 32 H (9-20) mg/dL Creatinine 1.58 H (0.66-1.25) mg/dL Estimated GFR 48.9 ML/MIN Glucose 423 H (74-106) mg/dL Calcium 9.1 (8.4-10.2) mg/dL Total Bilirubin 0.30 (0.2-1.3) mg/dL AST 17 (17-59) U/L ALT 11 (0-50) U/L Alkaline Phosphatase 174 H (38-126) U/L Troponin I 0.031 (0.000-0.033) ng/mL NT-Pro-B Natriuret Pep 2890 (<300) pg/mL Serum Total Protein 6.8 (6.3-8.2) g/dL Albumin 3.6 (3.5-5.0) g/dL - Radiology Impressions Radiology Exams & Impressions: Radiology Procedures Category Date Time Status CHEST 1 VIEW (PORTABLE) Stat Exams 07/24/25 11:56 Completed Assessment/Plan (1) Hypertensive urgency Current Visit: Yes Status: Acute Assessment & Plan: -Severe, asymptomatic hypertension secondary to medication noncompliance. -EKG with LVH but no ischemia, -CXR with no acute findings -Increase amlodipine to 10 mg PO daily- -Initiate hydralazine 100 mg PO TID -Start metoprolol tartrate 25 mg PO BID -Tele -Repeat CMP in 4h post-Veltassa -Continue strict I&O, daily weights, and sodium restriction. -Reinforce medication adherence, home BP monitoring, and follow-up with PCP/cardiology -Echo Code(s): I16.0 - HYPERTENSIVE URGENCY (2) Hyperkalemia Current Visit: Yes Status: Acute Assessment & Plan: -Mildat 5.5 ; treated with Veltassa in ED. -Recheck BMP in 4 hours -Avoid nephrotoxic and potassium-sparing agents; review medication list. -Continue tele Code(s): E87.5 - HYPERKALEMIA (3) Normocytic anemia Current Visit: Yes Status: Acute Assessment & Plan: -Stable; likely secondary to chronic disease. -No acute indication for transfusion -Continue to monitor hemoglobin Code(s): D64.9 - ANEMIA, UNSPECIFIED (4) GERD (gastroesophageal reflux disease) Current Visit: Yes Status: Acute Assessment & Plan: -continue protonix Code(s): K21.9 - GASTRO-ESOPHAGEAL REFLUX DISEASE WITHOUT ESOPHAGITIS (5) Smoker Current Visit: Yes Status: Acute Assessment & Plan: -Advised cessation -Nicotine patch while IP Code(s): F17.200 - NICOTINE DEPENDENCE, UNSPECIFIED, UNCOMPLICATED (6) CKD (chronic kidney disease) stage 3, GFR 30-59 ml/min Current Visit: No Status: Acute Qualifiers: Chronic kidney disease stage 3 subtype: stage 3a (GFR 45-59) Qualified Code(s): N18.31 - Chronic kidney disease, stage 3a Assessment & Plan: -Baseline Cr1.8 L, currently at 1.58 -Stable renal function on presentation. -Maintain adequate hydration; avoid nephrotoxic agents and contrast exposure. -Adjust medication doses for renal function Code(s): N18.30 - CHRONIC KIDNEY DISEASE, STAGE 3 UNSPECIFIED (7) Diabetes type 2, uncontrolled Current Visit: No Status: Acute Qualifiers: Glycemic state: with hyperglycemia Qualified Code(s): E11.65 - Type 2 diabetes mellitus with hyperglycemia Assessment & Plan: -ADA diet -Initiate subcutaneous basalbolus insulin -fingersticks ACHS. -Patient wears insulin pump at home and will bring in if able -Monitor for symptoms of DKA (none present at admission). -Provide diabetic education prior to discharge emphasizing adherence and medication management. Code(s): DYM1628 - (8) Hyponatremia Current Visit: No Status: Acute Assessment & Plan: -In the setting of hyperglycemia -mild at 134- should correct with blood sugar Code(s): E87.1 - HYPO-OSMOLALITY AND HYPONATREMIA (9) Peripheral neuropathy Current Visit: Yes Status: Acute Assessment & Plan: -continue home meds VTE: lovenox PPI: protonix Dispo: 1-2 days Code status: Full code Plan of care time spent greater than 45 mins Code(s): G62.9 - POLYNEUROPATHY, UNSPECIFIED Telemedicine Encounter - Telemedicine Encounter Telemedicine Encounter: "The entirety of this encounter was performed via Telemedicine" This visit was performed using real-time audio and video connection between my location and thepatients locationwith the assistance of a surrogateat the patients location. Written or verbal consent was obtained from the patient/guardian to perform this visit usingsynchrPriccuttelemedicine technology. Any patient questions regarding the telemedicine interaction were answered.
[2025-07-24] MEDS ORDERED: Zofran 4 MG/2 ML VIAL IV PRN (14:57)
[2025-07-24] MEDS ORDERED: TYLENOL 325 MG PO PRN (14:57)
[2025-07-24] MEDS: HUMALOG SQ PRN (15:06)
[2025-07-24 15:43] LABS: Calcium 8.8 mg/dL (8.4-10.2); Carbon Dioxide 21.0 mmol/L (22-30); Creatinine 1 1.52 mg/dL (0.66-1.25); EST GLOMERULAR FILTRATION RATE 51.2 ML/MIN; Glucose 345.0 mg/dL (74-106); Potassium 4.8 mmol/L (3.5-5.1)
[2025-07-24] MEDS: Apresoline 25 MG TABLET PO SCH (16:03)
[2025-07-24] MEDS: ENOXAPARIN SODIUM SQ SCH (16:05)
[2025-07-24] MEDS: HUMALOG SQ SCH (17:53)
[2025-07-24] MEDS: ZOCOR 20MG PO SCH (20:46)
[2025-07-24] MEDS: Lopressor 25MG Tab PO SCH (20:47)
[2025-07-24 23:27] VITALS: RESP 18
[2025-07-25 03:36] VITALS: O2SAT 98
[2025-07-25 05:04] LABS: BASOPHIL % 0.5 % (0.2-1.2); Basophil (Absolute #) 0.05 x10^3/uL (0.01-0.08); Eosinophil (Absolute #) 0.29 x10^3/uL (0.04-0.54); Hematocrit 32.9 % (40.1-51.0); Hemoglobin 11.1 g/dL (13.7-17.5); IMMATURE GRAN # 0.03 x10^3u/L (0.001-0.031); IMMATURE GRAN % 0.3 % (0.001-0.429); Lymphocyte (Absolute #) 3.06 x10^3/uL (1.32-3.57); Mean Corpuscular Hemoglobin 31.4 pg (25.7-32.2); Mean Corpuscular Hgb Concent. 33.7 g/dL (32.3-36.5); Monocyte (Absolute #) 0.86 x10^3/uL (0.30-0.82); NUCLEATED RBC # 0.00 x10^3u/L (0.00-0.012); NUCLEATED RBC % 0.0 % (0.00-0.2); Platelet Count 337 x10^3/uL (163-337); Red Blood Count 3.53 x10^6/uL (4.63-6.08); White Blood Count 10.5 x10^3/uL (4.23-9.07)
--- NOTE | 2025-07-25 05:06 | PCM.NOTE ---
Date and Time: 07/25/25 0505 Subjective Assessment: is a 65 year old male with a pmhx of DMII, HTN, peripheral neuropathy, gastroesophageal reflux disease, and tobacco use presented to the ED on 07/24/25, following referral from his primary care provider, Dr. Meadows. The patient had been attending physical therapy earlier that day but was unable to complete the session due to markedly elevated blood pressure readings. PT informed his PCP who advised patient report to ED. He reported feeling otherwise well and denied any headache, chest pain, dyspnea, or neurological symptoms. He does however report blurred vision for the past month. Patient states that he non-compliant with most of his medications for more than two weeks, stating he had not been taking his prescribed antihypertensives or diabetic medications. On arrival to the ED, his blood pressure was significantly elevated at 226/88. EKG demonstrated normal sinus rhythm with a heart rate of 57 bpm, normal axis and intervals, and evidence of left ventricular hypertrophy but no acute ischemic changes. CXR revealed no acute cardiopulmonary findings. Laboratory evaluation showed normocytic anemia with hemoglobin 11.3 (baseline for the patient), mild hyponatremia at 134, hyperkalemia at 5.5, elevated BUN of 32, and creatinine of 1.58 (slightly improved from his baseline of approximately 1.8). His serum glucose was markedly elevated at 423, and alkaline phosphatase was mildly elevated at 174. BNP was notably elevated at 2,890, suggestive of chronic volume or pressure overload but without acute decompensated heart failure on imaging or exam. In the ED, he received oral amlodipine 5 mg and a dose of Veltassa for hyperkalemia management. The patient was admitted for hypertensive urgency, hyperglycemia, and hyperkalemia secondary to medication noncompliance. Objective Data Vital Signs: Vital Signs - 24 hr Temp Pulse Resp BP BP BP Pulse Ox 07/25/25 03:35 99.0 F 61 18 187/85 98 07/24/25 23:26 97.5 F 59 L 18 162/70 100 07/24/25 19:57 97.9 F 62 16 115/57 99 07/24/25 18:05 65 140/69 132/69 07/24/25 16:00 97.8 F 56 L 18 228/100 99 07/24/25 14:06 97.8 F 56 L 16 228/100 99 07/24/25 13:36 98 07/24/25 13:30 189/78 07/24/25 13:00 57 L 19 201/90 99 07/24/25 12:30 59 L 11 L 214/90 99 07/24/25 12:04 100 07/24/25 12:00 56 L 11 L 207/92 98 07/24/25 11:30 55 L 10 L 212/90 98 07/24/25 11:23 97.6 F 65 16 226/88 100 Pain Assessment - Last Documented Pain Intensity 0 Intake and Output: Intake & Output 07/22/25 07/23/25 07/24/25 07/25/25 11:59 11:59 11:59 11:59 Intake Total 960 Balance 960 Weight 93.894 kg 93.5 kg Lab Results: Lab Results-Last 24 Hours 07/24/25 07/24/25 07/24/25 Range/Units 11:55 11:55 11:55 WBC 8.5 (4.23-9.07) x10^3/uL RBC 3.71 L (4.63-6.08) x10^6/uL Hgb 11.3 L (13.7-17.5) g/dL Hct 33.9 L (40.1-51.0) % MCV 91.4 (79.0-92.2) fL MCH 30.5 (25.7-32.2) pg MCHC 33.3 (32.3-36.5) g/dL RDW 12.9 (11.6-14.4) % Plt Count 320 (163-337) x10^3/uL MPV 11.6 (9.4-12.4) fL Gran % 72.3 H (34.0-67.9) % Immature Gran % (Auto) 0.2 (0.001-0.429) % Nucleat RBC Rel Count 0.0 (0.00-0.2) % Eos # (Auto) 0.17 (0.04-0.54) x10^3/uL Immature Gran # (Auto) 0.02 (0.001-0.031) x10^3u/L Absolute Lymphs (auto) 1.47 (1.32-3.57) x10^3/uL Absolute Monos (auto) 0.64 (0.30-0.82) x10^3/uL Absolute Nucleated RBC 0.00 (0.00-0.012) x10^3u/L Lymphocytes % 17.4 L (21.8-53.1) % Monocytes % 7.6 (5.3-12.2) % Eosinophils % 2.0 (0.8-7.0) % Basophils % 0.5 (0.2-1.2) % Absolute Granulocytes 6.13 H (1.78-5.38) x10^3/uL Basophils # 0.04 (0.01-0.08) x10^3/uL Sodium 134 L (135-145) mmol/L Potassium 5.5 H (3.5-5.1) mmol/L Chloride 106 (98-107) mmol/L Carbon Dioxide 22 (22-30) mmol/L Anion Gap 11.3 (5-15) MEQ/L BUN 32 H (9-20) mg/dL Creatinine 1.58 H (0.66-1.25) mg/dL Estimated GFR 48.9 ML/MIN Glucose 423 H (74-106) mg/dL POC Glucometer (74 to 106) mg/dL Hemoglobin A1c (4.5-6.0) % Calcium 9.1 (8.4-10.2) mg/dL Total Bilirubin 0.30 (0.2-1.3) mg/dL AST 17 (17-59) U/L ALT 11 (0-50) U/L Alkaline Phosphatase 174 H (38-126) U/L Troponin I 0.031 (0.000-0.033) ng/mL NT-Pro-B Natriuret Pep 2890 (<300) pg/mL Serum Total Protein 6.8 (6.3-8.2) g/dL Albumin 3.6 (3.5-5.0) g/dL TSH 3rd Generation (0.470-4.680) mIU/L 07/24/25 07/24/25 07/24/25 Range/Units 12:06 14:44 15:15 WBC (4.23-9.07) x10^3/uL RBC (4.63-6.08) x10^6/uL Hgb (13.7-17.5) g/dL Hct (40.1-51.0) % MCV (79.0-92.2) fL MCH (25.7-32.2) pg MCHC (32.3-36.5) g/dL RDW (11.6-14.4) % Plt Count (163-337) x10^3/uL MPV (9.4-12.4) fL Gran % (34.0-67.9) % Immature Gran % (Auto) (0.001-0.429) % Nucleat RBC Rel Count (0.00-0.2) % Eos # (Auto) (0.04-0.54) x10^3/uL Immature Gran # (Auto) (0.001-0.031) x10^3u/L Absolute Lymphs (auto) (1.32-3.57) x10^3/uL Absolute Monos (auto) (0.30-0.82) x10^3/uL Absolute Nucleated RBC (0.00-0.012) x10^3u/L Lymphocytes % (21.8-53.1) % Monocytes % (5.3-12.2) % Eosinophils % (0.8-7.0) % Basophils % (0.2-1.2) % Absolute Granulocytes (1.78-5.38) x10^3/uL Basophils # (0.01-0.08) x10^3/uL Sodium (135-145) mmol/L Potassium (3.5-5.1) mmol/L Chloride (98-107) mmol/L Carbon Dioxide (22-30) mmol/L Anion Gap (5-15) MEQ/L BUN (9-20) mg/dL Creatinine (0.66-1.25) mg/dL Estimated GFR ML/MIN Glucose (74-106) mg/dL POC Glucometer 333 H (74 to 106) mg/dL Hemoglobin A1c 13.80 H (4.5-6.0) % Calcium (8.4-10.2) mg/dL Total Bilirubin (0.2-1.3) mg/dL AST (17-59) U/L ALT (0-50) U/L Alkaline Phosphatase (38-126) U/L Troponin I 0.031 (0.000-0.033) ng/mL NT-Pro-B Natriuret Pep (<300) pg/mL Serum Total Protein (6.3-8.2) g/dL Albumin (3.5-5.0) g/dL TSH 3rd Generation (0.470-4.680) mIU/L 07/24/25 07/24/25 07/24/25 Range/Units 15:15 15:15 16:55 WBC (4.23-9.07) x10^3/uL RBC (4.63-6.08) x10^6/uL Hgb (13.7-17.5) g/dL Hct (40.1-51.0) % MCV (79.0-92.2) fL MCH (25.7-32.2) pg MCHC (32.3-36.5) g/dL RDW (11.6-14.4) % Plt Count (163-337) x10^3/uL MPV (9.4-12.4) fL Gran % (34.0-67.9) % Immature Gran % (Auto) (0.001-0.429) % Nucleat RBC Rel Count (0.00-0.2) % Eos # (Auto) (0.04-0.54) x10^3/uL Immature Gran # (Auto) (0.001-0.031) x10^3u/L Absolute Lymphs (auto) (1.32-3.57) x10^3/uL Absolute Monos (auto) (0.30-0.82) x10^3/uL Absolute Nucleated RBC (0.00-0.012) x10^3u/L Lymphocytes % (21.8-53.1) % Monocytes % (5.3-12.2) % Eosinophils % (0.8-7.0) % Basophils % (0.2-1.2) % Absolute Granulocytes (1.78-5.38) x10^3/uL Basophils # (0.01-0.08) x10^3/uL Sodium 135 (135-145) mmol/L Potassium 4.8 (3.5-5.1) mmol/L Chloride 108 H (98-107) mmol/L Carbon Dioxide 21 L (22-30) mmol/L Anion Gap 11.0 (5-15) MEQ/L BUN 31 H (9-20) mg/dL Creatinine 1.52 H (0.66-1.25) mg/dL Estimated GFR 51.2 ML/MIN Glucose 345 H (74-106) mg/dL POC Glucometer 276 H (74 to 106) mg/dL Hemoglobin A1c (4.5-6.0) % Calcium 8.8 (8.4-10.2) mg/dL Total Bilirubin (0.2-1.3) mg/dL AST (17-59) U/L ALT (0-50) U/L Alkaline Phosphatase (38-126) U/L Troponin I (0.000-0.033) ng/mL NT-Pro-B Natriuret Pep (<300) pg/mL Serum Total Protein (6.3-8.2) g/dL Albumin (3.5-5.0) g/dL TSH 3rd Generation 0.586 (0.470-4.680) mIU/L 07/24/25 07/24/25 Range/Units 19:40 20:53 WBC (4.23-9.07) x10^3/uL RBC (4.63-6.08) x10^6/uL Hgb (13.7-17.5) g/dL Hct (40.1-51.0) % MCV (79.0-92.2) fL MCH (25.7-32.2) pg MCHC (32.3-36.5) g/dL RDW (11.6-14.4) % Plt Count (163-337) x10^3/uL MPV (9.4-12.4) fL Gran % (34.0-67.9) % Immature Gran % (Auto) (0.001-0.429) % Nucleat RBC Rel Count (0.00-0.2) % Eos # (Auto) (0.04-0.54) x10^3/uL Immature Gran # (Auto) (0.001-0.031) x10^3u/L Absolute Lymphs (auto) (1.32-3.57) x10^3/uL Absolute Monos (auto) (0.30-0.82) x10^3/uL Absolute Nucleated RBC (0.00-0.012) x10^3u/L Lymphocytes % (21.8-53.1) % Monocytes % (5.3-12.2) % Eosinophils % (0.8-7.0) % Basophils % (0.2-1.2) % Absolute Granulocytes (1.78-5.38) x10^3/uL Basophils # (0.01-0.08) x10^3/uL Sodium (135-145) mmol/L Potassium (3.5-5.1) mmol/L Chloride (98-107) mmol/L Carbon Dioxide (22-30) mmol/L Anion Gap (5-15) MEQ/L BUN (9-20) mg/dL Creatinine (0.66-1.25) mg/dL Estimated GFR ML/MIN Glucose (74-106) mg/dL POC Glucometer 112 H (74 to 106) mg/dL Hemoglobin A1c (4.5-6.0) % Calcium (8.4-10.2) mg/dL Total Bilirubin (0.2-1.3) mg/dL AST (17-59) U/L ALT (0-50) U/L Alkaline Phosphatase (38-126) U/L Troponin I 0.038 H* (0.000-0.033) ng/mL NT-Pro-B Natriuret Pep (<300) pg/mL Serum Total Protein (6.3-8.2) g/dL Albumin (3.5-5.0) g/dL TSH 3rd Generation (0.470-4.680) mIU/L Radiology Exams: Radiology Procedures Category Date Time Status CHEST 1 VIEW (PORTABLE) Stat Exams 07/24/25 11:56 Completed ECHO W/2D AND DOPPLER [US] Routine Exams 07/25/25 08:00 Ordered Medications: Medications Generic Name Dose Route Start Last Admin Trade Name Freq PRN Reason Stop Dose Admin Acetaminophen 650 mg 07/24/25 14:57 Acetaminophen 325 Mg Tablet PO 08/23/25 14:56 Q4H PRN PRN PAIN, FEVER, HEADACHE Amlodipine Besylate 10 mg 07/25/25 10:00 Amlodipine Besylate 5 Mg Tablet PO 08/24/25 09:59 QAM [facility] Duloxetine HCl 60 mg 07/25/25 10:00 Duloxetine Hcl 30 Mg Cap PO 08/24/25 09:59 DAILY [facility] Enoxaparin Sodium 40 mg 10/28/25 16:00 07/24/25 16:05 Enoxaparin Sodium 40 Mg/0.4 Ml Syringe SQ 08/23/25 15:59 Not Given DAILY MARTIN Gabapentin 800 mg 07/24/25 22:00 07/24/25 20:46 Gabapentin 400 Mg Capsule PO 08/23/25 21:59 800 mg TID MARTIN Administration Hydralazine HCl 100 mg 07/24/25 15:00 07/24/25 20:46 Hydralazine Hcl 25 Mg Tablet PO 08/23/25 14:59 100 mg TID MARTIN Administration Insulin Human Lispro 0 unit 07/24/25 14:25 07/24/25 17:54 Insulin Lispro 1 Unit SQ 08/23/25 14:24 10 unit UD PRN Administration HYPERGLYCEMIA Insulin Human Lispro 8 unit 07/24/25 17:00 07/24/25 17:53 Insulin Lispro 1 Unit SQ 08/23/25 16:59 8 unit TIDWMEALS MARTIN Administration Metoprolol Tartrate 25 mg 07/24/25 22:00 07/24/25 20:47 Metoprolol Tartrate 25 Mg Tab PO 08/23/25 21:59 25 mg BID MARTIN Administration Ondansetron HCl 4 mg 07/24/25 14:57 Ondansetron Hcl 4 Mg/2 Ml Vial IV 08/23/25 14:56 Q6H PRN PRN NAUSEA/VOMITING Pantoprazole Sodium 40 mg 07/25/25 10:00 Protonix (Pantoprazole) 40 Mg Tablet PO 08/24/25 09:59 DAILY [facility] Simvastatin 40 mg 07/24/25 22:00 07/24/25 20:46 Simvastatin 20 Mg Tablet PO 08/23/25 21:59 40 mg HS MARTIN Administration Discontinued Medications Generic Name Dose Route Start Last Admin Trade Name Freq PRN Reason Stop Dose Admin Amlodipine Besylate 5 mg 07/24/25 12:08 07/24/25 12:27 Amlodipine Besylate 5 Mg Tablet PO 07/24/25 12:09 5 mg STAT ONE Administration Amlodipine Besylate Confirm 07/24/25 12:27 Amlodipine Besylate 5 Mg Tablet Administered 07/24/25 12:28 Dose 5 mg .ROUTE .STK-MED ONE Amlodipine Besylate 5 mg 07/24/25 14:55 07/24/25 16:03 Amlodipine Besylate 5 Mg Tablet PO 07/24/25 14:56 5 mg STAT ONE Administration Patiromer 8.4 gm 07/24/25 13:26 07/24/25 13:44 Patiromer Calcium Sorbitex 8.4 Gm Powd.Pack PO 07/24/25 13:27 8.4 gm STAT STA Administration Patiromer Confirm 07/24/25 13:43 Patiromer Calcium Sorbitex 8.4 Gm Powd.Pack Administered 07/24/25 13:44 Dose 8.4 gm PO .STK-MED ONE Assessment/Plan (1) Hypertensive urgency Current Visit: Yes Status: Acute Assessment & Plan: -Severe, asymptomatic hypertension secondary to medication noncompliance. -EKG with LVH but no ischemia, -CXR with no acute findings -Increase amlodipine to 10 mg PO daily- -Initiate hydralazine 100 mg PO TID -Start metoprolol tartrate 25 mg PO BID -Tele -Repeat CMP in 4h post-Veltassa -Continue strict I&O, daily weights, and sodium restriction. -Reinforce medication adherence, home BP monitoring, and follow-up with PCP/cardiology -Echo 07/25: -BP improving -Echo Code(s): I16.0 - HYPERTENSIVE URGENCY Hypertriglyceridemia -Lipid panel reviewed with severe hypertriglyceridemia at 1252- choles at 296, LDL 65, HDL at 31 -Pharm to renally dose fenofibrate/ continue atorvastatin (2) Hyperkalemia Current Visit: Yes Status: Acute Assessment & Plan: -Mildat 5.5 ; treated with Veltassa in ED. -Recheck BMP in 4 hours -Avoid nephrotoxic and potassium-sparing agents; review medication list. -Continue tele 07/25: -Potassium at 4.8- continue to trend Code(s): E87.5 - HYPERKALEMIA Elevated troponin -Last trop elevated at 0.038- will repeat this morning. No complaints of CP - Most likely demand (3) Normocytic anemia Current Visit: Yes Status: Acute Assessment & Plan: -Stable; likely secondary to chronic disease. -No acute indication for transfusion -Continue to monitor hemoglobin 07/25: -Stable at 11.9 Code(s): D64.9 - ANEMIA, UNSPECIFIED (4) GERD (gastroesophageal reflux disease) Current Visit: Yes Status: Acute Assessment & Plan: -continue protonix Code(s): K21.9 - GASTRO-ESOPHAGEAL REFLUX DISEASE WITHOUT ESOPHAGITIS (5) Smoker Current Visit: Yes Status: Acute Assessment & Plan: -Advised cessation -Nicotine patch while IP Code(s): F17.200 - NICOTINE DEPENDENCE, UNSPECIFIED, UNCOMPLICATED (6) CKD (chronic kidney disease) stage 3, GFR 30-59 ml/min Current Visit: No Status: Acute Qualifiers: Chronic kidney disease stage 3 subtype: stage 3a (GFR 45-59) Qualified Code(s): N18.31 - Chronic kidney disease, stage 3a Assessment & Plan: -Baseline Cr1.8 L, currently at 1.58 -Stable renal function on presentation. -Maintain adequate hydration; avoid nephrotoxic agents and contrast exposure. -Adjust medication doses for renal function 07/25: -Worsening creat at 1.87 but this appears to be baseline - will consult nephrology Code(s): N18.30 - CHRONIC KIDNEY DISEASE, STAGE 3 UNSPECIFIED (7) Diabetes type 2, uncontrolled Current Visit: No Status: Acute Qualifiers: Glycemic state: with hyperglycemia Qualified Code(s): E11.65 - Type 2 diabetes mellitus with hyperglycemia Assessment & Plan: -ADA diet -Initiate subcutaneous basalbolus insulin -fingersticks ACHS. -Patient wears insulin pump at home and will bring in if able -Monitor for symptoms of DKA (none present at admission). -Provide diabetic education prior to discharge emphasizing adherence and medication management. 07/25: -A1c at 13.8 poor control -Needs OP appt with Dr. Abel - may need insulin pump basal/bolus adjusted -Pt reports allergy to glargine -blood sugars improving but remain elevated- added mealtime insulin 10 units with HD SSI- Code(s): [id number] - (8) Hyponatremia Current Visit: No Status: Acute Assessment & Plan: -In the setting of hyperglycemia -mild at 134- should correct with blood sugar Code(s): E87.1 - HYPO-OSMOLALITY AND HYPONATREMIA (9) Peripheral neuropathy Current Visit: Yes Status: Acute Assessment & Plan: -continue home meds VTE: lovenox PPI: protonix Dispo: 1-2 days Code status: Full code Plan of care time spent greater than 45 mins Code(s): I16.0 - HYPERTENSIVE URGENCY (2) Hyperkalemia Current Visit: Yes Status: Acute Code(s): E87.5 - HYPERKALEMIA (3) Normocytic anemia Current Visit: Yes Status: Acute Code(s): D64.9 - ANEMIA, UNSPECIFIED (4) GERD (gastroesophageal reflux disease) Current Visit: Yes Status: Acute Code(s): K21.9 - GASTRO-ESOPHAGEAL REFLUX DISEASE WITHOUT ESOPHAGITIS (5) Smoker Current Visit: Yes Status: Acute Code(s): F17.200 - NICOTINE DEPENDENCE, UNSPECIFIED, UNCOMPLICATED (6) CKD (chronic kidney disease) stage 3, GFR 30-59 ml/min Current Visit: No Status: Acute Qualifiers: Chronic kidney disease stage 3 subtype: stage 3a (GFR 45-59) Qualified Code(s): N18.31 - Chronic kidney disease, stage 3a Code(s): N18.30 - CHRONIC KIDNEY DISEASE, STAGE 3 UNSPECIFIED (7) Diabetes type 2, uncontrolled Current Visit: No Status: Acute Qualifiers: Glycemic state: with hyperglycemia Qualified Code(s): E11.65 - Type 2 diabetes mellitus with hyperglycemia Code(s): [id number] - (8) Hyponatremia Current Visit: No Status: Acute Code(s): E87.1 - HYPO-OSMOLALITY AND HYPONATREMIA (9) Peripheral neuropathy Current Visit: Yes Status: Acute Code(s): G62.9 - POLYNEUROPATHY, UNSPECIFIED
[2025-07-25 05:35] LABS: Calcium 8.5 mg/dL (8.4-10.2); Carbon Dioxide 23.0 mmol/L (22-30); Cholesterol 296.0 mg/dL (50-200); Creatinine 1 1.87 mg/dL (0.66-1.25); EST GLOMERULAR FILTRATION RATE 39.9 ML/MIN; Glucose 257.0 mg/dL (74-106); LDL, DIRECT 65.0 mg/dL (30-100); Potassium 4.8 mmol/L (3.5-5.1); SGOT/AST 18.0 U/L (17-59); SGPT/ALT 10.0 U/L (0-50); Total Protein 6.5 g/dL (6.3-8.2)
[2025-07-25 05:43] LABS: TRIGLYCERIDE 1252.0 mg/dL (30-150)
[2025-07-25 07:30] VITALS: BP 125/75; PULSE 63; TEMP 97.3
[2025-07-25] MEDS: HUMALOG SQ SCH (08:15)
[2025-07-25] MEDS: Cymbalta 30 MG Capsule PO SCH (08:18)
[2025-07-25] MEDS: NEURONTIN PO SCH (08:18)
[2025-07-25] MEDS: Protonix 40MG Tablet PO SCH (08:18)
[2025-07-25] MEDS: NORVASC 5 MG PO SCH (09:23)
[2025-07-25] MEDS: PHARMACY RENAL DOSING MC ONE (09:42)
[2025-07-25] MEDS ORDERED: Protonix 40MG Tablet PO SCH (10:00)
--- NOTE | 2025-07-25 10:26 | PCM.DS ---
Discharge Summary Date of Admission: 07/24/25 14:04 Date of Discharge: 07/25/25 Admitting Physician: DEE SAUER MD Primary Care Provider: EMIGDIO EARLY Allergies Allergies insulin glargine [From Basaglar KwikPen U-100 Insulin] Allergy (Mild, Verified 07/24/25 14:07) Itching Hospital Summary - Hospital Course Hospital Course: Mr. Asencio is a 65-year-old male with a history of type 2 diabetes mellitus, hypertension, peripheral neuropathy, gastroesophageal reflux disease, and tobacco use who presented to the emergency department on 07/24/2025 following referral from his primary care provider, Dr. Early, due to severely elevated blood pressure noted during a physical therapy session earlier that day. The patient reported no headache, chest pain, dyspnea, or focal neurological deficits but did note persistent blurred vision over the past month. He admitted to noncompliance with his antihypertensive and diabetic medications for more than two weeks. On arrival, blood pressure was 226/88. EKG demonstrated normal sinus rhythm with a heart rate of 57 bpm, normal axis and intervals, and evidence of left ventricular hypertrophy without ischemic changes. CXR showed no acute cardiopulmonary findings. Initial laboratory evaluation revealed normocytic anemia (Hgb 11.3, stable from baseline), mild hyponatremia (Na 134), hyperkalemia (K 5.5), BUN 32, and creatinine 1.58 (slightly improved from his baseline of 1.8). Serum glucose was markedly elevated at 423 , and alkaline phosphatase was mildly elevated at 174 . BNP was significantly elevated at 2,890 pg/mL, consistent with chronic volume or pressure overload, though without acute decompensated heart failure on imaging or exam. In the ED, he was treated with oral amlodipine 5 mg for blood pressure control and V[place] for hyperkalemia. He was admitted for hypertensive urgency, hyperglycemia, and hyperkalemia secondary to medication noncompliance. During hospitalization, his blood pressure and glucose improved with increase of amlodipine to 10mg, hydralazine 100mg TID, metoprolol tartrate 25mg BID, and his renal function remained stable at baseline. Hyperkalemia resolved. After counseling and stabilization, he insisted on discharge. A thorough discussion was held regarding the critical importance of medication adherence, consistent insulin pump use, and close outpatient follow-up. He verbalized understanding. At discharge, blood pressure was 125/75 , creatinine 1.8, and blood glucose levels were trending down to 224. He is medically stable for discharge with close follow-up and repeat labs planned for this week. Discharge Note New Diagnosis:Hypertensive urgency/Hyperglycemia New Medications: amlodipine increased to 10mg daily, hydralazine 100mg TID, metoprolol tartrate 25mg BID Follow Up: PCP, endocrinology Results pending: Echo pending Outpatient testing to order: YAMILETH I spent 35 minutes [id number] with the patient on the day of discharge performing discharge exam, discussing hospital stay and discharge instructions with patient and caregivers, preparation of discharge records, prescriptions & referral forms and addressing any questions/concerns the patient had as documented above. - Vitals & Intake/Output Vital Signs: Vital Signs Temperature 97.3 F 07/25/25 07:30 Pulse Rate 63 07/25/25 07:30 Respiratory Rate 18 07/25/25 07:30 Blood Pressure 125/75 07/25/25 07:30 O2 Sat by Pulse Oximetry 98 07/25/25 07:30 Intake & Output: Intake & Output 07/22/25 07/23/25 07/24/25 07/25/25 11:59 11:59 11:59 11:59 Intake Total 1560 Balance 1560 Weight 93.894 kg 93.6 kg - Lab Result Diagrams: 07/25/25 04:30 07/25/25 04:30 Lab Results-Last 24 Hrs: Lab Results-Last 24 Hours 07/24/25 07/24/25 07/24/25 Range/Units 11:55 11:55 11:55 WBC 8.5 (4.23-9.07) x10^3/uL RBC 3.71 L (4.63-6.08) x10^6/uL Hgb 11.3 L (13.7-17.5) g/dL Hct 33.9 L (40.1-51.0) % MCV 91.4 (79.0-92.2) fL MCH 30.5 (25.7-32.2) pg MCHC 33.3 (32.3-36.5) g/dL RDW 12.9 (11.6-14.4) % Plt Count 320 (163-337) x10^3/uL MPV 11.6 (9.4-12.4) fL Gran % 72.3 H (34.0-67.9) % Immature Gran % (Auto) 0.2 (0.001-0.429) % Nucleat RBC Rel Count 0.0 (0.00-0.2) % Eos # (Auto) 0.17 (0.04-0.54) x10^3/uL Immature Gran # (Auto) 0.02 (0.001-0.031) x10^3u/L Absolute Lymphs (auto) 1.47 (1.32-3.57) x10^3/uL Absolute Monos (auto) 0.64 (0.30-0.82) x10^3/uL Absolute Nucleated RBC 0.00 (0.00-0.012) x10^3u/L Lymphocytes % 17.4 L (21.8-53.1) % Monocytes % 7.6 (5.3-12.2) % Eosinophils % 2.0 (0.8-7.0) % Basophils % 0.5 (0.2-1.2) % Absolute Granulocytes 6.13 H (1.78-5.38) x10^3/uL Basophils # 0.04 (0.01-0.08) x10^3/uL Sodium 134 L (135-145) mmol/L Potassium 5.5 H (3.5-5.1) mmol/L Chloride 106 (98-107) mmol/L Carbon Dioxide 22 (22-30) mmol/L Anion Gap 11.3 (5-15) MEQ/L BUN 32 H (9-20) mg/dL Creatinine 1.58 H (0.66-1.25) mg/dL Estimated GFR 48.9 ML/MIN Glucose 423 H (74-106) mg/dL POC Glucometer (74 to 106) mg/dL Hemoglobin A1c (4.5-6.0) % Calcium 9.1 (8.4-10.2) mg/dL Total Bilirubin 0.30 (0.2-1.3) mg/dL AST 17 (17-59) U/L ALT 11 (0-50) U/L Alkaline Phosphatase 174 H (38-126) U/L Troponin I 0.031 (0.000-0.033) ng/mL NT-Pro-B Natriuret Pep 2890 (<300) pg/mL Serum Total Protein 6.8 (6.3-8.2) g/dL Albumin 3.6 (3.5-5.0) g/dL Triglycerides (30-150) mg/dL Cholesterol (50-200) mg/dL LDL Cholesterol (30-100) mg/dL HDL Cholesterol (40-60) mg/dL Heart Disease Risk Ratio TSH 3rd Generation (0.470-4.680) mIU/L 07/24/25 07/24/25 07/24/25 Range/Units 12:06 14:44 15:15 WBC (4.23-9.07) x10^3/uL RBC (4.63-6.08) x10^6/uL Hgb (13.7-17.5) g/dL Hct (40.1-51.0) % MCV (79.0-92.2) fL MCH (25.7-32.2) pg MCHC (32.3-36.5) g/dL RDW (11.6-14.4) % Plt Count (163-337) x10^3/uL MPV (9.4-12.4) fL Gran % (34.0-67.9) % Immature Gran % (Auto) (0.001-0.429) % Nucleat RBC Rel Count (0.00-0.2) % Eos # (Auto) (0.04-0.54) x10^3/uL Immature Gran # (Auto) (0.001-0.031) x10^3u/L Absolute Lymphs (auto) (1.32-3.57) x10^3/uL Absolute Monos (auto) (0.30-0.82) x10^3/uL Absolute Nucleated RBC (0.00-0.012) x10^3u/L Lymphocytes % (21.8-53.1) % Monocytes % (5.3-12.2) % Eosinophils % (0.8-7.0) % Basophils % (0.2-1.2) % Absolute Granulocytes (1.78-5.38) x10^3/uL Basophils # (0.01-0.08) x10^3/uL Sodium (135-145) mmol/L Potassium (3.5-5.1) mmol/L Chloride (98-107) mmol/L Carbon Dioxide (22-30) mmol/L Anion Gap (5-15) MEQ/L BUN (9-20) mg/dL Creatinine (0.66-1.25) mg/dL Estimated GFR ML/MIN Glucose (74-106) mg/dL POC Glucometer 333 H (74 to 106) mg/dL Hemoglobin A1c 13.80 H (4.5-6.0) % Calcium (8.4-10.2) mg/dL Total Bilirubin (0.2-1.3) mg/dL AST (17-59) U/L ALT (0-50) U/L Alkaline Phosphatase (38-126) U/L Troponin I 0.031 (0.000-0.033) ng/mL NT-Pro-B Natriuret Pep (<300) pg/mL Serum Total Protein (6.3-8.2) g/dL Albumin (3.5-5.0) g/dL Triglycerides (30-150) mg/dL Cholesterol (50-200) mg/dL LDL Cholesterol (30-100) mg/dL HDL Cholesterol (40-60) mg/dL Heart Disease Risk Ratio TSH 3rd Generation (0.470-4.680) mIU/L 07/24/25 07/24/25 07/24/25 Range/Units 15:15 15:15 16:55 WBC (4.23-9.07) x10^3/uL RBC (4.63-6.08) x10^6/uL Hgb (13.7-17.5) g/dL Hct (40.1-51.0) % MCV (79.0-92.2) fL MCH (25.7-32.2) pg MCHC (32.3-36.5) g/dL RDW (11.6-14.4) % Plt Count (163-337) x10^3/uL MPV (9.4-12.4) fL Gran % (34.0-67.9) % Immature Gran % (Auto) (0.001-0.429) % Nucleat RBC Rel Count (0.00-0.2) % Eos # (Auto) (0.04-0.54) x10^3/uL Immature Gran # (Auto) (0.001-0.031) x10^3u/L Absolute Lymphs (auto) (1.32-3.57) x10^3/uL Absolute Monos (auto) (0.30-0.82) x10^3/uL Absolute Nucleated RBC (0.00-0.012) x10^3u/L Lymphocytes % (21.8-53.1) % Monocytes % (5.3-12.2) % Eosinophils % (0.8-7.0) % Basophils % (0.2-1.2) % Absolute Granulocytes (1.78-5.38) x10^3/uL Basophils # (0.01-0.08) x10^3/uL Sodium 135 (135-145) mmol/L Potassium 4.8 (3.5-5.1) mmol/L Chloride 108 H (98-107) mmol/L Carbon Dioxide 21 L (22-30) mmol/L Anion Gap 11.0 (5-15) MEQ/L BUN 31 H (9-20) mg/dL Creatinine 1.52 H (0.66-1.25) mg/dL Estimated GFR 51.2 ML/MIN Glucose 345 H (74-106) mg/dL POC Glucometer 276 H (74 to 106) mg/dL Hemoglobin A1c (4.5-6.0) % Calcium 8.8 (8.4-10.2) mg/dL Total Bilirubin (0.2-1.3) mg/dL AST (17-59) U/L ALT (0-50) U/L Alkaline Phosphatase (38-126) U/L Troponin I (0.000-0.033) ng/mL NT-Pro-B Natriuret Pep (<300) pg/mL Serum Total Protein (6.3-8.2) g/dL Albumin (3.5-5.0) g/dL Triglycerides (30-150) mg/dL Cholesterol (50-200) mg/dL LDL Cholesterol (30-100) mg/dL HDL Cholesterol (40-60) mg/dL Heart Disease Risk Ratio TSH 3rd Generation 0.586 (0.470-4.680) mIU/L 07/24/25 07/24/25 07/25/25 Range/Units 19:40 20:53 04:30 WBC 10.5 H (4.23-9.07) x10^3/uL RBC 3.53 L (4.63-6.08) x10^6/uL Hgb 11.1 L (13.7-17.5) g/dL Hct 32.9 L (40.1-51.0) % MCV 93.2 H (79.0-92.2) fL MCH 31.4 (25.7-32.2) pg MCHC 33.7 (32.3-36.5) g/dL RDW 12.9 (11.6-14.4) % Plt Count 337 (163-337) x10^3/uL MPV 11.6 (9.4-12.4) fL Gran % 59.1 (34.0-67.9) % Immature Gran % (Auto) 0.3 (0.001-0.429) % Nucleat RBC Rel Count 0.0 (0.00-0.2) % Eos # (Auto) 0.29 (0.04-0.54) x10^3/uL Immature Gran # (Auto) 0.03 (0.001-0.031) x10^3u/L Absolute Lymphs (auto) 3.06 (1.32-3.57) x10^3/uL Absolute Monos (auto) 0.86 H (0.30-0.82) x10^3/uL Absolute Nucleated RBC 0.00 (0.00-0.012) x10^3u/L Lymphocytes % 29.1 (21.8-53.1) % Monocytes % 8.2 (5.3-12.2) % Eosinophils % 2.8 (0.8-7.0) % Basophils % 0.5 (0.2-1.2) % Absolute Granulocytes 6.24 H (1.78-5.38) x10^3/uL Basophils # 0.05 (0.01-0.08) x10^3/uL Sodium (135-145) mmol/L Potassium (3.5-5.1) mmol/L Chloride (98-107) mmol/L Carbon Dioxide (22-30) mmol/L Anion Gap (5-15) MEQ/L BUN (9-20) mg/dL Creatinine (0.66-1.25) mg/dL Estimated GFR ML/MIN Glucose (74-106) mg/dL POC Glucometer 112 H (74 to 106) mg/dL Hemoglobin A1c (4.5-6.0) % Calcium (8.4-10.2) mg/dL Total Bilirubin (0.2-1.3) mg/dL AST (17-59) U/L ALT (0-50) U/L Alkaline Phosphatase (38-126) U/L Troponin I 0.038 H* (0.000-0.033) ng/mL NT-Pro-B Natriuret Pep (<300) pg/mL Serum Total Protein (6.3-8.2) g/dL Albumin (3.5-5.0) g/dL Triglycerides (30-150) mg/dL Cholesterol (50-200) mg/dL LDL Cholesterol (30-100) mg/dL HDL Cholesterol (40-60) mg/dL Heart Disease Risk Ratio TSH 3rd Generation (0.470-4.680) mIU/L 07/25/25 07/25/25 07/25/25 Range/Units 04:30 04:30 07:16 WBC (4.23-9.07) x10^3/uL RBC (4.63-6.08) x10^6/uL Hgb (13.7-17.5) g/dL Hct (40.1-51.0) % MCV (79.0-92.2) fL MCH (25.7-32.2) pg MCHC (32.3-36.5) g/dL RDW (11.6-14.4) % Plt Count (163-337) x10^3/uL MPV (9.4-12.4) fL Gran % (34.0-67.9) % Immature Gran % (Auto) (0.001-0.429) % Nucleat RBC Rel Count (0.00-0.2) % Eos # (Auto) (0.04-0.54) x10^3/uL Immature Gran # (Auto) (0.001-0.031) x10^3u/L Absolute Lymphs (auto) (1.32-3.57) x10^3/uL Absolute Monos (auto) (0.30-0.82) x10^3/uL Absolute Nucleated RBC (0.00-0.012) x10^3u/L Lymphocytes % (21.8-53.1) % Monocytes % (5.3-12.2) % Eosinophils % (0.8-7.0) % Basophils % (0.2-1.2) % Absolute Granulocytes (1.78-5.38) x10^3/uL Basophils # (0.01-0.08) x10^3/uL Sodium 133 L (135-145) mmol/L Potassium 4.8 (3.5-5.1) mmol/L Chloride 104 (98-107) mmol/L Carbon Dioxide 23 (22-30) mmol/L Anion Gap 10.9 (5-15) MEQ/L BUN 40 H (9-20) mg/dL Creatinine 1.87 H (0.66-1.25) mg/dL Estimated GFR 39.9 ML/MIN Glucose 257 H (74-106) mg/dL POC Glucometer 319 H (74 to 106) mg/dL Hemoglobin A1c (4.5-6.0) % Calcium 8.5 (8.4-10.2) mg/dL Total Bilirubin 0.10 L (0.2-1.3) mg/dL AST 18 (17-59) U/L ALT 10 (0-50) U/L Alkaline Phosphatase 161 H (38-126) U/L Troponin I 0.034 H (0.000-0.033) ng/mL NT-Pro-B Natriuret Pep (<300) pg/mL Serum Total Protein 6.5 (6.3-8.2) g/dL Albumin 3.5 (3.5-5.0) g/dL Triglycerides 1252 H (30-150) mg/dL Cholesterol 296 H (50-200) mg/dL LDL Cholesterol 65 (30-100) mg/dL HDL Cholesterol 31 L (40-60) mg/dL Heart Disease Risk Ratio 10.0 TSH 3rd Generation (0.470-4.680) mIU/L Micro Results-Entire Visit: Accuchecks Date 07/24/25 Date 07/24/25 Date 07/24/25 Time 20:50 Time 17:07 Time 14:46 - Radiology Exams Ordered Rad Exams-Entire Visit: Radiology Procedures Category Date Time Status CHEST 1 VIEW (PORTABLE) Stat Exams 07/24/25 11:56 Completed ECHO W/2D AND DOPPLER [US] Routine Exams 07/25/25 08:00 Ordered - Procedures and Test Procedures and Tests throughout Hospitalization: Therapy Orders & Screens 07/24/25 14:57 EKG REPEAT IN AM Comment: Diagnosis: Hypertension/hyperglycemia/hyperkalemia Discharge Exam General Appearance: no apparent distress Neurologic Exam: alert, oriented x 3, cooperative Eye Exam: PERRL Ears, Nose, Throat Exam: normal ENT inspection Neck Exam: normal inspection Respiratory Exam: normal breath sounds, lungs clear Cardiovascular Exam: regular rate/rhythm, normal heart sounds Gastrointestinal/Abdomen Exam: soft, normal bowel sounds Rectal Exam: deferred Back Exam: normal inspection Extremity Exam: normal inspection Skin Exam: normal color Final Diagnosis/Problem List - Final Discharge Diagnosis/Problem (1) Hypertensive urgency Current Visit: Yes Status: Acute Assessment & Plan: Severe asymptomatic hypertension secondary to medication noncompliance. EKG: LVH without ischemic changes; CXR: no acute findings. Responded to medical therapy with improvement from 226/88 to 125/75. Amlodipine 10 mg PO daily (increased dose) Hydralazine 100 mg PO TID (initiated inpatient) Metoprolol tartrate 25 mg PO BID (new) Advised to maintain home BP log and bring to PCP visit. Follow up with PCP and cardiology for continued BP monitoring and echocardiogram review. Code(s): I16.0 - HYPERTENSIVE URGENCY (2) Hyperkalemia Current Visit: Yes Status: Acute Assessment & Plan: Resolved Code(s): E87.5 - HYPERKALEMIA (3) Normocytic anemia Current Visit: Yes Status: Acute Assessment & Plan: Hgb 11.3 on admission, 11.1 on discharge. Stable, consistent with anemia of chronic disease. Code(s): D64.9 - ANEMIA, UNSPECIFIED (4) GERD (gastroesophageal reflux disease) Current Visit: Yes Status: Acute Assessment & Plan: continue protonix Code(s): K21.9 - GASTRO-ESOPHAGEAL REFLUX DISEASE WITHOUT ESOPHAGITIS (5) Smoker Current Visit: Yes Status: Acute Assessment & Plan: Advised cessation Code(s): F17.200 - NICOTINE DEPENDENCE, UNSPECIFIED, UNCOMPLICATED (6) CKD (chronic kidney disease) stage 3, GFR 30-59 ml/min Current Visit: No Status: Acute Assessment & Plan: Baseline Cr 1.8 ; admission 1.58 -discharge 1.8 Maintain hydration and avoid nephrotoxic drugs (NSAIDs, IV contrast). Adjust medication dosing for renal function. Follow-up CMP on Wednesday and nephrology referral placed. Code(s): N18.30 - CHRONIC KIDNEY DISEASE, STAGE 3 UNSPECIFIED (7) Diabetes type 2, uncontrolled Current Visit: No Status: Acute Assessment & Plan: Admission glucose 423 mg/dL; A1c 13.8%, reflecting chronic poor control. Nonadherent to home regimen; uses insulin pump at home but inconsistently. Transitioned to subcutaneous basal-bolus insulin during hospitalization; glucose improved but remained above goal. Advised to resume consistent insulin pump use and log home readings. Follow up with endocrinology (Dr. Welsh) for pump basal/bolus adjustment and ongoing diabetes management. Continue ADA diet and home glucose monitoring. Code(s): HCD3368 - (8) Hyponatremia Current Visit: No Status: Acute Assessment & Plan: Mild, secondary to hyperglycemia; resolved with improved glucose control. Continue monitoring with routine outpatient labs. Code(s): E87.1 - HYPO-OSMOLALITY AND HYPONATREMIA (9) Peripheral neuropathy Current Visit: Yes Status: Acute Assessment & Plan: Continue home medications for neuropathic pain. Reinforce glycemic control to prevent further progression. Code(s): G62.9 - POLYNEUROPATHY, UNSPECIFIED (10) Hypertriglyceridemia Current Visit: Yes Status: Acute Assessment & Plan: Lipid panel: triglycerides 1252 mg/dL, cholesterol 296 , LDL 65 , HDL 31 Continue atorvastatin-increase to 80 mg nightly; pharmacy to renally adjust fenofibrate. Advised low-fat, heart-healthy diet. Outpatient lipid panel recheck with PCP/endocrinology. Follow-Up and Recommendations Primary Care: Within 23 days for blood pressure check, medication review, and repeat CMP. Endocrinology: For insulin pump settings and diabetic regimen adjustment. Nephrology: To monitor renal function and optimize CKD management. Cardiology: For echocardiogram and LVH evaluation. Code(s): E78.1 - PURE HYPERGLYCERIDEMIA - Discharge Discharge Date: 07/25/25 Disposition: Home, Self-Care Condition: Stable Prescriptions: New Amlodipine Besylate 10 mg PO DAILY 30 Days #30 tablet HydrALAzine HCL 25 MG TAB [Apresoline 25 MG TABLET] 100 mg PO TID 30 Days #90 tablet Metoprolol Tartrate 25 mg [Lopressor 25MG Tab] 25 mg PO BID 30 Days #60 tablet Insulin Lispro [Humalog] See Rx Instructions .ROUTE .COMPLEX 30 Days #400 unit MDD as directed Continue Gabapentin [Neurontin] 800 mg PO TID Duloxetine HCl 60 mg PO DAILY Atorvastatin Calcium 80 mg PO HS Bumetanide 1 mg [Bumex 1 mg] 2 mg PO BID Sitagliptin Phosphate [Januvia] 100 mg PO DAILY PANTOPRAZOLE 40 mg Tablet [Protonix 40MG Tablet] 1 tab PO DAILY Dapagliflozin Propanediol [Farxiga] 10 mg PO DAILY Blood-Glucose Meter [Accu-Chek Guide Me Glucose Mtr] 1 each MC UD #1 misc Blood Sugar Diagnostic [Accu-Chek Guide Test Strip] 1 each MC TID #100 strip Lancets [Accu-Chek Softclix] 1 each MC TID #100 misc Glucagon [Gvoke] See Rx Instructions .ROUTE .COMPLEX 30 Days #1 kit Levocetirizine Dihydrochloride 5 mg PO DAILY Discontinued Amlodipine Besylate 5 mg PO DAILY Insulin Lispro [Humalog] 8 unit SQ TIDWMEALS #0 Follow up with: ROOSEVELT MARR [CONSULTING PHYSICIAN, NEPHROLOGY] - 08/06/25 4:40 pm EMIGDIO EARLY MD [Primary Care Provider, FAMILY [facility]ACTICE] - 07/31/25 11:00 am RAND WELSH [NON-STAFF PHY W/O PRIVILEGES, UNKNOWN] - 07/27/25 1:00 pm
--- NOTE | 2025-07-25 10:51 | PCM.DCORD ---
- Discharge Discharge Date: 07/25/25 Disposition: Home, Self-Care Condition: Stable Prescriptions: New Amlodipine Besylate 10 mg PO DAILY 30 Days #30 tablet HydrALAzine HCL 25 MG TAB [Apresoline 25 MG TABLET] 100 mg PO TID 30 Days #90 tablet Metoprolol Tartrate 25 mg [Lopressor 25MG Tab] 25 mg PO BID 30 Days #60 tablet Insulin Lispro [Humalog] See Rx Instructions .ROUTE .COMPLEX 30 Days #400 unit MDD as directed Fenofibrate 40 mg PO DAILY 30 Days #30 tablet Gabapentin [Neurontin ] 300 mg PO TID 30 Days #90 cap Continue Duloxetine HCl 60 mg PO DAILY Atorvastatin Calcium 80 mg PO HS Bumetanide 1 mg [Bumex 1 mg] 2 mg PO BID Sitagliptin Phosphate [Januvia] 100 mg PO DAILY PANTOPRAZOLE 40 mg Tablet [Protonix 40MG Tablet] 1 tab PO DAILY Dapagliflozin Propanediol [Farxiga] 10 mg PO DAILY Blood-Glucose Meter [Accu-Chek Guide Me Glucose Mtr] 1 each MC UD #1 misc Blood Sugar Diagnostic [Accu-Chek Guide Test Strip] 1 each MC TID #100 strip Lancets [Accu-Chek Softclix] 1 each MC TID #100 misc Glucagon [Gvoke] See Rx Instructions .ROUTE .COMPLEX 30 Days #1 kit Levocetirizine Dihydrochloride 5 mg PO DAILY Discontinued Gabapentin [Neurontin] 800 mg PO TID Amlodipine Besylate 5 mg PO DAILY Insulin Lispro [Humalog] 8 unit SQ TIDWMEALS #0 Instructions: High blood pressure in adults, Quitting smoking for adults, Hyperkalemia, Troponin test Follow up with: VIK AGUILAR [CONSULTING PHYSICIAN, CARDIOLOGY] ROOSEVELT MARR [CONSULTING PHYSICIAN, NEPHROLOGY] - 08/06/25 4:40 pm EMIGDIO EARLY MD [Primary Care Provider, FAMILY PRACTICE] - 07/31/25 11:00 am RAND WELSH [NON-STAFF PHY W/O PRIVILEGES, UNKNOWN] - 07/27/25 1:00 pm
== END 2025-07-25 11:15 | disposition home or self-care (01) ==
LOC: ED 11:20 → MED SURG 14:04
PROVIDERS: ADMIT Internal Medicine; ATTEND Internal Medicine
DX: I16.0 Hypertensive urgency (principal); E87.5 Hyperkalemia; Z59.82 Transportation insecurity; D64.9 Anemia, unspecified; K21.9 Gastro-esophageal reflux disease without esophagitis; F17.200 Nicotine dependence, unspecified, uncomplicated; E11.22 Type 2 diabetes mellitus with diabetic chronic kidney disease; E11.65 Type 2 diabetes mellitus with hyperglycemia; I12.9 Hypertensive chronic kidney disease with stage 1 through stage 4 chronic kidney disease, or unspecified chronic kidney disease; N18.30 Chronic kidney disease, stage 3 unspecified; E87.1 Hypo-osmolality and hyponatremia; G62.9 Polyneuropathy, unspecified; E78.1 Pure hyperglyceridemia; Z79.899 Other long term (current) drug therapy
CPT/HCPCS: 36415; 71045; 80048; 80053; 80061; 82947; 83036; 83721; 83880; 84443; 84484; 85025; 93005; 93041; 93268; 93306; 94760; 99285; G0378; Q3014